=== PATIENT | male | born 1985 | race Caucasian/White ===

== ENCOUNTER 2016-10-13 21:32 | Emergency (ER) | payer MEDICAID ==
[2016-10-13] MEDS ORDERED: ONDANSETRON 4 MG/2 ML VIAL IVP STA (23:45)
[2016-10-13] MEDS ORDERED: SODIUM CHLORIDE 0.9% 1,000 ML IV STA (23:45)
[2016-10-13] MEDS ORDERED: ONDANSETRON 4 MG/2 ML VIAL ONE (23:52)
[2016-10-13] MEDS ORDERED: SODIUM CHLORIDE 0.9% 1,000 ML IV ONE (23:52)
[2016-10-14] MEDS ORDERED: HYDROmorphone 1 MG/ML SYRINGE IVP STA ×2 (00:09→03:09)
[2016-10-14] MEDS ORDERED: HYDROmorphone 1 MG/ML SYRINGE ONE ×2 (00:13→03:10)
== END 2016-10-14 03:30 | disposition home or self-care (01) ==
DX: R10.9 Unspecified abdominal pain (principal); R11.2 Nausea with vomiting, unspecified; K21.9 Gastro-esophageal reflux disease without esophagitis; Z87.19 Personal history of other diseases of the digestive system; Z90.49 Acquired absence of other specified parts of digestive tract; Z89.512 Acquired absence of left leg below knee; Z89.511 Acquired absence of right leg below knee

== ENCOUNTER 2016-12-17 07:34 | Emergency (ER) | payer MEDICAID ==
[2016-12-17] MEDS ORDERED: HYDROmorphone 1 MG/ML SYRINGE IVP STA ×3 (07:45→10:26)
[2016-12-17] MEDS ORDERED: ONDANSETRON 4 MG/2 ML VIAL IVP STA (07:45)
[2016-12-17] MEDS ORDERED: ACETAMINOPHEN 1,000 MG/100 ML 100 ML IV STA (07:46)
[2016-12-17] MEDS ORDERED: ONDANSETRON 4 MG/2 ML VIAL ONE (07:48)
[2016-12-17] MEDS ORDERED: ACETAMINOPHEN 1,000 MG/100 ML 100 ML IV ONE (07:48)
[2016-12-17] MEDS ORDERED: HYDROmorphone 1 MG/ML SYRINGE ONE ×4 (07:48→10:33)
[2016-12-17] MEDS ORDERED: PROMETHAZINE INJ 12.5 MG in SODIUM CHLORIDE 0.9% 50 ML IV STA (08:02)
[2016-12-17] MEDS ORDERED: PROMETHAZINE 25 MG/1 ML VIAL ONE (08:10)
[2016-12-17] MEDS: HYDROmorphone 1 MG/ML SYRINGE IVP STA ×2 (08:15)
[2016-12-17] MEDS ORDERED: SODIUM CHLORIDE 0.9% 1,000 ML IV ONE (08:44)
== END 2016-12-17 10:55 | disposition home or self-care (01) ==
DX: R10.31 Right lower quadrant pain (principal); K21.9 Gastro-esophageal reflux disease without esophagitis; Z87.442 Personal history of urinary calculi
CPT/HCPCS: 81001; 96374; 96375; 96376; 99284; J0131; J1170

== ENCOUNTER 2017-01-07 18:56 | Emergency (ER) | payer MEDICAID ==
[2017-01-07] MEDS ORDERED: VANCOMYCIN INJ 1 GM in SODIUM CHLORIDE 0.9% 250 ML IV STA (20:03)
[2017-01-07] MEDS ORDERED: PIPERACILLIN/TAZOBACTAM 4.5 GM in SODIUM CHLORIDE 0.9% MINIBAG 100 ML IV STA (20:03)
[2017-01-07] MEDS ORDERED: SODIUM CHLORIDE 0.9% 1,000 ML IV ONE (20:04)
[2017-01-07] MEDS ORDERED: HYDROmorphone 1 MG/ML SYRINGE IVP STA (20:58)
[2017-01-07] MEDS ORDERED: HYDROmorphone 1 MG/ML SYRINGE ONE (20:59)
== END 2017-01-07 21:29 | disposition short-term general hospital (02) ==
DX: R78.81 Bacteremia (principal); Z87.440 Personal history of urinary (tract) infections; Z87.442 Personal history of urinary calculi; K21.9 Gastro-esophageal reflux disease without esophagitis
CPT/HCPCS: 36415; 80053; 81001; 83605; 83690; 85025; 87040; 87086; 96365; 96375; 99284; 99285; J1170

== ENCOUNTER 2017-01-07 21:14 | Outpatient (CLI) | payer MEDICAID | END 2017-01-07 21:15 | disposition short-term general hospital (02) | DX: R10.9 Unspecified abdominal pain (principal); R78.81 Bacteremia | CPT/HCPCS: A0425; A0426 ==

== ENCOUNTER 2017-01-18 13:25 | Emergency (ER) | payer MEDICAID ==
[2017-01-18] MEDS ORDERED: SODIUM CHLORIDE 0.9% 1,000 ML IV ONE ×2 (15:52→17:23)
[2017-01-18] MEDS ORDERED: DEXTROSE 5%-0.9% NACL 1,000 ML IV ONE (15:55)
[2017-01-18] MEDS ORDERED: HYDROmorphone 1 MG/ML SYRINGE IVP STA ×3 (16:05→18:56)
[2017-01-18] MEDS ORDERED: ONDANSETRON 4 MG/2 ML VIAL IVP STA (16:07)
[2017-01-18] MEDS ORDERED: HYDROmorphone 1 MG/ML SYRINGE ONE ×3 (16:10→18:58)
[2017-01-18] MEDS ORDERED: ONDANSETRON 4 MG/2 ML VIAL ONE (16:10)
[2017-01-18] MEDS ORDERED: POTASSIUM CHLOR 10 MEQ/100 ML 100 ML IV ONE ×2 (17:07→18:09)
[2017-01-18] MEDS ORDERED: POTASSIUM CHLOR 10 MEQ/100 ML 200 ML IV ONE (17:24)
== END 2017-01-18 19:35 | disposition home or self-care (01) ==
DX: T82.524A Displacement of infusion catheter, initial encounter (principal); Y84.8 Other medical procedures as the cause of abnormal reaction of the patient, or of later complication, without mention of misadventure at the time of the procedure; E86.0 Dehydration; E87.6 Hypokalemia
CPT/HCPCS: 36415; 71020; 80053; 83690; 85025; 96361; 96374; 96375; 96376; 99283; 99285; J1170

== ENCOUNTER 2017-02-23 08:00 | Outpatient (CLI) | payer MEDICAID ==
[2017-02-23 13:41] LABS: BASOPHILS % (AUTO) 0.4 %; EOSINOPHILS # (AUTO) 0.3 10^3/uL (0.0-0.7); EOSINOPHILS % (AUTO) 2.4 %; HCT - HEMATOCRIT 37.5 % (42.0-52.0); HGB - HEMOGLOBIN 12.5 g/dL (14.0-18.0); LYMPHOCYTES # (AUTO) 3.1 10^3/uL (1.5-3.5); LYMPHOCYTES % (AUTO) 27.5 %; MEAN CORPUSCULAR HEMOGLOBIN 25.6 pg (27.0-31.0); MEAN CORPUSCULAR HGB CONC 33.4 g/dL (32.0-36.0); MEAN CORPUSCULAR VOLUME 76.7 fL (80.0-94.0); MEAN PLATELET VOLUME 10.6 fL (7.4-11.4); MONOCYTES # (AUTO) 0.6 10^3/uL (0.0-1.0); MONOCYTES % (AUTO) 5.5 %; NEUTROPHILS # (AUTO) 7.2 10^3/uL (1.5-6.6); NEUTROPHILS % (AUTO) 64.2 %; NUCLEATED RED BLOOD CELLS AUTO 0.1 /100WBC; RED BLOOD COUNT 4.89 10^6/uL (4.70-6.10); RED CELL DISTRIBUTION WIDTH 15.6 % (12.0-15.0); UNCORRECTED WHITE BLOOD COUNT 11.2 x10^3/uL; WHITE BLOOD COUNT 11.2 x10^3/uL (4.8-10.8)
[2017-02-23 14:30] LABS: ALBUMIN/GLOBULIN RATIO 1.3 (1.0-2.2); BILIRUBIN,TOTAL 0.4 mg/dL (0.2-1.0); CALCIUM 8.9 mg/dL (8.5-10.3); CREATININE 0.6 mg/dL (0.6-1.2); PHOSPHORUS 2.5 mg/dL (2.5-4.6); POTASSIUM 3.6 mmol/L (3.5-5.0); TOTAL PROTEIN 6.4 g/dL (6.7-8.2)
== END 2017-02-23 08:01 | disposition home or self-care (01) ==
LOC: LAB.R 08:00
PROVIDERS: ATTEND Internal Medicine Gastroenterology
DX: R78.81 Bacteremia (principal); K52.81 Eosinophilic gastritis or gastroenteritis
CPT/HCPCS: 80053; 83735; 84100; 84134; 84478; 85025; 85651; 86140

== ENCOUNTER 2017-03-02 08:00 | Outpatient (CLI) | payer MEDICAID ==
[2017-03-02 14:53] LABS: BASOPHILS % (AUTO) 0.4 %; EOSINOPHILS # (AUTO) 0.2 10^3/uL (0.0-0.7); HCT - HEMATOCRIT 39.1 % (42.0-52.0); HGB - HEMOGLOBIN 12.7 g/dL (14.0-18.0); LYMPHOCYTES # (AUTO) 2.9 10^3/uL (1.5-3.5); LYMPHOCYTES % (AUTO) 26.2 %; MEAN CORPUSCULAR HGB CONC 32.6 g/dL (32.0-36.0); MEAN CORPUSCULAR VOLUME 76.6 fL (80.0-94.0); MEAN PLATELET VOLUME 10.6 fL (7.4-11.4); MONOCYTES # (AUTO) 0.5 10^3/uL (0.0-1.0); MONOCYTES % (AUTO) 4.3 %; NEUTROPHILS # (AUTO) 7.4 10^3/uL (1.5-6.6); NEUTROPHILS % (AUTO) 67.1 %; RED CELL DISTRIBUTION WIDTH 15.8 % (12.0-15.0)
[2017-03-02 15:10] LABS: ALBUMIN/GLOBULIN RATIO 1.3 (1.0-2.2); BILIRUBIN,TOTAL 0.5 mg/dL (0.2-1.0); BUN - BLOOD UREA NITROGEN 22 mg/dL (6-20); CALCIUM 8.9 mg/dL (8.5-10.3); CARBON DIOXIDE - CO2 27 mmol/L (21-32); CHLORIDE 105 mmol/L (101-111); CREATININE 0.6 mg/dL (0.6-1.2); GFR - MDRD 156 (>89); GLUCOSE 93 mg/dL (70-100); IRON 23 ug/dL (45-182); PHOSPHORUS 2.9 mg/dL (2.5-4.6); POTASSIUM 4.1 mmol/L (3.5-5.0); SODIUM 139 mmol/L (135-145); TOTAL IRON BINDING CAPACITY 468 ug/dL (250-450); TOTAL PROTEIN 6.7 g/dL (6.7-8.2); TRANSFERRIN 334 mg/dL (180-329)
== END 2017-03-02 08:01 | disposition home or self-care (01) ==
LOC: LAB.R 08:00
PROVIDERS: ATTEND Internal Medicine Gastroenterology
DX: K52.81 Eosinophilic gastritis or gastroenteritis (principal)
CPT/HCPCS: 80053; 83540; 83735; 84100; 84466; 85025; 85651; 86140

== ENCOUNTER 2017-03-10 15:49 | Outpatient (CLI) | payer MEDICAID ==
[2017-03-10 14:01] LABS: BASOPHILS # (AUTO) 0.1 10^3/uL (0.0-0.1); BASOPHILS % (AUTO) 0.5 %; EOSINOPHILS # (AUTO) 0.3 10^3/uL (0.0-0.7); EOSINOPHILS % (AUTO) 2.3 %; HCT - HEMATOCRIT 38.4 % (42.0-52.0); HGB - HEMOGLOBIN 12.4 g/dL (14.0-18.0); LYMPHOCYTES # (AUTO) 4.7 10^3/uL (1.5-3.5); LYMPHOCYTES % (AUTO) 38.3 %; MEAN CORPUSCULAR HEMOGLOBIN 24.7 pg (27.0-31.0); MEAN CORPUSCULAR HGB CONC 32.4 g/dL (32.0-36.0); MEAN CORPUSCULAR VOLUME 76.2 fL (80.0-94.0); MEAN PLATELET VOLUME 9.9 fL (7.4-11.4); MONOCYTES # (AUTO) 0.7 10^3/uL (0.0-1.0); MONOCYTES % (AUTO) 5.9 %; NEUTROPHILS # (AUTO) 6.4 10^3/uL (1.5-6.6); RED BLOOD COUNT 5.05 10^6/uL (4.70-6.10); RED CELL DISTRIBUTION WIDTH 16.1 % (12.0-15.0); UNCORRECTED WHITE BLOOD COUNT 12.1 x10^3/uL; WHITE BLOOD COUNT 12.1 x10^3/uL (4.8-10.8)
[2017-03-10 14:25] LABS: ALBUMIN/GLOBULIN RATIO 1.3 (1.0-2.2); BILIRUBIN,TOTAL 0.5 mg/dL (0.2-1.0); CALCIUM 9.2 mg/dL (8.5-10.3); CREATININE 0.8 mg/dL (0.6-1.2); PHOSPHORUS 3.8 mg/dL (2.5-4.6); POTASSIUM 4.1 mmol/L (3.5-5.0); TOTAL PROTEIN 6.7 g/dL (6.7-8.2)
== END 2017-03-10 15:50 | disposition home or self-care (01) ==
LOC: LAB.R 15:49
PROVIDERS: ATTEND Internal Medicine Gastroenterology
DX: D50.9 Iron deficiency anemia, unspecified (principal); R78.81 Bacteremia; K52.81 Eosinophilic gastritis or gastroenteritis
CPT/HCPCS: 80053; 83735; 84100; 85025; 85651; 86140

== ENCOUNTER 2017-03-16 13:20 | Outpatient (CLI) | payer MEDICAID ==
[2017-03-16 14:33] LABS: BASOPHILS % (AUTO) 0.4 %; EOSINOPHILS # (AUTO) 0.3 10^3/uL (0.0-0.7); EOSINOPHILS % (AUTO) 2.9 %; HCT - HEMATOCRIT 37.7 % (42.0-52.0); HGB - HEMOGLOBIN 12.3 g/dL (14.0-18.0); LYMPHOCYTES # (AUTO) 4.2 10^3/uL (1.5-3.5); LYMPHOCYTES % (AUTO) 39.7 %; MEAN CORPUSCULAR HGB CONC 32.7 g/dL (32.0-36.0); MEAN CORPUSCULAR VOLUME 76.4 fL (80.0-94.0); MEAN PLATELET VOLUME 9.9 fL (7.4-11.4); MONOCYTES # (AUTO) 0.6 10^3/uL (0.0-1.0); MONOCYTES % (AUTO) 5.6 %; NEUTROPHILS # (AUTO) 5.4 10^3/uL (1.5-6.6); NEUTROPHILS % (AUTO) 51.4 %; NUCLEATED RED BLOOD CELLS AUTO 0.1 /100WBC; RED BLOOD COUNT 4.93 10^6/uL (4.70-6.10); RED CELL DISTRIBUTION WIDTH 16.1 % (12.0-15.0); UNCORRECTED WHITE BLOOD COUNT 10.6 x10^3/uL; WHITE BLOOD COUNT 10.6 x10^3/uL (4.8-10.8)
[2017-03-16 14:48] LABS: ALBUMIN/GLOBULIN RATIO 1.3 (1.0-2.2); BILIRUBIN,TOTAL 0.4 mg/dL (0.2-1.0); CALCIUM 8.7 mg/dL (8.5-10.3); CREATININE 0.6 mg/dL (0.6-1.2); PHOSPHORUS 3.3 mg/dL (2.5-4.6); POTASSIUM 3.9 mmol/L (3.5-5.0); TOTAL PROTEIN 6.4 g/dL (6.7-8.2)
== END 2017-03-16 13:21 | disposition home or self-care (01) ==
LOC: LAB.R 13:20
PROVIDERS: ATTEND Nurse Practitioner Family
DX: D50.9 Iron deficiency anemia, unspecified (principal); K52.81 Eosinophilic gastritis or gastroenteritis; R78.81 Bacteremia
CPT/HCPCS: 80053; 83735; 84100; 85025; 85651; 86140

== ENCOUNTER 2017-03-23 08:00 | Outpatient (CLI) | payer MEDICAID ==
[2017-03-23 16:10] LABS: BASOPHILS # (AUTO) 0.1 10^3/uL (0.0-0.1); BASOPHILS % (AUTO) 0.5 %; EOSINOPHILS # (AUTO) 0.4 10^3/uL (0.0-0.7); EOSINOPHILS % (AUTO) 3.8 %; HCT - HEMATOCRIT 42.7 % (42.0-52.0); HGB - HEMOGLOBIN 13.7 g/dL (14.0-18.0); LYMPHOCYTES # (AUTO) 2.9 10^3/uL (1.5-3.5); LYMPHOCYTES % (AUTO) 26.9 %; MEAN CORPUSCULAR HEMOGLOBIN 25.4 pg (27.0-31.0); MEAN CORPUSCULAR HGB CONC 32.1 g/dL (32.0-36.0); MEAN CORPUSCULAR VOLUME 79.1 fL (80.0-94.0); MEAN PLATELET VOLUME 10.2 fL (7.4-11.4); MONOCYTES # (AUTO) 0.7 10^3/uL (0.0-1.0); MONOCYTES % (AUTO) 6.2 %; NEUTROPHILS # (AUTO) 6.8 10^3/uL (1.5-6.6); NEUTROPHILS % (AUTO) 62.6 %; RED BLOOD COUNT 5.39 10^6/uL (4.70-6.10); RED CELL DISTRIBUTION WIDTH 17.7 % (12.0-15.0); UNCORRECTED WHITE BLOOD COUNT 10.9 x10^3/uL; WHITE BLOOD COUNT 10.9 x10^3/uL (4.8-10.8)
[2017-03-23 16:30] LABS: ALBUMIN/GLOBULIN RATIO 1.4 (1.0-2.2); BILIRUBIN,TOTAL 0.4 mg/dL (0.2-1.0); CALCIUM 8.9 mg/dL (8.5-10.3); CREATININE 0.7 mg/dL (0.6-1.2); MAGNESIUM 2.2 mg/dL (1.7-2.8); PHOSPHORUS 3.7 mg/dL (2.5-4.6); POTASSIUM 3.8 mmol/L (3.5-5.0); TOTAL PROTEIN 6.9 g/dL (6.7-8.2)
== END 2017-03-23 23:59 | disposition home or self-care (01) ==
LOC: LAB.R 08:00
PROVIDERS: ATTEND Internal Medicine Gastroenterology
DX: K52.81 Eosinophilic gastritis or gastroenteritis (principal); D50.9 Iron deficiency anemia, unspecified
CPT/HCPCS: 80053; 83735; 84100; 85025; 85651; 86140

== ENCOUNTER 2017-03-26 13:49 | Outpatient (CLI) | payer MEDICAID ==
--- NOTE | 2017-03-27 09:50 | XRAY Report ---
FRONTAL CHEST: 03/26/2017 CLINICAL INDICATION: Nutritional disorder, confirm central line position. COMPARISON: 01/18/2017 FINDINGS: Frontal view of the chest demonstrates a normal cardiac silhouette. A right jugular bright ter terminates in the superior vena cava. No focal infiltrate, effusion, or pneumothorax is present. IMPRESSION: RIGHT JUGULAR CATHETER TERMINATING IN THE SUPERIOR VENA CAVA. JOB #: [id number] EXT JOB #:[id number]
== END 2017-03-26 13:50 | disposition home or self-care (01) ==
LOC: DI.N 13:49
PROVIDERS: ATTEND Family Medicine
DX: E46 Unspecified protein-calorie malnutrition (principal)
CPT/HCPCS: 71010

== ENCOUNTER 2017-03-30 | Outpatient (CLI) | payer MEDICAID ==
[2017-03-30 15:37] LABS: BASOPHILS # (AUTO) 0.1 10^3/uL (0.0-0.1); BASOPHILS % (AUTO) 0.7 %; EOSINOPHILS # (AUTO) 0.5 10^3/uL (0.0-0.7); EOSINOPHILS % (AUTO) 4.5 %; HCT - HEMATOCRIT 42.9 % (42.0-52.0); HGB - HEMOGLOBIN 13.8 g/dL (14.0-18.0); LYMPHOCYTES # (AUTO) 3.7 10^3/uL (1.5-3.5); LYMPHOCYTES % (AUTO) 35.1 %; MEAN CORPUSCULAR HEMOGLOBIN 25.8 pg (27.0-31.0); MEAN CORPUSCULAR HGB CONC 32.1 g/dL (32.0-36.0); MEAN CORPUSCULAR VOLUME 80.4 fL (80.0-94.0); MEAN PLATELET VOLUME 10.5 fL (7.4-11.4); MONOCYTES # (AUTO) 0.5 10^3/uL (0.0-1.0); NEUTROPHILS # (AUTO) 5.8 10^3/uL (1.5-6.6); NEUTROPHILS % (AUTO) 54.7 %; NUCLEATED RED BLOOD CELLS AUTO 0.1 /100WBC; RED BLOOD COUNT 5.34 10^6/uL (4.70-6.10); RED CELL DISTRIBUTION WIDTH 19.5 % (12.0-15.0); UNCORRECTED WHITE BLOOD COUNT 10.5 x10^3/uL; WHITE BLOOD COUNT 10.5 x10^3/uL (4.8-10.8)
[2017-03-30 16:14] LABS: ALBUMIN/GLOBULIN RATIO 1.3 (1.0-2.2); BILIRUBIN,TOTAL 0.4 mg/dL (0.2-1.0); CREATININE 0.7 mg/dL (0.6-1.2); POTASSIUM 4.2 mmol/L (3.5-5.0); TOTAL PROTEIN 6.6 g/dL (6.7-8.2)
== END 2017-03-30 23:59 | disposition home or self-care (01) ==
LOC: LAB.R
PROVIDERS: ATTEND Internal Medicine Gastroenterology
DX: D50.9 Iron deficiency anemia, unspecified (principal); R78.81 Bacteremia; K52.81 Eosinophilic gastritis or gastroenteritis
CPT/HCPCS: 80053; 82728; 83540; 83735; 84100; 84134; 84466; 84478; 85025; 85651; 86140

== ENCOUNTER 2017-04-06 08:00 | Outpatient (CLI) | payer MEDICAID ==
[2017-04-06 16:39] LABS: BASOPHILS % (AUTO) 0.4 %; EOSINOPHILS # (AUTO) 0.5 10^3/uL (0.0-0.7); HGB - HEMOGLOBIN 13.8 g/dL (14.0-18.0); LYMPHOCYTES # (AUTO) 1.7 10^3/uL (1.5-3.5); LYMPHOCYTES % (AUTO) 16.8 %; MEAN CORPUSCULAR HEMOGLOBIN 25.9 pg (27.0-31.0); MEAN CORPUSCULAR HGB CONC 32.2 g/dL (32.0-36.0); MEAN CORPUSCULAR VOLUME 80.6 fL (80.0-94.0); MEAN PLATELET VOLUME 10.1 fL (7.4-11.4); MONOCYTES # (AUTO) 0.8 10^3/uL (0.0-1.0); MONOCYTES % (AUTO) 8.6 %; NEUTROPHILS # (AUTO) 6.8 10^3/uL (1.5-6.6); NEUTROPHILS % (AUTO) 69.2 %; NUCLEATED RED BLOOD CELLS AUTO 0.1 /100WBC; RED BLOOD COUNT 5.33 10^6/uL (4.70-6.10); RED CELL DISTRIBUTION WIDTH 20.2 % (12.0-15.0); UNCORRECTED WHITE BLOOD COUNT 9.8 x10^3/uL; WHITE BLOOD COUNT 9.8 x10^3/uL (4.8-10.8)
[2017-04-06 17:05] LABS: ALBUMIN/GLOBULIN RATIO 1.5 (1.0-2.2); BILIRUBIN,TOTAL 0.5 mg/dL (0.2-1.0); CALCIUM 8.7 mg/dL (8.5-10.3); CREATININE 0.7 mg/dL (0.6-1.2); MAGNESIUM 1.9 mg/dL (1.7-2.8); PHOSPHORUS 3.4 mg/dL (2.5-4.6); POTASSIUM 3.8 mmol/L (3.5-5.0); TOTAL PROTEIN 6.3 g/dL (6.7-8.2)
[2017-04-06 17:40] LABS: PLATELET ESTIMATE, MANUAL NORMAL (130-450,000) (NORMAL); PLATELET MORPHOLOGY NORMAL APPEARANCE (NORMAL)
== END 2017-04-06 08:01 | disposition home or self-care (01) ==
LOC: LAB.R 08:00
DX: D50.9 Iron deficiency anemia, unspecified (principal); K52.81 Eosinophilic gastritis or gastroenteritis; R78.81 Bacteremia
CPT/HCPCS: 80053; 83735; 84100; 85025; 85651; 86140

== ENCOUNTER 2017-04-06 16:02 | Emergency (ER) | payer MEDICAID ==
[2017-04-06] MEDS ORDERED: SODIUM CHLORIDE 0.9% 1,000 ML IV ONE ×2 (16:43→19:04)
[2017-04-06 16:59] LABS: BILIRUBIN,URINE NEGATIVE (NEGATIVE)
[2017-04-06 17:06] LABS: UA CHARGE (STRIP ONLY) YES; UR CULTURE IF IND NOT INDICATED
[2017-04-06] MEDS ORDERED: ONDANSETRON 4 MG/2 ML VIAL IVP STA (17:29)
[2017-04-06 17:30] LABS: BASOPHILS # (AUTO) 0.1 10^3/uL (0.0-0.1); BASOPHILS % (AUTO) 0.7 %; EOSINOPHILS # (AUTO) 0.5 10^3/uL (0.0-0.7); EOSINOPHILS % (AUTO) 4.9 %; HCT - HEMATOCRIT 42.6 % (42.0-52.0); HGB - HEMOGLOBIN 13.8 g/dL (14.0-18.0); LYMPHOCYTES # (AUTO) 1.6 10^3/uL (1.5-3.5); LYMPHOCYTES % (AUTO) 16.2 %; MEAN CORPUSCULAR HEMOGLOBIN 26.2 pg (27.0-31.0); MEAN CORPUSCULAR HGB CONC 32.5 g/dL (32.0-36.0); MEAN CORPUSCULAR VOLUME 80.5 fL (80.0-94.0); MEAN PLATELET VOLUME 9.6 fL (7.4-11.4); MONOCYTES # (AUTO) 0.9 10^3/uL (0.0-1.0); MONOCYTES % (AUTO) 9.4 %; NEUTROPHILS # (AUTO) 6.7 10^3/uL (1.5-6.6); NEUTROPHILS % (AUTO) 68.8 %; RED BLOOD COUNT 5.29 10^6/uL (4.70-6.10); RED CELL DISTRIBUTION WIDTH 20.1 % (12.0-15.0); UNCORRECTED WHITE BLOOD COUNT 9.7 x10^3/uL; WHITE BLOOD COUNT 9.7 x10^3/uL (4.8-10.8)
[2017-04-06] MEDS ORDERED: ONDANSETRON 4 MG/2 ML VIAL ONE (17:30)
--- NOTE | 2017-04-06 17:33 | XRAY Preliminary Report ---
Exam: XR Chest 2 View PA/LAT Impression: No evidence of an infiltrate. Interval advancement of the central line. [facility] SITE ID: [id number]
--- NOTE | 2017-04-06 17:35 | XRAY Report ---
EXAM: CHEST RADIOGRAPHY EXAM DATE: 04/06/2017 05:11 PM. CLINICAL HISTORY: Cough and fever. COMPARISON: 01/18/2017. TECHNIQUE: 2 views. FINDINGS: The heart is not enlarged. There is been interval advancement of the central line. The tip is overlyi ng the superior vena cava. There is no focal infiltrate, pleural effusion or pneumothorax seen. Impression: No evidence of an infiltrate. Interval advancement of the central line. [facility] Referring Provider Line: [phone] SITE ID: [id number]
[2017-04-06 17:42] LABS: ALBUMIN/GLOBULIN RATIO 1.1 (1.0-2.2); BILIRUBIN,TOTAL 0.4 mg/dL (0.2-1.0); CALCIUM 8.8 mg/dL (8.5-10.3); CREATININE 0.8 mg/dL (0.6-1.2); POTASSIUM 3.5 mmol/L (3.5-5.0); TOTAL PROTEIN 7.2 g/dL (6.7-8.2)
[2017-04-06] MEDS ORDERED: cefTRIAXone 1 GM in SODIUM CHLORIDE 0.9% MINIBAG 100 ML IV STA (17:49)
--- NOTE | 2017-04-06 17:53 | ED Physician Documentation ---
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 In addition his intravenous access line did not appear to be functioning properly and he has not had additional saline hydration over the past 2 days. He does feel ill and weak and has a cough.He states that his line securing device was recently redressed and the area appears well. He is not having urinary symptoms he is not having diarrhea he is not febrile on arrival to the emergency department. Review of Systems Constitutional: reports: Fever, Fatigue Eyes: denies: Decreased vision Ears: denies: Ear pain Nose: denies: Rhinorrhea / runny nose, Congestion Throat: denies: Sore throat Cardiac: denies: Chest pain / pressure, Palpitations Respiratory: reports: Cough. denies: Dyspnea GI: reports: Abdominal Pain, Nausea. denies: Vomiting : denies: Dysuria, Frequency Skin: denies: Rash Musculoskeletal: denies: Neck pain, Back pain PD PAST MEDICAL HISTORY - Past Medical History Cardiovascular: None Respiratory: None Neuro: None, Fainting Endocrine/Autoimmune: Other GI: GERD, Pancreatitis, Cholelithiasis, Other : Kidney stones HEENT: None Psych: Depression, Anxiety, Panic attacks Musculoskeletal: Other Derm: Eczema Other Past Medical History: TPN dependent - Past Surgical History Past Surgical History: Yes General: Cholecystectomy, Bowel surgery, Colonoscopy, Other Ortho: Amputation - Present Medications Home Medications: Ambulatory Orders Medication Instructions Recorded Confirmed Ondansetron [Ondansetron Odt] 8 mg IV Q6HR 04/05/13 04/06/17 Lorazepam 2 tab PO TID 06/02/14 04/06/17 Omeprazole 40 mg PO BID 07/06/14 04/06/17 Duloxetine HCl [Cymbalta] 60 mg PO DAILY 05/11/15 04/06/17 Hydromorphone HCl [Dilaudid] 4 mg PO 5XD 05/11/15 04/06/17 Sodium/Pot/Mag/Calc/Chlor/Acet 2,000 ml IV QPM 07/03/15 04/06/17 [TPN Electrolytes II IV Soln] Loratadine [Claritin] 10 mg PO QPM 03/09/16 04/06/17 Clobetasol Propionate/Emoll 1 applic PO DAILY 01/07/17 04/06/17 [Clobetasol Emollient 0.05% Crm] - Allergies Allergies/Adverse Reactions: Allergies Allergy/AdvReac Type Severity Reaction Status Date / Time metoclopramide HCl * Allergy Severe Anxiety Verified 04/06/17 17:41 [From Reglan] NSAIDS (Non-Steroidal Allergy Severe Erosive Verified 04/06/17 17:41 Anti-Inflamma Esophagitis - Social History Does the pt smoke?: No Smoking Status: Never smoker Does the pt drink ETOH?: No Does the pt have substance abuse?: No - Immunizations Immunizations are current?: Yes - POLST Patient has POLST: No PD ED PE NORMAL - Vitals Vital signs reviewed: Yes (Hypertensive mild) - General General: Alert and oriented X 3, No acute distress, Well developed/nourished - HEENT HEENT: Atraumatic, PERRL, EOMI, Ears normal, Other (Dry mucous membranes) - Neck Neck: Supple, no meningeal sign, No bony TTP - Cardiac Cardiac: RRR, No murmur - Respiratory Respiratory: No respiratory distress, Clear bilaterally, Other (The insertion site of the line is without evidence of inflammation or tenderness.) - Abdomen Abdomen: Soft, Non tender - Back Back: No CVA TTP, No spinal TTP - Derm Derm: Normal color, No rash - Extremities Extremities: Other (The patient has bilateral lower extremity amputation.) - 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, No motor deficit, No sensory deficit, Normal speech - Psych Psych: Normal mood, Normal affect Results - Vitals Vitals: Vital Signs - 24 hr 04/06/17 04/06/17 16:20 19:04 Temperature 36.9 C 37.1 C Heart Rate 76 80 Respiratory 16 16 Rate Blood Pressure 132/69 H 135/59 H O2 Saturation 96 99 Oxygen O2 Source Room air - Labs Labs: Laboratory Tests 04/06/17 04/06/17 04/06/17 16:14 17:15 17:15 WBC 9.7 RBC 5.29 Hgb 13.8 L Hct 42.6 MCV 80.5 MCH 26.2 L MCHC 32.5 RDW 20.1 H Plt Count 154 MPV 9.6 Neut # 6.7 H Lymph # 1.6 [place] # 0.9 Eos # 0.5 Baso # 0.1 Absolute Nucleated RBC 0.00 Nucleated RBCs 0.0 Sodium 137 Potassium 3.5 Chloride 103 Carbon Dioxide 26 Anion Gap 8.0 BUN 18 Creatinine 0.8 Estimated GFR (MDRD) 112 Glucose 80 Calcium 8.8 Total Bilirubin 0.4 AST 20 ALT 27 Alkaline Phosphatase 112 Total Protein 7.2 Albumin 3.8 Globulin 3.4 Albumin/Globulin Ratio 1.1 Lipase 56 H Urine Color YELLOW Urine Clarity CLEAR Urine pH 6.0 Ur Specific [place] 1.025 Urine Protein NEGATIVE Urine Glucose (UA) NEGATIVE Urine Ketones NEGATIVE Urine Occult Blood NEGATIVE Urine Nitrite NEGATIVE Urine Bilirubin NEGATIVE Urine Urobilinogen 0.2 (NORMAL) Ur Leukocyte Esterase NEGATIVE Ur Microscopic Review NOT INDICATED Urine Culture Comments NOT INDICATED - Rads (name of study) 2 view chest Radiology: Prelim report reviewed (Impression: No evidence of infiltrate. Interval advancement of the central line.), EMP read indepedently, See rad report Procedures - IVC sono (time) 1650 Bedside IVC sono: IVC measures (cm) (0.89), IVC collapsed c insp (cm) (complete) , Dehydration PD MEDICAL DECISION MAKING - ED course Complexity details: reviewed old records, reviewed results, re-evaluated patient , considered differential, d/w patient ED course: 31-year-old male on TPN with eosinophilic gastroenteritis presents today with 2 days of fever he is afebrile here in the emergency department white blood cell count is normal electrolytes and chemistries are normal and urinalysis is normal as well. He does not have infiltrate on chest x-ray and on exam there are no other signs of infection. The patient is dehydrated on interrogation of the inferior vena cava and here in the emergency department he is administered 2 L of normal saline blood cultures 2 were obtained and he is given 1 g of Rocephin intravenously. Departure - Departure Disposition: 01 Home, Self Care Clinical Impression: Dehydration Condition: Stable Instructions: ED Dehydration Follow-Up: Your, doctor [Other] Comments: Today you were not febrile in the Emergency department and your white blood count was normal, your chest x-ray was without evidence of pneumonia and we did find you were dehydrated on interrogation of the IVC. Here in the emergency department we danay 2 blood cultures and have given you a dose of intravenous antibiotic as well as 2 liters of saline.
[2017-04-06] MEDS ORDERED: cefTRIAXone 1 GM VIAL ONE (17:59)
[2017-04-06] MEDS ORDERED: HYDROmorphone 1 MG/ML SYRINGE IVP STA (18:05)
[2017-04-06] MEDS ORDERED: HYDROmorphone 1 MG/ML SYRINGE ONE (18:11)
[2017-04-06 20:27] VITALS: BP 119/57
== END 2017-04-06 20:37 | disposition home or self-care (01) ==
LOC: ED 16:02
DX: E86.0 Dehydration (principal); K52.81 Eosinophilic gastritis or gastroenteritis
CPT/HCPCS: 36415; 71020; 80053; 81003; 83690; 83735; 84100; 85025; 85651; 86140; 87040; 96361; 96365; 96375; 99284; J1170; 81001; 87086

== ENCOUNTER 2017-05-11 11:27 | Emergency (ER) | payer MEDICAID ==
--- NOTE | 2017-05-11 12:53 | ED Physician Documentation ---
History of Present Illness - Stated complaint Stated Complaint: PORT PULLED OUT - Chief complaint Chief Complaint: General - History obtained from History obtained from: Patient, Family - History of Present Illness Timing: Other (31-year-old gentleman with eosinophilic intestinal disease, TPN dependent at this juncture. Currently has a Gamez in place which was placed in January into the right subclavian vein. He tripped over his cat today and it dislodged by a couple of centimeters. It is not completely out.) Review of Systems Constitutional: denies: Fever, Chills Cardiac: denies: Chest pain / pressure Respiratory: denies: Dyspnea, Cough PD PAST MEDICAL HISTORY - Past Medical History Past Medical History: Yes Cardiovascular: None Respiratory: None Neuro: None, Fainting Endocrine/Autoimmune: Other GI: GERD, Pancreatitis, Cholelithiasis, Other : Kidney stones HEENT: None Psych: Depression, Anxiety, Panic attacks Musculoskeletal: Other Derm: Eczema Other Past Medical History: eroded esophagus with weakn esophageal sphinter - Past Surgical History Past Surgical History: Yes General: Cholecystectomy, Bowel surgery, Colonoscopy, Other Ortho: Amputation - Present Medications Home Medications: Ambulatory Orders Medication Instructions Recorded Confirmed Ondansetron [Ondansetron Odt] 8 mg IV Q6HR 04/05/13 05/11/17 Omeprazole 40 mg PO BID 07/06/14 05/11/17 Duloxetine HCl [Cymbalta] 60 mg PO DAILY 05/11/15 05/11/17 Sodium/Pot/Mag/Calc/Chlor/Acet 2,000 ml IV QPM 07/03/15 05/11/17 [TPN Electrolytes II IV Soln] Loratadine [Claritin] 10 mg PO QPM 03/09/16 05/11/17 Clobetasol Propionate/Emoll 1 applic PO DAILY PRN 01/07/17 05/11/17 [Clobetasol Emollient 0.05% Crm] - Allergies Allergies/Adverse Reactions: Allergies Allergy/AdvReac Type Severity Reaction Status Date / Time metoclopramide HCl * Allergy Severe Anxiety Verified 04/06/17 17:41 [From Reglan] NSAIDS (Non-Steroidal Allergy Severe Erosive Verified 04/06/17 17:41 Anti-Inflamma Esophagitis - Social History Does the pt smoke?: No Smoking Status: Never smoker Does the pt drink ETOH?: No Does the pt have substance abuse?: No - Immunizations Immunizations are current?: Yes - POLST Patient has POLST: No PD ED PE NORMAL - Vitals Vital signs reviewed: Yes - General General: Alert and oriented X 3, No acute distress - Cardiac Cardiac: Other (There is a small lumen to port central line in the right upper chest wall which looks like it has come out by about 2 cm, but it is still in place.) - Neuro Neuro: Alert and oriented X 3, Normal speech - Psych Psych: Normal mood, Normal affect Results - Vitals Vitals: Vital Signs - 24 hr 05/11/17 11:51 Temperature 36.4 C L Heart Rate 84 Respiratory 18 Rate Blood Pressure 122/74 O2 Saturation 98 Oxygen O2 Source Room air Procedures - General procedure General procedure: The area overlying the Gamez was prepped widely with ChloraPrep and locally infiltrated with lidocaine with epinephrine. A suture was placed around the base of the catheter with 4-0 nylon and a Biopatch and The distal wings were also sutured to the chest wall. PD MEDICAL DECISION MAKING - ED course ED course: 31-year-old gentleman, TPN dependence with partial dislodgment of his Gamez catheter. X-ray done and reviewed with Dr. Villavicencio, the tip is still in the central circulation and therefore usable. Case discussed by phone with Dr. Thomas, the on-call surgeon at 1:30 PM who will come see the patient to secure the catheter. After his evaluation he wanted me to suture the catheter in its current place and he will bring him back on Thursday for a new catheter. Departure - Departure Disposition: 01 Home, Self Care Clinical Impression: Eosinophilic colitis Accidental loss of central line Qualifiers: Encounter type: initial encounter Qualified Code(s): T82.898A - Other specified complication of vascular prosthetic devices, implants and grafts, initial encounter Condition: Stable Comments: To the operating room per Dr. Thomas's instructions on Thursday for new catheter placements.
--- NOTE | 2017-05-11 13:42 | XRAY Report ---
FRONTAL CHEST: 05/11/2017 CLINICAL INDICATION: Weeks partially pulled. COMPARISON: 04/06/2017. FINDINGS: Frontal view of the chest demonstrates a right jugular catheter terminating in the mid sup erior vena cava, with the tip approximately 1.5 cm higher than on the previous examination of 017. The cardiac silhouette is within normal limits. The lungs are clear. No effusion or pneumothorax is present. IMPRESSION: SLIGHT INTERVAL CHANGE IN POSITION OF THE TIP OF THE RIGHT JUGULAR WEEKS CATHETER. JOB #: [id number] EXT JOB #:[id number]
[2017-05-11] MEDS ORDERED: LIDOCAINE MPF 1%-EPI 1:200000 30 ML VIAL ONE (14:00)
[2017-05-11 14:24] VITALS: BP 129/67
== END 2017-05-11 14:24 | disposition home or self-care (01) ==
LOC: ED 11:27
DX: T82.898A Other specified complication of vascular prosthetic devices, implants and grafts, initial encounter (principal); K52.82 Eosinophilic colitis; K21.9 Gastro-esophageal reflux disease without esophagitis; Z87.442 Personal history of urinary calculi
CPT/HCPCS: 71010; 99283

== ENCOUNTER 2017-05-15 09:24 | Day surgery (SDC) | payer MEDICAID ==
[2017-05-15] MEDS ORDERED: LACTATED RINGERS 1,000 ML IV ONE (09:45)
[2017-05-15] MEDS ORDERED: BUPIVACAINE 0.5%-EPI 1:200000 PF 30 ML VIAL SUBQ ONE ×2 (10:59)
[2017-05-15] MEDS ORDERED: NEOMYCIN/BACITRA/POLYMYX/HC OINT 15 GM TUBE TOP ONE (11:51)
[2017-05-15] MEDS ORDERED: MIDAZOLAM 2 MG/2 ML VIAL IVP ONE (12:00)
[2017-05-15] MEDS ORDERED: fentaNYL 100 MCG/2 ML VIAL IVP ONE (12:00)
[2017-05-15] MEDS ORDERED: PROPOFOL 200 MG/20 ML VIAL IVP ONE (12:00)
[2017-05-15] MEDS ORDERED: ONDANSETRON 4 MG/2 ML VIAL IVP ONE (12:00)
[2017-05-15] MEDS ORDERED: LIDOCAINE-MPF 2% 5 ML VIAL IM ONE (12:00)
[2017-05-15] MEDS ORDERED: HYDROmorphone 1 MG/ML SYRINGE ONE (12:14)
--- NOTE | 2017-05-15 13:14 | XRAY Report ---
INTRAOPERATIVE FLUOROSCOPY FOR LINE PLACEMENT: 05/15/2017 CLINICAL INDICATION: Central line placement. FINDINGS: A total of 54 seconds of fluoroscopy time was provided to Dr. Thomas. Two spot images wer e obtained, documenting placement of a left jugular central venous catheter. IMPRESSION: INTRAOPERATIVE IMAGING OF LINE PLACEMENT. JOB #: [id number] EXT JOB #:[id number]
[2017-05-15 13:31] VITALS: BP 122/68
--- NOTE | 2017-05-15 13:34 | XRAY Report ---
FRONTAL CHEST: 05/15/2017 CLINICAL INDICATION: Gamez placement. FINDINGS: Frontal view of the chest demonstrates a left jugular Gamez catheter terminating in the distal superior vena cava. The cardiac silhouette is within normal limits. The lungs are clear. No ef fusion or pneumothorax is present. IMPRESSION: LEFT JUGULAR CATHETER TERMINATING IN THE SUPERIOR VENA CAVA. JOB #: [id number] EXT JOB #:[id number]
--- NOTE | 2017-05-18 08:54 | XRAY Report ---
Fluoroscopy time only, no images submitted for interpretation. Fluoroscopy time 0 minutes, 54 seconds. MTDD
--- NOTE | 2017-05-18 23:29 | OPERATIVE REPORT ---
DATE OF SURGERY: 05/18/2017 00:00:00 PREOPERATIVE DIAGNOSIS: Eosinophilic gastroenteritis, unable to take adequate oral intake. POSTOPERATIVE DIAGNOSIS: Eosinophilic gastroenteritis, unable to take adequate oral intake. PROCEDURES 1. Placement of right internal jugular central venous line under ultrasound guidance. 2. Removal of right internal jugular Gamez catheter. OPERATING SURGEON: Rian Thomas MD ANESTHESIA: MAC. INDICATIONS FOR PROCEDURE: Patient is a 31-year-old male who has eosinophilic gastroenteritis. This causes him to take in less calories than what he needs. He has a Gamez on the right side that is partially coming out and needs to be removed and replaced. FINDINGS AT PROCEDURE: A 9-[place] dual-lumen Gamez catheter was placed via the right internal jugu lar approach. Tip of the catheter was located in the distal superior vena cava. There was good aspi ration of blood through the ports, with the ports being flushed easily. PROCEDURE: After informed consent was obtained, the patient was taken to the operating room and plac ed in a supine position. MAC anesthesia was administered. The patient's left neck and chest were th en prepped and draped in the usual sterile fashion. Using ultrasound, the left internal jugular vein was then identified. The skin overlying the vein was then injected with local anesthesia. An 18-ga uge needle was then inserted through the skin into the internal jugular vein under direct vision. Th ere was return of dark nonpulsatile blood. A guidewire was placed through the needle, and the needle was withdrawn. A location was then made on the left upper chest lateral portion, where the exit site would be locate d for the Gamez catheter. The skin was then injected with local anesthesia. An incision was then made. The incision at the neck insertion site was then made at the guidewire entrance site using a # 11 blade. The skin between these 2 incisions was then injected with local anesthesia. A Gamez cat heter was then tunneled from the left chest incision up into the neck incision. The catheter was the n trimmed to appropriate size. The catheter cuff was buried in the subcutaneous tissue. The cathete r was then flushed. A dilator and sheath were then placed over the guidewire, and the guidewire and dilator were removed, leaving the sheath in place. The catheter was placed through the sheath, and u nder fluoroscopic guidance was then directed into the superior vena cava. The peel-away sheath was t hen removed. The tip of the catheter was located in the distal superior vena cava. There was good a spiration of blood through the ports, with it being flushed easily. The neck incision was closed usi ng a 4-0 Monocryl subcuticular stitch. Dermabond had been applied. The catheter was secured to the skin using 3-0 nylon suture. Dry dressings were then applied. Attention then turned to the right side. The cuff of the catheter was located outside of the incisio n on the left chest. The sutures were then removed. The catheter was then removed and pressure appl ied to the tunnel site. Once hemostasis was obtained, a dry dressing was placed upon the exit site. The patient was then awakened and taken from the operating room in stable condition. ESTIMATED BLOOD LOSS: Less than 1 mL. COMPLICATIONS: None. CONDITION AT END OF PROCEDURE: Stable. SPECIMENS: None. DRAINS AND PACKS: None. CLASSIFICATION OF WOUND: Clean. JOB #: [id number] EXT JOB #:[id number]
== END 2017-05-15 09:25 | disposition home or self-care (01) ==
LOC: SDS 09:24
PROVIDERS: ATTEND Surgery
PROC: B5181ZA Fluoroscopy of Superior Vena Cava using Low Osmolar Contrast, Guidance (ICD-10-PCS; 2017-05-15)
PROC: 02HV33Z Insertion of Infusion Device into Superior Vena Cava, Percutaneous Approach (ICD-10-PCS; principal; 2017-05-15 10:30)
DX: K52.81 Eosinophilic gastritis or gastroenteritis (principal); T82.898A Other specified complication of vascular prosthetic devices, implants and grafts, initial encounter; Y83.8 Other surgical procedures as the cause of abnormal reaction of the patient, or of later complication, without mention of misadventure at the time of the procedure; K21.9 Gastro-esophageal reflux disease without esophagitis; Z89.432 Acquired absence of left foot; Z89.431 Acquired absence of right foot; Z90.49 Acquired absence of other specified parts of digestive tract
CPT/HCPCS: 36558; 71010; A9270; J1170; J7120

== ENCOUNTER 2017-06-23 20:01 | Outpatient (CLI) | payer MEDICAID ==
[2017-06-23 15:42] LABS: BASOPHILS % (AUTO) 0.3 %; EOSINOPHILS # (AUTO) 0.6 10^3/uL (0.0-0.7); EOSINOPHILS % (AUTO) 4.7 %; HCT - HEMATOCRIT 45.3 % (42.0-52.0); LYMPHOCYTES # (AUTO) 3.4 10^3/uL (1.5-3.5); MEAN CORPUSCULAR HEMOGLOBIN 27.6 pg (27.0-31.0); MEAN CORPUSCULAR HGB CONC 33.2 g/dL (32.0-36.0); MEAN CORPUSCULAR VOLUME 83.1 fL (80.0-94.0); MEAN PLATELET VOLUME 10.6 fL (7.4-11.4); MONOCYTES # (AUTO) 0.8 10^3/uL (0.0-1.0); MONOCYTES % (AUTO) 6.5 %; NEUTROPHILS # (AUTO) 8.1 10^3/uL (1.5-6.6); NEUTROPHILS % (AUTO) 62.5 %; NUCLEATED RED BLOOD CELLS AUTO 0.1 /100WBC; RED BLOOD COUNT 5.45 10^6/uL (4.70-6.10); RED CELL DISTRIBUTION WIDTH 16.7 % (12.0-15.0)
[2017-06-23 16:18] LABS: ALBUMIN/GLOBULIN RATIO 1.3 (1.0-2.2); BILIRUBIN,TOTAL 0.7 mg/dL (0.2-1.0); CALCIUM 9.1 mg/dL (8.5-10.3); CREATININE 0.6 mg/dL (0.6-1.2); MAGNESIUM 2.1 mg/dL (1.7-2.8); PHOSPHORUS 3.2 mg/dL (2.5-4.6); POTASSIUM 3.9 mmol/L (3.5-5.0)
== END 2017-06-23 20:02 | disposition home or self-care (01) ==
LOC: LAB.R 20:01
PROVIDERS: ATTEND Family Medicine
DX: D50.9 Iron deficiency anemia, unspecified (principal); K52.81 Eosinophilic gastritis or gastroenteritis; R78.81 Bacteremia
CPT/HCPCS: 80053; 83735; 84100; 85025; 85651

== ENCOUNTER 2017-08-23 20:03 | Inpatient (IN) | payer MEDICAID ==
[2017-08-23] MEDS ORDERED: SODIUM CHLORIDE 0.9% 1,000 ML IV ONE ×2 (20:23)
[2017-08-23] MEDS ORDERED: ACETAMINOPHEN 1,000 MG/100 ML 100 ML IV STA (20:26)
[2017-08-23] MEDS ORDERED: ACETAMINOPHEN 1,000 MG/100 ML 100 ML IV ONE (20:38)
[2017-08-23 21:05] LABS: ALBUMIN/GLOBULIN RATIO 0.9 (1.0-2.2); BASOPHILS % (AUTO) 0.3 %; BILIRUBIN,TOTAL 0.9 mg/dL (0.2-1.0); CALCIUM 8.4 mg/dL (8.5-10.3); CREATININE 0.8 mg/dL (0.6-1.2); EOSINOPHILS % (AUTO) 0.7 %; HCT - HEMATOCRIT 37.1 % (42.0-52.0); HGB - HEMOGLOBIN 12.4 g/dL (14.0-18.0); LYMPHOCYTES % (AUTO) 8.9 %; MEAN CORPUSCULAR HEMOGLOBIN 27.8 pg (27.0-31.0); MEAN CORPUSCULAR HGB CONC 33.4 g/dL (32.0-36.0); MEAN CORPUSCULAR VOLUME 83.2 fL (80.0-94.0); MEAN PLATELET VOLUME 9.6 fL (7.4-11.4); MONOCYTES % (AUTO) 4.5 %; NEUTROPHILS % (AUTO) 85.6 %; POTASSIUM 2.9 mmol/L (3.5-5.0); RED BLOOD COUNT 4.46 10^6/uL (4.70-6.10); RED CELL DISTRIBUTION WIDTH 13.7 % (12.0-15.0); TOTAL PROTEIN 7.2 g/dL (6.7-8.2); UNCORRECTED WHITE BLOOD COUNT 13.8 x10^3/uL; WHITE BLOOD COUNT 13.8 x10^3/uL (4.8-10.8)
[2017-08-23 21:26] LABS: BAND NEUTROPHILS % (MANUAL) 13 %; BASOPHILS % (MANUAL) 1 %; LYMPHOCYTES % (MANUAL) 11 %; NEUTROPHILS % (MANUAL) 70 %; NP AUTO DIFFERENTIAL? YES; NP MAN DIFFERENTIAL? NO; PLATELET ESTIMATE, MANUAL NORMAL (130-450,000) (NORMAL)
[2017-08-23 21:48] LABS: UA w/ MICROSCOPIC CHARGE YES
[2017-08-23 21:50] LABS: BILIRUBIN,URINE NEGATIVE (NEGATIVE)
[2017-08-23 21:52] LABS: UR CULTURE IF IND NOT INDICATED; WBC,URINE 0-3 /HPF (0-3)
[2017-08-23] MEDS ORDERED: POTASSIUM CHLOR 10 MEQ/100 ML 10 MEQ/100 ML BAG IV ONE ×2 (21:52→22:21)
--- NOTE | 2017-08-23 22:32 | XRAY Preliminary Report ---
Exam: XR CHEST 2 VIEW PA/LAT IMPRESSION: No evidence of pneumonia. [facility] SITE ID: [id number]
--- NOTE | 2017-08-23 22:34 | XRAY Report ---
EXAM: CHEST RADIOGRAPHY EXAM DATE: 08/23/2017 10:22 PM. CLINICAL HISTORY: Cough and fever. COMPARISON: 08/13/2017. TECHNIQUE: 2 views. FINDINGS: Lungs/Pleura: No focal opacities evident. No pleural effusion. No pneumothorax. Normal volumes. Mediastinum: Heart and mediastinal contours are unremarkable. Other: Stable left central catheter. IMPRESSION: No evidence of pneumonia. [facility] Referring Provider Line: [phone] SITE ID: [id number]
--- NOTE | 2017-08-23 22:35 | ED Physician Documentation ---
History of Present Illness - Stated complaint Stated Complaint: FEVER - Chief complaint Chief Complaint: Fever - History obtained from History obtained from: Patient, Family - Additonal information Additional information: The patient is a 32-year-old male with a history of eosinophilic colitis, who presents today with generalized weakness, and fever that was up to 103 at home. He reports low-grade fever intermittently for the past 2 weeks. He was hospitalized here 9 days ago for gram-positive bacteremia, and was discharged the next day after short course of antibiotics. He has been on total parenteral nutrition for the past 2-1/2 years, and currently gets his TPN through a Gamez catheter that was placed in May 2017. This is his eighth central line. On further review of systems he reports nonproductive cough, myalgias, and generalized headache. He denies sore throat, nausea, vomiting, or dysuria. 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 Review of Systems Constitutional: reports: Fever, Fatigue Ears: denies: Tinnitus/ringing Nose: denies: Congestion Throat: denies: Sore throat Cardiac: denies: Chest pain / pressure Respiratory: reports: Cough (nonproductive). denies: Dyspnea GI: reports: Abdominal Pain (chronic). denies: Nausea, Vomiting, Diarrhea : denies: Dysuria Skin: denies: Rash Musculoskeletal: denies: Extremity swelling Neurologic: reports: Headache. denies: Focal weakness, Numbness PD PAST MEDICAL HISTORY - Past Medical History Past Medical History: Yes Cardiovascular: None Respiratory: None Neuro: None, Fainting Endocrine/Autoimmune: Other (Eosinophilic colitis) GI: GERD, Pancreatitis, Cholelithiasis, Other : Kidney stones HEENT: None Psych: Depression, Anxiety, Panic attacks, Other Musculoskeletal: Other Derm: Eczema - Past Surgical History Past Surgical History: Yes General: Cholecystectomy, Bowel surgery, Colonoscopy, Other Ortho: Amputation - Present Medications Home Medications: Ambulatory Orders Medication Instructions Recorded Confirmed Ondansetron [Ondansetron Odt] 8 mg PO Q6HR PRN 04/05/13 08/24/17 Omeprazole 40 mg PO BID 07/06/14 08/24/17 Duloxetine HCl [Cymbalta] 60 mg PO DAILY 05/11/15 08/24/17 Sodium/Pot/Mag/Calc/Chlor/Acet 2,000 ml IV QPM 07/03/15 08/23/17 [TPN Electrolytes II IV Soln] Loratadine [Claritin] 10 mg PO QPM 03/09/16 08/24/17 - Allergies Allergies/Adverse Reactions: Allergies Allergy/AdvReac Type Severity Reaction Status Date / Time metoclopramide HCl * Allergy Severe Anxiety Verified 08/23/17 20:17 [From Reglan] NSAIDS (Non-Steroidal Allergy Severe Erosive Verified 08/23/17 20:17 Anti-Inflamma Esophagitis - Social History Does the pt smoke?: No Smoking Status: Never smoker Does the pt drink ETOH?: No Does the pt have substance abuse?: No - Immunizations Immunizations are current?: Yes - POLST Patient has POLST: No POLST Status: Full Code PD ED PE NORMAL - Vitals Vital signs reviewed: Yes (febrile and tachycardic) - General General: Alert and oriented X 3, Other (Appears fatigued, and speaks with a subdued voice.) - HEENT HEENT: Atraumatic, EOMI, Moist mucous membranes, Pharynx benign - Neck Neck: Supple, no meningeal sign, No adenopathy, No JVD - Cardiac Cardiac: RRR, No murmur - Respiratory Respiratory: No respiratory distress, Clear bilaterally - Abdomen Abdomen: Normal bowel sounds, Soft, Other (mild generalized tenderness, with focal tenderness, rebound, or guarding.) - Back Back: No CVA TTP - Derm Derm: No rash - Extremities Extremities: No edema, No calf tenderness / cord, Other (Bilateral amputations at distal lower legs.) - Neuro Neuro: Alert and oriented X 3, No motor deficit, No sensory deficit - Free text exam Free text exam: Gamez catheter in place in left chest. Site is nonerythematous and nontender. Results - Vitals Vitals: Vital Signs - 24 hr 08/23/17 08/23/17 08/23/17 20:03 20:59 21:49 Temperature 39.8 C H 38.8 C H Heart Rate 119 H 110 H Respiratory 20 16 Rate Blood Pressure 108/54 L 108/47 L O2 Saturation 96 95 08/23/17 22:20 Temperature Heart Rate 95 Respiratory 15 Rate Blood Pressure 123/56 L O2 Saturation 97 Oxygen O2 Source Room air - Labs Labs: Laboratory Tests 08/23/17 08/23/17 08/23/17 20:40 20:40 20:40 WBC 13.8 H RBC 4.46 L Hgb 12.4 L Hct 37.1 L MCV 83.2 MCH 27.8 MCHC 33.4 RDW 13.7 Plt Count 203 MPV 9.6 Neut # Not Reportable Lymph # Not Reportable [place] # Not Reportable Eos # Not Reportable Baso # Not Reportable Absolute Nucleated RBC Not Reportable Band Neuts % (Manual) 13 H Nucleated RBC % Not Reportable Neutrophils # (Manual) 11.5 H Lymphocytes # (Manual) 1.5 Monocytes # (Manual) 0.7 Basophils # (Manual) 0.1 WBC Morphology 1+ VACUOLATION Platelet Estimate NORMAL (130-450,000) RBC Morph Micro Appear NORMAL APPEARANCE Sodium 137 Potassium 2.9 L Chloride 105 Carbon Dioxide 21 Anion Gap 11.0 BUN 16 Creatinine 0.8 Estimated GFR (MDRD) 111 Glucose 104 H Lactic Acid 1.0 Calcium 8.4 L Total Bilirubin 0.9 AST 61 H ALT 100 H Alkaline Phosphatase 109 Total Protein 7.2 Albumin 3.4 Globulin 3.8 Albumin/Globulin Ratio 0.9 L Lipase 21 L Urine Color Urine Clarity Urine pH Ur Specific [place] Urine Protein Urine Glucose (UA) Urine Ketones Urine Occult Blood Urine Nitrite Urine Bilirubin Urine Urobilinogen Ur Leukocyte Esterase Urine RBC Urine WBC Ur Squamous Epith Cells Urine Bacteria Urine Mucus Ur Microscopic Review Urine Culture Comments 08/23/17 21:40 WBC RBC Hgb Hct MCV MCH MCHC RDW Plt Count MPV Neut # Lymph # [place] # Eos # Baso # Absolute Nucleated RBC Band Neuts % (Manual) Nucleated RBC % Neutrophils # (Manual) Lymphocytes # (Manual) Monocytes # (Manual) Basophils # (Manual) WBC Morphology Platelet Estimate RBC Morph Micro Appear Sodium Potassium Chloride Carbon Dioxide Anion Gap BUN Creatinine Estimated GFR (MDRD) Glucose Lactic Acid Calcium Total Bilirubin AST ALT Alkaline Phosphatase Total Protein Albumin Globulin Albumin/Globulin Ratio Lipase Urine Color YELLOW Urine Clarity CLEAR Urine pH 6.0 Ur Specific [place] 1.025 Urine Protein NEGATIVE Urine Glucose (UA) NEGATIVE Urine Ketones NEGATIVE Urine Occult Blood MODERATE H Urine Nitrite NEGATIVE Urine Bilirubin NEGATIVE Urine Urobilinogen 4 H Ur Leukocyte Esterase NEGATIVE Urine RBC 0-5 Urine WBC 0-3 Ur Squamous Epith Cells RARE Squamous Urine Bacteria Rare Urine Mucus Few Strands Ur Microscopic Review INDICATED Urine Culture Comments NOT INDICATED - Rads (name of study) 2 view CXR Radiology: Prelim report reviewed, EMP read contemporaneously, See rad report PD MEDICAL DECISION MAKING - ED course Complexity details: reviewed old records, reviewed results, re-evaluated patient , considered differential, d/w patient, d/w digital marketing consultant ED course: The patient's presentation is suggestive of bacteremia with possible endocarditis. Chest x-ray reveals no evidence of pneumonia, and urinalysis is negative. CBC reveals an elevated white count of 13.8. His lactate level is normal at 1.0. Blood cultures 2 are pending. Chemistry panel is significant for hypokalemia, with a potassium of 2.9. Treatment in the emergency department included administration of normal saline IV, vancomycin 1 g IV, Ofirmev 1 g IV, and KCL 10 mEq IV. I discussed his condition with Dr. Batista, the Hospitalist, who admitted him for further evaluation and treatment. Departure - Departure Disposition: 66 [facility] DC/Xfer Clinical Impression: Eosinophilic gastritis or gastroenteritis, Hypokalemia Fever Qualifiers: Fever type: unspecified Qualified Code(s): R50.9 - Fever, unspecified Bloodstream infection due to Gamez catheter Qualifiers: Encounter type: initial encounter Qualified Code(s): T80.211A - Bloodstream infection due to central venous catheter, initial encounter Condition: Stable Discharge Date/Time: 08/24/17 00:15
[2017-08-23] MEDS ORDERED: VANCOMYCIN INJ 1 GM in SODIUM CHLORIDE 0.9% 250 ML IV STA (22:41)
[2017-08-23] MEDS ORDERED: VANCOMYCIN 1 GM VIAL ONE (23:14)
[2017-08-23] MEDS ORDERED: LORazepam 2 MG/ML SYRINGE IVP STA (23:26)
[2017-08-23] MEDS ORDERED: ONDANSETRON ODT 4 MG TABLET PO PRN (23:27)
[2017-08-23] MEDS ORDERED: TEMAZEPAM 15 MG CAPSULE PO PRN (23:28)
[2017-08-23] MEDS ORDERED: ACETAMINOPHEN 325 MG TABLET PO PRN (23:28)
[2017-08-23] MEDS ORDERED: PROCHLORPERAZINE 10 MG/2 ML VIAL IVP PRN (23:28)
[2017-08-24] MEDS ORDERED: LORazepam 2 MG/ML SYRINGE ONE (00:28)
[2017-08-24] MEDS: MORPHINE 2 MG/ML SYRINGE IVP PRN ×7 (00:49→17:00)
[2017-08-24] MEDS: LACTATED RINGERS 1,000 ML IV SCH ×3 (00:50→16:59)
[2017-08-24] MEDS: SODIUM CHLORIDE FLUSH 0.9% 10 ML SYRINGE IVP PRN (00:50)
--- NOTE | 2017-08-24 00:58 | HISTORY & PHYSICAL EXAMINATION ---
DATE OF ADMISSION: 08/23/2017 CHIEF COMPLAINT: Fever. HISTORY OF PRESENT ILLNESS: The patient is an unfortunate 32-year-old chronically ill white male. He has history of eosinophilic colitis and has been TPN dependent for the past 2 years. His history is pertinent for bacteremia , which was treated in October 2015. Most recently he was seen in the ER on 11/2016 for fever and had blood cultures drawn. At that time he had elevated white blood cell count and got a dose of empiric antibiotic. Subsequently, the next day his cultures grew coagulase negative Staphylococcus hominis and therefore he was called and instructed to come back to the hospital for further workup and therapy. Subsequently, he got admitted to [facility] on 08/14/2017 and at that time repeat blood cultures were obtained. Looking at the record there are four blood cultures, the first one on 08/13/2017 showed no growth to date, the second one 08/13/2017 showed staph hominis both in aerobic and anaerobic cultures. Subsequent culture on 08/14/2017 again grew Staphylococcus hominis and then the fourth culture on 08/14/2017 had showed no growth to date. Notably, there are 4 cultures and 2 out of the 4 grew the same organism. At the same time, the patient did have elevated white blood cell count and he was febrile. During this hospital stay in early August; however, he was discharged after a couple of days reasoning that during his hospitalization he was hemodynamically stable and afebrile. Notably; however, he was afebrile while he received IV vancomycin. Similarly, his white blood count decreased as he did receive antibiotic. As far as the Staphylococcus hominis it was felt to be a contaminant. The patient and his reported that after the patient returned to his home, he continued with intermittent fevers. If he stayed in bed and did not do much he had low-grade temperatures throughout the day, he was febrile every day, but his temperature went up really high when he was active and got out of bed. He had as high fevers and as 103 Fahrenheit. On Thursday, 2 days ago, he saw his primary care physician, Dr. Meier who could not figure out the reason for the fever and was entertaining endocrine evaluation. Subsequently, during the day on 08/23/2017, the patient turned acutely ill, had chills, rigors, high fever and was weak to the point that he had difficulty getting out of bed was becoming more anxious than usual. Therefore, his brought him to the ER. Upon presentation to the ER. the patient in fact was febrile and tachycardic. Temperature was 39.8 Celsius, heart rate was 120, blood pressure 100/50, respiratory rate was 20, oxygen saturation 97% on room air. Laboratory showed elevated white blood cell count 13.8 with 13% bandemia. Potassium was 2.9. In addition, they were abnormal liver function tests including AST 61, ALT 100. Urinalysis showed blood. ER physician obtained repeat blood cultures and ordered one dose of vancomycin. PAST MEDICAL HISTORY: 1. Congenital abnormality, status post bilateral [id number] amputations. 2. Anxiety/depression/opiate dependence. 3. Eosinophilic colitis on TPN. 4. History of line sepsis and bacteremia in 10/2015, at which time, cultures grew staph coagulase negative staphylococcus. 5. Gastroesophageal reflux. 6. Pancreatitis. ALLERGIES: NSAIDS AND REGLAN. OUTPATIENT MEDICATIONS: 1. Cymbalta. 2. Zofran. 3. Omeprazole. 4. Loratadine. 5. TPN. REVIEW OF SYSTEMS: Please see pertinent positive listed as per the history of the present illness. The patient did not report additional complaint on the 12- point review. Regarding his nutrition he does receive TPN, but he can take limited oral intake as well and his reported that they followup extensively with outpatient specialist trying to switch from TPN to oral intake. FAMILY HISTORY: Reviewed, noncontributory. SOCIAL HISTORY: The patient does not smoke, does not drink. He has a prosthesis for both legs. He also has a wheelchair, he lives with his . CODE STATUS: FULL CODE. ER workup revealed per electronic medical record included a chest x-ray which was unremarkable. PHYSICAL EXAMINATION: VITAL SIGNS: See listed above at history of present illness. GENERAL: The patient is well-developed, chronically ill-appearing male who appeared diaphoretic and anxious. PSYCH: Anxiety. NEUROLOGICAL: Neurologically alert, oriented, nonfocal. HEART: S1, S2 regular tachycardia in the setting of tachycardia. I could not hear murmur, rub or gallop. RESPIRATORY: Lungs clear to auscultation without wheezes or crackles. ABDOMEN: Soft, benign, nontender. Well-healed surgical scars. Bowel tones present. EXTREMITIES: No lymphedema. MUSCULOSKELETAL: Status post bilateral BKA. SKIN: No skin rash, no petechial lesions, no splinter hemorrhages, no oral ulcers. Left upper chest Gamez catheter without tunneling, erythema, tenderness or discharge. ASSESSMENT AND PLAN/ACTIVE ISSUES AND DIAGNOSES: 1. Fever with elevated white blood cell count, bandemia, abnormal liver function tests and blood in the urine indicates endocarditis and sepsis. 2. Line sepsis, although the Gamez catheter does not show sign of infection, but considering the lack of any other site such as no lung infection, no skin rashes or skin infections and no urinary tract infection the most likely source for sepsis is in fact the line. 3. Bacteremia in the setting of TPN. 4. Regarding culture results, 2/4 cultures grew Staphylococcus hominis/coag negative staph. In my opinion, putting the clinical course together with continuing intermittent fevers and being afebrile only while getting antibiotics plus having more than 1 culture positive plus having the right clinical setting of other laboratory abnormalities including elevated white blood cell count, bandemia and blood in the urine this definitely is an endocarditis. Thereby the line should be discontinued and for that surgery consult should be requested during the daytime. PLAN AND ORDERS: 1. Due to sepsis and bacteremia the patient is getting admitted as inpatient. He requires IV antibiotics. I reviewed culture result and my first choice would be oxacillin, however, it was not available as formulary; therefore I ordered penicillin. As penicillin requires q.4h. hourly dosing; therefore, it will be not feasible as an outpatient. However, I think oxacillin with better dosing could likely be obtained for outpatient infusion. In any case, that is going to be a discharge issue. 2. Repeat blood cultures were sent and pending. 3. I think that the central line will need to be discontinued and for that a surgery consult should be requested during the daytime. 4. The patient should not have PICC line placement or any other central line placement at least for 3-4 days while he is treated with IV antibiotics via peripheral lines. When his repeat blood cultures run clean and he has received at least 3 or 4 days of antibiotics then PICC line placement can be considered and IV antibiotics continued via a PICC line. Given these logistic issues, I think we are facing at least 4 or 5 days inpatient hospital stay. Subsequently, the patient's care should be coordinated with social work, primary care physician, perhaps outpatient infectious disease specialist to decide about the length of antibiotic treatment. Commonly for line sepsis and bacteremia at least 4 weeks IV antibiotic would be indicated. 5. Ordered an echocardiogram to rule out vegetation, endocarditis. 6. Continue home medications. 7. Obviously discontinued TPN and discussed with the patient that he should benefit from switching to oral intake as much as he is able. Overnight we will provide lactated ringer IV hydration, especially because he is septic, tachycardic and febrile. Subsequently, we will request book trimmer to assist choosing the best way to start and continue oral intake. 8. Deep venous thrombosis prophylaxis. 9. Further plan should depend on the clinical course. The time I spent with the patient was 55 minutes. JOB #: [id number] EXT JOB #:[id number] AURELIA
[2017-08-24] MEDS: PENICILLIN G POTASSIUM 2,500,000 UNIT in SODIUM CHLORIDE 0.9% 100ML 100 ML IV SCH ×7 (01:08→20:53)
[2017-08-24] MEDS: SODIUM CHLORIDE FLUSH 0.9% 10 ML SYRINGE IVP SCH ×3 (05:09→17:00)
[2017-08-24] MEDS: PANTOPRAZOLE 40 MG TABLET PO SCH ×2 (07:10→17:00)
[2017-08-24] MEDS: hydrOXYzine PAMOATE 25 MG CAPSULE PO PRN (07:18)
[2017-08-24] MEDS ORDERED: NON FORMULARY MED (Omeprazole [Omeprazole] 40 MG) PO SCH (09:00)
[2017-08-24] MEDS ORDERED: NON FORMULARY MED (Duloxetine Hcl [Cymbalta] 60 MG) PO SCH (09:00)
[2017-08-24] MEDS ORDERED: BUFFERED LIDOCAINE 10 ML SYRINGE SUBQ SCH (09:11)
[2017-08-24] MEDS ORDERED: SODIUM CHLORIDE 0.9% 100ML 100 ML IV ONE ×2 (09:37→14:25)
[2017-08-24] MEDS: DULoxetine 30 MG CAPSULE PO SCH (09:51)
[2017-08-24] MEDS ORDERED: LIDOCAINE 1% 50 ML MDV SUBQ SCH (10:00)
[2017-08-24] MEDS: POLYETHYLENE GLYCOL 3350 17 GM PACKET PO SCH (10:13)
[2017-08-24] MEDS: ENOXAPARIN 40 MG/0.4 ML SYRINGE SUBQ SCH (10:14)
--- NOTE | 2017-08-24 10:15 | CONSULTATION NOTE ---
DATE OF CONSULTATION: 08/24/2017 00:00:00 REASON FOR CONSULTATION: Sepsis associated with Gamez catheter. HISTORY OF PRESENT ILLNESS: This is a 32-year-old male recently admitted to the hospital for a possible central line infection. He was discharged after cultures were noted to be negative. However, he represented to the emergency department today with fever and chills. Upon evaluation in the emergency department, his white blood cell count was noted to be slightly elevated at 13. He was also noted to be febrile at 38.6 and slightly tachycardic. He was admitted to the medical service for presumed bacteremia. Cultures were obtained from his central line, which have demonstrated gram-positive cocci. At this point, a surgical consultation was placed for removal of his Gamez catheter. Upon my evaluation of the patient, he states that he has been having fevers and chills at home since his discharge last week. He is hemodynamically stable. He had the Gamez catheter placed in 05/[address] Thomas. The patient has eosinophilic colitis and is TPN dependent. PAST MEDICAL HISTORY: Includes eosinophilic gastroenteritis, multiple infected central lines in the past, congenital abnormality resulting in bilateral lower [id number] amputations, anxiety, depression, opioid dependence, GERD and pancreatitis. HOME MEDICATIONS 1. Cymbalta. 2. Zofran. 3. Omeprazole. 4. Loratadine. 5. TPN. ALLERGIES TO MEDICATIONS 1. METOCLOPRAMIDE. 2. NSAIDS. SOCIAL HISTORY: The patient is present with his who is at the bedside. PHYSICAL EXAMINATION VITAL SIGNS: Current temperature is 36.8, blood pressure 119/60, heart rate 92, respiratory rate 18, O2 saturation is 97% on room air. GENERAL: The patient is awake, alert, oriented x3, in no acute distress. He is slightly obese. CARDIOVASCULAR: Regular rate and rhythm. CHEST: Clear to auscultation bilaterally without rhonchi or wheezing. Left- sided Gamez catheter is in place without any surrounding erythema or crepitance overlying the catheter. There is no tenderness to palpation overlying the catheter. EXTREMITIES: Well perfused. LABORATORY VALUES: Sodium 137, potassium 2.9, chloride 105, bicarbonate 21, BUN 16, creatinine 0.8, lactate 1.0. White blood cell count 13.8, hemoglobin 12.4, hematocrit 37.1, platelets 203. ASSESSMENT: This is a 32-year-old gentleman with an infected Gamez catheter and bacteremia. PLAN: The patient will undergo removal of the Gamez catheter at the bedside. The procedure was explained to the patient in detail including the potential risks involved including, but not limited to bleeding, skin infection and disconnection of the catheter resulting in an intravascular retrieval procedure. The patient understands all of the above and agrees to the procedure. The patient should be kept on IV antibiotics and a PICC line placed while he is being treated for his bacteremia. He will require a reinsertion of a permanent central line once he has cleared his bacteremia in the next several weeks. JOB #: [id number] EXT JOB #:[id number] AURELIA
[2017-08-24] MEDS ORDERED: ACETAMINOPHEN 1,000 MG/100 ML 100 ML IV PRN (11:39)
--- NOTE | 2017-08-24 15:15 | POST OP PROGRESS NOTE ---
Subjective - General Admit Date: 08/23/17 Procedure Date: 08/24/17 Post Op Days: 0 Procedure Performed: removal of left troncoso catheter - Other Other Information/Narrative: 10 cc of lidocaine administered around catheter after prepping patient. He was then draped. A 5 mm incision was created at the catheter insertion site. Blunt dissection was performed to the level of the cuff. This was dissected from the subcutaneous tissue and the catheter removed. Hemostasis was achieved with pressure. A single interrupted 3-0 nylon suture was placed and a sterile dressing applied.
--- NOTE | 2017-08-24 17:57 | PROVIDER PROGRESS NOTE ---
Assessment/Plan - Problem List (1) Bacteremia Assessment/Plan: Pt still having fevers associated with generalized achiness and photophobia/ headache. iv Tylenol did help. Continue iv antibiotics. Echo was done to determine if he has endocarditis and all valves appear normal. Port was removed by Dr Zacarias today. Tip ordered to be sent for culture. Will plan 3 days without central iv, then have new port inserted. Plan will be for 4 weeks of iv antibiotics for bacteremia, probably from cenbtral line focus. (2) Eosinophilic gastritis or gastroenteritis Assessment/Plan: Pt had a large meal for breakfast and developed his "typical abdominal pain that happens when he cheats and eats". "It usually runs its course and the pain is better in a day or jade. Will give pain meds prn. Cost Estimating Manager assessed and helped with parenteral nutrition orders via peripheral iv , which have been ordered. (3) S/P BKA (below knee amputation) bilateral Assessment/Plan: Chronic, stable. (4) Anxiety Assessment/Plan: Pt reports anxiety and that his Duloxetine for depression/pain is not controlling his anxiety. Will add Celexa, which will take 2-3 weeks for an effect. Pt willing to have this started now. Will add prn Ativan at hs as well. - Current Meds Current Meds: Current Medications Generic Name Dose Route Start Last Admin Trade Name Freq PRN Reason Stop Dose Admin Duloxetine HCl 60 mg 08/24/17 09:00 08/24/17 09:51 Cymbalta PO 60 mg DAILY TAWANNA Administration Enoxaparin Sodium 40 mg 08/24/17 09:00 08/24/17 10:14 Lovenox SUBQ 40 mg DAILY TAWANNA Administration Hydroxyzine Pamoate 50 mg 08/24/17 01:21 08/24/17 07:18 Vistaril PO 50 mg Q6HR PRN Administration Anxiety Penicillin G Potassium 2,500, 100 mls @ 200 mls/hr 08/23/17 23:45 08/24/17 16 :59 000 unit/ Sodium Chloride IV 200 mls/hr Q4HR TAWANNA Administration Lactated Ringer's 1,000 mls @ 100 mls/hr 08/23/17 23:45 08/24/17 16:59 Lr IV 20 mls/hr .Q10H TAWANNA Administration Morphine Sulfate 3 mg 08/24/17 08:22 08/24/17 17:00 Morphine IVP 3 mg Q2H PRN Administration Pain 8 to 10 Pantoprazole Sodium 40 mg 08/24/17 07:00 08/24/17 17:00 Protonix PO 40 mg BIDAC TAWANNA Administration Polyethylene Glycol 17 gm 08/24/17 09:00 08/24/17 10:13 Miralax PO Not Given DAILY TAWANNA Sodium Chloride 10 ml 08/23/17 23:28 08/24/17 00:50 Normal Saline Flush 0.9% IVP 10 ml PRN PRN Administration NEEDED PER PROVIDER ORDERS Sodium Chloride 10 ml 08/24/17 06:00 08/24/17 17:00 Normal Saline Flush 0.9% IVP 10 ml Q8HR TAWANNA Administration - Lab Result Fish Bone Diagrams: 08/23/17 20:40 08/23/17 20:40 - Additional Planning My Orders: My Active Orders 08/24/17 CUL, CATHETER TIP [RM] Urgent 08/24/17 08:22 Morphine Inj [Morphine] 3 mg IVP Q2H PRN 08/24/17 10:06 DIET [NPO except Meds] [DIET] 08/24/17 11:39 Acetaminophen 1,000 mg/100 ml [Ofirmev] 100 ml IV Q6HR 08/24/17 17:48 LORazepam [Ativan] 0.5 mg PO QPM PRN 08/24/17 18:00 Citalopram [CeleXA] 10 mg PO DAILY 08/24/17 19:00 Fat Emulsion 20% [Intralipid 20%] 250 ml IV Q24H Multivitamin [Infuvite] 10 ml Trace Elements V Conc [Multitrace-5 Conc Vial] 1 ml Ppn (Clinimix E 4.25/5) [Clinimix E 4.25%-5% Solution] 2,000 ml IV Q24H Subjective - Subjective Patient Reports: Abdominal Pain, Fever, Other (generalized achiness Feels anxious) Objective Vital Signs: Vital Signs - 24 hr 08/24/17 08/24/17 08/24/17 00:00 00:17 10:00 Temperature 37.1 C 36.8 C Heart Rate 95 Heart Rate [ 92 100 Brachial] Respiratory 18 18 20 Rate Blood Pressure 120/78 Blood Pressure 119/60 122/58 L [Right Brachial artery] O2 Saturation 97 97 08/24/17 08/24/17 11:03 17:10 Temperature 38.0 C H 38.9 C H Heart Rate Heart Rate [ 98 105 H Brachial] Respiratory 19 Rate Blood Pressure Blood Pressure 120/60 132/66 H [Right Brachial artery] O2 Saturation 93 Oxygen O2 Source Room air I&O (Last 24 Hrs): Intake and Output Totals x24h 08/22/17 08/23/17 08/24/17 23:59 23:59 23:59 Intake Total 2325 Balance 2325 General: Alert, Oriented x3 HEENT: Mucous membr. moist/pink Neck: Supple Cardiovascular: Regular rate, No murmurs Respiratory: No respiratory distress Abdomen: Soft Extremities: Other (Bilat BKAs) - Results Results: Laboratory Results WBC 13.8 x10^3/uL (4.8-10.8) H 08/23/17 20:40 RBC 4.46 10^6/uL (4.70-6.10) L 08/23/17 20:40 Hgb 12.4 g/dL (14.0-18.0) L 08/23/17 20:40 Hct 37.1 % (42.0-52.0) L 08/23/17 20:40 MCV 83.2 fL (80.0-94.0) 08/23/17 20:40 MCH 27.8 pg (27.0-31.0) 08/23/17 20:40 MCHC 33.4 g/dL (32.0-36.0) 08/23/17 20:40 RDW 13.7 % (12.0-15.0) 08/23/17 20:40 Plt Count 203 10^3/uL (130-450) 08/23/17 20:40 MPV 9.6 fL (7.4-11.4) 08/23/17 20:40 Neut # Not Reportable 08/23/17 20:40 Lymph # Not Reportable 08/23/17 20:40 Beckham # Not Reportable 08/23/17 20:40 Eos # Not Reportable 08/23/17 20:40 Baso # Not Reportable 08/23/17 20:40 Absolute Nucleated RBC Not Reportable 08/23/17 20:40 Band Neuts % (Manual) 13 % (0-10) H 08/23/17 20:40 Nucleated RBC % Not Reportable 08/23/17 20:40 Neutrophils # (Manual) 11.5 10^3/uL (1.5-6.6) H 08/23/17 20:40 Lymphocytes # (Manual) 1.5 10^3/uL (1.5-3.5) 08/23/17 20:40 Monocytes # (Manual) 0.7 10^3/uL (0.0-1.0) 08/23/17 20:40 Basophils # (Manual) 0.1 10^3/uL (0-0.1) 08/23/17 20:40 WBC Morphology 1+ TOXIC GRANULATION (NORMAL) 1+ VACUOLATION (NORMAL) 20:40 WBC Morphology 1+ TOXIC GRANULATION (NORMAL) 1+ VACUOLATION (NORMAL) 20:40 Platelet Estimate NORMAL (130-450,000) (NORMAL) 08/23/17 20:40 RBC Morph Micro Appear NORMAL APPEARANCE (NORMAL) 08/23/17 20:40 Sodium 137 mmol/L (135-145) 08/23/17 20:40 Potassium 2.9 mmol/L (3.5-5.0) L 08/23/17 20:40 Chloride 105 mmol/L (101-111) 08/23/17 20:40 Carbon Dioxide 21 mmol/L (21-32) 08/23/17 20:40 Anion Gap 11.0 (6-13) 08/23/17 20:40 BUN 16 mg/dL (6-20) 08/23/17 20:40 Creatinine 0.8 mg/dL (0.6-1.2) 08/23/17 20:40 Estimated GFR (MDRD) 111 (>89) 08/23/17 20:40 Glucose 104 mg/dL (70-100) H 08/23/17 20:40 Lactic Acid 1.0 mmol/L (0.5-2.2) 08/23/17 20:40 Calcium 8.4 mg/dL (8.5-10.3) L 08/23/17 20:40 Total Bilirubin 0.9 mg/dL (0.2-1.0) 08/23/17 20:40 AST 61 IU/L (10-42) H 08/23/17 20:40 ALT 100 IU/L (10-60) H 08/23/17 20:40 Alkaline Phosphatase 109 IU/L (42-121) 08/23/17 20:40 Total Protein 7.2 g/dL (6.7-8.2) 08/23/17 20:40 Albumin 3.4 g/dL (3.2-5.5) 08/23/17 20:40 Globulin 3.8 g/dL (2.1-4.2) 08/23/17 20:40 Albumin/Globulin Ratio 0.9 (1.0-2.2) L 08/23/17 20:40 Lipase 21 U/L (22-51) L 08/23/17 20:40 Urine Color YELLOW 08/23/17 21:40 Urine Clarity CLEAR (CLEAR) 08/23/17 21:40 Urine pH 6.0 PH (5.0-7.5) 08/23/17 21:40 Ur Specific Mouthcard 1.025 (1.002-1.030) 08/23/17 21:40 Urine Protein NEGATIVE mg/dL (NEGATIVE) 08/23/17 21:40 Urine Glucose (UA) NEGATIVE mg/dL (NEGATIVE) 08/23/17 21:40 Urine Ketones NEGATIVE mg/dL (NEGATIVE) 08/23/17 21:40 Urine Occult Blood MODERATE (NEGATIVE) H 08/23/17 21:40 Urine Nitrite NEGATIVE (NEGATIVE) 08/23/17 21:40 Urine Bilirubin NEGATIVE (NEGATIVE) 08/23/17 21:40 Urine Urobilinogen 4 E.U./dL (NORMAL) H 08/23/17 21:40 Ur Leukocyte Esterase NEGATIVE (NEGATIVE) 08/23/17 21:40 Urine RBC 0-5 /HPF (0-5) 08/23/17 21:40 Urine WBC 0-3 /HPF (0-3) 08/23/17 21:40 Ur Squamous Epith Cells RARE Squamous (<= Few) 08/23/17 21:40 Urine Bacteria Rare /HPF (None Seen) 08/23/17 21:40 Urine Mucus Few Strands 08/23/17 21:40 Ur Microscopic Review INDICATED 08/23/17 21:40 Urine Culture Comments NOT INDICATED 08/23/17 21:40 - Procedures Procedures: Procedures CENTRAL VENOUS CATHETER PLACEMENT WITH GUIDANCE (01/22/15) FLUOROSCOPY OF SUP VENA CAVA USING L OSM CONTRAST, GUIDANCE (05/15/17) INSERTION OF INFUSION DEV INTO SPINAL CANAL, PERC APPROACH (04/27/16) INSERTION OF INFUSION DEV INTO SUP VENA CAVA, PERC APPROACH (05/15/17) INSERTION OF TOTALLY IMPLANTABLE VASC ACCESS DEVIC (07/06/15) INSPECTION OF GALLBLADDER, PERCUTANEOUS ENDOSCOPIC APPROACH (04/27/16) INTRODUCE ANALG/HYPNOT/SEDAT IN SPINAL CANAL, PERC (04/27/16) REMOVAL OF INFUSION DEVICE FROM HEART, PERCUTANEOUS APPROACH (11/01/15) RESECTION OF GALLBLADDER, OPEN APPROACH (04/27/16)
[2017-08-24] MEDS ORDERED: PPN (CLINIMIX E 4.25/5) 2,000 ML with MULTIVITAMIN 10 ML, TRACE ELEMENTS V CONC 1 ML IV SCH ×3 (19:00)
[2017-08-24] MEDS: CITALOPRAM 10 MG TABLET PO SCH (19:01)
[2017-08-24] MEDS: FAT EMULSION 20% 250 ML IV SCH (19:02)
[2017-08-24] MEDS: LORATADINE 10 MG TABLET PO SCH (20:53)
[2017-08-24] MEDS ORDERED: LORATADINE 10 MG PO SCH (21:00)
[2017-08-25] MEDS: PENICILLIN G POTASSIUM 2,500,000 UNIT in SODIUM CHLORIDE 0.9% 100ML 100 ML IV SCH ×2 (00:57→04:55)
[2017-08-25 05:12] LABS: BASOPHILS % (AUTO) 0.5 %; EOSINOPHILS # (AUTO) 0.5 10^3/uL (0.0-0.7); EOSINOPHILS % (AUTO) 6.1 %; HGB - HEMOGLOBIN 11.7 g/dL (14.0-18.0); LYMPHOCYTES # (AUTO) 2.3 10^3/uL (1.5-3.5); LYMPHOCYTES % (AUTO) 26.7 %; MEAN CORPUSCULAR HEMOGLOBIN 28.3 pg (27.0-31.0); MEAN CORPUSCULAR HGB CONC 33.5 g/dL (32.0-36.0); MEAN CORPUSCULAR VOLUME 84.5 fL (80.0-94.0); MEAN PLATELET VOLUME 9.3 fL (7.4-11.4); MONOCYTES # (AUTO) 0.8 10^3/uL (0.0-1.0); MONOCYTES % (AUTO) 9.4 %; NEUTROPHILS % (AUTO) 57.3 %; RED BLOOD COUNT 4.14 10^6/uL (4.70-6.10); RED CELL DISTRIBUTION WIDTH 13.8 % (12.0-15.0); UNCORRECTED WHITE BLOOD COUNT 8.6 x10^3/uL; WHITE BLOOD COUNT 8.6 x10^3/uL (4.8-10.8)
[2017-08-25 05:25] LABS: MAGNESIUM 2.1 mg/dL (1.7-2.8); PHOSPHORUS 2.8 mg/dL (2.5-4.6)
[2017-08-25] MEDS: PANTOPRAZOLE 40 MG TABLET PO SCH ×2 (06:08→16:11)
[2017-08-25] MEDS: LACTATED RINGERS 1,000 ML IV SCH ×2 (06:08→16:12)
[2017-08-25] MEDS: SODIUM CHLORIDE FLUSH 0.9% 10 ML SYRINGE IVP SCH ×3 (06:08→23:00)
[2017-08-25 08:46] LABS: CALCIUM 8.4 mg/dL (8.5-10.3); CREATININE 0.6 mg/dL (0.6-1.2); POTASSIUM 3.1 mmol/L (3.5-5.0)
[2017-08-25] MEDS: DULoxetine 30 MG CAPSULE PO SCH (09:17)
[2017-08-25] MEDS: CITALOPRAM 10 MG TABLET PO SCH (09:17)
[2017-08-25] MEDS: POLYETHYLENE GLYCOL 3350 17 GM PACKET PO SCH (09:19)
[2017-08-25] MEDS: ENOXAPARIN 40 MG/0.4 ML SYRINGE SUBQ SCH (10:30)
[2017-08-25] MEDS: MOXIFLOXACIN 400MG/250ML IV 400 MG/250 ML BAG IV SCH (10:30)
--- NOTE | 2017-08-25 15:48 | PROVIDER PROGRESS NOTE ---
Assessment/Plan - Problem List (1) Bacteremia Assessment/Plan: Central line catheter tip has grown Gram Pos Cocci Bld cultures have grown Coag neg Staph Bld cultures from 08/13 grew Staph Hominis I spoke to our Pharmacist and have determined to change antibiotic to Moxifloxicin to cover all organisms and make for easier administration in hospital and after Dch for home infusion. (2) Eosinophilic gastritis or gastroenteritis Assessment/Plan: No further complaints of abdominal pain. Peripheral infusion of Total Nutrition on hold at patient's request, but Pt is getting Lactated Ringers to prevent dehydration and some calories from glucose. (3) S/P BKA (below knee amputation) bilateral Assessment/Plan: Stable (4) Anxiety Assessment/Plan: Pt on Celexa now, along with his Duloxetene treatment for depression. - Current Meds Current Meds: Current Medications Generic Name Dose Route Start Last Admin Trade Name Freq PRN Reason Stop Dose Admin Citalopram Hydrobromide 10 mg 08/24/17 18:00 08/25/17 09:17 Celexa PO 10 mg DAILY TAWANNA Administration Duloxetine HCl 60 mg 08/24/17 09:00 08/25/17 09:17 Cymbalta PO 60 mg DAILY TAWANNA Administration Enoxaparin Sodium 40 mg 08/24/17 09:00 08/25/17 10:30 Lovenox SUBQ 40 mg DAILY TAWANNA Administration Hydroxyzine Pamoate 50 mg 08/24/17 01:21 08/24/17 07:18 Vistaril PO 50 mg Q6HR PRN Administration Anxiety Lactated Ringer's 1,000 mls @ 100 mls/hr 08/23/17 23:45 08/25/17 06:08 Lr IV 100 mls/hr .Q10H TAWANNA Administration Acetaminophen 100 mls @ 400 mls/hr 08/24/17 11:39 08/24/17 19:35 Ofirmev IV Infused Q6HR PRN Infusion PAIN Multivitamins 10 ml/ Chromium/ 2,011 mls @ 95 mls/hr 08/24/17 19:00 08/24/17 19:02 Copper/Manganese/Seleni/Zn 1 IV 08/25/17 16:59 95 mls/hr ml/ Amino Acids/Electrolytes/ Q24H TAWANNA Administration Dextrose Protocol Fat Emulsion Intravenous 250 mls @ 21 mls/hr 08/24/17 19:00 08/25/17 07:00 Intralipid 20% IV Infused Q24H TAWANNA Infusion Moxifloxacin HCl 400 mg in 250 mls @ 250 mls/hr 08/25/17 10:00 08/25/17 11:54 Avelox 400mg/250ml Iv IV Infused Q24H TAWANNA Infusion Loratadine 10 mg 08/24/17 21:00 08/24/17 20:53 Claritin PO 10 mg QPM TAWANNA Administration Morphine Sulfate 3 mg 08/24/17 08:22 08/24/17 17:00 Morphine IVP 3 mg Q2H PRN Administration Pain 8 to 10 Pantoprazole Sodium 40 mg 08/24/17 07:00 08/25/17 06:08 Protonix PO 40 mg BIDAC TAWANNA Administration Polyethylene Glycol 17 gm 08/24/17 09:00 08/25/17 09:19 Miralax PO Not Given DAILY TAWANNA Sodium Chloride 10 ml 08/23/17 23:28 08/24/17 00:50 Normal Saline Flush 0.9% IVP 10 ml PRN PRN Administration NEEDED PER PROVIDER ORDERS Sodium Chloride 10 ml 08/24/17 06:00 08/25/17 14:32 Normal Saline Flush 0.9% IVP Not Given Q8HR TAWANNA - Lab Result Fish Bone Diagrams: 08/27/17 05:29 08/27/17 05:29 - Additional Planning My Orders: My Active Orders 08/24/17 17:48 LORazepam [Ativan] 0.5 mg PO QPM PRN 08/24/17 18:00 Citalopram [CeleXA] 10 mg PO DAILY 08/24/17 19:00 Fat Emulsion 20% [Intralipid 20%] 250 ml IV Q24H Multivitamin [Infuvite] 10 ml Trace Elements V Conc [Multitrace-5 Conc Vial] 1 ml Ppn (Clinimix E 4.25/5) [Clinimix E 4.25%-5% Solution] 2,000 ml IV Q24H 08/25/17 09:18 EKG - Electrocardiogram [RC] .ONCE 08/25/17 10:00 Moxifloxacin 400Mg/250Ml IV [Avelox 400Mg/250Ml IV] 400 mg in 250 ml IV Q24H 08/25/17 15:00 Potassium Chlor 10 Meq/100 ml [Potassium Chloride] 10 meq in 100 ml IV Q1H 08/25/17 17:00 Ppn (Clinimix E 4.25/5) [Clinimix E 4.25%-5% Solution] 2,000 ml Multivitamin [ Infuvite] 10 ml IV 95 mls/hr 08/25/17 19:00 Trace Elements V Conc [Multitrace-5 Conc Vial] 1 ml Sodium Chloride 0.9% [ Normal Saline 0.9%] 50 ml IV Q24H 08/26/17 11:00 EKG - Electrocardiogram [RC] .ONCE Subjective - Subjective Patient Reports: Feeling Better Nursing Reports: Other (No abd pain Had a fever overnight and was cultured) Objective Vital Signs: Vital Signs - 24 hr 08/24/17 08/24/17 08/24/17 17:10 18:57 19:26 Temperature 38.9 C H 39.2 C H Heart Rate [ 105 H 107 H 99 Brachial] Respiratory 16 8 L Rate Blood Pressure 132/66 H 135/67 H 125/61 [Right Brachial artery] O2 Saturation 98 90 L 08/24/17 08/24/17 08/24/17 19:27 19:28 20:17 Temperature 38.8 C H 37.7 C H Heart Rate [ 95 Brachial] Respiratory 22 Rate Blood Pressure [Right Brachial artery] O2 Saturation 97 96 08/25/17 08/25/17 08/25/17 00:36 08:12 15:42 Temperature 37.0 C 37.1 C 36.8 C Heart Rate [ 84 84 76 Brachial] Respiratory 18 16 16 Rate Blood Pressure 115/62 126/69 120/67 [Right Brachial artery] O2 Saturation 98 97 96 Oxygen O2 Source Room air I&O (Last 24 Hrs): Intake and Output Totals x24h 08/23/17 08/24/17 08/25/17 23:59 23:59 23:59 Intake Total 2677.667 1747.333 Output Total 1375 2450 Balance 1302.667 -702.667 General: Alert, Oriented x3 HEENT: Mucous membr. moist/pink Neck: Supple Cardiovascular: Regular rate Respiratory: No respiratory distress Extremities: Other (B BKAs) - Results Results: Laboratory Results WBC 8.6 x10^3/uL (4.8-10.8) 08/25/17 05:00 RBC 4.14 10^6/uL (4.70-6.10) L 08/25/17 05:00 Hgb 11.7 g/dL (14.0-18.0) L 08/25/17 05:00 Hct 35.0 % (42.0-52.0) L 08/25/17 05:00 MCV 84.5 fL (80.0-94.0) 08/25/17 05:00 MCH 28.3 pg (27.0-31.0) 08/25/17 05:00 MCHC 33.5 g/dL (32.0-36.0) 08/25/17 05:00 RDW 13.8 % (12.0-15.0) 08/25/17 05:00 Plt Count 177 10^3/uL (130-450) 08/25/17 05:00 MPV 9.3 fL (7.4-11.4) 08/25/17 05:00 Neut # 5.0 10^3/uL (1.5-6.6) 08/25/17 05:00 Lymph # 2.3 10^3/uL (1.5-3.5) 08/25/17 05:00 [place] # 0.8 10^3/uL (0.0-1.0) 08/25/17 05:00 Eos # 0.5 10^3/uL (0.0-0.7) 08/25/17 05:00 Baso # 0.0 10^3/uL (0.0-0.1) 08/25/17 05:00 Absolute Nucleated RBC 0.00 x10^3/uL 08/25/17 05:00 Band Neuts % (Manual) 13 % (0-10) H 08/23/17 20:40 Nucleated RBC % 0.0 /100WBC 08/25/17 05:00 Neutrophils # (Manual) 11.5 10^3/uL (1.5-6.6) H 08/23/17 20:40 Lymphocytes # (Manual) 1.5 10^3/uL (1.5-3.5) 08/23/17 20:40 Monocytes # (Manual) 0.7 10^3/uL (0.0-1.0) 08/23/17 20:40 Basophils # (Manual) 0.1 10^3/uL (0-0.1) 08/23/17 20:40 WBC Morphology 1+ TOXIC GRANULATION (NORMAL) 1+ VACUOLATION (NORMAL) 20:40 WBC Morphology 1+ TOXIC GRANULATION (NORMAL) 1+ VACUOLATION (NORMAL) 20:40 Platelet Estimate NORMAL (130-450,000) (NORMAL) 08/23/17 20:40 RBC Morph Micro Appear NORMAL APPEARANCE (NORMAL) 08/23/17 20:40 Sodium 137 mmol/L (135-145) 08/25/17 05:58 Potassium 3.1 mmol/L (3.5-5.0) L 08/25/17 05:58 Chloride 103 mmol/L (101-111) 08/25/17 05:58 Carbon Dioxide 23 mmol/L (21-32) 08/25/17 05:58 Anion Gap 11.0 (6-13) 08/25/17 05:58 BUN 7 mg/dL (6-20) 08/25/17 05:58 Creatinine 0.6 mg/dL (0.6-1.2) 08/25/17 05:58 Estimated GFR (MDRD) 155 (>89) 08/25/17 05:58 Glucose 92 mg/dL (70-100) 08/25/17 05:58 Lactic Acid 1.0 mmol/L (0.5-2.2) 08/23/17 20:40 Calcium 8.4 mg/dL (8.5-10.3) L 08/25/17 05:58 Phosphorus 2.8 mg/dL (2.5-4.6) 08/25/17 04:43 Magnesium 2.1 mg/dL (1.7-2.8) 08/25/17 04:43 Total Bilirubin 0.9 mg/dL (0.2-1.0) 08/23/17 20:40 AST 61 IU/L (10-42) H 08/23/17 20:40 ALT 100 IU/L (10-60) H 08/23/17 20:40 Alkaline Phosphatase 109 IU/L (42-121) 08/23/17 20:40 Total Protein 7.2 g/dL (6.7-8.2) 08/23/17 20:40 Albumin 3.4 g/dL (3.2-5.5) 08/23/17 20:40 Globulin 3.8 g/dL (2.1-4.2) 08/23/17 20:40 Albumin/Globulin Ratio 0.9 (1.0-2.2) L 08/23/17 20:40 Lipase 21 U/L (22-51) L 08/23/17 20:40 Urine Color YELLOW 08/23/17 21:40 Urine Clarity CLEAR (CLEAR) 08/23/17 21:40 Urine pH 6.0 PH (5.0-7.5) 08/23/17 21:40 Ur Specific Tiller 1.025 (1.002-1.030) 08/23/17 21:40 Urine Protein NEGATIVE mg/dL (NEGATIVE) 08/23/17 21:40 Urine Glucose (UA) NEGATIVE mg/dL (NEGATIVE) 08/23/17 21:40 Urine Ketones NEGATIVE mg/dL (NEGATIVE) 08/23/17 21:40 Urine Occult Blood MODERATE (NEGATIVE) H 08/23/17 21:40 Urine Nitrite NEGATIVE (NEGATIVE) 08/23/17 21:40 Urine Bilirubin NEGATIVE (NEGATIVE) 08/23/17 21:40 Urine Urobilinogen 4 E.U./dL (NORMAL) H 08/23/17 21:40 Ur Leukocyte Esterase NEGATIVE (NEGATIVE) 08/23/17 21:40 Urine RBC 0-5 /HPF (0-5) 08/23/17 21:40 Urine WBC 0-3 /HPF (0-3) 08/23/17 21:40 Ur Squamous Epith Cells RARE Squamous (<= Few) 08/23/17 21:40 Urine Bacteria Rare /HPF (None Seen) 08/23/17 21:40 Urine Mucus Few Strands 08/23/17 21:40 Ur Microscopic Review INDICATED 08/23/17 21:40 Urine Culture Comments NOT INDICATED 08/23/17 21:40 - Procedures Procedures: Procedures CENTRAL VENOUS CATHETER PLACEMENT WITH GUIDANCE (01/22/15) FLUOROSCOPY OF SUP VENA CAVA USING L OSM CONTRAST, GUIDANCE (05/15/17) INSERTION OF INFUSION DEV INTO SPINAL CANAL, PERC APPROACH (04/27/16) INSERTION OF INFUSION DEV INTO SUP VENA CAVA, PERC APPROACH (05/15/17) INSERTION OF TOTALLY IMPLANTABLE VASC ACCESS DEVIC (07/06/15) INSPECTION OF GALLBLADDER, PERCUTANEOUS ENDOSCOPIC APPROACH (04/27/16) INTRODUCE ANALG/HYPNOT/SEDAT IN SPINAL CANAL, PERC (04/27/16) REMOVAL OF INFUSION DEVICE FROM HEART, PERCUTANEOUS APPROACH (11/01/15) RESECTION OF GALLBLADDER, OPEN APPROACH (04/27/16)
[2017-08-25] MEDS ORDERED: POTASSIUM CHLOR 10 MEQ/100 ML 10 MEQ/100 ML BAG IV SCH (16:00)
[2017-08-25] MEDS ORDERED: PPN IV SCH (17:00)
[2017-08-25] MEDS ORDERED: MULTIVITAMIN IV SCH (17:00)
[2017-08-25] MEDS: MORPHINE 2 MG/ML SYRINGE IVP PRN ×2 (18:48→22:59)
[2017-08-25] MEDS: SODIUM CHLORIDE FLUSH 0.9% 10 ML SYRINGE IVP PRN ×2 (18:49→22:59)
[2017-08-25] MEDS ORDERED: TRACE ELEMENTS V IV SCH ×2 (19:00)
[2017-08-25] MEDS ORDERED: SODIUM CHLORIDE 0.9% IV SCH ×2 (19:00)
[2017-08-25] MEDS: LORazepam 0.5 MG TABLET PO PRN (21:57)
[2017-08-25] MEDS: LORATADINE 10 MG TABLET PO SCH (21:57)
[2017-08-25] MEDS: FAT EMULSION 20% 250 ML IV SCH (23:17)
[2017-08-26] MEDS: LACTATED RINGERS 1,000 ML IV SCH ×2 (00:13→11:48)
[2017-08-26] MEDS: MORPHINE 2 MG/ML SYRINGE IVP PRN ×5 (02:09→21:07)
[2017-08-26] MEDS: SODIUM CHLORIDE FLUSH 0.9% 10 ML SYRINGE IVP PRN (02:10)
[2017-08-26 05:51] LABS: BASOPHILS % (AUTO) 0.4 %; EOSINOPHILS # (AUTO) 0.6 10^3/uL (0.0-0.7); EOSINOPHILS % (AUTO) 7.4 %; HCT - HEMATOCRIT 36.8 % (42.0-52.0); HGB - HEMOGLOBIN 12.1 g/dL (14.0-18.0); LYMPHOCYTES # (AUTO) 3.7 10^3/uL (1.5-3.5); LYMPHOCYTES % (AUTO) 45.9 %; MEAN CORPUSCULAR HEMOGLOBIN 27.9 pg (27.0-31.0); MEAN CORPUSCULAR VOLUME 84.7 fL (80.0-94.0); MEAN PLATELET VOLUME 9.1 fL (7.4-11.4); MONOCYTES # (AUTO) 0.7 10^3/uL (0.0-1.0); MONOCYTES % (AUTO) 8.6 %; NEUTROPHILS % (AUTO) 37.7 %; RED BLOOD COUNT 4.35 10^6/uL (4.70-6.10); RED CELL DISTRIBUTION WIDTH 13.9 % (12.0-15.0)
[2017-08-26 05:58] LABS: ALBUMIN/GLOBULIN RATIO 0.9 (1.0-2.2); BILIRUBIN,TOTAL 0.5 mg/dL (0.2-1.0); BUN - BLOOD UREA NITROGEN 11 mg/dL (6-20); CALCIUM 8.2 mg/dL (8.5-10.3); CARBON DIOXIDE - CO2 27 mmol/L (21-32); CHLORIDE 106 mmol/L (101-111); CREATININE 0.7 mg/dL (0.6-1.2); GFR - MDRD 130 (>89); GLUCOSE 90 mg/dL (70-100); POTASSIUM 3.2 mmol/L (3.5-5.0); SODIUM 138 mmol/L (135-145); TOTAL PROTEIN 6.5 g/dL (6.7-8.2)
[2017-08-26 06:00] LABS: CALCIUM, IONIZED 1.13 mmol/L (1.15-1.33); VBG PH 7.416 (7.31-7.41)
[2017-08-26] MEDS: PANTOPRAZOLE 40 MG TABLET PO SCH ×2 (06:21→15:59)
[2017-08-26] MEDS: SODIUM CHLORIDE FLUSH 0.9% 10 ML SYRINGE IVP SCH ×3 (06:21→21:08)
[2017-08-26] MEDS: DULoxetine 30 MG CAPSULE PO SCH (08:23)
[2017-08-26] MEDS: POLYETHYLENE GLYCOL 3350 17 GM PACKET PO SCH (08:23)
[2017-08-26] MEDS: ENOXAPARIN 40 MG/0.4 ML SYRINGE SUBQ SCH (08:23)
[2017-08-26] MEDS: CITALOPRAM 10 MG TABLET PO SCH (08:23)
[2017-08-26] MEDS: MOXIFLOXACIN 400MG/250ML IV 400 MG/250 ML BAG IV SCH (10:29)
--- NOTE | 2017-08-26 17:30 | PROVIDER PROGRESS NOTE ---
Assessment/Plan - Problem List (1) Bacteremia Assessment/Plan: No fever for 24 hours on current (changed) antibiotic Will plan PICC line insertion by Anesthesia tomorrow and outpt antibiotics ( [employer] has approved Moxifloxacin iv daily for a 4week course and pt knows how to administer meds iv). Central port re-insertion surgically should await several weeks of current peripheral iv antibiotics. This was advised by Dr Torres, surgeon who removed the central port this admission. (2) Eosinophilic gastritis or gastroenteritis Assessment/Plan: No pain now (3) S/P BKA (below knee amputation) bilateral Assessment/Plan: Stable (4) Anxiety Assessment/Plan: No complaints. Celexa was newly added to his Cymbalta 2 days ago - Current Meds Current Meds: Current Medications Generic Name Dose Route Start Last Admin Trade Name Freq PRN Reason Stop Dose Admin Citalopram Hydrobromide 10 mg 08/24/17 18:00 08/26/17 08:23 Celexa PO 10 mg DAILY TAWANNA Administration Duloxetine HCl 60 mg 08/24/17 09:00 08/26/17 08:23 Cymbalta PO 60 mg DAILY TAWANNA Administration Enoxaparin Sodium 40 mg 08/24/17 09:00 08/26/17 08:23 Lovenox SUBQ 40 mg DAILY TAWANNA Administration Hydroxyzine Pamoate 50 mg 08/24/17 01:21 08/24/17 07:18 Vistaril PO 50 mg Q6HR PRN Administration Anxiety Lactated Ringer's 1,000 mls @ 100 mls/hr 08/23/17 23:45 08/26/17 11:48 Lr IV Not Given .Q10H TAWANNA Acetaminophen 100 mls @ 400 mls/hr 08/24/17 11:39 08/24/17 19:35 Ofirmev IV Infused Q6HR PRN Infusion PAIN Moxifloxacin HCl 400 mg in 250 mls @ 250 mls/hr 08/25/17 10:00 08/26/17 11:51 Avelox 400mg/250ml Iv IV Infused Q24H TAWANNA Infusion Loratadine 10 mg 08/24/17 21:00 08/25/17 21:57 Claritin PO 10 mg QPM TAWANNA Administration Lorazepam 0.5 mg 08/24/17 17:48 08/25/17 21:57 Ativan PO 0.5 mg QPM PRN Administration Insomnia Morphine Sulfate 3 mg 08/24/17 08:22 08/26/17 15:59 Morphine IVP 3 mg Q2H PRN Administration Pain 8 to 10 Pantoprazole Sodium 40 mg 08/24/17 07:00 08/26/17 15:59 Protonix PO 40 mg BIDAC TAWANNA Administration Polyethylene Glycol 17 gm 08/24/17 09:00 08/26/17 08:23 Miralax PO Not Given DAILY TAWANNA Sodium Chloride 10 ml 08/23/17 23:28 08/26/17 02:10 Normal Saline Flush 0.9% IVP 10 ml PRN PRN Administration NEEDED PER PROVIDER ORDERS Sodium Chloride 10 ml 08/24/17 06:00 08/26/17 14:24 Normal Saline Flush 0.9% IVP Not Given Q8HR TAWANNA Temazepam 15 mg 08/23/17 23:28 08/26/17 00:27 Restoril PO 15 mg QPM PRN Administration Insomnia - Lab Result Fish Bone Diagrams: 08/27/17 05:29 08/27/17 05:29 - Additional Planning My Orders: My Active Orders 08/26/17 17:27 PICC Line Care [RC] Q4H PICC Line Insert [RC] .ONCE Subjective - Subjective Patient Reports: Resting Comfortably Objective Vital Signs: Vital Signs - 24 hr 08/26/17 08/26/17 08/26/17 00:31 08:06 15:47 Temperature 36.6 C 36.4 C L 36.6 C Heart Rate [ 85 81 80 Brachial] Respiratory 18 18 16 Rate Blood Pressure 120/61 116/61 116/58 L [Right Brachial artery] O2 Saturation 96 97 97 Oxygen O2 Source Room air I&O (Last 24 Hrs): Intake and Output Totals x24h 08/24/17 08/25/17 08/26/17 23:59 23:59 23:59 Intake Total 2677.667 4858.333 2930 Output Total 1375 2450 300 Balance 8026.968 2678.333 2630 General: Alert Respiratory: No respiratory distress - Results Results: Laboratory Results WBC 8.0 x10^3/uL (4.8-10.8) 08/26/17 05:31 RBC 4.35 10^6/uL (4.70-6.10) L 08/26/17 05:31 Hgb 12.1 g/dL (14.0-18.0) L 08/26/17 05:31 Hct 36.8 % (42.0-52.0) L 08/26/17 05:31 MCV 84.7 fL (80.0-94.0) 08/26/17 05:31 MCH 27.9 pg (27.0-31.0) 08/26/17 05:31 MCHC 33.0 g/dL (32.0-36.0) 08/26/17 05:31 RDW 13.9 % (12.0-15.0) 08/26/17 05:31 Plt Count 209 10^3/uL (130-450) 08/26/17 05:31 MPV 9.1 fL (7.4-11.4) 08/26/17 05:31 Neut # 3.0 10^3/uL (1.5-6.6) 08/26/17 05:31 Lymph # 3.7 10^3/uL (1.5-3.5) H 08/26/17 05:31 [place]ombs # 0.7 10^3/uL (0.0-1.0) 08/26/17 05:31 Eos # 0.6 10^3/uL (0.0-0.7) 08/26/17 05:31 Baso # 0.0 10^3/uL (0.0-0.1) 08/26/17 05:31 Absolute Nucleated RBC 0.00 x10^3/uL 08/26/17 05:31 Band Neuts % (Manual) 13 % (0-10) H 08/23/17 20:40 Nucleated RBC % 0.0 /100WBC 08/26/17 05:31 Neutrophils # (Manual) 11.5 10^3/uL (1.5-6.6) H 08/23/17 20:40 Lymphocytes # (Manual) 1.5 10^3/uL (1.5-3.5) 08/23/17 20:40 Monocytes # (Manual) 0.7 10^3/uL (0.0-1.0) 08/23/17 20:40 Basophils # (Manual) 0.1 10^3/uL (0-0.1) 08/23/17 20:40 WBC Morphology 1+ TOXIC GRANULATION (NORMAL) 1+ VACUOLATION (NORMAL) 20:40 WBC Morphology 1+ TOXIC GRANULATION (NORMAL) 1+ VACUOLATION (NORMAL) 20:40 Platelet Estimate NORMAL (130-450,000) (NORMAL) 08/23/17 20:40 RBC Morph Micro Appear NORMAL APPEARANCE (NORMAL) 08/23/17 20:40 VBG pH 7.416 (7.31-7.41) H 08/26/17 05:31 Ionized Calcium 1.13 mmol/L (1.15-1.33) L 08/26/17 05:31 Sodium 138 mmol/L (135-145) 08/26/17 05:31 Potassium 3.2 mmol/L (3.5-5.0) L 08/26/17 05:31 Chloride 106 mmol/L (101-111) 08/26/17 05:31 Carbon Dioxide 27 mmol/L (21-32) 08/26/17 05:31 Anion Gap 5.0 (6-13) L 08/26/17 05:31 BUN 11 mg/dL (6-20) 08/26/17 05:31 Creatinine 0.7 mg/dL (0.6-1.2) 08/26/17 05:31 Estimated GFR (MDRD) 130 (>89) 08/26/17 05:31 Glucose 90 mg/dL (70-100) 08/26/17 05:31 Lactic Acid 1.0 mmol/L (0.5-2.2) 08/23/17 20:40 Calcium 8.2 mg/dL (8.5-10.3) L 08/26/17 05:31 Ionized Calcium YES 08/26/17 05:31 Phosphorus 2.8 mg/dL (2.5-4.6) 08/25/17 04:43 Magnesium 2.1 mg/dL (1.7-2.8) 08/25/17 04:43 Total Bilirubin 0.5 mg/dL (0.2-1.0) 08/26/17 05:31 AST 42 IU/L (10-42) 08/26/17 05:31 ALT 78 IU/L (10-60) H 08/26/17 05:31 Alkaline Phosphatase 90 IU/L (42-121) 08/26/17 05:31 Total Protein 6.5 g/dL (6.7-8.2) L 08/26/17 05:31 Albumin 3.0 g/dL (3.2-5.5) L 08/26/17 05:31 Globulin 3.5 g/dL (2.1-4.2) 08/26/17 05:31 Albumin/Globulin Ratio 0.9 (1.0-2.2) L 08/26/17 05:31 Lipase 21 U/L (22-51) L 08/23/17 20:40 Urine Color YELLOW 08/23/17 21:40 Urine Clarity CLEAR (CLEAR) 08/23/17 21:40 Urine pH 6.0 PH (5.0-7.5) 08/23/17 21:40 Ur Specific [place] 1.025 (1.002-1.030) 08/23/17 21:40 Urine Protein NEGATIVE mg/dL (NEGATIVE) 08/23/17 21:40 Urine Glucose (UA) NEGATIVE mg/dL (NEGATIVE) 08/23/17 21:40 Urine Ketones NEGATIVE mg/dL (NEGATIVE) 08/23/17 21:40 Urine Occult Blood MODERATE (NEGATIVE) H 08/23/17 21:40 Urine Nitrite NEGATIVE (NEGATIVE) 08/23/17 21:40 Urine Bilirubin NEGATIVE (NEGATIVE) 08/23/17 21:40 Urine Urobilinogen 4 E.U./dL (NORMAL) H 08/23/17 21:40 Ur Leukocyte Esterase NEGATIVE (NEGATIVE) 08/23/17 21:40 Urine RBC 0-5 /HPF (0-5) 08/23/17 21:40 Urine WBC 0-3 /HPF (0-3) 08/23/17 21:40 Ur Squamous Epith Cells RARE Squamous (<= Few) 08/23/17 21:40 Urine Bacteria Rare /HPF (None Seen) 08/23/17 21:40 Urine Mucus Few Strands 08/23/17 21:40 Ur Microscopic Review INDICATED 08/23/17 21:40 Urine Culture Comments NOT INDICATED 08/23/17 21:40 - Procedures Procedures: Procedures CENTRAL VENOUS CATHETER PLACEMENT WITH GUIDANCE (01/22/15) FLUOROSCOPY OF SUP VENA CAVA USING L OSM CONTRAST, GUIDANCE (05/15/17) INSERTION OF INFUSION DEV INTO SPINAL CANAL, PERC APPROACH (04/27/16) INSERTION OF INFUSION DEV INTO SUP VENA CAVA, PERC APPROACH (05/15/17) INSERTION OF TOTALLY IMPLANTABLE VASC ACCESS DEVIC (07/06/15) INSPECTION OF GALLBLADDER, PERCUTANEOUS ENDOSCOPIC APPROACH (04/27/16) INTRODUCE ANALG/HYPNOT/SEDAT IN SPINAL CANAL, PERC (04/27/16) REMOVAL OF INFUSION DEVICE FROM HEART, PERCUTANEOUS APPROACH (11/01/15) RESECTION OF GALLBLADDER, OPEN APPROACH (04/27/16)
[2017-08-26] MEDS: LORATADINE 10 MG TABLET PO SCH (21:07)
[2017-08-26] MEDS ORDERED: POTASSIUM CHLORIDE 20 MEQ/15 ML UDC PO SCH (23:45)
[2017-08-27] MEDS: MORPHINE 2 MG/ML SYRINGE IVP PRN ×4 (00:18→16:17)
[2017-08-27] MEDS: SODIUM CHLORIDE FLUSH 0.9% 10 ML SYRINGE IVP SCH ×2 (00:19→12:54)
[2017-08-27] MEDS: LORazepam 0.5 MG TABLET PO PRN (00:19)
[2017-08-27] MEDS: PANTOPRAZOLE 40 MG TABLET PO SCH (05:39)
[2017-08-27] MEDS: SODIUM CHLORIDE FLUSH 0.9% 10 ML SYRINGE IVP PRN (05:40)
[2017-08-27 06:16] LABS: ALBUMIN/GLOBULIN RATIO 0.8 (1.0-2.2); BILIRUBIN,TOTAL 0.5 mg/dL (0.2-1.0); BUN - BLOOD UREA NITROGEN 11 mg/dL (6-20); CALCIUM 8.2 mg/dL (8.5-10.3); CARBON DIOXIDE - CO2 27 mmol/L (21-32); CHLORIDE 105 mmol/L (101-111); CREATININE 0.8 mg/dL (0.6-1.2); GFR - MDRD 111 (>89); GLUCOSE 83 mg/dL (70-100); POTASSIUM 3.9 mmol/L (3.5-5.0); SODIUM 140 mmol/L (135-145); TOTAL PROTEIN 6.6 g/dL (6.7-8.2)
[2017-08-27 06:19] LABS: CALCIUM, IONIZED 1.12 mmol/L (1.15-1.33); VBG PH 7.383 (7.31-7.41)
[2017-08-27 06:22] LABS: BASOPHILS % (AUTO) 0.7 %; EOSINOPHILS # (AUTO) 0.5 10^3/uL (0.0-0.7); EOSINOPHILS % (AUTO) 6.7 %; HCT - HEMATOCRIT 36.9 % (42.0-52.0); LYMPHOCYTES # (AUTO) 3.3 10^3/uL (1.5-3.5); LYMPHOCYTES % (AUTO) 43.7 %; MEAN CORPUSCULAR HEMOGLOBIN 27.5 pg (27.0-31.0); MEAN CORPUSCULAR HGB CONC 32.5 g/dL (32.0-36.0); MEAN CORPUSCULAR VOLUME 84.7 fL (80.0-94.0); MEAN PLATELET VOLUME 9.2 fL (7.4-11.4); MONOCYTES # (AUTO) 0.5 10^3/uL (0.0-1.0); MONOCYTES % (AUTO) 6.2 %; NEUTROPHILS # (AUTO) 3.2 10^3/uL (1.5-6.6); NEUTROPHILS % (AUTO) 42.7 %; RED BLOOD COUNT 4.36 10^6/uL (4.70-6.10); RED CELL DISTRIBUTION WIDTH 13.9 % (12.0-15.0); UNCORRECTED WHITE BLOOD COUNT 7.5 x10^3/uL; WHITE BLOOD COUNT 7.5 x10^3/uL (4.8-10.8)
[2017-08-27] MEDS: hydrOXYzine PAMOATE 25 MG CAPSULE PO PRN (06:30)
--- NOTE | 2017-08-27 09:00 | PROVIDER PROGRESS NOTE ---
Subjective - Prog Note Date Prog Note Date: 08/27/17 Prog Note Time: 08:58 - Subjective Pt reports feeling: No change Subjective: he uses morphine for prn pain. Eats chocolate pudding and drinks root beer. Not on TPN as we wait for new access. I called Dr. Meier's office and he was in with a patient so I spoke to his RN Yenny. He's on meds for depression but is NOT opiates in their office. Seen in 06/2017 for some joint pain but, again, not on opiates. While he complains of abd pain here, it is the same pain he has in the oupt settting. What brought him in was fevers and weakness, not abd pain. Current Medications - Current Medications Current Medications: Active Medications Citalopram Hydrobromide (Celexa) 10 mg PO DAILY [facility] Last Admin: 08/26/17 08:23 Dose: 10 mg Duloxetine HCl (Cymbalta) 60 mg PO DAILY [facility] Last Admin: 08/26/17 08:23 Dose: 60 mg Enoxaparin Sodium (Lovenox) 40 mg SUBQ DAILY [facility] Last Admin: 08/26/17 08:23 Dose: 40 mg Hydroxyzine Pamoate (Vistaril) 50 mg PO Q6HR PRN PRN Reason: Anxiety Last Admin: 08/27/17 06:30 Dose: 50 mg Acetaminophen (Ofirmev) 100 mls @ 400 mls/hr IV Q6HR PRN PRN Reason: PAIN Last Infusion: 08/24/17 19:35 Dose: Infused Moxifloxacin HCl (Avelox 400mg/250ml Iv) 400 mg in 250 mls @ 250 mls/hr IV Q24H [facility] Last Infusion: 08/26/17 11:51 Dose: Infused Loratadine (Claritin) 10 mg PO QPM [facility] Last Admin: 08/26/17 21:07 Dose: 10 mg Lorazepam (Ativan) 0.5 mg PO QPM PRN PRN Reason: Insomnia Last Admin: 08/27/17 00:19 Dose: 0.5 mg Morphine Sulfate (Morphine) 3 mg IVP Q2H PRN PRN Reason: Pain 8 to 10 Last Admin: 08/27/17 08:05 Dose: 3 mg Ondansetron HCl (Zofran Odt) 8 mg PO Q6HR PRN PRN Reason: Nausea / Vomiting Last Admin: 08/27/17 00:34 Dose: 8 mg Pantoprazole Sodium (Protonix) 40 mg PO BIDAC [facility] Last Admin: 08/27/17 05:39 Dose: 40 mg Polyethylene Glycol (Miralax) 17 gm PO DAILY [facility] Last Admin: 08/26/17 08:23 Dose: Not Given Prochlorperazine Edisylate (Compazine Inj) 10 mg IVP Q6HR PRN PRN Reason: Nausea / Vomiting Sodium Chloride (Normal Saline Flush 0.9%) 10 ml IVP PRN PRN PRN Reason: NEEDED PER PROVIDER ORDERS Last Admin: 08/27/17 05:40 Dose: 10 ml Sodium Chloride (Normal Saline Flush 0.9%) 10 ml IVP Q8HR [facility] Last Admin: 08/27/17 00:19 Dose: 10 ml Temazepam (Restoril) 15 mg PO QPM PRN PRN Reason: Insomnia Last Admin: 08/26/17 00:27 Dose: 15 mg Ondansetron [Ondansetron Odt] 8 mg PO Q6HR PRN 04/05/13 Omeprazole 40 mg PO BID 07/06/14 Duloxetine HCl [Cymbalta] 60 mg PO DAILY 05/11/15 Sodium/Pot/Mag/Calc/Chlor/Acet [TPN Electrolytes II IV Soln] 2,000 ml IV QPM Loratadine [Claritin] 10 mg PO QPM 03/09/16 Objective - Vital Signs/Intake & Output Reviewed Vital Signs: Yes Vital Signs: Vital Signs x48h Temp Pulse Resp BP Pulse Ox 08/27/17 08:13 36.5 C 70 16 107/58 L 97 Intake & Output: Intake & Output 08/24/17 08/25/17 08/26/17 08/27/17 23:59 23:59 23:59 23:59 Intake Total 2677.667 4858.333 2930 200 Output Total 1375 2450 300 400 Balance 5118.370 7419.333 2630 -200 - Objective General Appearance: positive: No acute distress, Alert Eyes Bilateral: positive: PERRL ENT: positive: ENT inspection nml Neck: positive: No JVD. negative: Stiff neck, Carotid bruit Respiratory: positive: Chest non-tender. negative: Wheezes, Rales, Rhonchi Cardiovascular: positive: Regular rate & rhythm, No murmur. negative: Gallop/S4 , Friction rub Abdomen: positive: Nml bowel sounds, Tenderness (mild and diffuse, tolerates deep palpation). negative: Guarding, Rebound, Hepatomegaly, Splenomegaly Extremities: positive: Non-tender, Full ROM, No pedal edema Neurologic/Psychiatric: positive: Oriented x3, CN's nml (2-12), Motor nml - Lab Results Fish Bones: 08/27/17 05:29 08/27/17 05:29 Other Labs: Lab Results x24hrs 08/27/17 08/27/17 08/27/17 Range/Units 05:29 05:29 05:29 WBC 7.5 (4.8-10.8) x10^3/uL RBC 4.36 L (4.70-6.10) 10^6/uL Hgb 12.0 L (14.0-18.0) g/dL Hct 36.9 L (42.0-52.0) % MCV 84.7 (80.0-94.0) fL MCH 27.5 (27.0-31.0) pg MCHC 32.5 (32.0-36.0) g/dL RDW 13.9 (12.0-15.0) % Plt Count 233 (130-450) 10^3/uL MPV 9.2 (7.4-11.4) fL Neut # 3.2 (1.5-6.6) 10^3/uL Lymph # 3.3 (1.5-3.5) 10^3/uL [place] # 0.5 (0.0-1.0) 10^3/uL Eos # 0.5 (0.0-0.7) 10^3/uL Baso # 0.0 (0.0-0.1) 10^3/uL Absolute Nucleated RBC 0.00 x10^3/uL Nucleated RBC % 0.0 /100WBC VBG pH 7.383 (7.31-7.41) Ionized Calcium 1.12 L YES (1.15-1.33) mmol/L Sodium 140 (135-145) mmol/L Potassium 3.9 (3.5-5.0) mmol/L Chloride 105 (101-111) mmol/L Carbon Dioxide 27 (21-32) mmol/L Anion Gap 8.0 (6-13) BUN 11 (6-20) mg/dL Creatinine 0.8 (0.6-1.2) mg/dL Estimated GFR (MDRD) 111 (>89) Glucose 83 (70-100) mg/dL Calcium 8.2 L (8.5-10.3) mg/dL Total Bilirubin 0.5 (0.2-1.0) mg/dL AST 55 H (10-42) IU/L ALT 92 H (10-60) IU/L Alkaline Phosphatase 85 (42-121) IU/L Total Protein 6.6 L (6.7-8.2) g/dL Albumin 3.0 L (3.2-5.5) g/dL Globulin 3.6 (2.1-4.2) g/dL Albumin/Globulin Ratio 0.8 L (1.0-2.2) Assessment/Plan - Problem List (1) Bloodstream infection due to Gamez catheter Impression: No fever for 48 hours on current (changed) antibiotic Will plan PICC line insertion by Anesthesia today, Zoe Acevedo has been called , and outpt antibiotics ([facility] has approved Moxifloxacin iv daily 4week course and pt knows how to administer meds iv. Central port re-insertion should await several weeks of current iv meds Blood culture 08/23 with coag negative Staph epidermidis in 2 bottles. Blood culture 08/13 with Staph hominis Plan is dc once PICC in . (2) Eosinophilic gastritis or gastroenteritis Assessment/Plan: Using morphine prn. Had a pain contract for dilaudid in the past with [facility]. Verified that he has no pain meds with his current PCP. Will address discrepancy with patient after his PICC line is in and try to find what exactly the pain is from (3) S/P BKA (below knee amputation) bilateral Assessment/Plan: status is chronic, present on admission. (4) Anxiety Assessment/Plan: No complaints. Celexa was newly added to his Cymbalta 08/24
[2017-08-27] MEDS: CITALOPRAM 10 MG TABLET PO SCH (10:22)
[2017-08-27] MEDS: DULoxetine 30 MG CAPSULE PO SCH (10:22)
[2017-08-27] MEDS: ENOXAPARIN 40 MG/0.4 ML SYRINGE SUBQ SCH (10:22)
[2017-08-27] MEDS: POLYETHYLENE GLYCOL 3350 17 GM PACKET PO SCH (10:22)
[2017-08-27] MEDS: MOXIFLOXACIN 400MG/250ML IV 400 MG/250 ML BAG IV SCH (10:27)
[2017-08-27] MEDS ORDERED: LORazepam 2 MG/ML SYRINGE ONE (15:45)
[2017-08-27] MEDS ORDERED: SODIUM CHLORIDE FLUSH 0.9% 10 ML SYRINGE IVP ONE (15:47)
[2017-08-27] MEDS ORDERED: LORazepam 2 MG/ML SYRINGE IVP ONE (16:03)
[2017-08-27] MEDS ORDERED: LORazepam 2 MG/ML SYRINGE IVP SCH (16:59)
--- NOTE | 2017-08-27 17:32 | Discharge Plan ---
Discharge Plan Disposition: 01 Home, Self Care Condition: Stable Prescriptions: Citalopram [CeleXA] 10 mg PO DAILY #30 tablet Moxifloxacin HCl (Pf)/Bss No.2 [Moxifloxacin 1 mg/ml-Bss Vial] 400 mg IV DAILY # 28 vial Diet: Regular Activity Restrictions: Activity as Tolerated Shower Restrictions: No Driving Restrictions: No Additional Instructions or Follow Up instructions: You were admitted to the hospital because of fevers and diffuse pain. This was the second time he were admitted in the last 30 days. The first time was 10 days ago and you did have positive blood cultures then but only 1 out of 4 bottles. With this admission you had 2 out of 4 bottles positive and grew out staph hominis and staph epidermidis. Both of these are bacteria that originate from the Gamez Port-A-Cath you had. We had to remove the Port-A-Cath because it was causing your infection. We have been treating you with an IV antibiotic once a day. You have had no fever or myalgias for the last 3 days. Your white cell count has been normal for 2 days. Today, on the day of discharge, you have had a PICC line placed. You will need antibiotics for a few more weeks. Blood cultures need to be repeated to make sure that your blood is then free of the Staph. Then you can have another Port-A-Cath placed in to resume your TPN. At home, you will resume your usual activities. Resume your usual TPN with a new PICC line. And do the Avelox once a day. Please see your primary care provider, Dr. Meier, in the next 1-2 weeks. I did call his office today to update him on your course while here. He was in with the patient and I spoke to his clinic nurse and she will update him. No Smoking: If you smoke, Please STOP! Call for help. Follow-up with: Nahid Meier MD [Primary Care Provider] -
[2017-08-27] MEDS ORDERED: SODIUM CHLORIDE 0.9% 500 ML IV ONE (17:33)
[2017-08-27 18:29] VITALS: BP 127/61
--- NOTE | 2017-08-27 19:42 | XRAY Report ---
FRONTAL CHEST: 08/27/2017 CLINICAL INDICATION: PICC placement. Frontal view of the chest demonstrates a normal cardiac silhouette. Right arm PICC terminates in the distal superior vena cava. Scattered atelectasis is present. PICC line placement hardware overlies the mediastinum. IMPRESSION: RIGHT ARM PICC TIP IN THE DISTAL SUPERIOR VENA CAVA. JOB #: [id number] EXT JOB #:[id number]
--- NOTE | 2017-09-14 10:38 | DISCHARGE SUMMARY ---
DATE OF ADMISSION: 08/23/2017 DATE OF DISCHARGE: 08/27/2017 PRIMARY CARE PHYSICIAN: Dr. Nahid Meier. DISCHARGE DIAGNOSES 1. Sepsis. 2. Bloodstream infection due to Gamez catheter. 3. Eosinophilic gastritis or gastroenteritis. 4. History of [id number] amputations, bilateral with chronic pain. 5. Generalized anxiety. 6. Hypokalemia. DISCHARGE MEDICATIONS 1. Zofran 8 mg every 6 hours as needed for pain. 2. Cymbalta 60 mg p.o. daily. 3. Loratadine 10 mg daily. 4. Omeprazole 40 mg p.o. b.i.d. 5. TPN at home already ordered. 6. Moxifloxacin 400 mg IV daily. 7. Citalopram 10 mg daily. PRINCIPAL PROCEDURES 1. Chest x-ray with no evidence of pneumonia. This was on admission and a stable left central cathete r. 2. Follow up chest x-ray 08/27/2017 with stable right arm PICC tip, and left central line removed. 3. Blood cultures 08/23/2017 x2 showing staph epidermidis and 1 bottle showing coag negative staph. 4. Blood culture 08/24/2017 showing coag negative staph. 5. Blood culture 08/25/2017 no growth after 5 days. 6. Removal of Gamez catheter 08/24/[address] Zoe Torres. 7. Placement of PICC line. 8. Echocardiogram 08/23/2017 showing overall left ventricular systolic function normal at 655 to 70% and normal valvular function with no obvious vegetation. 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 He has a history of line sepsis and bacteremia in 10/2015 and had to su ve that removed and then put on IV antibiotics for several weeks before a new Gamez was placed. He was seen 08/13/2017 for fever, blood cultures were drawn. The next day his cultures grew out coag neg ative staph hominis and he was brought back to the hospital. He was admitted 08/14/2017 and gain got blood cultures that grew out staph hominis, and another blood culture on 08/14/2017 showed no growth to date. Two out of the 4 bottles on 08/13/2017 and 7 grew out the same organism. He was treated empirically with antibiotics. He was afebrile and hemody namically stable. His white cell count went down. It was determined that the Staphylococcus hominis w as a contaminant. He was sent home. He continued to have intermittent fevers and was seen by his [facility] care provider, Dr. Meier and was entertaining the idea of setting up for endocrine evaluation. During the day on 08/23/2017 the patient acutely ill with chills, rigors, high fever and weak to the point of getting out of bed was very difficult so he came back to the ER. He met criteria for sepsis with a temperature of 39.8, heart rate of 120, blood pressure 100/50, and a white cell count that wa s 13.8 with 13% bandemia. He was also hypokalemic with a potassium of 2.9. He had abnormal liver func tion studies. HOSPITAL COURSE: The patient was treated as recurrent line infection. He was started on vancomycin em pirically. Blood cultures were obtained on 08/23/2017 with 2 sets growing at different buds. One was coag negative staph and the other was staph epidermidis. On the next day he grew out coagulase-negat nyasia staph. He was felt to have line sepsis again and as such his Gamez was removed. He was continue d on his therapy and he was placed on moxifloxacin, this is after being on Pen-G. During his stay he defervesced. White cell count was initially 13.8 with 7.5 on the day of discharge. Hypokalemia of 2.9 on admission was treated and supplemented and at discharge it was 3.9. During his stay the patient was queried about his use of opiates. I had called Dr. Meier's office a nd they do not have a pain contract with him and he is not on opiates in the outpatient setting. He w as admitted as a sepsis patient. Not abdominal pain. He says that he uses opiates every once in a whi le for abdominal pain. I asked him to please develop a possible pain contract plan with Dr. Meier if he required more opiates in the future. Authorization was obtained for the patient to get outpatient moxifloxacin through his PICC. He prefer red to go home and get his antibiotics. He was very anxious to go home on that 1 day specifically bec hannye it was his wedding anniversary. He did not want to be in the hospital and did not want to wait o ne more day. He would like to go home and have dinner with his . As such, he was discharged in stable condition. [facility] is already going to meet the m tomorrow morning to set up for the IV medication. His temperature was 36.7. The last time he had a high temperature was 08/24/2017 at 37.7. His respirations were 18, pulse was 71, blood pressure 127/6 1, 96% on room air. He is a pale young white male who looks older than stated age. He looks fatigued. is at the bedside. He is comfortable, in no acute distress and has no tachypnea, no tachycardia . Neck is supple. PMI is normally placed with a regular rate and rhythm and no murmur. The abdomen wa s soft, nontender with normal bowel sounds. Although he is on TPN, he sometimes eats root beer and ch ocolate pudding. His stumps were clean, closed and sealed. No ulcers. Greater than 30 minutes was spent coordinating discharge. I have asked the patient to please make april e he follows up with Dr. Meier. To resume his TPN at home. He has those bags there and to start e moxifloxacin as well. He will most likely need a CBC, sedimentation rate, in the next week, as well as a BMP. JOB #: [id number] EXT JOB #:[id number]
== END 2017-08-27 18:53 | disposition home or self-care (01) | DRG 314 ==
LOC: ED 20:03 → MS2 23:28
PROVIDERS: ADMIT Internal Medicine; ATTEND Specialist
PROC: 05PY33Z Removal of Infusion Device from Upper Vein, Percutaneous Approach (ICD-10-PCS; principal; 2017-08-24)
PROC: 3E0336Z Introduction of Nutritional Substance into Peripheral Vein, Percutaneous Approach (ICD-10-PCS; 2017-08-24)
PROC: 02HV33Z Insertion of Infusion Device into Superior Vena Cava, Percutaneous Approach (ICD-10-PCS; 2017-08-27)
DX: T80.211A Bloodstream infection due to central venous catheter, initial encounter (principal); A41.1 Sepsis due to other specified staphylococcus; Y84.8 Other medical procedures as the cause of abnormal reaction of the patient, or of later complication, without mention of misadventure at the time of the procedure; K52.81 Eosinophilic gastritis or gastroenteritis; E87.6 Hypokalemia; F41.1 Generalized anxiety disorder; F32.9 Major depressive disorder, single episode, unspecified; K21.9 Gastro-esophageal reflux disease without esophagitis; F11.21 Opioid dependence, in remission; G89.28 Other chronic postprocedural pain; Z87.76 Personal history of (corrected) congenital malformations of integument, limbs and musculoskeletal system; Z89.512 Acquired absence of left leg below knee; Z89.511 Acquired absence of right leg below knee
CPT/HCPCS: 36415; 71010; 71020; 80048; 80053; 80074; 81001; 81003; 82330; 83605; 83690; 83735; 84100; 85025; 87040; 87077; 87086; 93306; 96361; 96365; 96375; 99284; 99285

== ENCOUNTER 2017-09-11 16:04 | Outpatient (CLI) | payer MEDICAID ==
--- NOTE | 2017-09-11 16:55 | XRAY Report ---
EXAM: CHEST RADIOGRAPHY EXAM DATE: 09/11/2017 04:15 PM. CLINICAL HISTORY: PICC LINE PLACEMENT. COMPARISON: None. TECHNIQUE: 1 view. FINDINGS: Lungs/Pleura: No focal opacities evident. No pleural effusion. No pneumothorax. Mediastinum: Within exam limitations, the cardiomediastinal contour is normal. Other: Right PICC tip is approximately 8 cm above the cavoatrial junction. IMPRESSION: 1. Right PICC tip projects over the upper SVC, approximately 8 cm above the cavoatrial junction. 2. No acute intrathoracic plain film abnormality. [facility] Referring Provider Line: [phone] SITE ID: [id number]
== END 2017-09-11 16:05 | disposition home or self-care (01) ==
LOC: DI 16:04
PROVIDERS: ATTEND Family Medicine
DX: Z97.8 Presence of other specified devices (principal)
CPT/HCPCS: 71010

== ENCOUNTER 2017-09-14 08:00 | Outpatient (CLI) | payer MEDICAID ==
[2017-09-14 18:02] LABS: BASOPHILS % (AUTO) 0.3 %; EOSINOPHILS # (AUTO) 0.4 10^3/uL (0.0-0.7); EOSINOPHILS % (AUTO) 3.8 %; HCT - HEMATOCRIT 42.8 % (42.0-52.0); HGB - HEMOGLOBIN 13.8 g/dL (14.0-18.0); LYMPHOCYTES # (AUTO) 3.5 10^3/uL (1.5-3.5); LYMPHOCYTES % (AUTO) 34.9 %; MEAN CORPUSCULAR HEMOGLOBIN 27.5 pg (27.0-31.0); MEAN CORPUSCULAR HGB CONC 32.2 g/dL (32.0-36.0); MEAN CORPUSCULAR VOLUME 85.4 fL (80.0-94.0); MEAN PLATELET VOLUME 10.4 fL (7.4-11.4); MONOCYTES # (AUTO) 0.5 10^3/uL (0.0-1.0); MONOCYTES % (AUTO) 5.3 %; NEUTROPHILS # (AUTO) 5.6 10^3/uL (1.5-6.6); NEUTROPHILS % (AUTO) 55.7 %; NUCLEATED RED BLOOD CELLS AUTO 0.2 /100WBC; RED BLOOD COUNT 5.01 10^6/uL (4.70-6.10); RED CELL DISTRIBUTION WIDTH 15.3 % (12.0-15.0)
[2017-09-14 19:03] LABS: ALBUMIN/GLOBULIN RATIO 1.3 (1.0-2.2); BILIRUBIN,TOTAL 0.4 mg/dL (0.2-1.0); BUN - BLOOD UREA NITROGEN 18 mg/dL (6-20); CALCIUM 8.8 mg/dL (8.5-10.3); CARBON DIOXIDE - CO2 21 mmol/L (21-32); CHLORIDE 110 mmol/L (101-111); CREATININE 0.6 mg/dL (0.6-1.2); GFR - MDRD 155 (>89); GLUCOSE 89 mg/dL (70-100); PHOSPHORUS 3.1 mg/dL (2.5-4.6); POTASSIUM 3.9 mmol/L (3.5-5.0); PREALBUMIN 32 mg/dL (18-45); SODIUM 138 mmol/L (135-145); TRIGLYCERIDES 162 mg/dL
== END 2017-09-14 08:01 | disposition home or self-care (01) ==
LOC: LAB.R 08:00
PROVIDERS: ATTEND Family Medicine
DX: K52.81 Eosinophilic gastritis or gastroenteritis (principal); R78.81 Bacteremia; D50.9 Iron deficiency anemia, unspecified
CPT/HCPCS: 80053; 83735; 84100; 84134; 84478; 85025; 85651; 86140

== ENCOUNTER 2017-09-18 12:35 | Day surgery (SDC) | payer MEDICAID ==
[2017-09-18 12:57] VITALS: BP 120/66
--- NOTE | 2017-09-18 19:46 | XRAY Report ---
FRONTAL CHEST: 09/18/2017 COMPARISON: Frontal chest 09/11/2017. INDICATION: PICC placement. TECHNIQUE: Frontal view of the chest. FINDINGS: Right upper extremity PICC, tip overlies the superior cavoatrial junction. The lungs appear clear. There is no pneumothorax or pleural effusion. Mediastinum appears otherwise unremarkable. IMPRESSION: APPROPRIATE APPEARANCE OF RIGHT UPPER EXTREMITY PICC. NO ACUTE FINDINGS. JOB #: [id number] EXT JOB #:[id number]
== END 2017-09-18 12:36 | disposition home or self-care (01) ==
LOC: SDS 12:35
PROVIDERS: ATTEND Nurse Anesthetist, Certified Registered
PROC: 0J2VXYZ Change Other Device in Upper Extremity Subcutaneous Tissue and Fascia, External Approach (ICD-10-PCS; principal; 2017-09-18 13:00)
DX: T82.528A Displacement of other cardiac and vascular devices and implants, initial encounter (principal)
CPT/HCPCS: 36584; C1751; 71010

== ENCOUNTER 2018-01-28 15:07 | Outpatient (CLI) | payer MEDICAID ==
--- NOTE | 2018-01-28 16:27 | XRAY Report ---
FRONTAL CHEST: 01/28/2018 CLINICAL INDICATION: Check PICC line location, eosinophilic gastritis. FINDINGS: Frontal view of the chest is compared to previous film of 09/18/2017. Lateral view was inadvertently obtained as well. The cardiac silhouette is within normal limits. The lungs are clear. Right arm PICC terminates at the cavoatrial junction. No effusion or pneumothorax is present. IMPRESSION: RIGHT ARM PICC TERMINATING AT THE CAVOATRIAL JUNCTION. TD: 01/28/2018 16:26
== END 2018-01-28 15:08 | disposition home or self-care (01) ==
LOC: DI 15:07
PROVIDERS: ATTEND Internal Medicine Gastroenterology
DX: Z45.2 Encounter for adjustment and management of vascular access device (principal); K52.81 Eosinophilic gastritis or gastroenteritis
CPT/HCPCS: 71045

== ENCOUNTER 2018-06-13 12:37 | Emergency (ER) | payer MEDICAID ==
[2018-06-13 12:53] VITALS: BP 127/61
--- NOTE | 2018-06-13 13:33 | ED Physician Documentation ---
PD HPI URI - Stated complaint Stated Complaint: FEVER/BODY ACHES - Chief complaint Chief Complaint: Fever - History obtained from History obtained from: Patient, Family () - History of Present Illness Timing - onset: Other (This is a 32-year-old gentleman with history of eosinophilic gastritis, almost completely TPN dependent. He has a right subclavian tunneled catheter that was placed on April 01 in [facility]. For the last 2 weeks he has had intermittent fevers, worse the first week and then better for a few days and now worse again. He had a T-max of 102 today. He has body aches and fatigue and chills. He denies sore throat , runny nose, cough, or urinary complaints. No increase in abdominal pain.) Review of Systems Constitutional: reports: Fever, Chills, Myalgias, Fatigue Nose: denies: Rhinorrhea / runny nose, Congestion Throat: denies: Sore throat Respiratory: denies: Cough GI: denies: Nausea, Vomiting, Diarrhea PD PAST MEDICAL HISTORY - Past Medical History Past Medical History: Yes Cardiovascular: None Respiratory: None Endocrine/Autoimmune: Other GI: GERD, Pancreatitis, Cholelithiasis, Other : Kidney stones HEENT: None Psych: Depression, Anxiety, Panic attacks, Other Musculoskeletal: Other Derm: Eczema - Past Surgical History Past Surgical History: Yes General: Cholecystectomy, Bowel surgery, Colonoscopy, Other Ortho: Amputation - Present Medications Home Medications: Ambulatory Orders Medication Instructions Recorded Confirmed Ondansetron [Ondansetron Odt] 8 mg PO Q6HR PRN 04/05/13 08/24/17 Omeprazole 40 mg PO BID 07/06/14 08/24/17 Duloxetine HCl [Cymbalta] 60 mg PO DAILY 05/11/15 08/24/17 Sodium/Pot/Mag/Calc/Chlor/Acet 2,000 ml IV QPM 07/03/15 08/24/17 [TPN Electrolytes II IV Soln] Loratadine [Claritin] 10 mg PO QPM 03/09/16 08/24/17 Citalopram [CeleXA] 10 mg PO DAILY #30 tablet 08/27/17 Moxifloxacin HCl (Pf)/Bss No.2 400 mg IV DAILY #28 vial 08/27/17 [Moxifloxacin 1 mg/ml-Bss Vial] - Allergies Allergies/Adverse Reactions: Allergies Allergy/AdvReac Type Severity Reaction Status Date / Time metoclopramide HCl * Allergy Severe Anxiety Verified 08/23/17 20:17 [From Reglan] NSAIDS (Non-Steroidal Allergy Severe Erosive Verified 08/23/17 20:17 Anti-Inflamma Esophagitis - Social History Does the pt smoke?: No Smoking Status: Never smoker Does the pt drink ETOH?: No Does the pt have substance abuse?: No - Immunizations Immunizations are current?: Yes - POLST Patient has POLST: No POLST Status: Full Code PD ED PE NORMAL - Vitals Vital signs reviewed: Yes - General General: Alert and oriented X 3, No acute distress - HEENT HEENT: PERRL, EOMI, Pharynx benign - Neck Neck: Supple, no meningeal sign, No bony TTP - Cardiac Cardiac: RRR, No murmur - Respiratory Respiratory: No respiratory distress, Clear bilaterally - Abdomen Abdomen: Non tender - Derm Derm: Other (There is a 2 lm port in the right upper chest wall which is without obvious signs of infection, redness, or tenderness. He also has what appears to be a fungal rash in the left armpit.) - Neuro Neuro: Alert and oriented X 3, Normal speech - Psych Psych: Normal mood, Normal affect Results - Vitals Vitals: Vital Signs - 24 hr 06/13/18 12:49 Temperature 36.9 C Heart Rate 85 Respiratory 20 Rate Blood Pressure 127/61 O2 Saturation 97 Oxygen O2 Source Room air - Labs Labs: Laboratory Tests 06/13/18 06/13/18 06/13/18 13:55 13:55 13:55 WBC 11.3 H RBC 5.15 Hgb 13.2 L Hct 40.5 L MCV 78.7 L MCH 25.7 L MCHC 32.6 RDW 15.3 H Plt Count 252 MPV 8.7 Neut # (Auto) 6.3 Lymph # (Auto) 3.4 [place] # (Auto) 1.0 Eos # (Auto) 0.6 Baso # (Auto) 0.1 Absolute Nucleated RBC 0.00 Nucleated RBC % 0.0 ESR Sodium 137 Potassium 3.7 Chloride 104 Carbon Dioxide 25 Anion Gap 8.0 BUN 17 Creatinine 0.7 Estimated GFR (MDRD) 130 Glucose 88 Lactic Acid 1.5 Calcium 9.2 Total Bilirubin 0.6 AST 24 ALT 32 Alkaline Phosphatase 66 C-Reactive Protein 3.0 H Total Protein 7.8 Albumin 4.1 Globulin 3.7 Albumin/Globulin Ratio 1.1 Lipase 36 06/13/18 13:55 WBC RBC Hgb Hct MCV MCH MCHC RDW Plt Count MPV Neut # (Auto) Lymph # (Auto) [place] # (Auto) Eos # (Auto) Baso # (Auto) Absolute Nucleated RBC Nucleated RBC % ESR 16 H Sodium Potassium Chloride Carbon Dioxide Anion Gap BUN Creatinine Estimated GFR (MDRD) Glucose Lactic Acid Calcium Total Bilirubin AST ALT Alkaline Phosphatase C-Reactive Protein Total Protein Albumin Globulin Albumin/Globulin Ratio Lipase PD MEDICAL DECISION MAKING - ED course ED course: This is a 32-year-old gentleman with history of eosinophilic gastroenteritis and recurrent line sepsis who presents with 2 weeks of fevers and chills. He lives close to the hospital and is not in extremis. His inflammatory markers and white count are about at their baseline and a discussed with him the preference of being admitted to await for cultures or going home and they want to go home and promised to return immediately if they receive a phone call for positive cultures. Of note both I and multiple nurses tried and failed to get any blood off the port itself so both cultures are peripheral. - Sepsis Event Vital Signs: Vital Signs - 24 hr 06/13/18 12:49 Temperature 36.9 C Heart Rate 85 Respiratory 20 Rate Blood Pressure 127/61 O2 Saturation 97 Oxygen O2 Source Room air Departure - Departure Disposition: 01 Home, Self Care Clinical Impression: Febrile disorder Condition: Good Record reviewed to determine appropriate education?: Yes Instructions: ED Fever Control Comments: Return if worse and make sure to stay by the phone for the next 48-72 hours.
[2018-06-13 14:02] LABS: BASOPHILS # (AUTO) 0.1 10^3/uL (0.0-0.1); BASOPHILS % (AUTO) 0.5 %; EOSINOPHILS # (AUTO) 0.6 10^3/uL (0.0-0.7); EOSINOPHILS % (AUTO) 5.3 %; HGB - HEMOGLOBIN 13.2 g/dL (14.0-18.0); LYMPHOCYTES # (AUTO) 3.4 10^3/uL (1.5-3.5); LYMPHOCYTES % (AUTO) 29.7 %; MEAN CORPUSCULAR HEMOGLOBIN 25.7 pg (27.0-31.0); MEAN CORPUSCULAR HGB CONC 32.6 g/dL (32.0-36.0); MEAN CORPUSCULAR VOLUME 78.7 fL (80.0-94.0); MEAN PLATELET VOLUME 8.7 fL (7.4-11.4); MONOCYTES % (AUTO) 8.8 %; NEUTROPHILS # (AUTO) 6.3 10^3/uL (1.5-6.6); NEUTROPHILS % (AUTO) 55.7 %; PLT - PLATELET COUNT 252 10^3/uL (130-450); RED BLOOD COUNT 5.15 10^6/uL (4.70-6.10); RED CELL DISTRIBUTION WIDTH 15.3 % (12.0-15.0); WHITE BLOOD COUNT 11.3 x10^3/uL (4.8-10.8)
[2018-06-13 14:18] LABS: ALBUMIN 4.1 g/dL (3.2-5.5); ALBUMIN/GLOBULIN RATIO 1.1 (1.0-2.2); BILIRUBIN,TOTAL 0.6 mg/dL (0.2-1.0); CALCIUM 9.2 mg/dL (8.5-10.3); CREATININE 0.7 mg/dL (0.6-1.2); TOTAL PROTEIN 7.8 g/dL (6.7-8.2)
== END 2018-06-13 14:55 | disposition home or self-care (01) ==
LOC: ED 12:37
DX: R50.9 Fever, unspecified (principal)
CPT/HCPCS: 36415; 80053; 83605; 83690; 85025; 85651; 86140; 87040; 87077; 87181; 99283

== ENCOUNTER 2018-06-14 05:51 | Inpatient (IN) | payer MEDICAID ==
[2018-06-14 06:27] LABS: BASOPHILS # (AUTO) 0.1 10^3/uL (0.0-0.1); BASOPHILS % (AUTO) 0.8 %; EOSINOPHILS # (AUTO) 0.7 10^3/uL (0.0-0.7); EOSINOPHILS % (AUTO) 6.2 %; HGB - HEMOGLOBIN 13.3 g/dL (14.0-18.0); MEAN CORPUSCULAR HEMOGLOBIN 25.7 pg (27.0-31.0); MEAN CORPUSCULAR HGB CONC 32.7 g/dL (32.0-36.0); MEAN CORPUSCULAR VOLUME 78.5 fL (80.0-94.0); MEAN PLATELET VOLUME 8.9 fL (7.4-11.4); MONOCYTES # (AUTO) 1.1 10^3/uL (0.0-1.0); MONOCYTES % (AUTO) 9.2 %; NEUTROPHILS # (AUTO) 5.8 10^3/uL (1.5-6.6); NEUTROPHILS % (AUTO) 49.8 %; PLT - PLATELET COUNT 267 10^3/uL (130-450); RED CELL DISTRIBUTION WIDTH 15.2 % (12.0-15.0); WHITE BLOOD COUNT 11.7 x10^3/uL (4.8-10.8)
[2018-06-14 06:37] LABS: CREATININE 0.7 mg/dL (0.6-1.2)
[2018-06-14 06:43] LABS: BILIRUBIN,URINE NEGATIVE (NEGATIVE); GLUCOSE, URINE (UA) NEGATIVE (NEGATIVE); KETONES,URINE (UA) NEGATIVE (NEGATIVE); LEUKOCYTE ESTERASE, URINE NEGATIVE (NEGATIVE); NITRITE,URINE NEGATIVE (NEGATIVE); OCCULT BLOOD,URINE SMALL (NEGATIVE); PROTEIN,URINE 30 mg/dL (NEGATIVE); UROBILINOGEN,URINE 0.2 (NORMAL) E.U./dL (NORMAL)
[2018-06-14 06:45] LABS: CLARITY,URINE CLEAR (CLEAR)
[2018-06-14 07:13] LABS: BACTERIA,URINE None Seen /HPF (None Seen); CASTS, URINE 0-2 Hyaline Casts /LPF; MUCUS,URINE Moderate Strands; RBC,URINE 0-5 /HPF (0-5); SQUAMOUS EPITHELIAL CELL,UR NONE SEEN (<= Few)
--- NOTE | 2018-06-14 08:08 | ED Physician Documentation ---
History of Present Illness - Stated complaint Stated Complaint: POSITIVE BLOOD CULTURES - Chief complaint Chief Complaint: Fever - History obtained from History obtained from: Patient - History of Present Illness Timing: How many weeks ago (2) - Additonal information Additional information: 32-year-old male who was on TPN for eosin a gastroenteritis has developed a fever and chills over the past 2 weeks. He was seen in the emergency department yesterday for fever and blood cultures 2 were drawn both have grown out gram-positive clusters which have been identified as staph epidermidis by DNA testing the patient does state that he is feeling poorly over the past 2 weeks with generalized aches and fatigue. He has had similar issues previously with line sepsis. The patient had his last central line removed in August of last year and he had a PICC line in place until March of this year when the current line was placed at the [facility]. He uses TPN 12 hours per day. Review of Systems Constitutional: reports: Fever, Chills, Myalgias, Fatigue, Sweats Eyes: denies: Decreased vision Ears: denies: Ear pain Nose: denies: Rhinorrhea / runny nose, Congestion Throat: denies: Sore throat Cardiac: denies: Chest pain / pressure, Palpitations Respiratory: denies: Dyspnea, Cough GI: reports: Abdominal Pain. denies: Nausea, Vomiting : denies: Dysuria, Frequency Skin: denies: Rash Musculoskeletal: denies: Neck pain, Back pain, Extremity pain Neurologic: reports: Generalized weakness. denies: Focal weakness, Numbness PD PAST MEDICAL HISTORY - Past Medical History Past Medical History: Yes Cardiovascular: None Respiratory: None Endocrine/Autoimmune: Other GI: GERD, Pancreatitis, Cholelithiasis, Other : Kidney stones HEENT: None Psych: Depression, Anxiety, Panic attacks, Other Musculoskeletal: Other Derm: Eczema - Past Surgical History Past Surgical History: Yes General: Cholecystectomy, Bowel surgery, Colonoscopy, Other Ortho: Amputation - Present Medications Home Medications: Ambulatory Orders Medication Instructions Recorded Confirmed Ondansetron [Ondansetron Odt] 8 mg PO Q6HR PRN 04/05/13 08/24/17 Omeprazole 40 mg PO BID 07/06/14 08/24/17 Duloxetine HCl [Cymbalta] 60 mg PO DAILY 05/11/15 08/24/17 Sodium/Pot/Mag/Calc/Chlor/Acet 2,000 ml IV QPM 07/03/15 08/24/17 [TPN Electrolytes II IV Soln] Loratadine [Claritin] 10 mg PO QPM 03/09/16 08/24/17 Citalopram [CeleXA] 10 mg PO DAILY #30 tablet 08/27/17 Moxifloxacin HCl (Pf)/Bss No.2 400 mg IV DAILY #28 vial 08/27/17 [Moxifloxacin 1 mg/ml-Bss Vial] Nystatin 1 gm TP TID 14 Days oint...g. 06/13/18 - Allergies Allergies/Adverse Reactions: Allergies Allergy/AdvReac Type Severity Reaction Status Date / Time metoclopramide HCl * Allergy Severe Anxiety Verified 06/14/18 06:08 [From Reglan] NSAIDS (Non-Steroidal Allergy Severe Erosive Verified 06/14/18 06:08 Anti-Inflamma Esophagitis - Social History Does the pt smoke?: No Smoking Status: Never smoker Does the pt drink ETOH?: No Does the pt have substance abuse?: No - Immunizations Immunizations are current?: Yes - POLST Patient has POLST: No POLST Status: Full Code PD ED PE NORMAL - Vitals Vital signs reviewed: Yes (normal ) - General General: Alert and oriented X 3, Well developed/nourished, Other (pale appearing male who is withdrawn and moves slowly. He appears ill today in comparision to the last visit one year ago. 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, No motor deficit, No sensory deficit, Normal speech Eye Opening: Spontaneous Motor: Obeys Commands Verbal: Oriented GCS Score: 15 - Psych Psych: Other (mood is withdrawn and the affect is flat .) Results - Vitals Vitals: Vital Signs - 24 hr 06/14/18 06/14/18 06/14/18 06:02 06:54 07:55 Temperature 36.5 C 37.1 C 36.6 C Heart Rate 92 81 83 Respiratory 12 12 20 Rate Blood Pressure 110/70 128/71 101/54 L O2 Saturation 97 100 100 Oxygen O2 Source Room air - Labs Labs: Laboratory Tests 06/14/18 06/14/18 06/14/18 06:16 06:20 06:20 WBC 11.7 H RBC 5.20 Hgb 13.3 L Hct 40.8 L MCV 78.5 L MCH 25.7 L MCHC 32.7 RDW 15.2 H Plt Count 267 MPV 8.9 Neut # (Auto) 5.8 Lymph # (Auto) 4.0 H [place] # (Auto) 1.1 H Eos # (Auto) 0.7 Baso # (Auto) 0.1 Absolute Nucleated RBC 0.01 Nucleated RBC % 0.1 Sodium 141 Potassium 3.8 Chloride 107 Carbon Dioxide 25 Anion Gap 9.0 BUN 18 Creatinine 0.7 Estimated GFR (MDRD) 130 Glucose 71 Lactic Acid 1.2 Calcium 9.0 Urine Color Urine Clarity Urine pH Ur Specific Helm Urine Protein Urine Glucose (UA) Urine Ketones Urine Occult Blood Urine Nitrite Urine Bilirubin Urine Urobilinogen Ur Leukocyte Esterase Urine RBC Urine WBC Ur Squamous Epith Cells Urine Bacteria Urine Casts Urine Mucus Ur Microscopic Review Urine Culture Comments 06/14/18 06:40 WBC RBC Hgb Hct MCV MCH MCHC RDW Plt Count MPV Neut # (Auto) Lymph # (Auto) [place] # (Auto) Eos # (Auto) Baso # (Auto) Absolute Nucleated RBC Nucleated RBC % Sodium Potassium Chloride Carbon Dioxide Anion Gap BUN Creatinine Estimated GFR (MDRD) Glucose Lactic Acid Calcium Urine Color YELLOW Urine Clarity CLEAR Urine pH 6.0 Ur Specific Helm 1.025 Urine Protein 30 H Urine Glucose (UA) NEGATIVE Urine Ketones NEGATIVE Urine Occult Blood SMALL H Urine Nitrite NEGATIVE Urine Bilirubin NEGATIVE Urine Urobilinogen 0.2 (NORMAL) Ur Leukocyte Esterase NEGATIVE Urine RBC 0-5 Urine WBC 0-3 Ur Squamous Epith Cells NONE SEEN Urine Bacteria None Seen Urine Casts 0-2 Hyaline Casts Urine Mucus Moderate Strands Ur Microscopic Review INDICATED Urine Culture Comments NOT INDICATED PD MEDICAL DECISION MAKING - ED course Complexity details: reviewed old records, reviewed results, re-evaluated patient , considered differential, d/w patient ED course: 32-year-old male with a central line in place has had 2 peripheral blood cultures drawn yesterday both of which were positive for staph epidermidis. He has had fever and chills for 2 weeks and does not feel well. Dr. Contreras was consulted in the case and points out that both blood cultures were positive in less than 24 hours and this is unlikely to be a contaminant and she would like to admit the patient to the hospital. - Sepsis Event Vital Signs: Vital Signs - 24 hr 06/14/18 06/14/18 06/14/18 06:02 06:54 07:55 Temperature 36.5 C 37.1 C 36.6 C Heart Rate 92 81 83 Respiratory 12 12 20 Rate Blood Pressure 110/70 128/71 101/54 L O2 Saturation 97 100 100 Oxygen O2 Source Room air Departure - Departure Disposition: 66 [facility] DC/Xfer Clinical Impression: Bacteremia due to Gram-positive bacteria Fever Qualifiers: Fever type: due to other condition Qualified Code(s): R50.81 - Fever presenting with conditions classified elsewhere
[2018-06-14] MEDS ORDERED: ACETAMINOPHEN 325 MG TABLET PO PRN (08:15)
[2018-06-14] MEDS ORDERED: NAFCILLIN 2 GM in SODIUM CHLORIDE 0.9% MINIBAG 100 ML IV SCH ×2 (09:00→14:00)
[2018-06-14] MEDS ORDERED: PANTOPRAZOLE 40 MG TABLET PO SCH (09:00)
[2018-06-14] MEDS ORDERED: CITALOPRAM 10 MG TABLET PO SCH (09:00)
--- NOTE | 2018-06-14 09:10 | HISTORY & PHYSICAL EXAMINATION ---
Chief Complaint - Chief Complaint Chief Complaint: fevers, body aches History of Present Illness - Admitted From Admitted From:: ED - History Obtained From Records Reviewed: yes History obtained from: chart review, patient Exam Limitations: none - History of Present Illness HPI Comment/Other: Abel Trejo (Joey) is a 32-year old male with a past medical history of bilateral tibial hemimelia, bilateral BKAs at age 9 months including numerous surgeries including amputation revisions, eosinophilic gastroenteritis, chronic TPN, chronic pain, chronic nausea, GERD, pancreatitis, iron deficiency anemia, tinnitis, kidney stones, marijuana dependence, depression, anxiety, PTSD, status post cholecystitis with cholecystectomy, history of multiple line infections and insomnia. The patient gets home TPN infusions through his right chest port. Over the past few weeks, he developed a fever measured at 100-102 at home per his report, with accompanying symptoms of chills, nausea, body aches , and fatigue. Yesterday he presented to the ED and blood cultures x2 were drawn. Preliminary results grew out gram positive cocci in clusters, staph. The patient has a current line that was placed in March of 2018 by the . Prior to arriving on the nursing floor today, labs show an elevated WBC count at 11.7, anemia with an H/H of 13.3/40.8. Normal electrolytes and a normal lactic acid. A urine sample was collected, not indicating a UTI. The patient denies confusion, headaches, bleeding, a new cough or chest pain. He will be admitted to inpatient for further treatment of suspected bacteremia. 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 His mother and half brother are alive and well without any known chronic illnesses. Living arrangement: At home Living Situation: With spouse/s.o., With family Social History Notes: Patient was born in [place], [place]; came to [place] when he was 5 years old. He met his when they were in second grade. Started dating in high school. They have 3 children together but had to give 1 up for adoption because of financial and social situation. 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 He has no history of substance abuse, with the exception of medical marijuana, is a non-smoker and rarely drinks alcohol. He lives at home with his . - Substance History Use: Uses substance without health or social issues: Cannabis Use Issues: Anxiety Disorder Abuse: Recurrent use of substance despite neg consequences: NONE Dependence: Experiences withdrawal or developed tolerances: NONE - POLST Patient has POLST: No POLST Status: Full Code Meds/Allgy - Home Medications Home Medications: Ambulatory Orders Medication Instructions Recorded Confirmed Ondansetron [Ondansetron Odt] 4 mg PO Q4H PRN 04/05/13 06/14/18 Omeprazole 40 mg PO QDAC 07/06/14 06/14/18 Duloxetine HCl [Cymbalta] 60 mg PO DAILY 05/11/15 06/14/18 Sodium/Pot/Mag/Calc/Chlor/Acet 2,000 ml IV QPM 07/03/15 06/14/18 [TPN Electrolytes II IV Soln] Loratadine [Claritin] 10 mg PO QPM 03/09/16 06/14/18 - Allergies Allergies/Adverse Reactions: Allergies Allergy/AdvReac Type Severity Reaction Status Date / Time metoclopramide HCl * Allergy Severe Anxiety Verified 06/14/18 06:08 [From Reglan] NSAIDS (Non-Steroidal Allergy Severe Erosive Verified 06/14/18 06:08 Anti-Inflamma Esophagitis Review of Systems - Constitutional Constitutional: reports: Fatigue, Fever, Chills, Weakness - Eyes Eyes: reports: Corrective lenses - Ears, Nose & Throat Ears, Nose & Throat: reports: Tinnitus, Nasal congestion, Postnasal drainage - Respiratory Respiratory: reports: Snoring - Gastrointestinal Gastrointestinal: reports: Abdominal pain, Abdominal distention, Constipation, Diarrhea, Nausea, Vomiting, Reflux/heartburn - Musculoskeletal Musculoskeletal: reports: Muscle pain, Back pain, Muscle aches, Joint pain - Integumentary Integumentary: reports: Dryness - Neurological Neurological: reports: Pre-existing deficit, Abnormal gait - Psychiatric Psychiatric: reports: Depression, Anxiety - Hematologic/Lymphatic Hematologic/Lymphatic: reports: Anemia - All Other Systems All Other Systems: reports: Reviewed and negative Exam - Vital Signs Reviewed Vital Signs: Yes - Physical Exam General Appearance: positive: No acute distress, Alert Eyes Bilateral: positive: Normal inspection, PERRL ENT: positive: ENT inspection nml, Pharynx nml, No signs of dehydration Neck: positive: Nml inspection, Thyroid nml, No JVD, Trachea midline Respiratory: positive: Chest non-tender, No respiratory distress, Breath sounds nml Cardiovascular: positive: Regular rate & rhythm, No murmur, No gallop Peripheral Pulses: positive: 2+ Abdomen: positive: Tenderness, Guarding, Abnml bowel sounds (hyperactive), Other (rounded, soft) Back: positive: Nml inspection Skin: positive: Color nml, No rash, Warm, Dry Extremities: positive: Non-tender, No pedal edema, Other (deformities to fingers , BLE defects-now status post bilateral BKA) Neurologic/Psychiatric: positive: Oriented x3, CN's nml (2-12), Motor nml, Sensation nml, Mood/affect nml Reflexes: Bicep (R): 3+, Bicep (L): 3+ Conclusion/Plan - Problem List (1) Bacteremia due to Gram-positive bacteria Conclusion/Plan: The patient had 2 positive blood cultures that grew in less than 24 hours, had body aches, fatigue, weakness, and reported fevers/chills at home of up to 102 F. The patient also had an elevated WBC count of 11.7. The preliminary results are gram positive cocci in clusters as per lab review. Contact was made with Dr. Grigsby, infectious disease, who agrees with the treatment of Nafcillin and Vanco IV. There is a very small chance that this patient's central line will remain. Plan: Daily blood cultures, monitor for worsening condition and await final culture results. (2) Fever Conclusion/Plan: The patient reports fevers up to 102 at home, chills and body aches. The patient admits to similar events in his life in which he has felt this way, ended up having a blood stream infection. Plan: continue to monitor vital signs. Qualifiers: Fever type: due to other condition Qualified Code(s): R50.81 - Fever presenting with conditions classified elsewhere (3) Gram-positive cocci in clusters Conclusion/Plan: The patient has a right upper chest central line. I spoke with Dr. Grigsby, infectious disease who suggests to leave this line in for now, avoid use of the central line, and do daily blood cultures. She agrees with the antibiotic choice of Vanco and Nafcillin IV that should continue. If the blood cultures grow out coag negative staph, it will be fine to allow the central line to stay in. There is a very low chance of this given his symptoms, and the patient was informed of the likelihood of his central line removal. Preliminary echo results show no evidence of vegetation, and Dr. Grigsby does not suggest a GALDYS or a transfer. Plan: Start PPN, until blood cultures results are known. Plan for close contact with ID daily for continued consult. Consult our general surgery team in the event of a recommended line removal. 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 He has undergone multiple surgeries throughout his life in efforts to reconstruct his bones. Plan: Qualifiers: Laterality: bilateral Qualified Code(s): Q72.53 - Longitudinal reduction defect of tibia, bilateral (5) Iron deficiency anemia Conclusion/Plan: The patient is found to be anemic upon admission with a hemoglobin of 13.3 and a hematocrit of 40.8. Upon chart review, the patient has a long history of this that was evident after initiation of his chronic TPN. He sees hem[facility]onc through [facility] as he previously got iron infusions. Plan: Continue to monitor daily labs. (6) Depression Conclusion/Plan: The patient has suffered from this and is prescribed Cymbalta at home. I have this to continue while hospitalized. Plan: Monitor for worsening mood. Qualifiers: Depression Type: major depressive disorder (7) Allergic eosinophilic esophagitis Conclusion/Plan: The patient can tolerate very little PO intake besides "chex mix" and plain water. He has unpredictable bowel movements where sometimes he has constipation , and other times, diarrhea. There have been no changes in bowel pattern related to this acute illness. The patient reports that for the past 4 years he has required TPN for his primary nutrition, but has suffered with at least yearly line infections since then. His last infection was last August at which time his central line was removed, treated with IV antibiotics, and a new central line put back in. He admits to current marijuana use as he states that he weaned himself off of the narcotics and uses the marijuana for medical reasons. Plan: Clear liquids and his usual oral meds. I have prescribed Marinol for reduced GI upset and nausea. - Lab Results Lab results reviewed: Yes Fish Bones: 06/14/18 06:20 06/14/18 06:16 - Diagnostic Imaging Results Diagnostic Imaging Results: positive: Prelim report reviewed - EKG Results EKG Interpreted Independently: Yes EKG Comparison: Unchanged from prior EKG Core Measures - Anticipated LOS I expect patient to be DC'd or transferred within 96 hours.: Yes - DVT/VTE - Prophylaxis VTE/DVT Device ordered at admit?: No Not Ordered - Medical Reason: Complication VTE/DVT Prophylaxis med ordered at admit?: Yes - Stroke - Rehab Assessment Rehab services assessment to be ordered?: No Not Ordered - Medical Reason: Contraindicated - AMI - Statin at Admit Aspirin Prescribed on Admit: Yes
[2018-06-14] MEDS: oxyCODONE 5 MG TABLET PO PRN (10:10)
[2018-06-14] MEDS: ENOXAPARIN 40 MG/0.4 ML SYRINGE SUBQ SCH (10:11)
[2018-06-14] MEDS: POLYETHYLENE GLYCOL 3350 17 GM PACKET PO SCH (10:11)
[2018-06-14] MEDS: DULoxetine 30 MG CAPSULE PO SCH (10:11)
[2018-06-14] MEDS: SODIUM CHLORIDE FLUSH 0.9% 10 ML SYRINGE IVP SCH ×3 (10:12→23:35)
[2018-06-14] MEDS: MORPHINE 2 MG/ML CARPUJECT IVP PRN ×4 (11:23→23:45)
[2018-06-14] MEDS: NYSTATIN POWDER 15 GM TOP SCH ×2 (11:23→20:02)
[2018-06-14] MEDS: VANCOMYCIN INJ 1 GM, VANCOMYCIN INJ 500 MG in SODIUM CHLORIDE 0.9% 500 ML IV SCH ×2 (11:39→22:38)
[2018-06-14] MEDS ORDERED: NYSTATIN 1 GM TP SCH (14:00)
[2018-06-14] MEDS: ONDANSETRON 4 MG/2 ML VIAL IVP PRN (14:06)
[2018-06-14] MEDS: SODIUM CHLORIDE FLUSH 0.9% 10 ML SYRINGE IVP PRN (14:07)
[2018-06-14] MEDS: DRONABINOL 2.5 MG CAPSULE PO SCH ×2 (16:26→16:31)
[2018-06-14] MEDS: PPN (CLINIMIX E 4.25/5) 2,000 ML with MULTIVITAMIN 10 ML IV SCH ×2 (19:49)
[2018-06-14] MEDS: TRACE ELEMENTS V CONC 1 ML in SODIUM CHLORIDE 0.9% 100ML 100 ML IV SCH (19:50)
[2018-06-14] MEDS: FAT EMULSION 20% 250 ML IV SCH (19:50)
[2018-06-14] MEDS: LORATADINE 10 MG TABLET PO SCH (20:02)
[2018-06-14] MEDS: PANTOPRAZOLE 40 MG TABLET PO SCH (20:02)
[2018-06-14] MEDS: NAFCILLIN 2 GM in SODIUM CHLORIDE 0.9% MINIBAG 100 ML IV SCH (21:30)
[2018-06-15] MEDS: NAFCILLIN 2 GM in SODIUM CHLORIDE 0.9% MINIBAG 100 ML IV SCH ×4 (02:03→14:40)
[2018-06-15] MEDS: ONDANSETRON 4 MG/2 ML VIAL IVP PRN ×3 (02:06→11:41)
[2018-06-15] MEDS: MORPHINE 2 MG/ML CARPUJECT IVP PRN ×5 (05:43→23:37)
[2018-06-15] MEDS: DRONABINOL 2.5 MG CAPSULE PO SCH ×2 (05:46→16:21)
[2018-06-15 05:49] LABS: BASOPHILS % (AUTO) 0.1 %; EOSINOPHILS # (AUTO) 0.3 10^3/uL (0.0-0.7); EOSINOPHILS % (AUTO) 2.9 %; HGB - HEMOGLOBIN 12.3 g/dL (14.0-18.0); LYMPHOCYTES # (AUTO) 2.5 10^3/uL (1.5-3.5); LYMPHOCYTES % (AUTO) 21.1 %; MEAN CORPUSCULAR HEMOGLOBIN 25.9 pg (27.0-31.0); MEAN CORPUSCULAR VOLUME 78.5 fL (80.0-94.0); MONOCYTES # (AUTO) 1.3 10^3/uL (0.0-1.0); MONOCYTES % (AUTO) 11.2 %; NEUTROPHILS # (AUTO) 7.5 10^3/uL (1.5-6.6); NEUTROPHILS % (AUTO) 64.7 %; PLT - PLATELET COUNT 227 10^3/uL (130-450); RED BLOOD COUNT 4.73 10^6/uL (4.70-6.10); RED CELL DISTRIBUTION WIDTH 15.5 % (12.0-15.0); WHITE BLOOD COUNT 11.6 x10^3/uL (4.8-10.8)
[2018-06-15 05:52] LABS: INR 1.2 (0.8-1.2); PT - PROTHROMBIN TIME 13.4 secs (9.9-12.6)
[2018-06-15 06:11] LABS: ALBUMIN 3.3 g/dL (3.2-5.5); BILIRUBIN,TOTAL 1.8 mg/dL (0.2-1.0); CALCIUM 8.3 mg/dL (8.5-10.3); CREATININE 2.4 mg/dL (0.6-1.2); CRP - C-REACTIVE PROTEIN 7.7 mg/dL (0-1.0); MAGNESIUM 2.2 mg/dL (1.7-2.8); PHOSPHORUS 4.1 mg/dL (2.5-4.6); TOTAL PROTEIN 6.6 g/dL (6.7-8.2)
[2018-06-15] MEDS: DULoxetine 30 MG CAPSULE PO SCH (08:58)
[2018-06-15] MEDS: PANTOPRAZOLE 40 MG TABLET PO SCH ×2 (08:58→20:33)
[2018-06-15] MEDS: SODIUM CHLORIDE FLUSH 0.9% 10 ML SYRINGE IVP SCH ×3 (08:59→23:40)
[2018-06-15] MEDS: POLYETHYLENE GLYCOL 3350 17 GM PACKET PO SCH (08:59)
[2018-06-15] MEDS: ENOXAPARIN 40 MG/0.4 ML SYRINGE SUBQ SCH (08:59)
[2018-06-15] MEDS: NYSTATIN POWDER 15 GM TOP SCH ×2 (09:06→20:33)
[2018-06-15] MEDS: SODIUM CHLORIDE 0.9% 500 ML IV PRN (14:04)
[2018-06-15] MEDS: SODIUM CHLORIDE FLUSH 0.9% 10 ML SYRINGE IVP PRN (14:05)
--- NOTE | 2018-06-15 14:30 | PROVIDER PROGRESS NOTE ---
Subjective - Prog Note Date Prog Note Date: 06/15/18 - Subjective Pt reports feeling: No change Subjective: pt report he still feels sick. but he denies fever, chill, cough, shortness of breath, chest pain. I called ID Dr. Valiente, she called me back. she recommend daily blood culture to see if there is other bacteria besides of gram positive Cocci, negative coagulase staph. pt does not require d/c his central line now until other bacteria is found. Nafcillin is not enough, recommend add Daptomycin. Current Medications - Current Medications Current Medications: Active Medications Acetaminophen (Tylenol) 650 mg PO Q4HR PRN PRN Reason: Pain 1 to 4 Dronabinol (Marinol) 2.5 mg PO BIDAC [facility] Last Admin: 06/15/18 05:46 Dose: 2.5 mg Duloxetine HCl (Cymbalta) 60 mg PO DAILY [facility] Last Admin: 06/15/18 08:58 Dose: 60 mg Enoxaparin Sodium (Lovenox) 40 mg SUBQ DAILY [facility] Last Admin: 06/15/18 08:59 Dose: 40 mg Multivitamins 10 ml/ Amino (Acids/Electrolytes/Dextrose) 2,010 mls @ 83.75 mls/ hr IV Q24H [place] PRN Reason: Protocol Last Admin: 06/14/18 19:49 Dose: 83.75 mls/hr Fat Emulsion Intravenous (Intralipid 20%) 250 mls @ 21 mls/hr IV Q24H [facility] Last Infusion: 06/15/18 07:15 Dose: 0 mls/hr Chromium/Copper/Manganese/Seleni/Zn 1 ml/ Sodium Chloride 101 mls @ 4.21 mls/ hr IV Q24H [facility] Last Admin: 06/14/18 19:50 Dose: 4.21 mls/hr Nafcillin Sodium 2 gm/ Sodium (Chloride) 100 mls @ 100 mls/hr IV Q4H [facility] Last Admin: 06/15/18 14:40 Dose: 100 mls/hr Daptomycin 500 mg/ Sodium (Chloride) 100 mls @ 200 mls/hr IV Q24H [facility] Last Infusion: 06/15/18 14:20 Dose: Infused Sodium Chloride (Normal Saline 0.9%) 500 mls @ 30 mls/hr IV Q24H PRN PRN Reason: TKO RATE Last Admin: 06/15/18 14:04 Dose: 30 mls/hr Loratadine (Claritin) 10 mg PO QPM [facility] Last Admin: 06/14/18 20:02 Dose: 10 mg Morphine Sulfate (Morphine (Carpuject)) 2 mg IVP Q2HR PRN PRN Reason: PAIN Last Admin: 06/15/18 14:04 Dose: 2 mg Nystatin (Nystop) 1 applic TOP BID [facility] Last Admin: 06/15/18 09:06 Dose: 1 applic Ondansetron HCl (Zofran Inj) 4 mg IVP Q4HR PRN PRN Reason: Nausea / Vomiting Last Admin: 06/15/18 11:41 Dose: 4 mg Oxycodone HCl (Roxicodone) 5 mg PO Q4HR PRN PRN Reason: Pain 5 to 7 Last Admin: 06/14/18 10:10 Dose: 5 mg Pantoprazole Sodium (Protonix) 40 mg PO BID [facility] Last Admin: 06/15/18 08:58 Dose: 40 mg Polyethylene Glycol (Miralax) 17 gm PO DAILY [facility] Last Admin: 06/15/18 08:59 Dose: Not Given Sodium Chloride (Normal Saline Flush 0.9%) 10 ml IVP PRN PRN PRN Reason: NEEDED PER PROVIDER ORDERS Last Admin: 06/15/18 14:05 Dose: 10 ml Sodium Chloride (Normal Saline Flush 0.9%) 10 ml IVP 0100,0900,1700 [facility] Last Admin: 06/15/18 08:59 Dose: 10 ml Ondansetron [Ondansetron Odt] 4 mg PO Q4H PRN 04/05/13 Omeprazole 40 mg PO QDAC 07/06/14 Duloxetine HCl [Cymbalta] 60 mg PO DAILY 05/11/15 Sodium/Pot/Mag/Calc/Chlor/Acet [TPN Electrolytes II IV Soln] 2,000 ml IV QPM Loratadine [Claritin] 10 mg PO QPM 03/09/16 Objective - Vital Signs/Intake & Output Reviewed Vital Signs: Yes Vital Signs: Vital Signs x48h Temp Pulse Pulse Resp BP Pulse Ox 06/15/18 09:04 37.3 C 96 20 93 06/15/18 08:16 37.3 C 96 17 120/63 96 Intake & Output: Intake & Output 06/12/18 06/13/18 06/14/18 06/15/18 23:59 23:59 23:59 23:59 Intake Total 1446.6 1573.15 Output Total 600 1300 Balance 846.6 273.15 - Objective General Appearance: positive: No acute distress, Alert. negative: Lethargic Eyes Bilateral: positive: Normal inspection, PERRL, No lid inflammation, Conjunctivae nml ENT: positive: ENT inspection nml, Pharynx nml, No signs of dehydration. negative: Purulent nasal drainage, Pharyngeal erythema, Oral lesions Neck: positive: Nml inspection, Thyroid nml, No JVD, Trachea midline. negative : Thyromegaly, Lymphadenopathy (R), Lymphadenopathy (L), Stiff neck, Carotid bruit, Swelling/bruising, Tracheal deviation Respiratory: positive: Chest non-tender, No respiratory distress, Breath sounds nml. negative: Wheezes, Rales, Rhonchi Cardiovascular: positive: Regular rate & rhythm, No murmur, No gallop. negative : Irregularly irregular, Extrasystoles, Tachycardia, Bradycardia, JVD present, Systolic murmur, Diastolic murmur Peripheral Pulses: 2+ Radial (R), 2+ Radial (L), 2+ Dorsalis pedis (R), 2+ Dorsalis pedis (L) Abdomen: positive: Non-tender, No organomegaly, Nml bowel sounds, No distention. negative: Tenderness, Guarding, Rebound Back: positive: Nml inspection. negative: CVA tenderness (R), CVA tenderness (L ) Skin: positive: Color nml, No rash, Warm, Dry. negative: Cyanosis, Diaphoresis , Pallor Extremities: positive: Non-tender, Other (pt is with bilateral BKA) Neurologic/Psychiatric: positive: Oriented x3, Sensation nml, Mood/affect nml. negative: Weakness, Sensory loss, Facial droop, Slurred/abnml speech, Depressed mood/affect - Lab Results Fish Bones: 06/15/18 05:29 06/15/18 05:29 Other Labs: Lab Results x24hrs 06/15/18 06/15/18 06/15/18 Range/Units 11:40 05:29 05:29 WBC (4.8-10.8) x10^3/uL RBC (4.70-6.10) 10^6/uL Hgb (14.0-18.0) g/dL Hct (42.0-52.0) % MCV (80.0-94.0) fL MCH (27.0-31.0) pg MCHC (32.0-36.0) g/dL RDW (12.0-15.0) % Plt Count (130-450) 10^3/uL MPV (7.4-11.4) fL Neut # (Auto) (1.5-6.6) 10^3/uL Lymph # (Auto) (1.5-3.5) 10^3/uL Elk # (Auto) (0.0-1.0) 10^3/uL Eos # (Auto) (0.0-0.7) 10^3/uL Baso # (Auto) (0.0-0.1) 10^3/uL Absolute Nucleated RBC x10^3/uL Nucleated RBC % /100WBC PT 13.4 H (9.9-12.6) secs INR 1.2 (0.8-1.2) Sodium 140 (135-145) mmol/L Potassium 3.8 (3.5-5.0) mmol/L Chloride 108 (101-111) mmol/L Carbon Dioxide 22 (21-32) mmol/L Anion Gap 10.0 (6-13) BUN 31 H (6-20) mg/dL Creatinine 2.4 H (0.6-1.2) mg/dL Estimated GFR (MDRD) 31 L (>89) Glucose 100 (70-100) mg/dL POC Whole Bld Glucose 95 (70 - 100) mg/dL Calcium 8.3 L (8.5-10.3) mg/dL Phosphorus 4.1 (2.5-4.6) mg/dL Magnesium 2.2 (1.7-2.8) mg/dL Total Bilirubin 1.8 H (0.2-1.0) mg/dL AST 24 (10-42) IU/L ALT 30 (10-60) IU/L Alkaline Phosphatase 66 (42-121) IU/L C-Reactive Protein 7.7 H (0-1.0) mg/dL Total Protein 6.6 L (6.7-8.2) g/dL Albumin 3.3 (3.2-5.5) g/dL Globulin 3.3 (2.1-4.2) g/dL Albumin/Globulin Ratio 1.0 (1.0-2.2) Prealbumin 20 (18-45) mg/dL Triglycerides 192 H ( - 149) mg/dL 06/15/18 06/15/18 06/14/18 Range/Units 05:29 05:28 23:43 WBC 11.6 H (4.8-10.8) x10^3/uL RBC 4.73 (4.70-6.10) 10^6/uL Hgb 12.3 L (14.0-18.0) g/dL Hct 37.2 L (42.0-52.0) % MCV 78.5 L (80.0-94.0) fL MCH 25.9 L (27.0-31.0) pg MCHC 33.0 (32.0-36.0) g/dL RDW 15.5 H (12.0-15.0) % Plt Count 227 (130-450) 10^3/uL MPV 9.0 (7.4-11.4) fL Neut # (Auto) 7.5 H (1.5-6.6) 10^3/uL Lymph # (Auto) 2.5 (1.5-3.5) 10^3/uL Elk # (Auto) 1.3 H (0.0-1.0) 10^3/uL Eos # (Auto) 0.3 (0.0-0.7) 10^3/uL Baso # (Auto) 0.0 (0.0-0.1) 10^3/uL Absolute Nucleated RBC 0.01 x10^3/uL Nucleated RBC % 0.0 /100WBC PT (9.9-12.6) secs INR (0.8-1.2) Sodium (135-145) mmol/L Potassium (3.5-5.0) mmol/L Chloride (101-111) mmol/L Carbon Dioxide (21-32) mmol/L Anion Gap (6-13) BUN (6-20) mg/dL Creatinine (0.6-1.2) mg/dL Estimated GFR (MDRD) (>89) Glucose (70-100) mg/dL POC Whole Bld Glucose 94 95 (70 - 100) mg/dL Calcium (8.5-10.3) mg/dL Phosphorus (2.5-4.6) mg/dL Magnesium (1.7-2.8) mg/dL Total Bilirubin (0.2-1.0) mg/dL AST (10-42) IU/L ALT (10-60) IU/L Alkaline Phosphatase (42-121) IU/L C-Reactive Protein (0-1.0) mg/dL Total Protein (6.7-8.2) g/dL Albumin (3.2-5.5) g/dL Globulin (2.1-4.2) g/dL Albumin/Globulin Ratio (1.0-2.2) Prealbumin (18-45) mg/dL Triglycerides ( - 149) mg/dL 06/14/18 Range/Units 17:28 WBC (4.8-10.8) x10^3/uL RBC (4.70-6.10) 10^6/uL Hgb (14.0-18.0) g/dL Hct (42.0-52.0) % MCV (80.0-94.0) fL MCH (27.0-31.0) pg MCHC (32.0-36.0) g/dL RDW (12.0-15.0) % Plt Count (130-450) 10^3/uL MPV (7.4-11.4) fL Neut # (Auto) (1.5-6.6) 10^3/uL Lymph # (Auto) (1.5-3.5) 10^3/uL Elk # (Auto) (0.0-1.0) 10^3/uL Eos # (Auto) (0.0-0.7) 10^3/uL Baso # (Auto) (0.0-0.1) 10^3/uL Absolute Nucleated RBC x10^3/uL Nucleated RBC % /100WBC PT (9.9-12.6) secs INR (0.8-1.2) Sodium (135-145) mmol/L Potassium (3.5-5.0) mmol/L Chloride (101-111) mmol/L Carbon Dioxide (21-32) mmol/L Anion Gap (6-13) BUN (6-20) mg/dL Creatinine (0.6-1.2) mg/dL Estimated GFR (MDRD) (>89) Glucose (70-100) mg/dL POC Whole Bld Glucose 108 H (70 - 100) mg/dL Calcium (8.5-10.3) mg/dL Phosphorus (2.5-4.6) mg/dL Magnesium (1.7-2.8) mg/dL Total Bilirubin (0.2-1.0) mg/dL AST (10-42) IU/L ALT (10-60) IU/L Alkaline Phosphatase (42-121) IU/L C-Reactive Protein (0-1.0) mg/dL Total Protein (6.7-8.2) g/dL Albumin (3.2-5.5) g/dL Globulin (2.1-4.2) g/dL Albumin/Globulin Ratio (1.0-2.2) Prealbumin (18-45) mg/dL Triglycerides ( - 149) mg/dL ABX Reporting Has patient been on IV antibiotics over the past 48 hours?: Yes Assessment/Plan - Problem List (1) Bacteremia due to Gram-positive bacteria Impression: Conclusion/Plan: 06/15 daily blood culture add Daptomycin per ID recommendation twice blood culture come back with only gram positive coag negative bacteria pt's central is kept now until other bacteria is found in blood culture, per ID recommends The patient had 2 positive blood cultures that grew in less than 24 hours, had body aches, fatigue, weakness, and reported fevers/chills at home of up to 102 F. The patient also had an elevated WBC count of 11.7. The preliminary results are gram positive cocci in clusters as per lab review. Contact was made with Dr. Grigsby, infectious disease, who agrees with the treatment of Nafcillin and Vanco IV. There is a very small chance that this patient's central line will remain. Plan: Daily blood cultures, monitor for worsening condition and await final culture results. (2) Fever Conclusion/Plan: resolved The patient reports fevers up to 102 at home, chills and body aches. The patient admits to similar events in his life in which he has felt this way, ended up having a blood stream infection. Plan: continue to monitor vital signs. (3) Gram-positive cocci in clusters Conclusion/Plan: 06/15 close monitor, blood culture daily continue antibiotics ECHO results show no evidence of vegetation The patient has a right upper chest central line. I spoke with Dr. Grigsby, infectious disease who suggests to leave this line in for now, avoid use of the central line, and do daily blood cultures. She agrees with the antibiotic choice of Vanco and Nafcillin IV that should continue. If the blood cultures grow out coag negative staph, it will be fine to allow the central line to stay in. There is a very low chance of this given his symptoms, and the patient was informed of the likelihood of his central line removal. Preliminary echo results show no evidence of vegetation, and Dr. Grigsby does not suggest a [facility] or a transfer. Plan: Start PPN, until blood cultures results are known. Plan for close contact with ID daily for continued consult. Consult our general surgery team in the event of a recommended line removal. 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 He has undergone multiple surgeries throughout his life in efforts to reconstruct his bones. Plan: (5) Iron deficiency anemia Conclusion/Plan: The patient is found to be anemic upon admission with a hemoglobin of 13.3 and a hematocrit of 40.8. Upon chart review, the patient has a long history of this that was evident after initiation of his chronic TPN. He sees hem/onc through [facility] as he previously got iron infusions. Plan: Continue to monitor daily labs. (6) Depression Conclusion/Plan: The patient has suffered from this and is prescribed Cymbalta at home. I have this to continue while hospitalized. Plan: Monitor for worsening mood. (7) Allergic eosinophilic esophagitis Conclusion/Plan: continue clear liquid diet as tolerated now continue PPN, until clear for nutrition by central line The patient can tolerate very little PO intake besides "chex mix" and plain water. He has unpredictable bowel movements where sometimes he has constipation , and other times, diarrhea. There have been no changes in bowel pattern related to this acute illness. The patient reports that for the past 4 years he has required TPN for his primary nutrition, but has suffered with at least yearly line infections since then. His last infection was last August at which time his central line was removed, treated with IV antibiotics, and a new central line put back in. He admits to current marijuana use as he states that he weaned himself off of the narcotics and uses the marijuana for medical reasons. Plan: Clear liquids and his usual oral meds. I have prescribed Marinol for reduced GI upset and nausea.
[2018-06-15] MEDS: FAT EMULSION 20% 250 ML IV SCH (19:09)
[2018-06-15] MEDS: PPN (CLINIMIX E 4.25/5) 2,000 ML with MULTIVITAMIN 10 ML IV SCH ×2 (19:10)
[2018-06-15] MEDS: TRACE ELEMENTS V CONC 1 ML in SODIUM CHLORIDE 0.9% 100ML 100 ML IV SCH (19:10)
[2018-06-15] MEDS: LORATADINE 10 MG TABLET PO SCH (20:33)
[2018-06-16 05:25] LABS: BASOPHILS % (AUTO) 0.3 %; EOSINOPHILS # (AUTO) 0.4 10^3/uL (0.0-0.7); EOSINOPHILS % (AUTO) 3.3 %; HGB - HEMOGLOBIN 11.8 g/dL (14.0-18.0); LYMPHOCYTES # (AUTO) 2.1 10^3/uL (1.5-3.5); LYMPHOCYTES % (AUTO) 19.5 %; MEAN CORPUSCULAR HEMOGLOBIN 26.3 pg (27.0-31.0); MEAN CORPUSCULAR HGB CONC 33.3 g/dL (32.0-36.0); MEAN CORPUSCULAR VOLUME 78.8 fL (80.0-94.0); MEAN PLATELET VOLUME 8.7 fL (7.4-11.4); MONOCYTES # (AUTO) 0.8 10^3/uL (0.0-1.0); MONOCYTES % (AUTO) 7.1 %; NEUTROPHILS # (AUTO) 7.6 10^3/uL (1.5-6.6); NEUTROPHILS % (AUTO) 69.8 %; PLT - PLATELET COUNT 218 10^3/uL (130-450); RED CELL DISTRIBUTION WIDTH 15.4 % (12.0-15.0); WHITE BLOOD COUNT 10.9 x10^3/uL (4.8-10.8)
[2018-06-16 05:41] LABS: CALCIUM 8.2 mg/dL (8.5-10.3); CREATININE 2.9 mg/dL (0.6-1.2); CRP - C-REACTIVE PROTEIN 9.2 mg/dL (0-1.0)
[2018-06-16] MEDS: MORPHINE 2 MG/ML CARPUJECT IVP PRN ×2 (05:57→08:27)
[2018-06-16] MEDS: DRONABINOL 2.5 MG CAPSULE PO SCH ×2 (06:00→16:04)
[2018-06-16] MEDS: CALCIUM CARBONATE CHEW 500 MG TABLET PO SCH ×3 (06:38→21:02)
[2018-06-16] MEDS: SODIUM CHLORIDE FLUSH 0.9% 10 ML SYRINGE IVP SCH ×2 (08:27→16:02)
[2018-06-16] MEDS: PANTOPRAZOLE 40 MG TABLET PO SCH ×2 (08:32→21:03)
[2018-06-16] MEDS: ENOXAPARIN 40 MG/0.4 ML SYRINGE SUBQ SCH (08:32)
[2018-06-16] MEDS: DULoxetine 30 MG CAPSULE PO SCH (08:32)
[2018-06-16] MEDS: POLYETHYLENE GLYCOL 3350 17 GM PACKET PO SCH (08:33)
[2018-06-16] MEDS: NYSTATIN POWDER 15 GM TOP SCH ×2 (08:33→21:03)
[2018-06-16] MEDS: SODIUM CHLORIDE 0.9% 500 ML IV PRN (09:43)
[2018-06-16] MEDS: oxyCODONE 5 MG TABLET PO PRN ×3 (09:48→21:02)
[2018-06-16] MEDS: ONDANSETRON 4 MG/2 ML VIAL IVP PRN (13:39)
[2018-06-16] MEDS: MORPHINE 2 MG/ML SYRINGE IVP PRN ×4 (13:39→21:03)
--- NOTE | 2018-06-16 17:24 | PROVIDER PROGRESS NOTE ---
Subjective - Prog Note Date Prog Note Date: 06/16/18 - Subjective Pt reports feeling: Improved Subjective: pt report he feel better significantly than yesterday, no fever or chill. I called [facility] to consult if central line can be used for TPN and if Daptomycin can be used for q48h based pharmacy to calculate with pt's creatinine clearance. ID dr. Valiente called me back, yes, Daptomycin can be used for q48h, will call me back about if central line can be used. rober, considering if pt continue to have positive blood culture on tomorrow, will d/c central line and order PICC line tomorrow because the central line most likel be the resource of continuing positive blood culture. Current Medications - Current Medications Current Medications: Active Medications Acetaminophen (Tylenol) 650 mg PO Q4HR PRN PRN Reason: Pain 1 to 4 Last Admin: 06/16/18 09:48 Dose: 650 mg Calcium Carbonate/Glycine (Tums) 500 mg PO BID [facility] Last Admin: 06/16/18 08:32 Dose: 500 mg Dronabinol (Marinol) 2.5 mg PO BIDAC [facility] Last Admin: 06/16/18 16:04 Dose: 2.5 mg Duloxetine HCl (Cymbalta) 60 mg PO DAILY [facility] Last Admin: 06/16/18 08:32 Dose: 60 mg Enoxaparin Sodium (Lovenox) 40 mg SUBQ DAILY [facility] Last Admin: 06/16/18 08:32 Dose: 40 mg Multivitamins 10 ml/ Amino (Acids/Electrolytes/Dextrose) 2,010 mls @ 83.75 mls/ hr IV Q24H [facility] PRN Reason: Protocol Last Admin: 06/15/18 19:10 Dose: 83.75 mls/hr Fat Emulsion Intravenous (Intralipid 20%) 250 mls @ 21 mls/hr IV Q24H [facility] Last Infusion: 06/16/18 07:05 Dose: Infused Chromium/Copper/Manganese/Seleni/Zn 1 ml/ Sodium Chloride 101 mls @ 4.21 mls/ hr IV Q24H [facility] Last Admin: 06/15/18 19:10 Dose: 4.21 mls/hr Sodium Chloride (Normal Saline 0.9%) 500 mls @ 30 mls/hr IV Q24H PRN PRN Reason: TKO RATE Last Admin: 06/16/18 09:43 Dose: 30 mls/hr Daptomycin 500 mg/ Sodium (Chloride) 100 mls @ 200 mls/hr IV Q48H [facility] Loratadine (Claritin) 10 mg PO QPM [facility] Last Admin: 06/15/18 20:33 Dose: 10 mg Morphine Sulfate (Morphine) 2 mg IVP Q2HR PRN PRN Reason: PAIN Last Admin: 06/16/18 16:05 Dose: 2 mg Nystatin (Nystop) 1 applic TOP BID [facility] Last Admin: 06/16/18 08:33 Dose: 1 applic Ondansetron HCl (Zofran Inj) 4 mg IVP Q4HR PRN PRN Reason: Nausea / Vomiting Last Admin: 06/16/18 13:39 Dose: 4 mg Oxycodone HCl (Roxicodone) 5 mg PO Q4HR PRN PRN Reason: Pain 5 to 7 Last Admin: 06/16/18 16:04 Dose: 5 mg Pantoprazole Sodium (Protonix) 40 mg PO BID [facility] Last Admin: 06/16/18 08:32 Dose: 40 mg Polyethylene Glycol (Miralax) 17 gm PO DAILY [facility] Last Admin: 06/16/18 08:33 Dose: Not Given Sodium Chloride (Normal Saline Flush 0.9%) 10 ml IVP PRN PRN PRN Reason: NEEDED PER PROVIDER ORDERS Last Admin: 06/15/18 14:05 Dose: 10 ml Sodium Chloride (Normal Saline Flush 0.9%) 10 ml IVP 0100,0900,1700 [facility] Last Admin: 06/16/18 16:02 Dose: Not Given Ondansetron [Ondansetron Odt] 4 mg PO Q4H PRN 04/05/13 Omeprazole 40 mg PO QDAC 07/06/14 Duloxetine HCl [Cymbalta] 60 mg PO DAILY 05/11/15 Sodium/Pot/Mag/Calc/Chlor/Acet [TPN Electrolytes II IV Soln] 2,000 ml IV QPM Loratadine [Claritin] 10 mg PO QPM 03/09/16 Objective - Vital Signs/Intake & Output Reviewed Vital Signs: Yes Vital Signs: Vital Signs x48h Temp Pulse Resp BP Pulse Ox 06/16/18 15:54 36.8 C 75 18 120/51 L 97 Intake & Output: Intake & Output 06/13/18 06/14/18 06/15/18 06/16/18 23:59 23:59 23:59 23:59 Intake Total 1446.6 4194.40 1560 Output Total 600 5 2049 Balance 846.6 2269.40 -490 - Objective General Appearance: positive: No acute distress, Alert. negative: Lethargic Eyes Bilateral: positive: Normal inspection, PERRL, No lid inflammation, Conjunctivae nml ENT: positive: ENT inspection nml, Pharynx nml, No signs of dehydration. negative: Purulent nasal drainage, Pharyngeal erythema, Oral lesions Neck: positive: Nml inspection, Thyroid nml, No JVD, Trachea midline. negative : Thyromegaly, Lymphadenopathy (R), Lymphadenopathy (L), Stiff neck, Carotid bruit, Swelling/bruising, Tracheal deviation Respiratory: positive: Chest non-tender, No respiratory distress, Breath sounds nml. negative: Wheezes, Rales, Rhonchi Cardiovascular: positive: Regular rate & rhythm, No murmur, No gallop. negative : Irregularly irregular, Extrasystoles, Tachycardia, Bradycardia, JVD present, Systolic murmur, Diastolic murmur Peripheral Pulses: 2+ Radial (R), 2+ Radial (L), 2+ Dorsalis pedis (R), 2+ Dorsalis pedis (L) Abdomen: positive: Non-tender, No organomegaly, Nml bowel sounds, No distention. negative: Tenderness, Guarding, Rebound Back: positive: Nml inspection. negative: CVA tenderness (R), CVA tenderness (L ) Skin: positive: Color nml, No rash, Warm, Dry. negative: Cyanosis, Diaphoresis , Pallor Extremities: positive: Non-tender. negative: Calf tenderness, Joint swelling, Joanie's sign/cords Neurologic/Psychiatric: positive: Oriented x3, Sensation nml, Mood/affect nml. negative: Weakness, Sensory loss, Facial droop, Slurred/abnml speech, Depressed mood/affect - Lab Results Fish Bones: 06/16/18 05:00 06/16/18 05:00 Other Labs: Lab Results x24hrs 06/16/18 06/16/18 06/16/18 Range/Units 11:40 07:25 06:22 WBC (4.8-10.8) x10^3/uL RBC (4.70-6.10) 10^6/uL Hgb (14.0-18.0) g/dL Hct (42.0-52.0) % MCV (80.0-94.0) fL MCH (27.0-31.0) pg MCHC (32.0-36.0) g/dL RDW (12.0-15.0) % Plt Count (130-450) 10^3/uL MPV (7.4-11.4) fL Neut # (Auto) (1.5-6.6) 10^3/uL Lymph # (Auto) (1.5-3.5) 10^3/uL [place] # (Auto) (0.0-1.0) 10^3/uL Eos # (Auto) (0.0-0.7) 10^3/uL Baso # (Auto) (0.0-0.1) 10^3/uL Absolute Nucleated RBC x10^3/uL Nucleated RBC % /100WBC Sodium (135-145) mmol/L Potassium (3.5-5.0) mmol/L Chloride (101-111) mmol/L Carbon Dioxide (21-32) mmol/L Anion Gap (6-13) BUN (6-20) mg/dL Creatinine (0.6-1.2) mg/dL Estimated GFR (MDRD) (>89) Glucose (70-100) mg/dL POC Whole Bld Glucose 104 H 81 88 (70 - 100) mg/dL Calcium (8.5-10.3) mg/dL C-Reactive Protein (0-1.0) mg/dL Last Dose Date Last Dose Time Vancomycin Trough (10.0-20.0) ug/mL 06/16/18 06/16/18 06/16/18 Range/Units 05:00 05:00 00:05 WBC 10.9 H (4.8-10.8) x10^3/uL RBC 4.50 L (4.70-6.10) 10^6/uL Hgb 11.8 L (14.0-18.0) g/dL Hct 35.5 L (42.0-52.0) % MCV 78.8 L (80.0-94.0) fL MCH 26.3 L (27.0-31.0) pg MCHC 33.3 (32.0-36.0) g/dL RDW 15.4 H (12.0-15.0) % Plt Count 218 (130-450) 10^3/uL MPV 8.7 (7.4-11.4) fL Neut # (Auto) 7.6 H (1.5-6.6) 10^3/uL Lymph # (Auto) 2.1 (1.5-3.5) 10^3/uL [place] # (Auto) 0.8 (0.0-1.0) 10^3/uL Eos # (Auto) 0.4 (0.0-0.7) 10^3/uL Baso # (Auto) 0.0 (0.0-0.1) 10^3/uL Absolute Nucleated RBC 0.01 x10^3/uL Nucleated RBC % 0.1 /100WBC Sodium 139 (135-145) mmol/L Potassium 3.6 (3.5-5.0) mmol/L Chloride 108 (101-111) mmol/L Carbon Dioxide 24 (21-32) mmol/L Anion Gap 7.0 (6-13) BUN 37 H (6-20) mg/dL Creatinine 2.9 H (0.6-1.2) mg/dL Estimated GFR (MDRD) 25 L (>89) Glucose 96 (70-100) mg/dL POC Whole Bld Glucose 91 (70 - 100) mg/dL Calcium 8.2 L (8.5-10.3) mg/dL C-Reactive Protein 9.2 H (0-1.0) mg/dL Last Dose Date Last Dose Time Vancomycin Trough (10.0-20.0) ug/mL 06/15/18 06/15/18 Range/Units 21:22 18:02 WBC (4.8-10.8) x10^3/uL RBC (4.70-6.10) 10^6/uL Hgb (14.0-18.0) g/dL Hct (42.0-52.0) % MCV (80.0-94.0) fL MCH (27.0-31.0) pg MCHC (32.0-36.0) g/dL RDW (12.0-15.0) % Plt Count (130-450) 10^3/uL MPV (7.4-11.4) fL Neut # (Auto) (1.5-6.6) 10^3/uL Lymph # (Auto) (1.5-3.5) 10^3/uL [place] # (Auto) (0.0-1.0) 10^3/uL Eos # (Auto) (0.0-0.7) 10^3/uL Baso # (Auto) (0.0-0.1) 10^3/uL Absolute Nucleated RBC x10^3/uL Nucleated RBC % /100WBC Sodium (135-145) mmol/L Potassium (3.5-5.0) mmol/L Chloride (101-111) mmol/L Carbon Dioxide (21-32) mmol/L Anion Gap (6-13) BUN (6-20) mg/dL Creatinine (0.6-1.2) mg/dL Estimated GFR (MDRD) (>89) Glucose (70-100) mg/dL POC Whole Bld Glucose 138 H (70 - 100) mg/dL Calcium (8.5-10.3) mg/dL C-Reactive Protein (0-1.0) mg/dL Last Dose Date 06/14/18 Last Dose Time 1000 Vancomycin Trough 25.0 H* (10.0-20.0) ug/mL ABX Reporting Has patient been on IV antibiotics over the past 48 hours?: Yes Assessment/Plan - Problem List (1) Bacteremia due to Gram-positive bacteria Impression: Impression: 06/16 pt feel better, no fever/chill continue Daptomycin q48h continue blood culture ID consult for if continue to use central line for TPN is pending if continue positive blood culture, will d/c central line, order PICC nurse educate pt how to prevent recurrence of central or PICC infection 06/15 daily blood culture add Daptomycin per ID recommendation twice blood culture come back with only gram positive coag negative bacteria pt's central is kept now until other bacteria is found in blood culture, per ID recommends The patient had 2 positive blood cultures that grew in less than 24 hours, had body aches, fatigue, weakness, and reported fevers/chills at home of up to 102 F. The patient also had an elevated WBC count of 11.7. The preliminary results are gram positive cocci in clusters as per lab review. Contact was made with Dr. Grigsby, infectious disease, who agrees with the treatment of Nafcillin and Vanco IV. There is a very small chance that this patient's central line will remain. Plan: Daily blood cultures, monitor for worsening condition and await final culture results. (2) Fever Conclusion/Plan: resolved The patient reports fevers up to 102 at home, chills and body aches. The patient admits to similar events in his life in which he has felt this way, ended up having a blood stream infection. Plan: continue to monitor vital signs. (3) Gram-positive cocci in clusters Conclusion/Plan: 06/15 close monitor, blood culture daily continue antibiotics ECHO results show no evidence of vegetation The patient has a right upper chest central line. I spoke with Dr. Grigsby, infectious disease who suggests to leave this line in for now, avoid use of the central line, and do daily blood cultures. She agrees with the antibiotic choice of Vanco and Nafcillin IV that should continue. If the blood cultures grow out coag negative staph, it will be fine to allow the central line to stay in. There is a very low chance of this given his symptoms, and the patient was informed of the likelihood of his central line removal. Preliminary echo results show no evidence of vegetation, and Dr. Grigsby does not suggest a [facility] or a transfer. Plan: Start PPN, until blood cultures results are known. Plan for close contact with ID daily for continued consult. Consult our general surgery team in the event of a recommended line removal. 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 He has undergone multiple surgeries throughout his life in efforts to reconstruct his bones. Plan: (5) Iron deficiency anemia Conclusion/Plan: The patient is found to be anemic upon admission with a hemoglobin of 13.3 and a hematocrit of 40.8. Upon chart review, the patient has a long history of this that was evident after initiation of his chronic TPN. He sees hem/onc through [facility] as he previously got iron infusions. Plan: Continue to monitor daily labs. (6) Depression Conclusion/Plan: The patient has suffered from this and is prescribed Cymbalta at home. I have this to continue while hospitalized. Plan: Monitor for worsening mood. (7) Allergic eosinophilic esophagitis Conclusion/Plan: 06/16 pt request Pudding, as tolerated continue clear liquid diet as tolerated now continue PPN, until clear for nutrition by central line The patient can tolerate very little PO intake besides "chex mix" and plain water. He has unpredictable bowel movements where sometimes he has constipation , and other times, diarrhea. There have been no changes in bowel pattern related to this acute illness. The patient reports that for the past 4 years he has required TPN for his primary nutrition, but has suffered with at least yearly line infections since then. His last infection was last August at which time his central line was removed, treated with IV antibiotics, and a new central line put back in. He admits to current marijuana use as he states that he weaned himself off of the narcotics and uses the marijuana for medical reasons. Plan: Clear liquids and his usual oral meds. I have prescribed Marinol for reduced GI upset and nausea.
[2018-06-16] MEDS: SODIUM CHLORIDE FLUSH 0.9% 10 ML SYRINGE IVP PRN ×2 (18:31→21:04)
[2018-06-16] MEDS: PPN (CLINIMIX E 4.25/5) 2,000 ML with MULTIVITAMIN 10 ML IV SCH ×2 (19:31)
[2018-06-16] MEDS: TRACE ELEMENTS V CONC 1 ML in SODIUM CHLORIDE 0.9% 100ML 100 ML IV SCH (19:31)
[2018-06-16] MEDS: FAT EMULSION 20% 250 ML IV SCH (19:32)
[2018-06-16] MEDS: LORATADINE 10 MG TABLET PO SCH (21:03)
[2018-06-17] MEDS: MORPHINE 2 MG/ML SYRINGE IVP PRN ×6 (00:40→19:04)
[2018-06-17] MEDS: SODIUM CHLORIDE FLUSH 0.9% 10 ML SYRINGE IVP SCH ×3 (00:44→15:54)
[2018-06-17] MEDS: SODIUM CHLORIDE 0.9% 500 ML IV PRN ×2 (02:03→15:00)
[2018-06-17] MEDS: ONDANSETRON 4 MG/2 ML VIAL IVP PRN ×2 (05:16→14:58)
[2018-06-17 05:19] LABS: BASOPHILS % (AUTO) 0.2 %; EOSINOPHILS # (AUTO) 0.4 10^3/uL (0.0-0.7); EOSINOPHILS % (AUTO) 3.3 %; HGB - HEMOGLOBIN 11.4 g/dL (14.0-18.0); LYMPHOCYTES # (AUTO) 2.2 10^3/uL (1.5-3.5); LYMPHOCYTES % (AUTO) 20.5 %; MEAN CORPUSCULAR HEMOGLOBIN 26.4 pg (27.0-31.0); MEAN CORPUSCULAR HGB CONC 33.5 g/dL (32.0-36.0); MEAN CORPUSCULAR VOLUME 78.7 fL (80.0-94.0); MONOCYTES # (AUTO) 0.8 10^3/uL (0.0-1.0); MONOCYTES % (AUTO) 7.9 %; NEUTROPHILS # (AUTO) 7.2 10^3/uL (1.5-6.6); NEUTROPHILS % (AUTO) 68.1 %; PLT - PLATELET COUNT 224 10^3/uL (130-450); RED BLOOD COUNT 4.32 10^6/uL (4.70-6.10); RED CELL DISTRIBUTION WIDTH 15.5 % (12.0-15.0); WHITE BLOOD COUNT 10.6 x10^3/uL (4.8-10.8)
[2018-06-17 05:31] LABS: ALBUMIN 3.2 g/dL (3.2-5.5); ALBUMIN/GLOBULIN RATIO 0.9 (1.0-2.2); BILIRUBIN,TOTAL 0.5 mg/dL (0.2-1.0); CALCIUM 8.7 mg/dL (8.5-10.3); CREATININE 2.5 mg/dL (0.6-1.2); CRP - C-REACTIVE PROTEIN 7.4 mg/dL (0-1.0); MAGNESIUM 2.6 mg/dL (1.7-2.8); PHOSPHORUS 4.5 mg/dL (2.5-4.6); TOTAL PROTEIN 6.6 g/dL (6.7-8.2)
[2018-06-17] MEDS: DRONABINOL 2.5 MG CAPSULE PO SCH ×2 (07:06→15:54)
[2018-06-17] MEDS: CALCIUM CARBONATE CHEW 500 MG TABLET PO SCH ×2 (09:39→21:49)
[2018-06-17] MEDS: DULoxetine 30 MG CAPSULE PO SCH (09:39)
[2018-06-17] MEDS: PANTOPRAZOLE 40 MG TABLET PO SCH ×2 (09:39→21:49)
[2018-06-17] MEDS: ENOXAPARIN 40 MG/0.4 ML SYRINGE SUBQ SCH (09:40)
[2018-06-17] MEDS: POLYETHYLENE GLYCOL 3350 17 GM PACKET PO SCH (09:41)
[2018-06-17] MEDS: NYSTATIN POWDER 15 GM TOP SCH ×2 (09:42→21:49)
[2018-06-17] MEDS: SODIUM CHLORIDE FLUSH 0.9% 10 ML SYRINGE IVP PRN (10:28)
--- NOTE | 2018-06-17 14:22 | PROVIDER PROGRESS NOTE ---
Subjective - Prog Note Date Prog Note Date: 06/17/18 - Subjective Pt reports feeling: Improved Subjective: pt denies fever, chill. pt state he feel fine, no complaints. [facility] ID recommend we can use the central line. Pt had negative blood culture for continuing two days on two bottles. It appears initiate one bottle of positive was from contamination, and the bacterial is staph epi. Follow up [facility] ID recommendation, use central line for TPN. Current Medications - Current Medications Current Medications: Active Medications Acetaminophen (Tylenol) 650 mg PO Q4HR PRN PRN Reason: Pain 1 to 4 Last Admin: 06/16/18 09:48 Dose: 650 mg Calcium Carbonate/Glycine (Tums) 500 mg PO BID [facility] Last Admin: 06/17/18 09:39 Dose: 500 mg Dronabinol (Marinol) 2.5 mg PO BIDAC [facility] Last Admin: 06/17/18 07:06 Dose: 2.5 mg Duloxetine HCl (Cymbalta) 60 mg PO DAILY [facility] Last Admin: 06/17/18 09:39 Dose: 60 mg Enoxaparin Sodium (Lovenox) 40 mg SUBQ DAILY [facility] Last Admin: 06/17/18 09:40 Dose: 40 mg Multivitamins 10 ml/ Amino (Acids/Electrolytes/Dextrose) 2,010 mls @ 83.75 mls/ hr IV Q24H [facility] PRN Reason: Protocol Stop: 06/17/18 18:59 Last Admin: 06/16/18 19:31 Dose: 83.75 mls/hr Fat Emulsion Intravenous (Intralipid 20%) 250 mls @ 21 mls/hr IV Q24H [facility] Stop: 06/17/18 18:59 Last Infusion: 06/17/18 07:30 Dose: Infused Chromium/Copper/Manganese/Seleni/Zn 1 ml/ Sodium Chloride 101 mls @ 4.21 mls/ hr IV Q24H [facility] Last Admin: 06/16/18 19:31 Dose: 4.21 mls/hr Sodium Chloride (Normal Saline 0.9%) 500 mls @ 30 mls/hr IV Q24H PRN PRN Reason: TKO RATE Last Admin: 06/17/18 02:03 Dose: 30 mls/hr Daptomycin 500 mg/ Sodium (Chloride) 100 mls @ 200 mls/hr IV Q48H [facility] Multivitamins 10 ml/ Amino Ac/ (Electrol/Dextrose/Calcium) 2,010 mls @ 65 mls/ hr IV Q24H [facility] PRN Reason: Protocol Fat Emulsion Intravenous (Intralipid 20%) 250 mls @ 21 mls/hr IV Q24H [facility] Loratadine (Claritin) 10 mg PO QPM [facility] Last Admin: 06/16/18 21:03 Dose: 10 mg Morphine Sulfate (Morphine) 2 mg IVP Q2HR PRN PRN Reason: PAIN Last Admin: 06/17/18 10:28 Dose: 2 mg Nystatin (Nystop) 1 applic TOP BID [facility] Last Admin: 06/17/18 09:42 Dose: 1 applic Ondansetron HCl (Zofran Inj) 4 mg IVP Q4HR PRN PRN Reason: Nausea / Vomiting Last Admin: 06/17/18 05:16 Dose: 4 mg Oxycodone HCl (Roxicodone) 5 mg PO Q4HR PRN PRN Reason: Pain 5 to 7 Last Admin: 06/16/18 21:02 Dose: 5 mg Pantoprazole Sodium (Protonix) 40 mg PO BID [facility] Last Admin: 06/17/18 09:39 Dose: 40 mg Polyethylene Glycol (Miralax) 17 gm PO DAILY [facility] Last Admin: 06/17/18 09:41 Dose: Not Given Sodium Chloride (Normal Saline Flush 0.9%) 10 ml IVP PRN PRN PRN Reason: NEEDED PER PROVIDER ORDERS Last Admin: 06/17/18 10:28 Dose: 10 ml Sodium Chloride (Normal Saline Flush 0.9%) 10 ml IVP 0100,0900,1700 [facility] Last Admin: 06/17/18 08:02 Dose: 10 ml Ondansetron [Ondansetron Odt] 4 mg PO Q4H PRN 04/05/13 Omeprazole 40 mg PO QDAC 07/06/14 Duloxetine HCl [Cymbalta] 60 mg PO DAILY 05/11/15 Sodium/Pot/Mag/Calc/Chlor/Acet [TPN Electrolytes II IV Soln] 2,000 ml IV QPM Loratadine [Claritin] 10 mg PO QPM 03/09/16 Objective - Vital Signs/Intake & Output Reviewed Vital Signs: Yes Vital Signs: Vital Signs x48h Temp Pulse Resp BP Pulse Ox 06/17/18 09:36 37.4 C 71 18 116/67 98 Intake & Output: Intake & Output 06/14/18 06/15/18 06/16/18 06/17/18 23:59 23:59 23:59 23:59 Intake Total 1446.6 4194.40 4211 940 Output Total 600 1925 2500 600 Balance 846.6 2269.40 1711 340 - Objective General Appearance: positive: No acute distress, Alert. negative: Lethargic Eyes Bilateral: positive: Normal inspection, PERRL, No lid inflammation, Conjunctivae nml ENT: positive: ENT inspection nml, Pharynx nml, No signs of dehydration. negative: Purulent nasal drainage, Pharyngeal erythema, Oral lesions Neck: positive: Nml inspection, Thyroid nml, No JVD, Trachea midline. negative : Thyromegaly, Lymphadenopathy (R), Lymphadenopathy (L), Stiff neck, Swelling/ bruising, Tracheal deviation Respiratory: positive: Chest non-tender, No respiratory distress, Breath sounds nml. negative: Wheezes, Rales, Rhonchi Cardiovascular: positive: Regular rate & rhythm, No murmur, No gallop. negative : Irregularly irregular, Extrasystoles, Tachycardia, Bradycardia, JVD present, Systolic murmur, Diastolic murmur Peripheral Pulses: 2+ Radial (R), 2+ Radial (L) Abdomen: positive: Non-tender, No organomegaly, Nml bowel sounds, No distention. negative: Tenderness, Guarding, Rebound Back: positive: Nml inspection. negative: CVA tenderness (R), CVA tenderness (L ) Skin: positive: Color nml, No rash, Warm, Dry. negative: Cyanosis, Diaphoresis , Pallor Extremities: positive: Non-tender Neurologic/Psychiatric: positive: Oriented x3, Motor nml, Sensation nml, Mood/ affect nml. negative: Weakness, Sensory loss, Facial droop, Slurred/abnml speech, Depressed mood/affect - Lab Results Fish Bones: 06/17/18 04:30 06/17/18 04:30 Other Labs: Lab Results x24hrs 06/17/18 06/17/18 06/17/18 Range/Units 11:37 05:46 04:30 WBC (4.8-10.8) x10^3/uL RBC (4.70-6.10) 10^6/uL Hgb (14.0-18.0) g/dL Hct (42.0-52.0) % MCV (80.0-94.0) fL MCH (27.0-31.0) pg MCHC (32.0-36.0) g/dL RDW (12.0-15.0) % Plt Count (130-450) 10^3/uL MPV (7.4-11.4) fL Neut # (Auto) (1.5-6.6) 10^3/uL Lymph # (Auto) (1.5-3.5) 10^3/uL [place] # (Auto) (0.0-1.0) 10^3/uL Eos # (Auto) (0.0-0.7) 10^3/uL Baso # (Auto) (0.0-0.1) 10^3/uL Absolute Nucleated RBC x10^3/uL Nucleated RBC % /100WBC Sodium 140 (135-145) mmol/L Potassium 3.9 (3.5-5.0) mmol/L Chloride 106 (101-111) mmol/L Carbon Dioxide 27 (21-32) mmol/L Anion Gap 7.0 (6-13) BUN 31 H (6-20) mg/dL Creatinine 2.5 H (0.6-1.2) mg/dL Estimated GFR (MDRD) 30 L (>89) Glucose 95 (70-100) mg/dL POC Whole Bld Glucose 97 91 (70 - 100) mg/dL Calcium 8.7 (8.5-10.3) mg/dL Phosphorus 4.5 (2.5-4.6) mg/dL Magnesium 2.6 (1.7-2.8) mg/dL Total Bilirubin 0.5 (0.2-1.0) mg/dL AST 15 (10-42) IU/L ALT 17 (10-60) IU/L Alkaline Phosphatase 59 (42-121) IU/L C-Reactive Protein 7.4 H (0-1.0) mg/dL Total Protein 6.6 L (6.7-8.2) g/dL Albumin 3.2 (3.2-5.5) g/dL Globulin 3.4 (2.1-4.2) g/dL Albumin/Globulin Ratio 0.9 L (1.0-2.2) Prealbumin 17 L (18-45) mg/dL Triglycerides 182 H ( - 149) mg/dL 06/17/18 06/17/18 06/16/18 Range/Units 04:30 00:20 17:57 WBC 10.6 (4.8-10.8) x10^3/uL RBC 4.32 L (4.70-6.10) 10^6/uL Hgb 11.4 L (14.0-18.0) g/dL Hct 34.0 L (42.0-52.0) % MCV 78.7 L (80.0-94.0) fL MCH 26.4 L (27.0-31.0) pg MCHC 33.5 (32.0-36.0) g/dL RDW 15.5 H (12.0-15.0) % Plt Count 224 (130-450) 10^3/uL MPV 9.0 (7.4-11.4) fL Neut # (Auto) 7.2 H (1.5-6.6) 10^3/uL Lymph # (Auto) 2.2 (1.5-3.5) 10^3/uL [place] # (Auto) 0.8 (0.0-1.0) 10^3/uL Eos # (Auto) 0.4 (0.0-0.7) 10^3/uL Baso # (Auto) 0.0 (0.0-0.1) 10^3/uL Absolute Nucleated RBC 0.01 x10^3/uL Nucleated RBC % 0.0 /100WBC Sodium (135-145) mmol/L Potassium (3.5-5.0) mmol/L Chloride (101-111) mmol/L Carbon Dioxide (21-32) mmol/L Anion Gap (6-13) BUN (6-20) mg/dL Creatinine (0.6-1.2) mg/dL Estimated GFR (MDRD) (>89) Glucose (70-100) mg/dL POC Whole Bld Glucose 79 93 (70 - 100) mg/dL Calcium (8.5-10.3) mg/dL Phosphorus (2.5-4.6) mg/dL Magnesium (1.7-2.8) mg/dL Total Bilirubin (0.2-1.0) mg/dL AST (10-42) IU/L ALT (10-60) IU/L Alkaline Phosphatase (42-121) IU/L C-Reactive Protein (0-1.0) mg/dL Total Protein (6.7-8.2) g/dL Albumin (3.2-5.5) g/dL Globulin (2.1-4.2) g/dL Albumin/Globulin Ratio (1.0-2.2) Prealbumin (18-45) mg/dL Triglycerides ( - 149) mg/dL ABX Reporting Has patient been on IV antibiotics over the past 48 hours?: Yes Assessment/Plan - Problem List (1) Bacteremia due to Gram-positive bacteria Impression: Impression: 06/17 continuing two days blood culture were negative. WBC became normal now continue Daptomycin 06/16 pt feel better, no fever/chill continue Daptomycin q48h continue blood culture ID consult for if continue to use central line for TPN is pending if continue positive blood culture, will d/c central line, order PICC nurse educate pt how to prevent recurrence of central or PICC infection 06/15 daily blood culture add Daptomycin per ID recommendation twice blood culture come back with only gram positive coag negative bacteria pt's central is kept now until other bacteria is found in blood culture, per ID recommends The patient had 2 positive blood cultures that grew in less than 24 hours, had body aches, fatigue, weakness, and reported fevers/chills at home of up to 102 F. The patient also had an elevated WBC count of 11.7. The preliminary results are gram positive cocci in clusters as per lab review. Contact was made with Dr. Grigsby, infectious disease, who agrees with the treatment of Nafcillin and Vanco IV. There is a very small chance that this patient's central line will remain. Plan: Daily blood cultures, monitor for worsening condition and await final culture results. (2) Fever Conclusion/Plan: resolved The patient reports fevers up to 102 at home, chills and body aches. The patient admits to similar events in his life in which he has felt this way, ended up having a blood stream infection. Plan: continue to monitor vital signs. (3) Gram-positive cocci in clusters Conclusion/Plan: continue antibiotics 06/15 close monitor, blood culture daily continue antibiotics ECHO results show no evidence of vegetation The patient has a right upper chest central line. I spoke with Dr. Grigsby, infectious disease who suggests to leave this line in for now, avoid use of the central line, and do daily blood cultures. She agrees with the antibiotic choice of Vanco and Nafcillin IV that should continue. If the blood cultures grow out coag negative staph, it will be fine to allow the central line to stay in. There is a very low chance of this given his symptoms, and the patient was informed of the likelihood of his central line removal. Preliminary echo results show no evidence of vegetation, and Dr. Grigsby does not suggest a [facility] or a transfer. Plan: Start PPN, until blood cultures results are known. Plan for close contact with ID daily for continued consult. Consult our general surgery team in the event of a recommended line removal. 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 He has undergone multiple surgeries throughout his life in efforts to reconstruct his bones. Plan: (5) Iron deficiency anemia Conclusion/Plan: The patient is found to be anemic upon admission with a hemoglobin of 13.3 and a hematocrit of 40.8. Upon chart review, the patient has a long history of this that was evident after initiation of his chronic TPN. He sees hem/onc through [facility] as he previously got iron infusions. Plan: Continue to monitor daily labs. (6) Depression Conclusion/Plan: The patient has suffered from this and is prescribed Cymbalta at home. I have this to continue while hospitalized. Plan: Monitor for worsening mood. (7) Allergic eosinophilic esophagitis Conclusion/Plan: resume TPN continue lab monitor 06/16 pt request Pudding, as tolerated continue clear liquid diet as tolerated now continue PPN, until clear for nutrition by central line The patient can tolerate very little PO intake besides "chex mix" and plain water. He has unpredictable bowel movements where sometimes he has constipation , and other times, diarrhea. There have been no changes in bowel pattern related to this acute illness. The patient reports that for the past 4 years he has required TPN for his primary nutrition, but has suffered with at least yearly line infections since then. His last infection was last August at which time his central line was removed, treated with IV antibiotics, and a new central line put back in. He admits to current marijuana use as he states that he weaned himself off of the narcotics and uses the marijuana for medical reasons. Plan: Clear liquids and his usual oral meds. I have prescribed Marinol for reduced GI upset and nausea.
[2018-06-17] MEDS ORDERED: SODIUM CHLORIDE FLUSH 0.9% 10 ML SYRINGE ONE (14:32)
[2018-06-17] MEDS: TPN (CLINIMIX E 5/15) 2,000 ML with MULTIVITAMIN 10 ML IV SCH ×2 (19:06)
[2018-06-17] MEDS: FAT EMULSION 20% 250 ML IV SCH (19:06)
[2018-06-17] MEDS: TRACE ELEMENTS V CONC 1 ML in SODIUM CHLORIDE 0.9% 100ML 100 ML IV SCH (19:06)
[2018-06-17] MEDS: LORATADINE 10 MG TABLET PO SCH (21:49)
[2018-06-18] MEDS: MORPHINE 2 MG/ML SYRINGE IVP PRN ×6 (01:14→23:57)
[2018-06-18] MEDS: SODIUM CHLORIDE FLUSH 0.9% 10 ML SYRINGE IVP SCH ×4 (01:15→23:58)
[2018-06-18] MEDS: ONDANSETRON 4 MG/2 ML VIAL IVP PRN (07:09)
[2018-06-18] MEDS: DRONABINOL 2.5 MG CAPSULE PO SCH ×2 (07:09→16:11)
[2018-06-18 08:28] LABS: BASOPHILS # (AUTO) 0.1 10^3/uL (0.0-0.1); BASOPHILS % (AUTO) 0.8 %; EOSINOPHILS # (AUTO) 0.2 10^3/uL (0.0-0.7); LYMPHOCYTES # (AUTO) 1.4 10^3/uL (1.5-3.5); MEAN CORPUSCULAR HEMOGLOBIN 25.6 pg (27.0-31.0); MEAN CORPUSCULAR VOLUME 77.7 fL (80.0-94.0); MEAN PLATELET VOLUME 9.2 fL (7.4-11.4); MONOCYTES # (AUTO) 0.9 10^3/uL (0.0-1.0); MONOCYTES % (AUTO) 7.8 %; NEUTROPHILS # (AUTO) 8.5 10^3/uL (1.5-6.6); NEUTROPHILS % (AUTO) 76.4 %; PLT - PLATELET COUNT 235 10^3/uL (130-450); RED BLOOD COUNT 4.28 10^6/uL (4.70-6.10); RED CELL DISTRIBUTION WIDTH 15.2 % (12.0-15.0); WHITE BLOOD COUNT 11.1 x10^3/uL (4.8-10.8)
[2018-06-18 08:34] LABS: ALBUMIN 3.2 g/dL (3.2-5.5); ALBUMIN/GLOBULIN RATIO 0.8 (1.0-2.2); BILIRUBIN,TOTAL 0.4 mg/dL (0.2-1.0); CALCIUM 8.8 mg/dL (8.5-10.3); CREATININE 2.2 mg/dL (0.6-1.2); TOTAL PROTEIN 7.2 g/dL (6.7-8.2)
[2018-06-18] MEDS ORDERED: POTASSIUM CHLORIDE 20 MEQ TABLET PO ONE (08:50)
[2018-06-18] MEDS: ENOXAPARIN 40 MG/0.4 ML SYRINGE SUBQ SCH (09:15)
[2018-06-18] MEDS: DULoxetine 30 MG CAPSULE PO SCH (09:15)
[2018-06-18] MEDS: PANTOPRAZOLE 40 MG TABLET PO SCH ×2 (09:15→21:09)
[2018-06-18] MEDS: CALCIUM CARBONATE CHEW 500 MG TABLET PO SCH ×2 (09:15→21:09)
[2018-06-18] MEDS: SODIUM CHLORIDE 0.9% 500 ML IV PRN (09:15)
[2018-06-18] MEDS: NYSTATIN POWDER 15 GM TOP SCH ×2 (09:16→21:09)
[2018-06-18] MEDS: POLYETHYLENE GLYCOL 3350 17 GM PACKET PO SCH (09:18)
[2018-06-18] MEDS: SODIUM CHLORIDE FLUSH 0.9% 10 ML SYRINGE IVP PRN (12:04)
[2018-06-18 15:27] LABS: MEAN RETIC VALUE 97.2; RED BLOOD COUNT 4.17 10^6/uL (4.70-6.10)
--- NOTE | 2018-06-18 15:28 | PROVIDER PROGRESS NOTE ---
Subjective - Prog Note Date Prog Note Date: 06/18/18 - Subjective Pt reports feeling: Improved Subjective: pt feel a little warm denies sweating. Denies cough, SOB, CP. Current Medications - Current Medications Current Medications: Microbiology 06/17/18 10:50 Blood - Left Arm Blood Culture - Preliminary NO GROWTH AFTER 1 DAY 06/17/18 09:45 Blood - Left Arm Blood Culture - Preliminary NO GROWTH AFTER 1 DAY 06/16/18 08:41 Blood - Right Arm Blood Culture - Preliminary NO GROWTH AFTER 2 DAYS 06/16/18 08:36 Blood - Left Arm Blood Culture - Preliminary NO GROWTH AFTER 2 DAYS 06/15/18 10:00 Blood Blood Culture - Preliminary NO GROWTH AFTER 2 DAYS 06/15/18 10:00 Blood Blood Culture - Preliminary NO GROWTH AFTER 2 DAYS Objective - Vital Signs/Intake & Output Reviewed Vital Signs: Yes Vital Signs: Vital Signs x48h Temp Pulse Resp BP Pulse Ox 06/18/18 09:05 37.6 C H 06/18/18 07:47 37.8 C H 71 20 110/55 L 97 Intake & Output: Intake & Output 06/15/18 06/16/18 06/17/18 06/18/18 23:59 23:59 23:59 23:59 Intake Total 4194.40 4211 3537.786 1850 Output Total 1925 2500 1300 1625 Balance 2269.40 1711 2237.786 225 - Objective General Appearance: positive: No acute distress, Alert. negative: Lethargic Eyes Bilateral: positive: Normal inspection, PERRL, No lid inflammation, Conjunctivae nml ENT: positive: ENT inspection nml, Pharynx nml, No signs of dehydration. negative: Purulent nasal drainage, Pharyngeal erythema, Oral lesions Neck: positive: Nml inspection, Thyroid nml, No JVD, Trachea midline. negative : Thyromegaly, Lymphadenopathy (R), Lymphadenopathy (L), Stiff neck, Swelling/ bruising, Tracheal deviation Respiratory: positive: Chest non-tender, No respiratory distress, Breath sounds nml. negative: Wheezes, Rales, Rhonchi Cardiovascular: positive: Regular rate & rhythm, No murmur, No gallop. negative : Irregularly irregular, Extrasystoles, Tachycardia, Bradycardia, JVD present, Systolic murmur, Diastolic murmur Peripheral Pulses: 2+ Radial (R), 2+ Radial (L) Abdomen: positive: Non-tender, No organomegaly, Nml bowel sounds, No distention. negative: Tenderness, Guarding, Rebound Back: positive: Nml inspection. negative: CVA tenderness (R), CVA tenderness (L ) Skin: positive: Color nml, No rash, Warm, Dry. negative: Cyanosis, Diaphoresis , Pallor Extremities: positive: Non-tender Neurologic/Psychiatric: positive: Oriented x3, Sensation nml, Mood/affect nml. negative: Weakness, Sensory loss, Facial droop, Slurred/abnml speech, Depressed mood/affect - Lab Results Fish Bones: 06/18/18 07:55 06/18/18 07:55 Other Labs: Lab Results x24hrs 06/18/18 06/18/18 06/18/18 Range/Units 12:04 07:55 07:55 WBC 11.1 H (4.8-10.8) x10^3/uL RBC 4.28 L (4.70-6.10) 10^6/uL Hgb 11.0 L (14.0-18.0) g/dL Hct 33.2 L (42.0-52.0) % MCV 77.7 L (80.0-94.0) fL MCH 25.6 L (27.0-31.0) pg MCHC 33.0 (32.0-36.0) g/dL RDW 15.2 H (12.0-15.0) % Plt Count 235 (130-450) 10^3/uL MPV 9.2 (7.4-11.4) fL Neut # (Auto) 8.5 H (1.5-6.6) 10^3/uL Lymph # (Auto) 1.4 L (1.5-3.5) 10^3/uL [place] # (Auto) 0.9 (0.0-1.0) 10^3/uL Eos # (Auto) 0.2 (0.0-0.7) 10^3/uL Baso # (Auto) 0.1 (0.0-0.1) 10^3/uL Absolute Nucleated RBC 0.00 x10^3/uL Nucleated RBC % 0.0 /100WBC Sodium 138 (135-145) mmol/L Potassium 3.4 L (3.5-5.0) mmol/L Chloride 104 (101-111) mmol/L Carbon Dioxide 26 (21-32) mmol/L Anion Gap 8.0 (6-13) BUN 28 H (6-20) mg/dL Creatinine 2.2 H (0.6-1.2) mg/dL Estimated GFR (MDRD) 34 L (>89) Glucose 104 H (70-100) mg/dL POC Whole Bld Glucose 105 H (70 - 100) mg/dL Calcium 8.8 (8.5-10.3) mg/dL Total Bilirubin 0.4 (0.2-1.0) mg/dL AST 13 (10-42) IU/L ALT 15 (10-60) IU/L Alkaline Phosphatase 58 (42-121) IU/L Total Protein 7.2 (6.7-8.2) g/dL Albumin 3.2 (3.2-5.5) g/dL Globulin 4.0 (2.1-4.2) g/dL Albumin/Globulin Ratio 0.8 L (1.0-2.2) 06/18/18 06/18/18 06/17/18 Range/Units 06:18 00:17 18:30 WBC (4.8-10.8) x10^3/uL RBC (4.70-6.10) 10^6/uL Hgb (14.0-18.0) g/dL Hct (42.0-52.0) % MCV (80.0-94.0) fL MCH (27.0-31.0) pg MCHC (32.0-36.0) g/dL RDW (12.0-15.0) % Plt Count (130-450) 10^3/uL MPV (7.4-11.4) fL Neut # (Auto) (1.5-6.6) 10^3/uL Lymph # (Auto) (1.5-3.5) 10^3/uL [place] # (Auto) (0.0-1.0) 10^3/uL Eos # (Auto) (0.0-0.7) 10^3/uL Baso # (Auto) (0.0-0.1) 10^3/uL Absolute Nucleated RBC x10^3/uL Nucleated RBC % /100WBC Sodium (135-145) mmol/L Potassium (3.5-5.0) mmol/L Chloride (101-111) mmol/L Carbon Dioxide (21-32) mmol/L Anion Gap (6-13) BUN (6-20) mg/dL Creatinine (0.6-1.2) mg/dL Estimated GFR (MDRD) (>89) Glucose (70-100) mg/dL POC Whole Bld Glucose 106 H 109 H 97 (70 - 100) mg/dL Calcium (8.5-10.3) mg/dL Total Bilirubin (0.2-1.0) mg/dL AST (10-42) IU/L ALT (10-60) IU/L Alkaline Phosphatase (42-121) IU/L Total Protein (6.7-8.2) g/dL Albumin (3.2-5.5) g/dL Globulin (2.1-4.2) g/dL Albumin/Globulin Ratio (1.0-2.2) ABX Reporting Has patient been on IV antibiotics over the past 48 hours?: Yes Assessment/Plan - Problem List (1) Bacteremia due to Gram-positive bacteria Impression: Impression: 06/18 this third day blood culture preliminary are negative, will repeat one more day of blood culture today pt's temperature 37.8, then 37.6, WBC 11.1 from 10.6. pt feel warm but not fever discussed with pt pharmacy, Daptomycin increase to daily from Q48h, per pt's improved renal function 06/17 continuing two days blood culture were negative. WBC became normal now continue Daptomycin 06/16 pt feel better, no fever/chill continue Daptomycin q48h continue blood culture ID consult for if continue to use central line for TPN is pending if continue positive blood culture, will d/c central line, order PICC nurse educate pt how to prevent recurrence of central or PICC infection 06/15 daily blood culture add Daptomycin per ID recommendation twice blood culture come back with only gram positive coag negative bacteria pt's central is kept now until other bacteria is found in blood culture, per ID recommends The patient had 2 positive blood cultures that grew in less than 24 hours, had body aches, fatigue, weakness, and reported fevers/chills at home of up to 102 F. The patient also had an elevated WBC count of 11.7. The preliminary results are gram positive cocci in clusters as per lab review. Contact was made with Dr. Grigsby, infectious disease, who agrees with the treatment of Nafcillin and Vanco IV. There is a very small chance that this patient's central line will remain. Plan: Daily blood cultures, monitor for worsening condition and await final culture results. (2) Fever Conclusion/Plan: resolved The patient reports fevers up to 102 at home, chills and body aches. The patient admits to similar events in his life in which he has felt this way, ended up having a blood stream infection. Plan: continue to monitor vital signs. (3) Gram-positive cocci in clusters Conclusion/Plan: continue antibiotics 06/15 close monitor, blood culture daily continue antibiotics ECHO results show no evidence of vegetation The patient has a right upper chest central line. I spoke with Dr. Grigsby, infectious disease who suggests to leave this line in for now, avoid use of the central line, and do daily blood cultures. She agrees with the antibiotic choice of Vanco and Nafcillin IV that should continue. If the blood cultures grow out coag negative staph, it will be fine to allow the central line to stay in. There is a very low chance of this given his symptoms, and the patient was informed of the likelihood of his central line removal. Preliminary echo results show no evidence of vegetation, and Dr. Grigsby does not suggest a [facility] or a transfer. Plan: Start PPN, until blood cultures results are known. Plan for close contact with ID daily for continued consult. Consult our general surgery team in the event of a recommended line removal. 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 He has undergone multiple surgeries throughout his life in efforts to reconstruct his bones. Plan: (5) Iron deficiency anemia Conclusion/Plan: The patient is found to be anemic upon admission with a hemoglobin of 13.3 and a hematocrit of 40.8. Upon chart review, the patient has a long history of this that was evident after initiation of his chronic TPN. He sees hem/onc through [facility] as he previously got iron infusions. Plan: Continue to monitor daily labs. (6) Depression Conclusion/Plan: The patient has suffered from this and is prescribed Cymbalta at home. I have this to continue while hospitalized. Plan: Monitor for worsening mood. (7) Allergic eosinophilic esophagitis Conclusion/Plan: resume TPN continue lab monitor 06/16 pt request Pudding, as tolerated continue clear liquid diet as tolerated now continue PPN, until clear for nutrition by central line The patient can tolerate very little PO intake besides "chex mix" and plain water. He has unpredictable bowel movements where sometimes he has constipation , and other times, diarrhea. There have been no changes in bowel pattern related to this acute illness. The patient reports that for the past 4 years he has required TPN for his primary nutrition, but has suffered with at least yearly line infections since then. His last infection was last August at which time his central line was removed, treated with IV antibiotics, and a new central line put back in. He admits to current marijuana use as he states that he weaned himself off of the narcotics and uses the marijuana for medical reasons. Plan: Clear liquids and his usual oral meds. I have prescribed Marinol for reduced GI upset and nausea. (8) acute kidney injury pt's kidney function is gradually improved, creatinine from 2.9 down to 2.2 hold nephrotoxic agent hydration, daily lab monitor
[2018-06-18 15:40] LABS: % IRON SATURATION 4 % (20-50); IRON 16 ug/dL (45-182); TOTAL IRON BINDING CAPACITY 356 ug/dL (250-450); TRANSFERRIN 254 mg/dL (180-329)
[2018-06-18 15:56] LABS: FERRITIN 37.9 ng/mL (23.9-336.2)
[2018-06-18] MEDS: FAT EMULSION 20% 250 ML IV SCH (19:25)
[2018-06-18] MEDS: TPN (CLINIMIX E 5/15) 2,000 ML with MULTIVITAMIN 10 ML IV SCH ×2 (19:26)
[2018-06-18] MEDS: TRACE ELEMENTS V CONC 1 ML in SODIUM CHLORIDE 0.9% 100ML 100 ML IV SCH (19:26)
[2018-06-18] MEDS: LORATADINE 10 MG TABLET PO SCH (21:09)
[2018-06-19] MEDS: SODIUM CHLORIDE 0.9% 500 ML IV PRN ×2 (02:41→20:43)
[2018-06-19] MEDS: MORPHINE 2 MG/ML SYRINGE IVP PRN ×7 (03:45→23:53)
[2018-06-19] MEDS: SODIUM CHLORIDE FLUSH 0.9% 10 ML SYRINGE IVP PRN ×4 (03:47→16:25)
[2018-06-19 05:53] LABS: BASOPHILS % (AUTO) 0.4 %; EOSINOPHILS # (AUTO) 0.4 10^3/uL (0.0-0.7); EOSINOPHILS % (AUTO) 3.3 %; HGB - HEMOGLOBIN 10.9 g/dL (14.0-18.0); LYMPHOCYTES # (AUTO) 2.1 10^3/uL (1.5-3.5); LYMPHOCYTES % (AUTO) 18.4 %; MEAN CORPUSCULAR HEMOGLOBIN 25.6 pg (27.0-31.0); MEAN CORPUSCULAR HGB CONC 32.6 g/dL (32.0-36.0); MEAN CORPUSCULAR VOLUME 78.6 fL (80.0-94.0); MONOCYTES % (AUTO) 8.7 %; NEUTROPHILS # (AUTO) 7.9 10^3/uL (1.5-6.6); NEUTROPHILS % (AUTO) 69.2 %; PLT - PLATELET COUNT 238 10^3/uL (130-450); RED BLOOD COUNT 4.26 10^6/uL (4.70-6.10); RED CELL DISTRIBUTION WIDTH 15.2 % (12.0-15.0); WHITE BLOOD COUNT 11.5 x10^3/uL (4.8-10.8)
[2018-06-19 06:09] LABS: ALBUMIN 3.2 g/dL (3.2-5.5); ALBUMIN/GLOBULIN RATIO 0.9 (1.0-2.2); BILIRUBIN,TOTAL 0.6 mg/dL (0.2-1.0); CALCIUM 8.7 mg/dL (8.5-10.3); MAGNESIUM 2.2 mg/dL (1.7-2.8); PHOSPHORUS 3.3 mg/dL (2.5-4.6); TOTAL PROTEIN 6.7 g/dL (6.7-8.2)
[2018-06-19] MEDS: DRONABINOL 2.5 MG CAPSULE PO SCH ×2 (07:50→16:20)
[2018-06-19] MEDS: ONDANSETRON 4 MG/2 ML VIAL IVP PRN ×2 (08:10→18:56)
[2018-06-19] MEDS: ENOXAPARIN 40 MG/0.4 ML SYRINGE SUBQ SCH (08:45)
[2018-06-19] MEDS: PANTOPRAZOLE 40 MG TABLET PO SCH ×2 (08:45→20:39)
[2018-06-19] MEDS: CALCIUM CARBONATE CHEW 500 MG TABLET PO SCH ×2 (08:45→20:39)
[2018-06-19] MEDS: DULoxetine 30 MG CAPSULE PO SCH (08:45)
[2018-06-19] MEDS: POLYETHYLENE GLYCOL 3350 17 GM PACKET PO SCH (08:45)
[2018-06-19] MEDS: NYSTATIN POWDER 15 GM TOP SCH ×2 (08:46→20:39)
[2018-06-19] MEDS: SODIUM CHLORIDE FLUSH 0.9% 10 ML SYRINGE IVP SCH ×3 (08:46→23:53)
--- NOTE | 2018-06-19 10:46 | PROVIDER PROGRESS NOTE ---
Subjective - Prog Note Date Prog Note Date: 06/19/18 - Subjective Pt reports feeling: Improved Subjective: pt feel ok, " no warm feeling." denies fever, chill, cough, CP, SOB, headache, abdominal pain. Current Medications - Current Medications Current Medications: Active Medications Acetaminophen (Tylenol) 650 mg PO Q4HR PRN PRN Reason: Pain 1 to 4 Last Admin: 06/16/18 09:48 Dose: 650 mg Calcium Carbonate/Glycine (Tums) 500 mg PO BID [facility] Last Admin: 06/19/18 08:45 Dose: 500 mg Dronabinol (Marinol) 2.5 mg PO BIDAC [facility] Last Admin: 06/19/18 07:50 Dose: 2.5 mg Duloxetine HCl (Cymbalta) 60 mg PO DAILY [facility] Last Admin: 06/19/18 08:45 Dose: 60 mg Enoxaparin Sodium (Lovenox) 40 mg SUBQ DAILY [facility] Last Admin: 06/19/18 08:45 Dose: 40 mg Chromium/Copper/Manganese/Seleni/Zn 1 ml/ Sodium Chloride 101 mls @ 4.21 mls/ hr IV Q24H [facility] Last Admin: 06/18/18 19:26 Dose: 4.21 mls/hr Sodium Chloride (Normal Saline 0.9%) 500 mls @ 30 mls/hr IV Q24H PRN PRN Reason: TKO RATE Last Admin: 06/19/18 02:41 Dose: 30 mls/hr Multivitamins 10 ml/ Amino Ac/ (Electrol/Dextrose/Calcium) 2,010 mls @ 65 mls/ hr IV Q24H [facility] PRN Reason: Protocol Last Admin: 06/18/18 19:26 Dose: 65 mls/hr Fat Emulsion Intravenous (Intralipid 20%) 250 mls @ 21 mls/hr IV Q24H [facility] Last Infusion: 06/19/18 07:20 Dose: Infused Daptomycin 500 mg/ Sodium (Chloride) 100 mls @ 200 mls/hr IV 1400 [facility] Last Admin: 06/19/18 14:12 Dose: 200 mls/hr Loratadine (Claritin) 10 mg PO QPM [facility] Last Admin: 06/18/18 21:09 Dose: 10 mg Morphine Sulfate (Morphine) 2 mg IVP Q2HR PRN PRN Reason: PAIN Last Admin: 06/19/18 14:17 Dose: 2 mg Nystatin (Nystop) 1 applic TOP BID [facility] Last Admin: 06/19/18 08:46 Dose: 1 applic Ondansetron HCl (Zofran Inj) 4 mg IVP Q4HR PRN PRN Reason: Nausea / Vomiting Last Admin: 06/19/18 08:10 Dose: 4 mg Oxycodone HCl (Roxicodone) 5 mg PO Q4HR PRN PRN Reason: Pain 5 to 7 Last Admin: 06/16/18 21:02 Dose: 5 mg Pantoprazole Sodium (Protonix) 40 mg PO BID [facility] Last Admin: 06/19/18 08:45 Dose: 40 mg Polyethylene Glycol (Miralax) 17 gm PO DAILY [facility] Last Admin: 06/19/18 08:45 Dose: Not Given Sodium Chloride (Normal Saline Flush 0.9%) 10 ml IVP PRN PRN PRN Reason: NEEDED PER PROVIDER ORDERS Last Admin: 06/19/18 14:18 Dose: 10 ml Sodium Chloride (Normal Saline Flush 0.9%) 10 ml IVP 0100,0900,1700 [facility] Last Admin: 06/19/18 08:46 Dose: Not Given Ondansetron [Ondansetron Odt] 4 mg PO Q4H PRN 04/05/13 Omeprazole 40 mg PO QDAC 07/06/14 Duloxetine HCl [Cymbalta] 60 mg PO DAILY 05/11/15 Sodium/Pot/Mag/Calc/Chlor/Acet [TPN Electrolytes II IV Soln] 2,000 ml IV QPM Loratadine [Claritin] 10 mg PO QPM 03/09/16 Objective - Vital Signs/Intake & Output Reviewed Vital Signs: Yes Vital Signs: Vital Signs x48h Temp Pulse Resp BP Pulse Ox 06/19/18 07:39 37.3 C 68 19 119/46 L 97 Intake & Output: Intake & Output 06/16/18 06/17/18 06/18/18 06/19/18 23:59 23:59 23:59 23:59 Intake Total 4211 3537.786 3632.667 1410 Output Total 2500 1300 3525 1450 Balance 1711 2237.786 107.667 -40 - Objective General Appearance: positive: No acute distress, Alert. negative: Lethargic Eyes Bilateral: positive: Normal inspection, PERRL, No lid inflammation, Conjunctivae nml ENT: positive: ENT inspection nml, Pharynx nml, No signs of dehydration. negative: Purulent nasal drainage, Pharyngeal erythema, Oral lesions Neck: positive: Nml inspection, Thyroid nml, No JVD, Trachea midline. negative : Thyromegaly, Lymphadenopathy (R), Lymphadenopathy (L), Stiff neck, Swelling/ bruising, Tracheal deviation Respiratory: positive: Chest non-tender, No respiratory distress, Breath sounds nml. negative: Wheezes, Rales, Rhonchi Cardiovascular: positive: Regular rate & rhythm, No murmur, No gallop. negative : Irregularly irregular, Extrasystoles, Tachycardia, Bradycardia, JVD present, Systolic murmur, Diastolic murmur Peripheral Pulses: 2+ Radial (R), 2+ Radial (L), 2+ Dorsalis pedis (R), 2+ Dorsalis pedis (L) Abdomen: positive: Non-tender, No organomegaly, Nml bowel sounds, No distention. negative: Tenderness, Guarding, Rebound Back: positive: Nml inspection. negative: CVA tenderness (R), CVA tenderness (L ) Skin: positive: Color nml, No rash, Warm, Dry. negative: Cyanosis, Diaphoresis , Pallor Extremities: positive: Non-tender. negative: Joint swelling Neurologic/Psychiatric: positive: Oriented x3, Mood/affect nml. negative: Weakness, Sensory loss, Facial droop, Slurred/abnml speech, Depressed mood/ affect - Lab Results Fish Bones: 06/19/18 05:10 06/19/18 05:10 Other Labs: Lab Results x24hrs 06/19/18 06/19/18 06/19/18 Range/Units 06:35 05:10 05:10 WBC 11.5 H (4.8-10.8) x10^3/uL RBC 4.26 L (4.70-6.10) 10^6/uL Hgb 10.9 L (14.0-18.0) g/dL Hct 33.5 L (42.0-52.0) % MCV 78.6 L (80.0-94.0) fL MCH 25.6 L (27.0-31.0) pg MCHC 32.6 (32.0-36.0) g/dL RDW 15.2 H (12.0-15.0) % Plt Count 238 (130-450) 10^3/uL MPV 9.0 (7.4-11.4) fL Reticulocyte % (Auto) (0.5-2.3) % Neut # (Auto) 7.9 H (1.5-6.6) 10^3/uL Lymph # (Auto) 2.1 (1.5-3.5) 10^3/uL Ector # (Auto) 1.0 (0.0-1.0) 10^3/uL Eos # (Auto) 0.4 (0.0-0.7) 10^3/uL Baso # (Auto) 0.0 (0.0-0.1) 10^3/uL Absolute Nucleated RBC 0.00 x10^3/uL Nucleated RBC % 0.0 /100WBC Absolute Retic (0.020-0.110) 10^6/uL Sodium 140 (135-145) mmol/L Potassium 3.7 (3.5-5.0) mmol/L Chloride 107 (101-111) mmol/L Carbon Dioxide 24 (21-32) mmol/L Anion Gap 9.0 (6-13) BUN 27 H (6-20) mg/dL Creatinine 2.0 H (0.6-1.2) mg/dL Estimated GFR (MDRD) 38 L (>89) Glucose 110 H (70-100) mg/dL POC Whole Bld Glucose 111 H (70 - 100) mg/dL Calcium 8.7 (8.5-10.3) mg/dL Phosphorus 3.3 (2.5-4.6) mg/dL Magnesium 2.2 (1.7-2.8) mg/dL Iron (45-182) ug/dL TIBC (250-450) ug/dL % Saturation (20-50) % Transferrin (180-329) mg/dL Ferritin (23.9-336.2) ng/mL Total Bilirubin 0.6 (0.2-1.0) mg/dL AST 16 (10-42) IU/L ALT 17 (10-60) IU/L Alkaline Phosphatase 54 (42-121) IU/L Lactate Dehydrogenase (91-225) IU/L Total Protein 6.7 (6.7-8.2) g/dL Albumin 3.2 (3.2-5.5) g/dL Globulin 3.5 (2.1-4.2) g/dL Albumin/Globulin Ratio 0.9 L (1.0-2.2) Prealbumin 16 L (18-45) mg/dL Triglycerides 147 ( - 149) mg/dL Vitamin B12 (180-914) pg/mL 25-OH Vitamin D Total (30-100) ng/mL 06/18/18 06/18/18 06/18/18 Range/Units 23:32 18:20 15:14 WBC (4.8-10.8) x10^3/uL RBC (4.70-6.10) 10^6/uL Hgb (14.0-18.0) g/dL Hct (42.0-52.0) % MCV (80.0-94.0) fL MCH (27.0-31.0) pg MCHC (32.0-36.0) g/dL RDW (12.0-15.0) % Plt Count (130-450) 10^3/uL MPV (7.4-11.4) fL Reticulocyte % (Auto) (0.5-2.3) % Neut # (Auto) (1.5-6.6) 10^3/uL Lymph # (Auto) (1.5-3.5) 10^3/uL Ector # (Auto) (0.0-1.0) 10^3/uL Eos # (Auto) (0.0-0.7) 10^3/uL Baso # (Auto) (0.0-0.1) 10^3/uL Absolute Nucleated RBC x10^3/uL Nucleated RBC % /100WBC Absolute Retic (0.020-0.110) 10^6/uL Sodium (135-145) mmol/L Potassium (3.5-5.0) mmol/L Chloride (101-111) mmol/L Carbon Dioxide (21-32) mmol/L Anion Gap (6-13) BUN (6-20) mg/dL Creatinine (0.6-1.2) mg/dL Estimated GFR (MDRD) (>89) Glucose (70-100) mg/dL POC Whole Bld Glucose 111 H 112 H (70 - 100) mg/dL Calcium (8.5-10.3) mg/dL Phosphorus (2.5-4.6) mg/dL Magnesium (1.7-2.8) mg/dL Iron (45-182) ug/dL TIBC (250-450) ug/dL % Saturation (20-50) % Transferrin (180-329) mg/dL Ferritin (23.9-336.2) ng/mL Total Bilirubin (0.2-1.0) mg/dL AST (10-42) IU/L ALT (10-60) IU/L Alkaline Phosphatase (42-121) IU/L Lactate Dehydrogenase (91-225) IU/L Total Protein (6.7-8.2) g/dL Albumin (3.2-5.5) g/dL Globulin (2.1-4.2) g/dL Albumin/Globulin Ratio (1.0-2.2) Prealbumin (18-45) mg/dL Triglycerides ( - 149) mg/dL Vitamin B12 (180-914) pg/mL 25-OH Vitamin D Total 15 L (30-100) ng/mL 06/18/18 06/18/18 06/18/18 Range/Units 15:14 15:14 15:14 WBC (4.8-10.8) x10^3/uL RBC (4.70-6.10) 10^6/uL Hgb (14.0-18.0) g/dL Hct (42.0-52.0) % MCV (80.0-94.0) fL MCH (27.0-31.0) pg MCHC (32.0-36.0) g/dL RDW (12.0-15.0) % Plt Count (130-450) 10^3/uL MPV (7.4-11.4) fL Reticulocyte % (Auto) (0.5-2.3) % Neut # (Auto) (1.5-6.6) 10^3/uL Lymph # (Auto) (1.5-3.5) 10^3/uL Ector # (Auto) (0.0-1.0) 10^3/uL Eos # (Auto) (0.0-0.7) 10^3/uL Baso # (Auto) (0.0-0.1) 10^3/uL Absolute Nucleated RBC x10^3/uL Nucleated RBC % /100WBC Absolute Retic (0.020-0.110) 10^6/uL Sodium (135-145) mmol/L Potassium (3.5-5.0) mmol/L Chloride (101-111) mmol/L Carbon Dioxide (21-32) mmol/L Anion Gap (6-13) BUN (6-20) mg/dL Creatinine (0.6-1.2) mg/dL Estimated GFR (MDRD) (>89) Glucose (70-100) mg/dL POC Whole Bld Glucose (70 - 100) mg/dL Calcium (8.5-10.3) mg/dL Phosphorus (2.5-4.6) mg/dL Magnesium (1.7-2.8) mg/dL Iron 16 L (45-182) ug/dL TIBC 356 (250-450) ug/dL % Saturation 4 L (20-50) % Transferrin 254 (180-329) mg/dL Ferritin 37.9 (23.9-336.2) ng/mL Total Bilirubin (0.2-1.0) mg/dL AST (10-42) IU/L ALT (10-60) IU/L Alkaline Phosphatase (42-121) IU/L Lactate Dehydrogenase 121 (91-225) IU/L Total Protein (6.7-8.2) g/dL Albumin (3.2-5.5) g/dL Globulin (2.1-4.2) g/dL Albumin/Globulin Ratio (1.0-2.2) Prealbumin (18-45) mg/dL Triglycerides ( - 149) mg/dL Vitamin B12 550 (180-914) pg/mL 25-OH Vitamin D Total (30-100) ng/mL 06/18/18 06/18/18 Range/Units 15:14 12:04 WBC (4.8-10.8) x10^3/uL RBC 4.17 L (4.70-6.10) 10^6/uL Hgb (14.0-18.0) g/dL Hct (42.0-52.0) % MCV (80.0-94.0) fL MCH (27.0-31.0) pg MCHC (32.0-36.0) g/dL RDW (12.0-15.0) % Plt Count (130-450) 10^3/uL MPV (7.4-11.4) fL Reticulocyte % (Auto) 1.10 (0.5-2.3) % Neut # (Auto) (1.5-6.6) 10^3/uL Lymph # (Auto) (1.5-3.5) 10^3/uL Ector # (Auto) (0.0-1.0) 10^3/uL Eos # (Auto) (0.0-0.7) 10^3/uL Baso # (Auto) (0.0-0.1) 10^3/uL Absolute Nucleated RBC x10^3/uL Nucleated RBC % /100WBC Absolute Retic 0.046 (0.020-0.110) 10^6/uL Sodium (135-145) mmol/L Potassium (3.5-5.0) mmol/L Chloride (101-111) mmol/L Carbon Dioxide (21-32) mmol/L Anion Gap (6-13) BUN (6-20) mg/dL Creatinine (0.6-1.2) mg/dL Estimated GFR (MDRD) (>89) Glucose (70-100) mg/dL POC Whole Bld Glucose 105 H (70 - 100) mg/dL Calcium (8.5-10.3) mg/dL Phosphorus (2.5-4.6) mg/dL Magnesium (1.7-2.8) mg/dL Iron (45-182) ug/dL TIBC (250-450) ug/dL % Saturation (20-50) % Transferrin (180-329) mg/dL Ferritin (23.9-336.2) ng/mL Total Bilirubin (0.2-1.0) mg/dL AST (10-42) IU/L ALT (10-60) IU/L Alkaline Phosphatase (42-121) IU/L Lactate Dehydrogenase (91-225) IU/L Total Protein (6.7-8.2) g/dL Albumin (3.2-5.5) g/dL Globulin (2.1-4.2) g/dL Albumin/Globulin Ratio (1.0-2.2) Prealbumin (18-45) mg/dL Triglycerides ( - 149) mg/dL Vitamin B12 (180-914) pg/mL 25-OH Vitamin D Total (30-100) ng/mL ABX Reporting Has patient been on IV antibiotics over the past 48 hours?: Yes Assessment/Plan - Problem List (1) Bacteremia due to Gram-positive bacteria Impression: Impression: blood culture continue to be negative, will stop blood culture. no fever, chill continue Daptomycin 500 mg daily 06/18 this third day blood culture preliminary are negative, will repeat one more day of blood culture today pt's temperature 37.8, then 37.6, WBC 11.1 from 10.6. pt feel warm but not fever discussed with pt pharmacy, Daptomycin increase to daily from Q48h, per pt's improved renal function 06/17 continuing two days blood culture were negative. WBC became normal now continue Daptomycin 06/16 pt feel better, no fever/chill continue Daptomycin q48h continue blood culture ID consult for if continue to use central line for TPN is pending if continue positive blood culture, will d/c central line, order PICC nurse educate pt how to prevent recurrence of central or PICC infection 06/15 daily blood culture add Daptomycin per ID recommendation twice blood culture come back with only gram positive coag negative bacteria pt's central is kept now until other bacteria is found in blood culture, per ID recommends The patient had 2 positive blood cultures that grew in less than 24 hours, had body aches, fatigue, weakness, and reported fevers/chills at home of up to 102 F. The patient also had an elevated WBC count of 11.7. The preliminary results are gram positive cocci in clusters as per lab review. Contact was made with Dr. Grigsby, infectious disease, who agrees with the treatment of Nafcillin and Vanco IV. There is a very small chance that this patient's central line will remain. Plan: Daily blood cultures, monitor for worsening condition and await final culture results. Pt developed the complication of acute kidney injury and bacteremia, pt stayed hospital over 4 days. (2) Fever Conclusion/Plan: resolved The patient reports fevers up to 102 at home, chills and body aches. The patient admits to similar events in his life in which he has felt this way, ended up having a blood stream infection. Plan: continue to monitor vital signs. (3) Gram-positive cocci in clusters Conclusion/Plan: continue antibiotics 06/15 close monitor, blood culture daily continue antibiotics ECHO results show no evidence of vegetation The patient has a right upper chest central line. I spoke with Dr. Grigsby, infectious disease who suggests to leave this line in for now, avoid use of the central line, and do daily blood cultures. She agrees with the antibiotic choice of Vanco and Nafcillin IV that should continue. If the blood cultures grow out coag negative staph, it will be fine to allow the central line to stay in. There is a very low chance of this given his symptoms, and the patient was informed of the likelihood of his central line removal. Preliminary echo results show no evidence of vegetation, and Dr. Grigsby does not suggest a [facility] or a transfer. Plan: Start PPN, until blood cultures results are known. Plan for close contact with ID daily for continued consult. Consult our general surgery team in the event of a recommended line removal. 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 He has undergone multiple surgeries throughout his life in efforts to reconstruct his bones. Plan: (5) Iron deficiency anemia Conclusion/Plan: The patient is found to be anemic upon admission with a hemoglobin of 13.3 and a hematocrit of 40.8. Upon chart review, the patient has a long history of this that was evident after initiation of his chronic TPN. He sees hem[facility]onc through [facility] as he previously got iron infusions. Plan: Continue to monitor daily labs. (6) Depression Conclusion/Plan: The patient has suffered from this and is prescribed Cymbalta at home. I have this to continue while hospitalized. Plan: Monitor for worsening mood. (7) Allergic eosinophilic esophagitis Conclusion/Plan: resume TPN continue lab monitor 06/16 pt request Pudding, as tolerated continue clear liquid diet as tolerated now continue PPN, until clear for nutrition by central line The patient can tolerate very little PO intake besides "chex mix" and plain water. He has unpredictable bowel movements where sometimes he has constipation , and other times, diarrhea. There have been no changes in bowel pattern related to this acute illness. The patient reports that for the past 4 years he has required TPN for his primary nutrition, but has suffered with at least yearly line infections since then. His last infection was last August at which time his central line was removed, treated with IV antibiotics, and a new central line put back in. He admits to current marijuana use as he states that he weaned himself off of the narcotics and uses the marijuana for medical reasons. Plan: Clear liquids and his usual oral meds. I have prescribed Marinol for reduced GI upset and nausea. (8) acute kidney injury 06/19 renal function continue to improved. today creatinine is 2.0. pt's creatinine was 0.7 at the admission continue lab monitor continue hydration pt's kidney function is gradually improved, creatinine from 2.9 down to 2.2 hold nephrotoxic agent hydration, daily lab monitor
[2018-06-19] MEDS: FAT EMULSION 20% 250 ML IV SCH (18:47)
[2018-06-19] MEDS: TPN (CLINIMIX E 5/15) 2,000 ML with MULTIVITAMIN 10 ML IV SCH ×2 (18:47)
[2018-06-19] MEDS: TRACE ELEMENTS V CONC 1 ML in SODIUM CHLORIDE 0.9% 100ML 100 ML IV SCH (18:47)
[2018-06-19] MEDS: LORATADINE 10 MG TABLET PO SCH (20:39)
[2018-06-20] MEDS: MORPHINE 2 MG/ML SYRINGE IVP PRN ×4 (04:59→13:49)
[2018-06-20 05:04] LABS: BASOPHILS # (AUTO) 0.1 10^3/uL (0.0-0.1); BASOPHILS % (AUTO) 0.6 %; EOSINOPHILS # (AUTO) 0.5 10^3/uL (0.0-0.7); EOSINOPHILS % (AUTO) 4.9 %; HGB - HEMOGLOBIN 10.9 g/dL (14.0-18.0); LYMPHOCYTES # (AUTO) 1.8 10^3/uL (1.5-3.5); LYMPHOCYTES % (AUTO) 17.9 %; MEAN CORPUSCULAR HEMOGLOBIN 25.9 pg (27.0-31.0); MEAN CORPUSCULAR HGB CONC 33.1 g/dL (32.0-36.0); MEAN CORPUSCULAR VOLUME 78.1 fL (80.0-94.0); MEAN PLATELET VOLUME 8.7 fL (7.4-11.4); MONOCYTES # (AUTO) 0.8 10^3/uL (0.0-1.0); MONOCYTES % (AUTO) 7.9 %; NEUTROPHILS # (AUTO) 6.9 10^3/uL (1.5-6.6); NEUTROPHILS % (AUTO) 68.7 %; PLT - PLATELET COUNT 254 10^3/uL (130-450); RED BLOOD COUNT 4.21 10^6/uL (4.70-6.10); RED CELL DISTRIBUTION WIDTH 15.4 % (12.0-15.0)
[2018-06-20] MEDS: DRONABINOL 2.5 MG CAPSULE PO SCH (06:14)
[2018-06-20 08:11] LABS: ALBUMIN 3.1 g/dL (3.2-5.5); ALBUMIN/GLOBULIN RATIO 0.8 (1.0-2.2); BILIRUBIN,TOTAL 0.4 mg/dL (0.2-1.0); CALCIUM 8.7 mg/dL (8.5-10.3); CREATININE 1.7 mg/dL (0.6-1.2); TOTAL PROTEIN 6.8 g/dL (6.7-8.2)
[2018-06-20] MEDS: CALCIUM CARBONATE CHEW 500 MG TABLET PO SCH (09:30)
[2018-06-20] MEDS: DULoxetine 30 MG CAPSULE PO SCH (09:30)
[2018-06-20] MEDS: PANTOPRAZOLE 40 MG TABLET PO SCH (09:31)
[2018-06-20] MEDS: ENOXAPARIN 40 MG/0.4 ML SYRINGE SUBQ SCH (09:32)
[2018-06-20] MEDS: NYSTATIN POWDER 15 GM TOP SCH (09:32)
[2018-06-20] MEDS: POLYETHYLENE GLYCOL 3350 17 GM PACKET PO SCH (09:36)
[2018-06-20] MEDS: ONDANSETRON 4 MG/2 ML VIAL IVP PRN (09:41)
[2018-06-20] MEDS: SODIUM CHLORIDE FLUSH 0.9% 10 ML SYRINGE IVP SCH (09:41)
[2018-06-20] MEDS: SODIUM CHLORIDE 0.9% 500 ML IV PRN (11:54)
--- NOTE | 2018-06-20 12:05 | DISCHARGE SUMMARY ---
Discharge Summary Discharge Date: 06/20/18 Discharging Provider: GUERRERO Primary Care Provider: Nahid Gregorio Condition at Discharge: Poor Discharge Disposition: 02 Transfer Acute Care Hosp Discharge Facility Name: [facility] [place] - DIAGNOSES Admission Diagnoses: (1) Bacteremia due to Gram-positive bacteria (2) Fever (3) Gram-positive cocci in clusters (4) Tibial hemimelia (5) Iron deficiency anemia (6) Depression (7) Allergic eosinophilic esophagitis Discharge Diagnoses with Status of Each Condition: (1) Bacteremia due to Gram-positive bacteria initially pt's one bottle of blood culture is positive for Staph Epidermidis, it was considered contamination of blood culture. following up MED CON recommendation: resume central line for TPN, use Dapomycin instead of Vancomycin. After four days of negative blood culture, pt's blood culture become positive for Staph Epidermidis again. Pt need ID closely management. Pt is transferred to [facility] under ID, Dr. Galvan's care (2) Fever control, no more fever. (3) Tibial hemimelia stable (4) Iron deficiency anemia on TPN (5) Depression stable (6) Allergic eosinophilic esophagitis on TPN (7) acute kidney injury improved. Creatinine 1.7 now from creatinine 2.9, continue care at [facility]. Pt was prescribed Vancomycin at the admission. Pt was found to have acute renal injury in the next day. Vancomycin was stopped immediately. MED CON was called, Vancomycin was replaced by Daptomycin. Since that, pt's kidney injury has been gradually improved. - HPI History of Present Illness: refer from Ms. Ceballos's HPI as the following: Abel Trejo (Joey) is a 32-year old male with a past medical history of bilateral tibial hemimelia, bilateral BKAs at age 9 months including numerous surgeries including amputation revisions, eosinophilic gastroenteritis, chronic TPN, chronic pain, chronic nausea, GERD, pancreatitis, iron deficiency anemia, tinnitis, kidney stones, marijuana dependence, depression, anxiety, PTSD, status post cholecystitis with cholecystectomy, history of multiple line infections and insomnia. The patient gets home TPN infusions through his right chest port. Over the past few weeks, he developed a fever measured at 100-102 at home per his report, with accompanying symptoms of chills, nausea, body aches , and fatigue. Yesterday he presented to the ED and blood cultures x2 were drawn. Preliminary results grew out gram positive cocci in clusters, staph. The patient has a current line that was placed in March of 2018 by the . Prior to arriving on the nursing floor today, labs show an elevated WBC count at 11.7, anemia with an H/H of 13.3/40.8. Normal electrolytes and a normal lactic acid. A urine sample was collected, not indicating a UTI. The patient denies confusion, headaches, bleeding, a new cough or chest pain. He will be admitted to inpatient for further treatment of suspected bacteremia. - ALLERGIES Allergies/Adverse Reactions: Allergies Allergy/AdvReac Type Severity Reaction Status Date / Time metoclopramide HCl * Allergy Severe Anxiety Verified 06/14/18 06:08 [From Reglan] NSAIDS (Non-Steroidal Allergy Severe Erosive Verified 06/14/18 06:08 Anti-Inflamma Esophagitis vancomycin AdvReac Intermediate Unknown Verified 06/16/18 12:49 - MEDICATIONS Home Medications: Ambulatory Orders Medication Instructions Recorded Confirmed Ondansetron [Ondansetron Odt] 4 mg PO Q4H PRN 04/05/13 06/14/18 Omeprazole 40 mg PO QDAC 07/06/14 06/14/18 Duloxetine HCl [Cymbalta] 60 mg PO DAILY 05/11/15 06/14/18 Sodium/Pot/Mag/Calc/Chlor/Acet 2,000 ml IV QPM 07/03/15 06/14/18 [TPN Electrolytes II IV Soln] Loratadine [Claritin] 10 mg PO QPM 03/09/16 06/14/18 - PHYSICAL EXAM AT DISCHARGE General Appearance: positive: No acute distress, Alert. negative: Lethargic Eyes Bilateral: positive: Normal inspection, PERRL, No lid inflammation, Conjunctivae nml ENT: positive: ENT inspection nml, Pharynx nml, No signs of dehydration. negative: Purulent nasal drainage, Pharyngeal erythema, Oral lesions Neck: positive: Nml inspection, Thyroid nml, No JVD, Trachea midline. negative : Thyromegaly, Lymphadenopathy (R), Lymphadenopathy (L), Stiff neck, Swelling/ bruising, Tracheal deviation Respiratory: positive: Chest non-tender, No respiratory distress, Breath sounds nml. negative: Wheezes, Rales, Rhonchi Cardiovascular: positive: Regular rate & rhythm, No murmur, No gallop. negative : Irregularly irregular, Extrasystoles, Tachycardia, Bradycardia, JVD present, Systolic murmur, Diastolic murmur Peripheral Pulses: positive: 2+ Abdomen: positive: Non-tender, No organomegaly, Nml bowel sounds, No distention. negative: Tenderness, Guarding, Rebound Back: positive: Nml inspection. negative: CVA tenderness (R), CVA tenderness (L ) Skin: positive: Color nml, No rash, Warm, Dry. negative: Cyanosis, Diaphoresis , Pallor Extremities: positive: Non-tender. negative: Joint swelling Neurologic/Psychiatric: positive: Oriented x3, Sensation nml, Mood/affect nml. negative: Weakness, Sensory loss, Facial droop, Slurred/abnml speech, Depressed mood/affect - LABS Result Diagrams: 06/20/18 04:45 06/20/18 04:45 - FOLLOW UP Follow Up: transferred to [facility] for advance care - TIME SPENT Time Spent in Discharge (Minutes): 50
[2018-06-20 14:14] VITALS: BP 119/59
== END 2018-06-20 14:49 | disposition short-term general hospital (02) | DRG 872 ==
LOC: ED 05:51 → MS3 08:15
PROVIDERS: ADMIT Specialist; ATTEND Nurse Practitioner Gerontology
DX: R78.81 Bacteremia (principal); N17.9 Acute kidney failure, unspecified; K86.1 Other chronic pancreatitis; B96.89 Other specified bacterial agents as the cause of diseases classified elsewhere; K21.9 Gastro-esophageal reflux disease without esophagitis; K20.0 Eosinophilic esophagitis; K52.81 Eosinophilic gastritis or gastroenteritis; F32.9 Major depressive disorder, single episode, unspecified; F41.0 Panic disorder [episodic paroxysmal anxiety]; D50.9 Iron deficiency anemia, unspecified; F43.10 Post-traumatic stress disorder, unspecified; Q72.5 Longitudinal reduction defect of tibia; G47.30 Sleep apnea, unspecified; J32.9 Chronic sinusitis, unspecified; G89.29 Other chronic pain; M54.9 Dorsalgia, unspecified; F12.20 Cannabis dependence, uncomplicated; H93.19 Tinnitus, unspecified ear; T36.8X5A Adverse effect of other systemic antibiotics, initial encounter; Y92.230 Patient room in hospital as the place of occurrence of the external cause; Z89.512 Acquired absence of left leg below knee; Z89.511 Acquired absence of right leg below knee; Z90.49 Acquired absence of other specified parts of digestive tract; Z87.01 Personal history of pneumonia (recurrent); Z87.442 Personal history of urinary calculi
CPT/HCPCS: 36415; 80048; 80053; 80202; 81001; 81003; 82306; 82607; 82728; 83540; 83605; 83615; 83735; 84100; 84134; 84466; 84478; 85025; 85044; 85610; 86140; 87040; 87077; 87086; 87181; 93306; 99284

== ENCOUNTER 2018-08-30 14:05 | Outpatient (CLI) | payer MEDICAID ==
[2018-08-30 15:11] LABS: BASOPHILS % (AUTO) 0.4 %; EOSINOPHILS # (AUTO) 0.4 10^3/uL (0.0-0.7); EOSINOPHILS % (AUTO) 4.2 %; HGB - HEMOGLOBIN 11.6 g/dL (14.0-18.0); LYMPHOCYTES # (AUTO) 2.9 10^3/uL (1.5-3.5); LYMPHOCYTES % (AUTO) 29.1 %; MEAN CORPUSCULAR HEMOGLOBIN 24.5 pg (27.0-31.0); MEAN CORPUSCULAR HGB CONC 33.2 g/dL (32.0-36.0); MEAN CORPUSCULAR VOLUME 73.8 fL (80.0-94.0); MONOCYTES # (AUTO) 0.8 10^3/uL (0.0-1.0); MONOCYTES % (AUTO) 7.8 %; NEUTROPHILS # (AUTO) 5.7 10^3/uL (1.5-6.6); NEUTROPHILS % (AUTO) 58.5 %; PLT - PLATELET COUNT 256 10^3/uL (130-450); RED BLOOD COUNT 4.72 10^6/uL (4.70-6.10); RED CELL DISTRIBUTION WIDTH 16.4 % (12.0-15.0); WHITE BLOOD COUNT 9.8 x10^3/uL (4.8-10.8)
[2018-08-30 15:27] LABS: ALBUMIN 3.8 g/dL (3.2-5.5); ALBUMIN/GLOBULIN RATIO 1.3 (1.0-2.2); BILIRUBIN,TOTAL 0.5 mg/dL (0.2-1.0); CREATININE 0.7 mg/dL (0.6-1.2); MAGNESIUM 1.8 mg/dL (1.7-2.8); PHOSPHORUS 3.7 mg/dL (2.5-4.6); TOTAL PROTEIN 6.7 g/dL (6.7-8.2)
== END 2018-08-30 14:06 ==
LOC: LAB.R 14:05
PROVIDERS: ATTEND Family Medicine
DX: K52.81 Eosinophilic gastritis or gastroenteritis (principal)
CPT/HCPCS: 80053; 83735; 84100; 84134; 84478; 85025; 86140

== ENCOUNTER 2018-10-23 13:54 | Emergency (ER) | payer MEDICAID ==
[2018-10-23] MEDS ORDERED: HYDROmorphone 1 MG/ML CARPUJECT IVP STA ×2 (16:13→18:52)
[2018-10-23] MEDS ORDERED: ONDANSETRON 4 MG/2 ML VIAL IVP STA (16:13)
[2018-10-23] MEDS ORDERED: SODIUM CHLORIDE 0.9% 1,000 ML IV ONE (16:13)
--- NOTE | 2018-10-23 16:16 | ED Physician Documentation ---
PD HPI ABD PAIN - Stated complaint Stated Complaint: ABD PX - Chief complaint Chief Complaint: Abd Pain - History obtained from History obtained from: Patient, Family () - History of Present Illness Timing - onset: Other (This is a 33-year-old gentleman with history of eosinophilic enteritis, almost solely TPN fed for many years. He usually only has bowel movements because of that every few days. He had one on or around Thursday. So on he developed some upper abdominal pain and thought he had above a bowel movement. He took a Dulcolax suppository and had relief from his pain for about 20 minutes after bowel movement but then it recurred and has been constant ever since with nausea. He has not had another bowel movement. He denies fevers or chills. 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 : Kidney stones HEENT: Chronic sinusitis Psych: Depression, Anxiety, Panic attacks, Other Musculoskeletal: Chronic back pain, Other Derm: Eczema - Past Surgical History Past Surgical History: Yes General: Cholecystectomy, Bowel surgery, Colonoscopy, Other Ortho: Spine surgery, Amputation - Present Medications Home Medications: Ambulatory Orders Medication Instructions Recorded Confirmed Ondansetron [Ondansetron Odt] 4 mg PO Q4H PRN 04/05/13 10/23/18 Omeprazole 40 mg PO QDAC 07/06/14 10/23/18 Duloxetine HCl [Cymbalta] 60 mg PO DAILY 05/11/15 10/23/18 Sodium/Pot/Mag/Calc/Chlor/Acet 2,000 ml IV QPM 07/03/15 10/23/18 [TPN Electrolytes II IV Soln] Loratadine [Claritin] 10 mg PO QPM 03/09/16 10/23/18 Metoclopramide [Reglan] 10 mg DAILY 10/23/18 10/23/18 - Allergies Allergies/Adverse Reactions: Allergies Allergy/AdvReac Type Severity Reaction Status Date / Time metoclopramide HCl * Allergy Severe Anxiety Verified 06/14/18 06:08 [From Reglan] NSAIDS (Non-Steroidal Allergy Severe Erosive Verified 06/14/18 06:08 Anti-Inflamma Esophagitis vancomycin AdvReac Intermediate Unknown Verified 10/23/18 14:04 - Social History Does the pt smoke?: No Smoking Status: Never smoker Does the pt drink ETOH?: No Does the pt have substance abuse?: No - Immunizations Immunizations are current?: Yes - POLST Patient has POLST: No POLST Status: Full Code PD ED PE NORMAL - Vitals Vital signs reviewed: Yes - General General: Alert and oriented X 3, Other (He appears in pain and uncomfortable) - HEENT HEENT: PERRL, EOMI - Neck Neck: Supple, no meningeal sign, No bony TTP - Cardiac Cardiac: RRR, No murmur - Respiratory Respiratory: No respiratory distress, Clear bilaterally - Abdomen Abdomen: Other (Soft with diminished bowel tones, moderate diffuse tenderness with positive rebound tenderness.) - Back Back: No CVA TTP, No spinal TTP - Derm Derm: Normal color, Warm and dry - Extremities Extremities: Other (Status post bilateral BKA's) - Neuro Neuro: Alert and oriented X 3, Normal speech Results - Vitals Vitals: Vital Signs - 24 hr 10/23/18 10/23/18 10/23/18 14:02 17:58 19:04 Temperature 36.8 C Heart Rate 80 79 80 Respiratory 18 16 16 Rate Blood Pressure 131/62 H 123/65 114/71 O2 Saturation 100 98 96 Oxygen O2 Source Room air - Labs Labs: Laboratory Tests 10/23/18 10/23/18 10/23/18 16:20 16:20 18:00 WBC 11.6 H RBC 5.56 Hgb 14.3 Hct 44.7 MCV 80.5 MCH 25.8 L MCHC 32.0 RDW 22.5 H Plt Count 198 MPV 9.5 Neut # (Auto) 8.1 H Lymph # (Auto) 2.4 [place] # (Auto) 0.8 Eos # (Auto) 0.3 Baso # (Auto) 0.1 Absolute Nucleated RBC 0.01 Nucleated RBC % 0.1 Manual Slide Review Indicated RBC Morph Micro Appear 1+ MICROCYTOSIS Sodium 136 Potassium 3.7 Chloride 102 Carbon Dioxide 25 Anion Gap 9.0 BUN 17 Creatinine 0.5 L Estimated GFR (MDRD) 190 Glucose 111 H Calcium 8.9 Total Bilirubin 0.2 AST 21 ALT 33 Alkaline Phosphatase 80 Total Protein 7.5 Albumin 3.8 Globulin 3.7 Albumin/Globulin Ratio 1.0 Lipase 28 Urine Color YELLOW Urine Clarity CLEAR Urine pH 6.0 Ur Specific [place] 1.020 Urine Protein NEGATIVE Urine Glucose (UA) NEGATIVE Urine Ketones NEGATIVE Urine Occult Blood MODERATE H Urine Nitrite NEGATIVE Urine Bilirubin NEGATIVE Urine Urobilinogen 0.2 (NORMAL) Ur Leukocyte Esterase NEGATIVE Urine RBC 0-5 Urine WBC 0-3 Ur Squamous Epith Cells RARE Squamous Urine Bacteria None Seen Ur Microscopic Review INDICATED Urine Culture Comments NOT INDICATED - Rads (name of study) CT A/P Radiology: EMP read contemporaneously (Pancreatic heterogeneity not associated with abnormal lipase. Otherwise normal.) PD MEDICAL DECISION MAKING - ED course ED course: 33-year-old gentleman with history of eosinophilic enteritis who presents with a bdominal pain. CT and labs are basically normal. Feeling much better on recheck and his abdominal examination was improved. Further history obtained, although he had been maintained strictly on TPN for several years he has been eating a lot more lately and I suspect this caused his relapse to previously chronic abdominal pain and he was advised to go back to complete bowel rest pending GI follow-up. Departure - Departure Disposition: 01 Home, Self Care Clinical Impression: Eosinophilic colitis, Abdominal pain Condition: Good Record reviewed to determine appropriate education?: Yes Instructions: Abdominal Pain Comments: Go back to complete TPN for a few days and then talk with your GI doctor about slowly reinstituting a diet if he thinks that is appropriate. Return if worse.
[2018-10-23 16:45] LABS: BASOPHILS # (AUTO) 0.1 10^3/uL (0.0-0.1); BASOPHILS % (AUTO) 0.4 %; EOSINOPHILS # (AUTO) 0.3 10^3/uL (0.0-0.7); EOSINOPHILS % (AUTO) 2.8 %; HGB - HEMOGLOBIN 14.3 g/dL (14.0-18.0); LYMPHOCYTES # (AUTO) 2.4 10^3/uL (1.5-3.5); LYMPHOCYTES % (AUTO) 20.3 %; MEAN CORPUSCULAR HEMOGLOBIN 25.8 pg (27.0-31.0); MEAN CORPUSCULAR VOLUME 80.5 fL (80.0-94.0); MEAN PLATELET VOLUME 9.5 fL (7.4-11.4); MONOCYTES # (AUTO) 0.8 10^3/uL (0.0-1.0); MONOCYTES % (AUTO) 6.7 %; NEUTROPHILS # (AUTO) 8.1 10^3/uL (1.5-6.6); NEUTROPHILS % (AUTO) 69.8 %; PLT - PLATELET COUNT 198 10^3/uL (130-450); RED BLOOD COUNT 5.56 10^6/uL (4.70-6.10); RED CELL DISTRIBUTION WIDTH 22.5 % (12.0-15.0); WHITE BLOOD COUNT 11.6 x10^3/uL (4.8-10.8)
[2018-10-23 16:54] LABS: ALBUMIN 3.8 g/dL (3.2-5.5); BILIRUBIN,TOTAL 0.2 mg/dL (0.2-1.0); CALCIUM 8.9 mg/dL (8.5-10.3); CREATININE 0.5 mg/dL (0.6-1.2); TOTAL PROTEIN 7.5 g/dL (6.7-8.2)
[2018-10-23] MEDS ORDERED: LIDOCAINE VISCOUS 2% 15 ML UDC MM STA (17:13)
[2018-10-23] MEDS ORDERED: MAG HYDROX/AL HYDROX/SIMETH 30 ML UDC PO STA (17:13)
[2018-10-23] MEDS ORDERED: PANTOPRAZOLE 40 MG VIAL IVP STA (17:13)
[2018-10-23] MEDS ORDERED: IOVERSOL 320 100 ML VIAL IVP ONE ×2 (17:29→17:58)
[2018-10-23 18:05] LABS: BILIRUBIN,URINE NEGATIVE (NEGATIVE); CLARITY,URINE CLEAR (CLEAR); GLUCOSE, URINE (UA) NEGATIVE (NEGATIVE); KETONES,URINE (UA) NEGATIVE (NEGATIVE); LEUKOCYTE ESTERASE, URINE NEGATIVE (NEGATIVE); NITRITE,URINE NEGATIVE (NEGATIVE); OCCULT BLOOD,URINE MODERATE (NEGATIVE); PROTEIN,URINE NEGATIVE (NEGATIVE); UROBILINOGEN,URINE 0.2 (NORMAL) E.U./dL (NORMAL)
[2018-10-23 18:13] LABS: BACTERIA,URINE None Seen /HPF (None Seen); RBC,URINE 0-5 /HPF (0-5); SQUAMOUS EPITHELIAL CELL,UR RARE Squamous (<= Few)
--- NOTE | 2018-10-23 18:57 | CT Report ---
Reason: IV only, central abd pain Procedure Date: 10/23/2018 Accession Number: [id number] / [id number] Procedure: CT - Abdomen/Pelvis W/ CPT Code: FULL RESULT: EXAM: CT ABDOMEN AND PELVIS EXAM DATE: 10/23/2018 05:42 PM. CLINICAL HISTORY: IV only, central abd pain. COMPARISONS: 06/15/2016. TECHNIQUE: Routine helical CT imaging was performed through the abdomen and pelvis. IV contrast: opti 320 100mL. Enteric contrast: No. Reconstructions: Coronal and sagittal. In accordance with CT protocol optimization, one or more of the following dose reduction techniques were utilized for this exam: automated exposure control, adjustment of mA and/or KV based on patient size, or use of iterative reconstructive technique. FINDINGS: Lung Bases: Unremarkable. Liver: No focal lesion. 2 portal veins are in the cherie hepatis, as before. 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 Gallbladder/Bile Ducts: Cholecystectomy. No bile duct dilation. Spleen: Normal. Pancreas: Homogeneous enhancement. The pancreatic head appears mildly heterogeneous and is increased in size since 2016. No discrete mass. Truncation of the pancreatic tail is unchanged. No significant adjacent inflammation. Adrenal Glands: Normal. Kidneys: No hydronephrosis or mass. Punctate left renal cortical calcification. Peritoneal Cavity/Bowel: Mildly patulous distal esophagus. Probable small hiatal hernia. No free fluid, free air or adenopathy. No acute inflammatory process. The appendix is normal. Pelvic Organs: The bladder and prostate gland are unremarkable. Retroperitoneum and aorta: No aortic aneurysm. Bones: No significant abnormality. Other: None. IMPRESSION: 1. The pancreatic head appears mildly heterogeneous and bulbous, increased since 2016, which is of uncertain etiology however mild pancreatitis is possible and correlation with lipase is recommended. No significant adjacent inflammation. No discrete mass. 2. Small hiatal hernia. Mildly patulous distal esophagus. RADIA
[2018-10-23 19:05] VITALS: BP 114/71
[2018-10-23] MEDS ORDERED: oxyCODONE/ACET 5/325 Prepack 4 PO STA (19:34)
== END 2018-10-23 19:52 | disposition home or self-care (01) ==
LOC: ED 13:54
DX: K52.82 Eosinophilic colitis (principal)
CPT/HCPCS: 36415; 74177; 80053; 81001; 83690; 85025; 96374; 96375; 96376; 99283; 99284; A9270; J1170; Q9967; 81003; 87086

== ENCOUNTER 2018-11-08 13:05 | Emergency (ER) | payer MEDICAID ==
[2018-11-08 15:22] LABS: BASOPHILS % (AUTO) 0.5 %; EOSINOPHILS # (AUTO) 0.5 10^3/uL (0.0-0.7); EOSINOPHILS % (AUTO) 5.7 %; HGB - HEMOGLOBIN 14.4 g/dL (14.0-18.0); LYMPHOCYTES # (AUTO) 3.1 10^3/uL (1.5-3.5); LYMPHOCYTES % (AUTO) 36.9 %; MEAN CORPUSCULAR HEMOGLOBIN 26.3 pg (27.0-31.0); MEAN CORPUSCULAR HGB CONC 33.4 g/dL (32.0-36.0); MEAN CORPUSCULAR VOLUME 78.7 fL (80.0-94.0); MEAN PLATELET VOLUME 9.3 fL (7.4-11.4); MONOCYTES % (AUTO) 11.5 %; NEUTROPHILS # (AUTO) 3.8 10^3/uL (1.5-6.6); NEUTROPHILS % (AUTO) 45.4 %; PLT - PLATELET COUNT 200 10^3/uL (130-450); RED BLOOD COUNT 5.48 10^6/uL (4.70-6.10); RED CELL DISTRIBUTION WIDTH 23.2 % (12.0-15.0); WHITE BLOOD COUNT 8.4 x10^3/uL (4.8-10.8)
[2018-11-08 15:36] LABS: PLATELET ESTIMATE, MANUAL NORMAL (130-450,000) (NORMAL); PLATELET MORPHOLOGY NORMAL APPEARANCE (NORMAL)
--- NOTE | 2018-11-08 15:37 | XRAY Report ---
Reason: chest pain Procedure Date: 11/08/2018 Accession Number: [id number] / [id number] Procedure: XR - Chest 1 View X-Ray CPT Code: 84581 FULL RESULT: EXAM: CHEST RADIOGRAPHY EXAM DATE: 11/08/2018 03:28 PM. CLINICAL HISTORY: Chest pain. COMPARISON: CHEST 2 VIEW 01/28/2018 3:24 PM. TECHNIQUE: 1 view. FINDINGS: Lungs/Pleura: No focal opacities evident. No pleural effusion. No pneumothorax. Mediastinum: Within exam limitations, the cardiomediastinal contour is normal. Other: Right-sided central venous catheter terminates in the lower SVC. IMPRESSION: No acute cardiopulmonary abnormality. RADIA
[2018-11-08 15:39] LABS: ALBUMIN 3.8 g/dL (3.2-5.5); BILIRUBIN,TOTAL 0.4 mg/dL (0.2-1.0); CALCIUM 8.8 mg/dL (8.5-10.3); CREATININE 0.7 mg/dL (0.6-1.2); MAGNESIUM 2.1 mg/dL (1.7-2.8); TOTAL PROTEIN 7.5 g/dL (6.7-8.2)
[2018-11-08 17:06] LABS: BILIRUBIN,URINE NEGATIVE (NEGATIVE); GLUCOSE, URINE (UA) NEGATIVE (NEGATIVE); KETONES,URINE (UA) TRACE mg/dL (NEGATIVE); LEUKOCYTE ESTERASE, URINE NEGATIVE (NEGATIVE); NITRITE,URINE NEGATIVE (NEGATIVE); OCCULT BLOOD,URINE TRACE-LYSE (NEGATIVE); PROTEIN,URINE NEGATIVE (NEGATIVE); UROBILINOGEN,URINE 0.2 (NORMAL) E.U./dL (NORMAL)
[2018-11-08 17:07] LABS: CLARITY,URINE CLEAR (CLEAR)
--- NOTE | 2018-11-08 17:26 | ED Physician Documentation ---
PD HPI URI - Stated complaint Stated Complaint: FEVER - Chief complaint Chief Complaint: Fever - History obtained from History obtained from: Patient - History of Present Illness Timing - onset: How many days ago (5) Timing duration: Days (5) Timing details: Gradual onset, Still present Associated symptoms: Fever, Chills, Nasal congestion, Dry cough. No: Sore throat, Swollen nodes, Chest pain, Dyspnea Contributing factors: Immunocompromised (has poor nutrition due to eosiniphilic colitis, and is on TPN for the past 5 years. Also prior leg injuries with prostheses. Denies skin sores. Has some URI symptoms, and presumed is a cold. Given the duration of the fevers and malaise, he is concerned about underlying other infections.). No: Sick contact Similar symptoms before: Diagnosis (has had problems with pneumonia in the past, also skin infections, and sepsis) Recently seen: Not recently seen Review of Systems Constitutional: reports: Fever, Chills, Myalgias Nose: reports: Congestion Throat: denies: Oral lesions / sores, Sore throat Cardiac: denies: Chest pain / pressure Respiratory: reports: Cough. denies: Dyspnea GI: reports: Nausea. 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 HEENT: Chronic sinusitis Psych: Depression, Anxiety, Panic attacks, Other Musculoskeletal: Chronic back pain, Other Derm: Eczema - Past Surgical History Past Surgical History: Yes General: Cholecystectomy, Bowel surgery, Colonoscopy, Other Ortho: Spine surgery, Amputation - Present Medications Home Medications: Ambulatory Orders Medication Instructions Recorded Confirmed Ondansetron [Ondansetron Odt] 4 mg PO Q4H PRN 04/05/13 10/23/18 Omeprazole 40 mg PO QDAC 07/06/14 10/23/18 Duloxetine HCl [Cymbalta] 60 mg PO DAILY 05/11/15 10/23/18 Sodium/Pot/Mag/Calc/Chlor/Acet 2,000 ml IV QPM 07/03/15 10/23/18 [TPN Electrolytes II IV Soln] Loratadine [Claritin] 10 mg PO QPM 03/09/16 10/23/18 Metoclopramide [Reglan] 10 mg DAILY 10/23/18 10/23/18 - Allergies Allergies/Adverse Reactions: Allergies Allergy/AdvReac Type Severity Reaction Status Date / Time metoclopramide HCl * Allergy Severe Anxiety Verified 06/14/18 06:08 [From Reglan] NSAIDS (Non-Steroidal Allergy Severe Erosive Verified 06/14/18 06:08 Anti-Inflamma Esophagitis vancomycin AdvReac Intermediate Unknown Verified 10/23/18 14:04 - Social History Does the pt smoke?: No Smoking Status: Never smoker Does the pt drink ETOH?: No Does the pt have substance abuse?: No - Immunizations Immunizations are current?: Yes - POLST Patient has POLST: No POLST Status: Full Code PD ED PE NORMAL - Vitals Vital signs reviewed: Yes - General General: Alert and oriented X 3, No acute distress, Well developed/nourished - HEENT HEENT: Ears normal, Moist mucous membranes, Pharynx benign - Neck Neck: Supple, no meningeal sign, No adenopathy - Cardiac Cardiac: RRR, No murmur - Respiratory Respiratory: Clear bilaterally, Other (TPN line right anterior chest without redness nor tenderness at site. ) - Abdomen Abdomen: Normal bowel sounds, Soft, Non tender, Non distended - Back Back: No CVA TTP - Derm Derm: Normal color, Warm and dry - Extremities Extremities: Other (no tenderness at leg amputation ends. ) - Neuro Neuro: Alert and oriented X 3, No motor deficit, Normal speech Results - Vitals Vitals: Vital Signs - 24 hr 11/08/18 11/08/18 11/08/18 13:09 14:42 16:13 Temperature 36.7 C 37.1 C Heart Rate 78 80 77 Respiratory 16 20 16 Rate Blood Pressure 114/64 121/68 116/87 H O2 Saturation 98 96 96 11/08/18 17:27 Temperature 36.7 C Heart Rate 86 Respiratory 18 Rate Blood Pressure 114/75 O2 Saturation 97 Oxygen O2 Source Room air - Labs Labs: Laboratory Tests 11/08/18 11/08/18 11/08/18 13:13 15:10 15:13 WBC 8.4 RBC 5.48 Hgb 14.4 Hct 43.1 MCV 78.7 L MCH 26.3 L MCHC 33.4 RDW 23.2 H Plt Count 200 MPV 9.3 Neut # (Auto) 3.8 Lymph # (Auto) 3.1 [place] # (Auto) 1.0 Eos # (Auto) 0.5 Baso # (Auto) 0.0 Absolute Nucleated RBC 0.00 Nucleated RBC % 0.1 Manual Slide Review Indicated WBC Morphology NORMAL APPEARANCE Platelet Estimate NORMAL (130-450,000) Platelet Morphology NORMAL APPEARANCE RBC Morph Micro Appear 1+ MICROCYTOSIS Sodium Potassium Chloride Carbon Dioxide Anion Gap BUN Creatinine Estimated GFR (MDRD) Glucose Lactic Acid Calcium Phosphorus Magnesium Total Bilirubin AST ALT Alkaline Phosphatase Total Protein Albumin Globulin Albumin/Globulin Ratio Lipase Urine Color YELLOW Urine Clarity CLEAR Urine pH 6.0 Ur Specific [place] 1.025 Urine Protein NEGATIVE Urine Glucose (UA) NEGATIVE Urine Ketones TRACE Urine Occult Blood TRACE-LYSE Urine Nitrite NEGATIVE Urine Bilirubin NEGATIVE Urine Urobilinogen 0.2 (NORMAL) Ur Leukocyte Esterase NEGATIVE Ur Microscopic Review NOT INDICATED Urine Culture Comments NOT INDICATED Influenza A (Rapid) Negative Influenza B (Rapid) Negative 11/08/18 11/08/18 15:13 15:13 WBC RBC Hgb Hct MCV MCH MCHC RDW Plt Count MPV Neut # (Auto) Lymph # (Auto) [place] # (Auto) Eos # (Auto) Baso # (Auto) Absolute Nucleated RBC Nucleated RBC % Manual Slide Review WBC Morphology Platelet Estimate Platelet Morphology RBC Morph Micro Appear Sodium 135 Potassium 2.9 L Chloride 104 Carbon Dioxide 22 Anion Gap 9.0 BUN 16 Creatinine 0.7 Estimated GFR (MDRD) 129 Glucose 87 Lactic Acid 0.8 Calcium 8.8 Phosphorus 3.0 Magnesium 2.1 Total Bilirubin 0.4 AST 22 ALT 26 Alkaline Phosphatase 69 Total Protein 7.5 Albumin 3.8 Globulin 3.7 Albumin/Globulin Ratio 1.0 Lipase 24 Urine Color Urine Clarity Urine pH Ur Specific [place] Urine Protein Urine Glucose (UA) Urine Ketones Urine Occult Blood Urine Nitrite Urine Bilirubin Urine Urobilinogen Ur Leukocyte Esterase Ur Microscopic Review Urine Culture Comments Influenza A (Rapid) Influenza B (Rapid) - Rads (name of study) chest xray Radiology: Prelim report reviewed (no infiltrates), See rad report PD MEDICAL DECISION MAKING - ED course Complexity details: reviewed results (no obvious cause for the illness; in particular no signs of bacterial infection. ), considered differential, d/w patient Departure - Departure Disposition: 01 Home, Self Care Clinical Impression: Viral illness Condition: Stable Record reviewed to determine appropriate education?: Yes Instructions: ED Viral Syndrome Follow-Up: Francis Chiu PA-C [Primary Care Provider] - Comments: Your urine test, blood count, chest x-ray are okay. Your flu test is negative though it does sound flulike the illness that you have. I do not see an identified source needing antibiotics. The blood cultures were resulted in a couple of days. At this point stay well-hydrated and use Tylenol or ibuprofen if needed for fevers and pains. Return if worsening or more specific symptoms. Discharge Date/Time: 11/08/18 17:47
[2018-11-08 17:28] VITALS: BP 114/75
== END 2018-11-08 17:47 | disposition home or self-care (01) ==
LOC: ED 13:05
DX: B34.9 Viral infection, unspecified (principal); Z87.19 Personal history of other diseases of the digestive system
CPT/HCPCS: 36415; 71045; 80053; 81001; 81003; 83605; 83690; 83735; 84100; 85025; 87040; 87086; 87275; 87276; 99283

== ENCOUNTER 2018-11-15 14:31 | Emergency (ER) | payer MEDICAID ==
[2018-11-15] MEDS ORDERED: SODIUM CHLORIDE 0.9% 1,000 ML IV ONE ×2 (15:24)
--- NOTE | 2018-11-15 15:34 | ED Physician Documentation ---
History of Present Illness - Stated complaint Stated Complaint: FEVER - Chief complaint Chief Complaint: Fever - History obtained from History obtained from: Patient, Family - History of Present Illness Timing: How many weeks ago (2) Pain level max: 4 Pain level now: 4 - Additonal information Additional information: 33-year-old male with a port in the right upper chest for chronic Eosinophilic enteritis. He is normally maintained on TPN. Has not been having fevers, congestion and cough for the past few weeks. Seen here on Thursday, negative chest x-ray negative influenza swab as well as negative lab workup at that time. States he is now feeling worse. Nothing makes his symptoms better. Worse with movement, exertion. States he is feeling fatigued and weak. Review of Systems Ten Systems: 10 systems reviewed and negative Constitutional: reports: Fever Cardiac: denies: Chest pain / pressure Respiratory: reports: Cough (dry). 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 HEENT: Chronic sinusitis Psych: Depression, Anxiety, Panic attacks, Other Musculoskeletal: Chronic back pain, Other Derm: Eczema - Past Surgical History Past Surgical History: Yes General: Cholecystectomy, Bowel surgery, Colonoscopy, Other Ortho: Spine surgery, Amputation - Present Medications Home Medications: Ambulatory Orders Medication Instructions Recorded Confirmed Ondansetron [Ondansetron Odt] 4 mg PO Q4H PRN 04/05/13 11/15/18 Omeprazole 40 mg PO QDAC 07/06/14 11/15/18 Duloxetine HCl [Cymbalta] 60 mg PO DAILY 05/11/15 11/15/18 Sodium/Pot/Mag/Calc/Chlor/Acet 2,000 ml IV QPM 07/03/15 11/15/18 [TPN Electrolytes II IV Soln] Loratadine [Claritin] 10 mg PO QPM 03/09/16 11/15/18 Metoclopramide [Reglan] 10 mg DAILY 10/23/18 11/15/18 - Allergies Allergies/Adverse Reactions: Allergies Allergy/AdvReac Type Severity Reaction Status Date / Time metoclopramide HCl * Allergy Severe Anxiety Verified 11/15/18 15:25 [From Reglan] NSAIDS (Non-Steroidal Allergy Severe Erosive Verified 11/15/18 15:25 Anti-Inflamma Esophagitis vancomycin AdvReac Intermediate Unknown Verified 11/15/18 15:25 - Social History Does the pt smoke?: No Smoking Status: Never smoker Does the pt drink ETOH?: No Does the pt have substance abuse?: No - Immunizations Immunizations are current?: Yes - POLST Patient has POLST: No POLST Status: Full Code PD ED PE NORMAL - Vitals Vital signs reviewed: Yes - General General: Alert and oriented X 3, Other (appears tired) - HEENT HEENT: PERRL, Ears normal, Moist mucous membranes, Pharynx benign - Neck Neck: Supple, no meningeal sign - Cardiac Cardiac: RRR, Strong equal pulses - Respiratory Respiratory: No respiratory distress, Other (Crackles bilaterally) - Abdomen Abdomen: Soft, Non tender, Non distended - Back Back: No CVA TTP, No spinal TTP - Derm Derm: Warm and dry, No rash - Extremities Extremities: No tenderness to palpate - Neuro Neuro: Alert and oriented X 3 - Psych Psych: Normal mood, Normal affect Results - Vitals Vitals: Vital Signs - 24 hr 11/15/18 11/15/18 15:16 17:00 Temperature 37.6 C H 37.5 C Heart Rate 89 88 Respiratory 18 18 Rate Blood Pressure 105/47 L 106/51 L O2 Saturation 100 100 Oxygen O2 Source Room air - Labs Labs: Laboratory Tests 11/15/18 11/15/18 11/15/18 15:35 15:35 15:35 WBC 10.7 RBC 5.20 Hgb 14.2 Hct 42.8 MCV 82.3 MCH 27.3 MCHC 33.2 RDW 23.4 H Plt Count 218 MPV 8.9 Neut # (Auto) 7.2 H Lymph # (Auto) 2.0 [place] # (Auto) 0.9 Eos # (Auto) 0.5 Baso # (Auto) 0.0 Absolute Nucleated RBC 0.02 Nucleated RBC % 0.2 Manual Slide Review Indicated WBC Morphology NORMAL APPEARANCE Platelet Estimate NORMAL (130-450,000) Platelet Morphology NORMAL APPEARANCE RBC Morph Micro Appear 1+ ANISOCYTOSIS PT 14.5 H INR 1.3 H APTT 26.2 Sodium 135 Potassium 3.3 L Chloride 103 Carbon Dioxide 23 Anion Gap 9.0 BUN 13 Creatinine 0.7 Estimated GFR (MDRD) 129 Glucose 92 Lactic Acid Calcium 8.7 Total Bilirubin 0.6 AST 22 ALT 28 Alkaline Phosphatase 74 Total Protein 7.6 Albumin 4.0 Globulin 3.6 Albumin/Globulin Ratio 1.1 Lipase 31 Influenza A (Rapid) Influenza B (Rapid) 11/15/18 11/15/18 15:35 15:37 WBC RBC Hgb Hct MCV MCH MCHC RDW Plt Count MPV Neut # (Auto) Lymph # (Auto) [place] # (Auto) Eos # (Auto) Baso # (Auto) Absolute Nucleated RBC Nucleated RBC % Manual Slide Review WBC Morphology Platelet Estimate Platelet Morphology RBC Morph Micro Appear PT INR APTT Sodium Potassium Chloride Carbon Dioxide Anion Gap BUN Creatinine Estimated GFR (MDRD) Glucose Lactic Acid 1.1 Calcium Total Bilirubin AST ALT Alkaline Phosphatase Total Protein Albumin Globulin Albumin/Globulin Ratio Lipase Influenza A (Rapid) POSITIVE H Influenza B (Rapid) Negative - Rads (name of study) cxr Radiology: Prelim report reviewed, EMP read contemporaneously, See rad report (Normal single view chest. ) PD MEDICAL DECISION MAKING - ED course Complexity details: reviewed results, re-evaluated patient, considered differential, d/w patient, d/w family ED course: 33-year-old male presents the emergency department with influenza. Not a candidate for Tamiflu at this time. He is well-appearing, nontoxic. Tolerating p.o. without difficulty. Feels better after IV fluids. We will continue supportive care and follow-up with his doctor. Patient counseled regarding signs and symptoms for which I believe and urgent re-evaluation would be n ecessary. Patient with good understanding of and agreement to plan and is comfortable going home at this time This document was made in part using voice recognition software. While efforts are made to proofread this document, sound alike and grammatical errors may occur. Departure - Departure Disposition: 01 Home, Self Care Clinical Impression: Influenza A Condition: Good Instructions: ED Flu Follow-Up: Francis Chiu PA-C [Primary Care Provider] - Within 1 week Comments: Go home and rest. Return if you worsen. Discharge Date/Time: 11/15/18 17:00
[2018-11-15 15:49] LABS: BASOPHILS % (AUTO) 0.3 %; EOSINOPHILS # (AUTO) 0.5 10^3/uL (0.0-0.7); EOSINOPHILS % (AUTO) 5.1 %; HGB - HEMOGLOBIN 14.2 g/dL (14.0-18.0); MEAN CORPUSCULAR HEMOGLOBIN 27.3 pg (27.0-31.0); MEAN CORPUSCULAR HGB CONC 33.2 g/dL (32.0-36.0); MEAN CORPUSCULAR VOLUME 82.3 fL (80.0-94.0); MEAN PLATELET VOLUME 8.9 fL (7.4-11.4); MONOCYTES # (AUTO) 0.9 10^3/uL (0.0-1.0); NEUTROPHILS # (AUTO) 7.2 10^3/uL (1.5-6.6); NEUTROPHILS % (AUTO) 67.6 %; PLT - PLATELET COUNT 218 10^3/uL (130-450); RED CELL DISTRIBUTION WIDTH 23.4 % (12.0-15.0); WHITE BLOOD COUNT 10.7 x10^3/uL (4.8-10.8)
--- NOTE | 2018-11-15 15:54 | XRAY Report ---
Reason: cough, fever Procedure Date: 11/15/2018 Accession Number: [id number] / [id number] Procedure: XR - Chest 1 View X-Ray CPT Code: 08827 FULL RESULT: EXAM: CHEST RADIOGRAPHY EXAM DATE: 11/15/2018 03:33 PM. CLINICAL HISTORY: Cough. Fever. COMPARISON: CHEST 1 VIEW 11/08/2018 3:17 PM. TECHNIQUE: 1 view. FINDINGS: Lungs/Pleura: No focal opacities evident. No pleural effusion. No pneumothorax. Mediastinum: Within exam limitations, the cardiomediastinal contour is normal. Other: Stable right IJ central line. No bony abnormalities identified. IMPRESSION: Normal single view chest. RADIA
[2018-11-15 15:57] LABS: INR 1.3 (0.8-1.2); PT - PROTHROMBIN TIME 14.5 secs (9.9-12.6)
[2018-11-15 15:59] LABS: ALBUMIN/GLOBULIN RATIO 1.1 (1.0-2.2); BILIRUBIN,TOTAL 0.6 mg/dL (0.2-1.0); CALCIUM 8.7 mg/dL (8.5-10.3); CREATININE 0.7 mg/dL (0.6-1.2); TOTAL PROTEIN 7.6 g/dL (6.7-8.2)
[2018-11-15 16:00] LABS: PLATELET ESTIMATE, MANUAL NORMAL (130-450,000) (NORMAL); PLATELET MORPHOLOGY NORMAL APPEARANCE (NORMAL); RBC MORPHOLOGY (MULTIPLE) 1+ ANISOCYTOSIS (NORMAL)
[2018-11-15 17:18] VITALS: BP 106/51
== END 2018-11-15 17:00 | disposition home or self-care (01) ==
LOC: ED 14:31
DX: J10.1 Influenza due to other identified influenza virus with other respiratory manifestations (principal); K52.81 Eosinophilic gastritis or gastroenteritis
CPT/HCPCS: 36415; 71045; 80053; 83605; 83690; 85025; 85610; 85730; 87040; 87275; 87276; 96360; 99283

== ENCOUNTER 2018-12-02 13:27 | Outpatient (CLI) | payer MEDICAID | END 2018-12-02 13:28 | disposition home or self-care (01) | LOC: SC 13:27 | PROVIDERS: ATTEND Internal Medicine Pulmonary Disease | DX: R06.81 Apnea, not elsewhere classified (principal); G47.10 Hypersomnia, unspecified; G47.00 Insomnia, unspecified; R06.83 Snoring; G47.8 Other sleep disorders; R41.89 Other symptoms and signs involving cognitive functions and awareness | CPT/HCPCS: 99203; 99212 ==

== ENCOUNTER 2018-12-08 14:23 | Outpatient (CLI) | payer MEDICAID ==
[2018-12-08 19:23] LABS: BASOPHILS % (AUTO) 0.3 %; EOSINOPHILS # (AUTO) 1.9 10^3/uL (0.0-0.7); EOSINOPHILS % (AUTO) 13.5 %; HGB - HEMOGLOBIN 15.8 g/dL (14.0-18.0); LYMPHOCYTES # (AUTO) 3.5 10^3/uL (1.5-3.5); LYMPHOCYTES % (AUTO) 24.4 %; MEAN CORPUSCULAR HEMOGLOBIN 28.3 pg (27.0-31.0); MEAN CORPUSCULAR HGB CONC 32.2 g/dL (32.0-36.0); MEAN CORPUSCULAR VOLUME 87.9 fL (80.0-94.0); MEAN PLATELET VOLUME 9.8 fL (7.4-11.4); MONOCYTES # (AUTO) 0.8 10^3/uL (0.0-1.0); MONOCYTES % (AUTO) 5.3 %; NEUTROPHILS # (AUTO) 8.1 10^3/uL (1.5-6.6); NEUTROPHILS % (AUTO) 56.5 %; PLT - PLATELET COUNT 251 10^3/uL (130-450); RED BLOOD COUNT 5.57 10^6/uL (4.70-6.10); RED CELL DISTRIBUTION WIDTH 20.5 % (12.0-15.0); WHITE BLOOD COUNT 14.4 x10^3/uL (4.8-10.8)
[2018-12-08 19:26] LABS: HEMOGLOBIN A1C 0.52 g/dL
[2018-12-08 19:30] LABS: PLATELET ESTIMATE, MANUAL NORMAL (130-450,000) (NORMAL); PLATELET MORPHOLOGY NORMAL APPEARANCE (NORMAL); RBC MORPHOLOGY (MULTIPLE) 1+ ANISOCYTOSIS (NORMAL)
[2018-12-08 19:57] LABS: LIPASE 29 U/L (22-51)
[2018-12-09 12:52] LABS: HEPATITIS C ANTIBODY NON-REACTIVE (NON-REACTIVE)
== END 2018-12-08 23:59 | disposition home or self-care (01) ==
LOC: LAB.N 14:23
PROVIDERS: ATTEND Physician Assistant Medical
DX: R61 Generalized hyperhidrosis (principal)
CPT/HCPCS: 36415; 83036; 83690; 84443; 85025; 86704; 86709; 86803

== ENCOUNTER 2019-01-05 14:03 | Observation (INO) | payer MEDICAID ==
--- NOTE | 2019-01-05 15:09 | ED Physician Documentation ---
PD HPI NVD - Stated complaint Stated Complaint: DIZZY/NAUSEA BODY PX - Chief complaint Chief Complaint: Abd Pain - History obtained from History obtained from: Patient - History of Present Illness Timing - onset: How many days ago (5) Timing - duration: Days (5) Timing - details: Gradual onset, Still present Associated symptoms: Abdominal pain (He has had mid to generalized abdominal pain for the last 5 days which is increased. He is having nausea and distention with some vomiting yesterday into today. He tried ondansetron at home without any improvement. 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 This is in conjunction with a gastroenterology out of . He had not had anything to eat the last couple of days but is still having increased abdominal discomfort.) Contributing factors: No: Sick contact, Bad food Improved by: No: Vomiting Worsened by: Eating Similar symptoms before: Diagnosis (Eosinophilic enteritis) Recently seen: Not recently seen Review of Systems Constitutional: reports: Myalgias. denies: Fever, Chills Nose: denies: Rhinorrhea / runny nose, Congestion Throat: denies: Sore throat Cardiac: denies: Chest pain / pressure Respiratory: denies: Cough GI: reports: Abdominal Pain, Abdominal Swelling, Nausea, Vomiting. denies: Constipation, Diarrhea, Hematemesis : denies: Dysuria, Frequency Skin: denies: Rash, Lesions Neurologic: reports: Generalized weakness. 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 : Kidney stones HEENT: Chronic sinusitis Psych: Depression, Anxiety, Panic attacks, Other Musculoskeletal: Chronic back pain, Other Derm: Eczema - Past Surgical History Past Surgical History: Yes General: Cholecystectomy, Bowel surgery, Colonoscopy, Other Ortho: Spine surgery, Amputation - Present Medications Home Medications: Ambulatory Orders Medication Instructions Recorded Confirmed Ondansetron [Ondansetron Odt] 4 mg PO Q4H PRN 04/05/13 01/05/19 Omeprazole 40 mg PO QDAC 07/06/14 01/05/19 Duloxetine HCl [Cymbalta] 60 mg PO DAILY 05/11/15 01/05/19 Sodium/Pot/Mag/Calc/Chlor/Acet 2,000 ml IV QPM 07/03/15 01/05/19 [TPN Electrolytes II IV Soln] Loratadine [Claritin] 10 mg PO QPM 03/09/16 01/05/19 Pregabalin [Lyrica] 75 mg PO DAILY 01/05/19 01/05/19 - Allergies Allergies/Adverse Reactions: Allergies Allergy/AdvReac Type Severity Reaction Status Date / Time metoclopramide HCl * Allergy Severe Anxiety Verified 01/05/19 14:11 [From Reglan] NSAIDS (Non-Steroidal Allergy Severe Erosive Verified 01/05/19 14:11 Anti-Inflamma Esophagitis vancomycin AdvReac Intermediate Unknown Verified 01/05/19 14:11 - Social History Does the pt smoke?: No Smoking Status: Never smoker Does the pt drink ETOH?: No Does the pt have substance abuse?: No - Family History Family history: reports: Non contributory - Immunizations Immunizations are current?: Yes - POLST Patient has POLST: No POLST Status: Full Code PD ED PE NORMAL - Vitals Vital signs reviewed: Yes - General General: Alert and oriented X 3, Well developed/nourished, Other (He appears uncomfortable with nausea and abdominal fullness and general tenderness.) - HEENT HEENT: Pharynx benign - Neck Neck: Supple, no meningeal sign, No adenopathy - Cardiac Cardiac: RRR, No murmur - Respiratory Respiratory: Clear bilaterally - Abdomen Abdomen: Soft, No organomegaly, Other (Mild distension with decreased bowel sounds. Generally tender, but mostly periumbilical. ). No: Normal bowel sounds (decreased) - Back Back: No CVA TTP - Derm Derm: Normal color, Warm and dry - Extremities Extremities: No deformity, No tenderness to palpate, Normal ROM s pain, No edema, Other (prior AKA amputations noted. ) - Neuro Neuro: Alert and oriented X 3, No motor deficit, Normal speech Eye Opening: Spontaneous Motor: Obeys Commands Verbal: Oriented GCS Score: 15 Results - Vitals Vitals: Vital Signs - 24 hr 01/05/19 01/05/19 01/05/19 14:08 17:13 19:55 Temperature 36.7 C 36.8 C 36.6 C Heart Rate 69 71 80 Respiratory 18 15 16 Rate Blood Pressure 114/63 111/57 L 119/67 O2 Saturation 99 99 93 01/05/19 21:27 Temperature Heart Rate 82 Respiratory 16 Rate Blood Pressure 115/70 O2 Saturation 96 Oxygen O2 Source Room air - Labs Labs: Laboratory Tests 01/05/19 01/05/19 01/05/19 16:20 16:20 16:20 WBC 15.1 H RBC 5.13 Hgb 14.2 Hct 43.6 MCV 85.1 MCH 27.7 MCHC 32.5 RDW 14.4 Plt Count 193 MPV 10.2 Neut # (Auto) Not Reportable Lymph # (Auto) Not Reportable Ray # (Auto) Not Reportable Eos # (Auto) Not Reportable Baso # (Auto) Not Reportable Absolute Nucleated RBC Not Reportable Total Counted 100 Band Neuts % (Manual) 0 Abnorm Lymph % (Manual) 0 Nucleated RBC % Not Reportable Neutrophils # (Manual) 7.4 H Lymphocytes # (Manual) 3.5 Monocytes # (Manual) 0.3 Eosinophils # (Manual) 3.9 H Basophils # (Manual) 0.0 Differential Comment MANUAL DIFFERENTIAL Manual Slide Review Indicated WBC Morphology NORMAL APPEARANCE Platelet Estimate NORMAL (130-450,000) Platelet Morphology NORMAL APPEARANCE RBC Morph Micro Appear NORMAL APPEARANCE ESR 4 Sodium 139 Potassium 3.8 Chloride 104 Carbon Dioxide 25 Anion Gap 10.0 BUN 18 Creatinine 0.5 L Estimated GFR (MDRD) 190 Glucose 83 Calcium 9.2 Phosphorus 2.7 Magnesium 2.2 Total Bilirubin 0.5 AST 13 ALT 16 Alkaline Phosphatase 75 Total Protein 7.1 Albumin 4.1 Globulin 3.0 Albumin/Globulin Ratio 1.4 Lipase 27 Procedures - Bedside sono Bedside sono by EMP: Bedside ultrasound did not show any free fluid in the gutters or pelvic area of the abdomen. PD MEDICAL DECISION MAKING - ED course Complexity details: reviewed results, re-evaluated patient (He is having recurrent symptoms after initial IV doses of medications. He still has abdominal discomfort and distention with decreased bowel sounds. It sounds likely to have some ileus type effect with the enteritis. It does not seem like an obstruction. There is no free fluid on bedside ultrasound. I talked with GI on-call at the is suggested steroid use and supportive symptom medicines. Refer to the consult discussion.), considered differential, d/w patient, d/w workday consultant (Dr. Hayden, On-call for gastroenterology who reviewed the patient's chart and prior workup. 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 He has had prior hematology evaluation with bone marrow biopsy to ensure its not a general eosinophilia which can be a overproduction issue. There is no signs of that on his bone marrow biopsy. Given the current symptoms the GI suggested supportive care with IV fluids antiemetics and pain medicine and also suggested an equivalent of prednisone 40-60 mg daily. He would continue that until follow-up with GI. He referred to hospitalist and I did talk to the transfer center and then the on-call hospitalist. They unfortunately do not have any beds available and there was not a particular specialist intervention needed and so they at this point declined accepting transfer. We are to recheck out to them if the patient is not improved well enough. The patient does however need follow-up with GI and hematology for evaluation of the eosinophil we will look GI symptoms and also has a elevated peripheral eosinophilia that may need reevaluation with bone marrow biopsy.) Departure - Departure Disposition: ED Place in Observation Clinical Impression: Eosinophilic enteritis Abdominal pain Qualifiers: Abdominal location: generalized Qualified Code(s): R10.84 - Generalized abdominal pain Nausea & vomiting Qualifiers: Vomiting type: unspecified Vomiting Intractability: non-intractable Qualified Code(s): R11.2 - Nausea with vomiting, unspecified Condition: Stable Record reviewed to determine appropriate education?: Yes
[2019-01-05] MEDS ORDERED: HYDROmorphone 2 MG/ML VIAL IVP STA (15:45)
[2019-01-05] MEDS ORDERED: PROMETHAZINE INJ 12.5 MG in SODIUM CHLORIDE 0.9% 50 ML IV STA (15:45)
[2019-01-05] MEDS ORDERED: DEXAMETHASONE 10 MG/ML VIAL IVP STA (15:45)
[2019-01-05] MEDS ORDERED: SODIUM CHLORIDE 0.9% 1,000 ML IV ONE ×3 (15:45→19:32)
[2019-01-05 16:57] LABS: BASOPHILS % (AUTO) 0.3 %; EOSINOPHILS % (AUTO) 27.1 %; HGB - HEMOGLOBIN 14.2 g/dL (14.0-18.0); LYMPHOCYTES % (AUTO) 24.2 %; MEAN CORPUSCULAR HEMOGLOBIN 27.7 pg (27.0-31.0); MEAN CORPUSCULAR HGB CONC 32.5 g/dL (32.0-36.0); MEAN CORPUSCULAR VOLUME 85.1 fL (80.0-94.0); MEAN PLATELET VOLUME 10.2 fL (7.4-11.4); MONOCYTES % (AUTO) 4.4 %; PLT - PLATELET COUNT 193 10^3/uL (130-450); RED BLOOD COUNT 5.13 10^6/uL (4.70-6.10); RED CELL DISTRIBUTION WIDTH 14.4 % (12.0-15.0); WHITE BLOOD COUNT 15.1 x10^3/uL (4.8-10.8)
[2019-01-05 16:59] LABS: ABNORMAL LYMPHS % (MANUAL) 0 %; BAND NEUTROPHILS % (MANUAL) 0 %
[2019-01-05 17:07] LABS: DIFFERENTIAL COMMENT MANUAL DIFFERENTIAL; EOSINOPHILS # (MANUAL) 3.9 10^3/uL (0-0.7); LYMPHOCYTES # (MANUAL) 3.5 10^3/uL (1.5-3.5); LYMPHOCYTES % (MANUAL) 23 %; MONOCYTES # (MANUAL) 0.3 10^3/uL (0.0-1.0); NEUTROPHILS # (MANUAL) 7.4 10^3/uL (1.5-6.6); NEUTROPHILS % (MANUAL) 49 %; PLATELET ESTIMATE, MANUAL NORMAL (130-450,000) (NORMAL); PLATELET MORPHOLOGY NORMAL APPEARANCE (NORMAL); RBC MORPHOLOGY (MULTIPLE) NORMAL APPEARANCE (NORMAL)
[2019-01-05 17:10] LABS: ALBUMIN 4.1 g/dL (3.2-5.5); ALBUMIN/GLOBULIN RATIO 1.4 (1.0-2.2); BILIRUBIN,TOTAL 0.5 mg/dL (0.2-1.0); CALCIUM 9.2 mg/dL (8.5-10.3); CREATININE 0.5 mg/dL (0.6-1.2); MAGNESIUM 2.2 mg/dL (1.7-2.8); PHOSPHORUS 2.7 mg/dL (2.5-4.6); TOTAL PROTEIN 7.1 g/dL (6.7-8.2)
[2019-01-05] MEDS ORDERED: HYDROmorphone 1 MG/ML CARPUJECT IVP STA (19:32)
[2019-01-05] MEDS ORDERED: PROMETHAZINE INJ 25 MG in SODIUM CHLORIDE 0.9% 50 ML IV STA (19:32)
[2019-01-05] MEDS ORDERED: ONDANSETRON 4 MG/2 ML VIAL IVP PRN (22:03)
[2019-01-05] MEDS: SODIUM CHLORIDE 0.9% 1,000 ML IV SCH (23:21)
--- NOTE | 2019-01-05 23:53 | HISTORY & PHYSICAL EXAMINATION ---
Chief Complaint - Chief Complaint Chief Complaint: nausea, vomiting and diarrhea History of Present Illness - Admitted From Admitted From:: [facility] ED - History Obtained From Records Reviewed: yes History obtained from: patient - History of Present Illness HPI Comment/Other: Patient seen on 01/05/19 at 2300 pm Patient is a 33 y/o male who presented to the ED with complain of abdominal discomfort, persistent nausea and vomiting which has been on going for the past 5 days. He always has diarrhea as a result of being on TPN but reports worsening diarrhea lately. He denies chest pain, NELIA fever or chills. He has history of eosinophillic gastritis for which he follows with GI at [facility]. His next appointment is on 01/07/19. 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 He was directed to come to the ED by his PCP since he was unable to keep anything down. He was found to have a WBC of 15 upon presentation. The rest of his history is unremarkable. 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 : reports: Kidney stones HEENT: reports: Chronic sinusitis Psych: reports: Depression, Anxiety, Panic attacks, Other Musculoskeletal: reports: Chronic back pain, Other (Tibial hemimelia (congenital), bilateral lower ext prosthesis) Derm: reports: Eczema MRSA Hx?: No Other Past Medical History: BKA, gynecomastia R side, Eosinophilic gastroenteritis - Past Surgical History General: reports: Cholecystectomy, Bowel surgery, Colonoscopy, Other Ortho: reports: Spine surgery, Amputation - Family & Social History Family History: Mother: Alive and Well, Father: Alive and Well, Brother: Alive and Well Family History Comment/Other: The patient's father has been astranged and his health history is unknown. His mother and half brother are alive and well without any known chronic illnesses. Living arrangement: At home Living Situation: With spouse/s.o. Social History Notes: Patient was born in [place], [place]; came to [place] when he was 5 years old. He met his when they were in second grade. Started dating in high school. They have 3 children together but had to give 1 up for adoption because of financial and social situation. 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 He has no history of substance abuse, with the exception of medical marijuana, is a non-smoker and rarely drinks alcohol. He lives at home with his . - Substance History Use: Uses substance without health or social issues: Cannabis - POLST Patient has POLST: No POLST Status: Full Code Meds/Allgy - Home Medications Home Medications: Ambulatory Orders Medication Instructions Recorded Confirmed Ondansetron [Ondansetron Odt] 4 mg PO Q4H PRN 04/05/13 01/05/19 Omeprazole 40 mg PO QDAC 07/06/14 01/05/19 Duloxetine HCl [Cymbalta] 60 mg PO DAILY 05/11/15 01/05/19 Sodium/Pot/Mag/Calc/Chlor/Acet 2,000 ml IV QPM 07/03/15 01/05/19 [TPN Electrolytes II IV Soln] Loratadine [Claritin] 10 mg PO QPM 03/09/16 01/05/19 Pregabalin [Lyrica] 75 mg PO DAILY 01/05/19 01/05/19 - Allergies Allergies/Adverse Reactions: Allergies Allergy/AdvReac Type Severity Reaction Status Date / Time metoclopramide HCl * Allergy Severe Anxiety Verified 01/05/19 14:11 [From Reglan] NSAIDS (Non-Steroidal Allergy Severe Erosive Verified 01/05/19 14:11 Anti-Inflamma Esophagitis vancomycin AdvReac Intermediate Unknown Verified 01/05/19 14:11 Review of Systems - Constitutional Constitutional: reports: Poor appetite. denies: Fever, Chills, Diaphoresis - Eyes Eyes: denies: Blurred vision, Vision loss, Dipolpia - Ears, Nose & Throat Ears, Nose & Throat: denies: Vertigo, Nasal pain, Sore throat, Hoarseness - Cardiovascular Cariovascular: denies: Irregular heart rate, Chest pain, Edema, Lightheadedness, Syncope - Respiratory Respiratory: denies: Cough, Sputum production, Wheezing, SOB at rest, SOB with e xertion - Gastrointestinal Gastrointestinal: reports: Abdominal pain, Diarrhea, Nausea, Vomiting, Bloating. denies: Rectal bleeding - Genitourinary Genitourinary: denies: Dysuria, Frequency, Urgency, Hematuria, Incontinence, Flank pain - Musculoskeletal Musculoskeletal: reports: Other. denies: Muscle pain, Muscle aches, Stiffness - Integumentary Integumentary: denies: Rash, Pruritis, Lesions, Dryness - Neurological Neurological: denies: Focal weakness, Headache, Dizziness, Numbness - Psychiatric Psychiatric: denies: Depression, Anxiety - Endocrine Endocrine: denies: Polyuria, Polydypsia, Polyphagia - Hematologic/Lymphatic Hematologic/Lymphatic: denies: Anemia, Bruising, Petechiae Prior Level of Functionality: Independent of activities of daily living. Lives with at home. Has 2 children Exam - Vital Signs Vital Signs: Vital Signs x48h Temp Pulse Resp BP Pulse Ox 01/05/19 21:27 82 16 115/70 96 01/05/19 19:55 36.6 C 80 16 119/67 93 01/05/19 17:13 36.8 C 71 15 111/57 L 99 - Physical Exam General Appearance: positive: Alert, Moderate distress. negative: Anxious Eyes Bilateral: positive: Normal inspection, PERRL, EOMI ENT: positive: ENT inspection nml, No signs of dehydration Neck: positive: Nml inspection, No JVD, Trachea midline Respiratory: positive: Chest non-tender, No respiratory distress, Breath sounds nml. negative: Wheezes, Rales, Rhonchi Cardiovascular: positive: Regular rate & rhythm, No murmur Abdomen: positive: No organomegaly, Tenderness, Abnml bowel sounds (hyperactive bowel sounds), Other (bloated) Back: positive: Nml inspection Skin: positive: Color nml, No rash, Warm, Dry Extremities: positive: Other (BKA) Neurologic/Psychiatric: positive: Oriented x3 Conclusion/Plan - Problem List (1) Nausea & vomiting Conclusion/Plan: Likely 2/2 eosinophilic gastritis Patient made NPO. IV hydration with normal saline Treat with Zofran. Morphine prn for pain Qualifiers: Vomiting type: unspecified Vomiting Intractability: non-intractable Qualified Code(s): R11.2 - Nausea with vomiting, unspecified (2) Eosinophilic gastritis or gastroenteritis Conclusion/Plan: Patient given dexamethasone 10mg IV in the ED Will give methylprednisolone 60mg in the am Pt currently NPO. TPN currently on hold. Pain management Plan for patient to be discharged later on 01/06/19 to follow with GI at [facility]. He has a scheduled appointment 01/06/19 (3) Depression Conclusion/Plan: On duloxetine Qualifiers: Depression Type: major depressive disorder (4) Chronic pain Conclusion/Plan: On lyrica Qualifiers: Chronic pain type: chronic pain syndrome Qualified Code(s): G89.4 - Chronic pain syndrome - Lab Results Fish Bones: 01/05/19 16:20 01/05/19 16:20 Core Measures - Anticipated LOS I expect patient to be DC'd or transferred within 96 hours.: Yes - DVT/VTE - Prophylaxis VTE/DVT Device ordered at admit?: Yes
[2019-01-06] MEDS: MORPHINE 2 MG/ML SYRINGE IVP PRN ×4 (00:15→15:43)
[2019-01-06] MEDS: SODIUM CHLORIDE FLUSH 0.9% 10 ML SYRINGE IVP SCH ×3 (02:09→15:46)
[2019-01-06] MEDS ORDERED: methylPREDNISolone SUCCINATE 40 MG/ML VIAL IVP SCH (06:00)
[2019-01-06] MEDS ORDERED: PANTOPRAZOLE 40 MG VIAL IVP SCH (07:00)
[2019-01-06] MEDS ORDERED: POLYETHYLENE GLYCOL 3350 17 GM PACKET PO SCH (09:00)
[2019-01-06] MEDS: SODIUM CHLORIDE 0.9% 1,000 ML IV SCH (09:46)
[2019-01-06] MEDS: SODIUM CHLORIDE FLUSH 0.9% 10 ML SYRINGE IVP PRN ×2 (09:51→17:38)
--- NOTE | 2019-01-06 15:29 | Discharge Plan ---
Discharge Plan Disposition: 01 Home, Self Care Condition: Stable Activity Restrictions: Activity as Tolerated Additional Instructions or Follow Up instructions: You were in the hospital to manage dehydration from unremitting vomiting. Please keep your upcoming appointment with specialist tomorrow. No Smoking: If you smoke, Please STOP! Call for help. Follow-up with: Francis Chiu PA-C [Primary Care Provider] -
[2019-01-06 17:44] VITALS: BP 114/58
[2019-01-06] MEDS ORDERED: HYDROmorphone 2 MG/ML VIAL IVP SCH (17:45)
--- NOTE | 2019-01-06 18:40 | PROVIDER PROGRESS NOTE ---
Assessment/Plan - Problem List (1) Nausea & vomiting Qualifiers: Vomiting type: unspecified Vomiting Intractability: non-intractable Qualified Code(s): R11.2 - Nausea with vomiting, unspecified Assessment/Plan: His nausea stopped. He did ask for one dose of pain meds while here several hours in Observation status. He was hydrated with iv fluids. He was DCh in order to attend the GI appointment at tomorrow. (2) Eosinophilic gastritis or gastroenteritis Assessment/Plan: As above. - Lab Result Fish Bone Diagrams: 01/05/19 16:20 01/05/19 16:20 - Additional Planning My Orders: My Active Orders 01/06/19 15:29 Discharge [RC] .ONCE Initiate Discharge Checklist [RC] .ONCE Subjective - Subjective Patient Reports: Feeling Better, Resting Comfortably Nursing Reports: Other (No further N/V but needed some meds for abdominal pain) Objective Vital Signs: Vital Signs - 24 hr 01/05/19 01/05/19 01/06/19 19:55 21:27 00:00 Temperature 36.6 C 36.9 C Heart Rate 80 82 Heart Rate [ 80 Brachial] Respiratory 16 16 16 Rate Blood Pressure 119/67 115/70 Blood Pressure 104/58 L [Left Brachial artery] O2 Saturation 93 96 96 01/06/19 01/06/19 01/06/19 06:51 11:47 12:20 Temperature 36.3 C L 36.3 C L 36.5 C Heart Rate 82 Heart Rate [ 82 74 Brachial] Respiratory 16 16 16 Rate Blood Pressure Blood Pressure 123/64 108/57 L [Left Brachial artery] O2 Saturation 95 95 96 01/06/19 01/06/19 15:11 17:42 Temperature 36.4 C L 36.8 C Heart Rate Heart Rate [ 84 84 Brachial] Respiratory 16 16 Rate Blood Pressure Blood Pressure 110/51 L 114/58 L [Left Brachial artery] O2 Saturation 96 98 Oxygen O2 Source Room air I&O (Last 24 Hrs): Intake and Output Totals x24h 01/04/19 01/05/19 01/06/19 23:59 23:59 23:59 Intake Total 2101.5 2000 Output Total 650 1225 Balance 1451.5 775 General: Alert, Oriented x3 HEENT: Mucous membr. moist/pink Neuro: Non Focal Cardiovascular: Regular rate Respiratory: No respiratory distress Abdomen: Soft Extremities: Other (Has below-knee prostheses.) - Results Results: Laboratory Results WBC 15.1 x10^3/uL (4.8-10.8) H 01/05/19 16:20 RBC 5.13 10^6/uL (4.70-6.10) 01/05/19 16:20 Hgb 14.2 g/dL (14.0-18.0) 01/05/19 16:20 Hct 43.6 % (42.0-52.0) 01/05/19 16:20 MCV 85.1 fL (80.0-94.0) 01/05/19 16:20 MCH 27.7 pg (27.0-31.0) 01/05/19 16:20 MCHC 32.5 g/dL (32.0-36.0) 01/05/19 16:20 RDW 14.4 % (12.0-15.0) 01/05/19 16:20 Plt Count 193 10^3/uL (130-450) 01/05/19 16:20 MPV 10.2 fL (7.4-11.4) 01/05/19 16:20 Neut # (Auto) Not Reportable 01/05/19 16:20 Lymph # (Auto) Not Reportable 01/05/19 16:20 Heard # (Auto) Not Reportable 01/05/19 16:20 Eos # (Auto) Not Reportable 01/05/19 16:20 Baso # (Auto) Not Reportable 01/05/19 16:20 Absolute Nucleated RBC Not Reportable 01/05/19 16:20 Total Counted 100 01/05/19 16:20 Band Neuts % (Manual) 0 % (0-10) 01/05/19 16:20 Abnorm Lymph % (Manual) 0 % 01/05/19 16:20 Nucleated RBC % Not Reportable 01/05/19 16:20 Neutrophils # (Manual) 7.4 10^3/uL (1.5-6.6) H 01/05/19 16:20 Lymphocytes # (Manual) 3.5 10^3/uL (1.5-3.5) 01/05/19 16:20 Monocytes # (Manual) 0.3 10^3/uL (0.0-1.0) 01/05/19 16:20 Eosinophils # (Manual) 3.9 10^3/uL (0-0.7) H 01/05/19 16:20 Basophils # (Manual) 0.0 10^3/uL (0-0.1) 01/05/19 16:20 Differential Comment MANUAL DIFFERENTIAL 01/05/19 16:20 Manual Slide Review Indicated 01/05/19 16:20 WBC Morphology NORMAL APPEARANCE (NORMAL) 01/05/19 16:20 Platelet Estimate NORMAL (130-450,000) (NORMAL) 01/05/19 16:20 Platelet Morphology NORMAL APPEARANCE (NORMAL) 01/05/19 16:20 RBC Morph Micro Appear NORMAL APPEARANCE (NORMAL) 01/05/19 16:20 ESR 4 mm/Hr (0-15) 01/05/19 16:20 Sodium 139 mmol/L (135-145) 01/05/19 16:20 Potassium 3.8 mmol/L (3.5-5.0) 01/05/19 16:20 Chloride 104 mmol/L (101-111) 01/05/19 16:20 Carbon Dioxide 25 mmol/L (21-32) 01/05/19 16:20 Anion Gap 10.0 (6-13) 01/05/19 16:20 BUN 18 mg/dL (6-20) 01/05/19 16:20 Creatinine 0.5 mg/dL (0.6-1.2) L 01/05/19 16:20 Estimated GFR (MDRD) 190 (>89) 01/05/19 16:20 Glucose 83 mg/dL (70-100) 01/05/19 16:20 Calcium 9.2 mg/dL (8.5-10.3) 01/05/19 16:20 Phosphorus 2.7 mg/dL (2.5-4.6) 01/05/19 16:20 Magnesium 2.2 mg/dL (1.7-2.8) 01/05/19 16:20 Total Bilirubin 0.5 mg/dL (0.2-1.0) 01/05/19 16:20 AST 13 IU/L (10-42) 01/05/19 16:20 ALT 16 IU/L (10-60) 01/05/19 16:20 Alkaline Phosphatase 75 IU/L (42-121) 01/05/19 16:20 Total Protein 7.1 g/dL (6.7-8.2) 01/05/19 16:20 Albumin 4.1 g/dL (3.2-5.5) 01/05/19 16:20 Globulin 3.0 g/dL (2.1-4.2) 01/05/19 16:20 Albumin/Globulin Ratio 1.4 (1.0-2.2) 01/05/19 16:20 Lipase 27 U/L (22-51) 01/05/19 16:20 - Procedures Procedures: Procedures CENTRAL VENOUS CATHETER PLACEMENT WITH GUIDANCE (01/22/15) CHANGE OTH DEV IN UP EXTREM SUBCU/FASCIA, INSURANCE VERIFICATION REP APPROACH (09/18/17) FLUOROSCOPY OF SUP VENA CAVA USING L OSM CONTRAST, GUIDANCE (05/15/17) INSERTION OF INFUSION DEV INTO SPINAL CANAL, PERC APPROACH (04/27/16) INSERTION OF INFUSION DEV INTO SUP VENA CAVA, PERC APPROACH (08/23/17) INSERTION OF TOTALLY IMPLANTABLE VASC ACCESS DEVIC (07/06/15) INSPECTION OF GALLBLADDER, PERCUTANEOUS ENDOSCOPIC APPROACH (04/27/16) INTRODUCE ANALG/HYPNOT/SEDAT IN SPINAL CANAL, PERC (04/27/16) INTRODUCTION OF NUTRITIONAL INTO PERIPH VEIN, PERC APPROACH (08/23/17) REMOVAL OF INFUSION DEVICE FROM HEART, PERCUTANEOUS APPROACH (11/01/15) REMOVAL OF INFUSION DEVICE FROM UPPER VEIN, PERC APPROACH (08/23/17) RESECTION OF GALLBLADDER, OPEN APPROACH (04/27/16)
== END 2019-01-06 17:55 | disposition home or self-care (01) ==
LOC: ED 14:03 → OBS 22:03
PROVIDERS: ADMIT Internal Medicine; ATTEND Internal Medicine
DX: K52.81 Eosinophilic gastritis or gastroenteritis (principal); E86.0 Dehydration; K21.9 Gastro-esophageal reflux disease without esophagitis; F32.9 Major depressive disorder, single episode, unspecified; F41.0 Panic disorder [episodic paroxysmal anxiety]; G89.4 Chronic pain syndrome; Z79.899 Other long term (current) drug therapy; Z90.49 Acquired absence of other specified parts of digestive tract; Z87.19 Personal history of other diseases of the digestive system; Z89.512 Acquired absence of left leg below knee; Z89.511 Acquired absence of right leg below knee; Z87.76 Personal history of (corrected) congenital malformations of integument, limbs and musculoskeletal system; Z87.442 Personal history of urinary calculi
CPT/HCPCS: 36415; 80053; 83690; 83735; 84100; 85025; 85651; 96361; 96365; 96375; 96376; 99284; G0378; J1170; J2270; J7040

== ENCOUNTER 2019-02-21 15:34 | Emergency (ER) | payer MEDICAID ==
[2019-02-21 15:46] VITALS: BP 127/61
[2019-02-21] MEDS ORDERED: SODIUM CHLORIDE 0.9% 1,000 ML IV ONE (16:03)
[2019-02-21] MEDS ORDERED: ONDANSETRON 4 MG/2 ML VIAL IVP STA (16:03)
[2019-02-21] MEDS ORDERED: HYDROmorphone 1 MG/ML CARPUJECT IVP STA (16:03)
[2019-02-21] MEDS ORDERED: ACETAMINOPHEN 325 MG TABLET PO STA (16:03)
--- NOTE | 2019-02-21 16:08 | ED Physician Documentation ---
History of Present Illness - Stated complaint Stated Complaint: FEVER/WEAKNESS - Chief complaint Chief Complaint: Fever - History obtained from History obtained from: Patient - History of Present Illness Timing: Other (33-year-old gentleman with history of eosinophilic colitis, he is TPN dependent. He has a right upper chest wall Gamez that spent in for about a year he says. Over the last 2 days he developed intermittent fevers, chills, nausea body aches and weakness similar to previous line infections.) Review of Systems Ten Systems: 10 systems reviewed and negative Constitutional: reports: Fever, Chills, Myalgias, Fatigue Nose: denies: Rhinorrhea / runny nose, Congestion Throat: denies: Sore throat Respiratory: denies: Dyspnea, Cough GI: reports: Nausea. 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: None : Kidney stones HEENT: Chronic sinusitis Psych: Depression, Anxiety, Panic attacks, Other Musculoskeletal: Chronic back pain, Other Derm: Eczema - Past Surgical History Past Surgical History: Yes General: Cholecystectomy, Bowel surgery, Colonoscopy, Other Ortho: Spine surgery, Amputation - Present Medications Home Medications: Ambulatory Orders Medication Instructions Recorded Confirmed Ondansetron [Ondansetron Odt] 4 mg PO Q4H PRN 04/05/13 01/05/19 Omeprazole 40 mg PO QDAC 07/06/14 01/05/19 Duloxetine HCl [Cymbalta] 60 mg PO DAILY 05/11/15 01/05/19 Sodium/Pot/Mag/Calc/Chlor/Acet 2,000 ml IV QPM 07/03/15 01/05/19 [TPN Electrolytes II IV Soln] Loratadine [Claritin] 10 mg PO QPM 03/09/16 01/05/19 Pregabalin [Lyrica] 75 mg PO DAILY 01/05/19 01/05/19 - Allergies Allergies/Adverse Reactions: Allergies Allergy/AdvReac Type Severity Reaction Status Date / Time metoclopramide HCl * Allergy Severe Anxiety Verified 02/21/19 15:47 [From Reglan] NSAIDS (Non-Steroidal Allergy Severe Erosive Verified 02/21/19 15:47 Anti-Inflamma Esophagitis vancomycin AdvReac Intermediate Unknown Verified 02/21/19 15:47 - Social History Does the pt smoke?: No Smoking Status: Never smoker Does the pt drink ETOH?: No Does the pt have substance abuse?: Yes Substance Use and Type: Marijuana - Family History Family history: reports: Non contributory - Immunizations Immunizations are current?: Yes - POLST Patient has POLST: No POLST Status: Full Code PD ED PE NORMAL - Vitals Vital signs reviewed: Yes (Febrile and tachycardic) - General General: Alert and oriented X 3, No acute distress - HEENT HEENT: PERRL, EOMI - Neck Neck: Supple, no meningeal sign, No bony TTP - Cardiac Cardiac: RRR, No murmur, Other (2 lm right upper chest wall catheter without obvious evidence of infection) - Respiratory Respiratory: No respiratory distress, Clear bilaterally - Abdomen Abdomen: Soft, Non tender - Back Back: No CVA TTP, No spinal TTP - Derm Derm: Normal color, Warm and dry - Extremities Extremities: Other (He is status post bilateral BKA's) - Neuro Neuro: Alert and oriented X 3, Normal speech Results - Vitals Vitals: Vital Signs - 24 hr 02/21/19 15:40 Temperature 38.1 C H Heart Rate 112 H Respiratory 18 Rate Blood Pressure 127/61 O2 Saturation 100 Oxygen O2 Source Room air - Labs Labs: Laboratory Tests 02/21/19 02/21/19 02/21/19 16:30 16:30 16:38 WBC 11.5 H RBC 5.22 Hgb 14.3 Hct 43.6 MCV 83.6 MCH 27.5 MCHC 32.9 RDW 14.4 Plt Count 153 MPV 9.2 Neut # (Auto) 9.6 H Lymph # (Auto) 1.0 L [place] # (Auto) 0.8 Eos # (Auto) 0.1 Baso # (Auto) 0.1 Absolute Nucleated RBC 0.00 Nucleated RBC % 0.0 Sodium 134 L Potassium 3.4 L Chloride 101 Carbon Dioxide 19 L Anion Gap 14.0 H BUN 19 Creatinine 0.7 Estimated GFR (MDRD) 129 Glucose 113 H Lactic Acid 1.4 Calcium 8.8 PD MEDICAL DECISION MAKING - ED course ED course: 33-year-old gentleman with recurrent line sepsis, TPN dependent presents with fevers, mildly elevated white blood cell count. I offered admission pending blood cultures, he lives very close and would prefer to go home. He is a reliable patient and we have done this before but he understands he will probably have to return to night when we call him with positive blood cultures. Departure - Departure Disposition: Home, Self Care Clinical Impression: Status post PICC central line placement, Fever Condition: Good Record reviewed to determine appropriate education?: Yes Comments: As discussed we will call you will need to return immediately if blood cultures are positive. Return if worsening.
[2019-02-21 16:44] LABS: BASOPHILS # (AUTO) 0.1 10^3/uL (0.0-0.1); BASOPHILS % (AUTO) 0.5 %; EOSINOPHILS # (AUTO) 0.1 10^3/uL (0.0-0.7); HGB - HEMOGLOBIN 14.3 g/dL (14.0-18.0); LYMPHOCYTES % (AUTO) 8.9 %; MEAN CORPUSCULAR HEMOGLOBIN 27.5 pg (27.0-31.0); MEAN CORPUSCULAR HGB CONC 32.9 g/dL (32.0-36.0); MEAN CORPUSCULAR VOLUME 83.6 fL (80.0-94.0); MEAN PLATELET VOLUME 9.2 fL (7.4-11.4); MONOCYTES # (AUTO) 0.8 10^3/uL (0.0-1.0); MONOCYTES % (AUTO) 6.7 %; NEUTROPHILS # (AUTO) 9.6 10^3/uL (1.5-6.6); NEUTROPHILS % (AUTO) 82.9 %; PLT - PLATELET COUNT 153 10^3/uL (130-450); RED BLOOD COUNT 5.22 10^6/uL (4.70-6.10); RED CELL DISTRIBUTION WIDTH 14.4 % (12.0-15.0); WHITE BLOOD COUNT 11.5 x10^3/uL (4.8-10.8)
[2019-02-21 16:51] LABS: CALCIUM 8.8 mg/dL (8.5-10.3); CREATININE 0.7 mg/dL (0.6-1.2)
== END 2019-02-21 17:44 | disposition home or self-care (01) ==
LOC: ED 15:34
DX: R50.9 Fever, unspecified (principal); D72.829 Elevated white blood cell count, unspecified; Z95.828 Presence of other vascular implants and grafts
CPT/HCPCS: 36415; 80048; 83605; 85025; 87040; 87077; 87181; A9270; J1170; 99283

== ENCOUNTER 2019-02-21 19:25 | Inpatient (IN) | payer MEDICAID ==
[2019-02-21] MEDS ORDERED: VANCOMYCIN INJ 1.5 GM in SODIUM CHLORIDE 0.9% 500 ML IV STA (19:42)
[2019-02-21] MEDS ORDERED: NAFCILLIN 2 GM in SODIUM CHLORIDE 0.9% MINIBAG 100 ML IV STA ×2 (19:44→20:38)
--- NOTE | 2019-02-21 19:52 | ED Physician Documentation ---
History of Present Illness - Stated complaint Stated Complaint: FEVER - Chief complaint Chief Complaint: Fever - History obtained from History obtained from: Patient, Family - History of Present Illness Timing: Other (Seen by me earlier in the day. Briefly this is a gentleman with recurrent line sepsis, TPN dependent with fevers and body aches for 2 days. He was seen earlier in the day and had a white count of 11-1/2. He wanted to be discharged pending his blood cultures. He returns at the behest of his home health nurse to be admitted. 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 : Kidney stones HEENT: Chronic sinusitis Psych: Depression, Anxiety, Panic attacks, Other Musculoskeletal: Chronic back pain, Other Derm: Eczema - Past Surgical History Past Surgical History: Yes General: Cholecystectomy, Bowel surgery, Colonoscopy, Other Ortho: Spine surgery, Amputation - Present Medications Home Medications: Ambulatory Orders Medication Instructions Recorded Confirmed RX: Ondansetron [Ondansetron Odt] 4 mg PO Q4H PRN 04/05/13 01/05/19 RX: Omeprazole 40 mg PO QDAC 07/06/14 01/05/19 RX: Duloxetine HCl [Cymbalta] 60 mg PO DAILY 05/11/15 01/05/19 RX: Sodium/Pot/Mag/Calc/Chlor/Acet 2,000 ml IV QPM 07/03/15 01/05/19 [TPN Electrolytes II IV Soln] RX: Loratadine [Claritin] 10 mg PO QPM 03/09/16 01/05/19 Pregabalin [Lyrica] 75 mg PO DAILY 01/05/19 01/05/19 - Allergies Allergies/Adverse Reactions: Allergies Allergy/AdvReac Type Severity Reaction Status Date / Time metoclopramide HCl * Allergy Severe Anxiety Verified 02/21/19 19:30 [From Reglan] NSAIDS (Non-Steroidal Allergy Severe Erosive Verified 02/21/19 19:30 Anti-Inflamma Esophagitis vancomycin AdvReac Intermediate Unknown Verified 02/21/19 19:30 - Social History Does the pt smoke?: No Smoking Status: Never smoker Does the pt drink ETOH?: No Does the pt have substance abuse?: Yes - Family History Family history: reports: Non contributory - Immunizations Immunizations are current?: Yes - POLST Patient has POLST: No POLST Status: Full Code PD ED PE NORMAL - Vitals Vital signs reviewed: Yes - General General: Alert and oriented X 3, No acute distress - HEENT HEENT: PERRL, EOMI - Neck Neck: Supple, no meningeal sign, No bony TTP - Cardiac Cardiac: RRR, No murmur - Respiratory Respiratory: No respiratory distress, Clear bilaterally - Abdomen Abdomen: Normal bowel sounds, Soft, Non tender - Back Back: No CVA TTP, No spinal TTP - Derm Derm: Normal color, Warm and dry - Neuro Neuro: Alert and oriented X 3, Normal speech - Psych Psych: Normal mood, Normal affect Results - Vitals Vitals: Vital Signs - 24 hr 02/21/19 19:27 Temperature 36.5 C Heart Rate 100 Respiratory 14 Rate Blood Pressure 99/53 L O2 Saturation 97 Oxygen O2 Source Room air - Labs Labs: Laboratory Tests 02/21/19 19:57 Lactic Acid 1.2 PD MEDICAL DECISION MAKING - ED course ED course: 33-year-old gentleman bounces back from home not worse but not better with continued symptoms of potential line infection. Prior notes reviewed, we are avoiding vancomycin due to past issues with nephrotoxicity, I ordered nafcillin but after discussion with the hospitalist we decided to use what was used on the last admission which is daptomycin. Spoke with Dr. Benitez to for admission at 7:55 PM. He was passed on to me that we did not have daptomycin. Therefore I canceled it and ordered nafcillin. However during that time interim the pharmacist came in and we did have daptomycin. Departure - Departure Disposition: ED Place in Observation Clinical Impression: Febrile disorder, Bloodstream infection due to Gamez catheter Condition: Stable Discharge Date/Time: 02/21/19 21:15
[2019-02-21] MEDS ORDERED: ACETAMINOPHEN 325 MG TABLET PO PRN (19:58)
[2019-02-21] MEDS ORDERED: HYDROmorphone 2 MG/ML VIAL IVP PRN (21:34)
[2019-02-21] MEDS: HEPARIN 5,000 UNIT/ML VIAL SUBQ SCH (22:00)
[2019-02-21] MEDS: SODIUM CHLORIDE FLUSH 0.9% 10 ML SYRINGE IVP PRN (22:02)
--- NOTE | 2019-02-21 23:06 | HISTORY & PHYSICAL EXAMINATION ---
Chief Complaint - Chief Complaint Chief Complaint: intermittent fever and chills History of Present Illness - Admitted From Admitted From:: [facility] ED - History Obtained From Records Reviewed: yes History obtained from: patient - History of Present Illness HPI Comment/Other: Patient seen on 02/21/19 at 2030pm Patient is a 33 y/o male who presented to the ED with complain of intermittent fevers, chills, hot flashes, weakness and generalized body aches. Symptoms started 2 days ago. He denies chest pain or NELIA. He has chronic abdominal pain, but it seems to have worsened in the same time. 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 He was initially evaluated in the ED and had a WBC of 11.5. Blood cultures were drawn and he opted to go home and to be contacted if result were positive. However he return because he was not felling well and got diaphoretic. His vitals were BP 99/53, Temp 38.1 C and pulse 100. As a result, he is being admitted for further treatment. In the past blood cultures have grown a staph species. 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: None : reports: Kidney stones HEENT: reports: Chronic sinusitis Psych: reports: Depression, Anxiety, Panic attacks, Other Musculoskeletal: reports: Chronic back pain, Other Derm: reports: Eczema MRSA Hx?: No Other Past Medical History: esophilic gastroenteritis - Past Surgical History General: reports: Cholecystectomy, Bowel surgery, Colonoscopy, Other Ortho: reports: Spine surgery, Amputation - Family & Social History Family History: Mother: Alive and Well, Father: Alive and Well, Brother: Alive and Well Family History Comment/Other: The patient's father has been astranged and his health history is unknown. His mother and half brother are alive and well without any known chronic illnesses. Social History Notes: Patient was born in [place], [place]; came to [place] when he was 5 years old. He met his when they were in second grade. Started dating in high school. They have 3 children together but had to give 1 up for adoption because of financial and social situation. 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 He has no history of substance abuse, with the exception of medical marijuana, is a non-smoker and rarely drinks alcohol. He lives at home with his . - Substance History Use: Uses substance without health or social issues: Cannabis - POLST Patient has POLST: No POLST Status: Full Code Meds/Allgy - Home Medications Home Medications: Ambulatory Orders Medication Instructions Recorded Confirmed Ondansetron [Ondansetron Odt] 4 mg PO Q4H PRN 04/05/13 01/05/19 Omeprazole 40 mg PO QDAC 07/06/14 01/05/19 Duloxetine HCl [Cymbalta] 60 mg PO DAILY 05/11/15 01/05/19 Sodium/Pot/Mag/Calc/Chlor/Acet 2,000 ml IV QPM 07/03/15 01/05/19 [TPN Electrolytes II IV Soln] Loratadine [Claritin] 10 mg PO QPM 03/09/16 01/05/19 Pregabalin [Lyrica] 75 mg PO DAILY 01/05/19 01/05/19 - Allergies Allergies/Adverse Reactions: Allergies Allergy/AdvReac Type Severity Reaction Status Date / Time metoclopramide HCl * Allergy Severe Anxiety Verified 02/21/19 19:30 [From [facility]] NSAIDS (Non-Steroidal Allergy Severe Erosive Verified 02/21/19 19:30 Anti-Inflamma Esophagitis vancomycin AdvReac Intermediate Unknown Verified 02/21/19 19:30 Review of Systems - Constitutional Constitutional: reports: Fatigue, Fever, Chills, Malaise, Diaphoresis - Eyes Eyes: denies: Amaurosis, Blurred vision, Vision loss - Ears, Nose & Throat Ears, Nose & Throat: denies: Vertigo, Nasal pain, Nasal discharge, Sore throat, Hoarseness - Cardiovascular Cariovascular: denies: Irregular heart rate, Chest pain, Edema, Lightheadedness, Syncope - Respiratory Respiratory: denies: Cough, Sputum production, Wheezing, Hemoptysis - Gastrointestinal Gastrointestinal: reports: Abdominal pain, Diarrhea, Nausea, Vomiting, Reflux/heartburn. denies: Abdominal distention, Constipation, Coffee grounds emesis, Bloating - Genitourinary Genitourinary: denies: Dysuria, Frequency, Urgency, Hematuria - Musculoskeletal Musculoskeletal: denies: Muscle aches, Stiffness, Gout, Joint pain - Integumentary Integumentary: denies: Rash, Pruritis, Lesions, Dryness - Neurological Neurological: denies: Headache, Dizziness - Psychiatric Psychiatric: denies: Depression, Anxiety - Hematologic/Lymphatic Hematologic/Lymphatic: denies: Anemia, Bruising, Petechiae Prior Level of Functionality: He is independent of activities of daily living. Exam - Vital Signs Vital Signs: Vital Signs x48h Temp Pulse Pulse Resp BP BP Pulse Ox 02/21/19 21:19 36.7 C 90 20 107/62 95 02/21/19 20:48 36.9 C 92 115/73 97 02/21/19 19:27 36.5 C 100 14 99/53 L 97 - Physical Exam General Appearance: positive: Alert, Moderate distress Eyes Bilateral: positive: Normal inspection, PERRL, EOMI, Conjunctivae nml. negative: No scleral icterus ENT: positive: ENT inspection nml, No signs of dehydration Neck: positive: Nml inspection, No JVD, Trachea midline Respiratory: positive: Chest non-tender, No respiratory distress, Breath sounds nml. negative: Wheezes, Rales, Rhonchi Cardiovascular: positive: Tachycardia Abdomen: positive: No organomegaly, Nml bowel sounds, No distention, Tenderness. negative: Guarding, Rebound Back: positive: Nml inspection Skin: positive: Color nml, No rash, Warm, Dry. negative: Diaphoresis Extremities: positive: Non-tender, Other (bilateral BKA) Neurologic/Psychiatric: positive: Oriented x3 Sepsis Event Note (H) - Sepsis Criteria Sepsis Criteria: Suspected or Documented, Recorded Heart Rate greater than 90 bpm Conclusion/Plan - Problem List (1) Sepsis Conclusion/Plan: Suspect bacteremia 2/2 Gamez catheter Blood cultures drawn. Preliminary cultures positive In light of tachycardia and fever, patient started empirically on Nafacillin 2g IV q4hrs Patient has has cultures positive with Staph species in the past Tylenol for fever (2) Eosinophilic gastritis or gastroenteritis Conclusion/Plan: Chronic. Will hold TPN due to suspected infected IV hydration with NS at 100ml/hr (3) Abdominal pain Conclusion/Plan: Chronic Likely 2/2 eosinophilic gastritis Pain management with dilaudid (4) Depression Conclusion/Plan: On duloxetine Qualifiers: Depression Type: major depressive disorder (5) Chronic pain Conclusion/Plan: On lyrica Qualifiers: Chronic pain type: chronic pain syndrome Qualified Code(s): G89.4 - Chronic pain syndrome - Lab Results Fish Bones: 02/22/19 05:08 02/22/19 05:08 Core Measures - Anticipated LOS I expect patient to be DC'd or transferred within 96 hours.: Yes - DVT/VTE - Prophylaxis VTE/DVT Device ordered at admit?: No Not Ordered - Medical Reason: Not indicated (bilateral BKA) VTE/DVT Prophylaxis med ordered at admit?: Yes
[2019-02-22] MEDS: HYDROmorphone 0.5 MG/0.5 ML SYRINGE IVP PRN ×2 (01:11→05:03)
[2019-02-22] MEDS: PANTOPRAZOLE 40 MG VIAL IVP SCH ×2 (01:12→06:08)
[2019-02-22] MEDS: SODIUM CHLORIDE FLUSH 0.9% 10 ML SYRINGE IVP SCH ×3 (01:12→17:49)
[2019-02-22] MEDS: SODIUM CHLORIDE 0.9% 1,000 ML IV SCH ×2 (01:12→15:47)
[2019-02-22] MEDS: NAFCILLIN 2 GM in SODIUM CHLORIDE 0.9% MINIBAG 100 ML IV SCH ×4 (01:12→13:11)
[2019-02-22] MEDS: SODIUM CHLORIDE FLUSH 0.9% 10 ML SYRINGE IVP PRN ×3 (05:04→13:43)
[2019-02-22 05:40] LABS: BASOPHILS # (AUTO) 0.1 10^3/uL (0.0-0.1); BASOPHILS % (AUTO) 0.7 %; EOSINOPHILS # (AUTO) 0.3 10^3/uL (0.0-0.7); HGB - HEMOGLOBIN 13.6 g/dL (14.0-18.0); LYMPHOCYTES # (AUTO) 2.7 10^3/uL (1.5-3.5); LYMPHOCYTES % (AUTO) 28.6 %; MEAN CORPUSCULAR HGB CONC 32.7 g/dL (32.0-36.0); MEAN CORPUSCULAR VOLUME 85.7 fL (80.0-94.0); MEAN PLATELET VOLUME 9.4 fL (7.4-11.4); MONOCYTES % (AUTO) 10.6 %; NEUTROPHILS # (AUTO) 5.4 10^3/uL (1.5-6.6); NEUTROPHILS % (AUTO) 57.1 %; PLT - PLATELET COUNT 143 10^3/uL (130-450); RED BLOOD COUNT 4.86 10^6/uL (4.70-6.10); RED CELL DISTRIBUTION WIDTH 14.7 % (12.0-15.0); WHITE BLOOD COUNT 9.5 x10^3/uL (4.8-10.8)
[2019-02-22 05:48] LABS: CALCIUM 8.4 mg/dL (8.5-10.3); CREATININE 0.6 mg/dL (0.6-1.2)
[2019-02-22] MEDS ORDERED: POTASSIUM CHLORIDE 20 MEQ TABLET PO ONE (08:00)
[2019-02-22] MEDS: POLYETHYLENE GLYCOL 3350 17 GM PACKET PO SCH (09:51)
[2019-02-22] MEDS: HEPARIN 5,000 UNIT/ML VIAL SUBQ SCH ×2 (09:51→20:49)
[2019-02-22] MEDS: HYDROmorphone 1 MG/ML CARPUJECT IVP PRN ×5 (10:33→23:46)
[2019-02-22] MEDS: SODIUM CHLORIDE 0.9% IV SCH (18:15)
[2019-02-22] MEDS: DAPTOMYCIN IV SCH (18:15)
--- NOTE | 2019-02-22 18:48 | PROVIDER PROGRESS NOTE ---
Subjective - Prog Note Date Prog Note Date: 02/22/19 Prog Note Time: 18:45 - Subjective Pt reports feeling: No change Current Medications - Current Medications Current Medications: Active Medications Acetaminophen (Tylenol) 650 mg PO Q4HR PRN PRN Reason: Pain 1 to 4 Duloxetine HCl (Cymbalta) 60 mg PO BID [facility] Heparin Sodium (Porcine) () 5,000 unit SUBQ BID [facility] Last Admin: 02/22/19 09:51 Dose: 5,000 unit Hydromorphone HCl (Dilaudid Inj Carp) 1 mg IVP Q3H PRN PRN Reason: PAIN Last Admin: 02/22/19 13:35 Dose: 1 mg Sodium Chloride (Normal Saline 0.9%) 1,000 mls @ 100 mls/hr IV .Q10H [facility] Last Infusion: 02/22/19 18:16 Dose: 0 mls/hr Daptomycin 640 mg/ Sodium (Chloride) 112.8 mls @ 200 mls/hr IV Q24H [facility] Last Admin: 02/22/19 18:15 Dose: 200 mls/hr (Methylphenidate Hcl [Methylphenidate Er ] 54 Mg) 54 mg PO DAILY [facility] Pantoprazole Sodium (Protonix) 40 mg IVP QDAC [facility] Last Admin: 02/22/19 06:08 Dose: 40 mg Polyethylene Glycol (Miralax) 17 gm PO DAILY [facility] Last Admin: 02/22/19 09:51 Dose: Not Given Pregabalin (Lyrica) 75 mg PO BID [facility] Sodium Chloride (Normal Saline Flush 0.9%) 10 ml IVP PRN PRN PRN Reason: NEEDED PER PROVIDER ORDERS Last Admin: 02/22/19 13:43 Dose: 10 ml Sodium Chloride (Normal Saline Flush 0.9%) 10 ml IVP 0100,0900,1700 [facility] Last Admin: 02/22/19 17:49 Dose: Not Given Omeprazole 40 mg PO BID 07/06/14 Duloxetine HCl [Cymbalta] 60 mg PO BID 05/11/15 Sodium/Pot/Mag/Calc/Chlor/Acet [TPN Electrolytes II IV Soln] 2,000 ml IV QPM 07/03/15 Loratadine [Claritin] 10 mg PO QPM 03/09/16 Pregabalin [Lyrica] 75 mg PO BID 01/05/19 Ergocalciferol (Vitamin D2) [Vitamin D2] 50,000 units PO SA@0900 02/22/19 Methylphenidate HCl [Methylphenidate ER] 54 mg PO DAILY 02/22/19 predniSONE [Prednisone] 5 mg PO DAILY 02/22/19 Objective - Vital Signs/Intake & Output Reviewed Vital Signs: Yes Vital Signs: Vital Signs x48h Temp Pulse Resp BP Pulse Ox 02/22/19 15:41 36.4 C L 73 16 110/57 L 98 Intake & Output: Intake & Output 02/19/19 02/20/19 02/21/19 02/22/19 23:59 23:59 23:59 23:59 Intake Total 100 2588.333 Output Total 700 Balance 100 1888.333 - Objective General Appearance: positive: No acute distress, Alert Eyes Bilateral: positive: PERRL, EOMI ENT: positive: Pharynx nml Neck: positive: No JVD Respiratory: positive: Chest non-tender. negative: Wheezes, Rales, Rhonchi Cardiovascular: positive: Regular rate & rhythm. negative: Systolic murmur, Gallop/S4, Friction rub Abdomen: positive: No organomegaly, Nml bowel sounds, Tenderness (diffuse). negative: Guarding, Rebound Skin: positive: Warm, Dry Extremities: positive: Pedal edema Neurologic/Psychiatric: positive: Oriented x3, CN's nml (2-12), Motor nml - Lab Results Fish Bones: 02/22/19 05:08 02/22/19 05:08 Other Labs: Lab Results x24hrs 02/22/19 02/22/19 02/21/19 Range/Units 05:08 05:08 19:57 WBC 9.5 (4.8-10.8) x10^3/uL RBC 4.86 (4.70-6.10) 10^6/uL Hgb 13.6 L (14.0-18.0) g/dL Hct 41.7 L (42.0-52.0) % MCV 85.7 (80.0-94.0) fL MCH 28.0 (27.0-31.0) pg MCHC 32.7 (32.0-36.0) g/dL RDW 14.7 (12.0-15.0) % Plt Count 143 (130-450) 10^3/uL MPV 9.4 (7.4-11.4) fL Neut # (Auto) 5.4 (1.5-6.6) 10^3/uL Lymph # (Auto) 2.7 (1.5-3.5) 10^3/uL [place] # (Auto) 1.0 (0.0-1.0) 10^3/uL Eos # (Auto) 0.3 (0.0-0.7) 10^3/uL Baso # (Auto) 0.1 (0.0-0.1) 10^3/uL Absolute Nucleated RBC 0.01 x10^3/uL Nucleated RBC % 0.1 /100WBC Sodium 142 (135-145) mmol/L Potassium 3.3 L (3.5-5.0) mmol/L Chloride 104 (101-111) mmol/L Carbon Dioxide 26 (21-32) mmol/L Anion Gap 12.0 (6-13) BUN 14 (6-20) mg/dL Creatinine 0.6 (0.6-1.2) mg/dL Estimated GFR (MDRD) 154 (>89) Glucose 85 (70-100) mg/dL Lactic Acid 1.2 (0.5-2.2) mmol/L Calcium 8.4 L (8.5-10.3) mg/dL ABX Reporting Has patient been on IV antibiotics over the past 48 hours?: Yes Sepsis Event Note (H) - Evaluation Possible source of Sepsis: positive: Implantable device Assessment/Plan - Problem List (1) Sepsis Impression: Ruled out. He does not meet criteria for sepsis and has bacteremia 2/2 Gamez catheter Blood cultures drawn. Preliminary cultures positive for both sets of cultures: gram positive cocci In light of tachycardia and fever, patient started empirically on Nafacillin 2g IV q4hrs but he has been changed to daptomycin for better coverage today. Patient has has cultures positive with Staph species in the past Tylenol for fever I will call [facility] in the am, to assess what they would like for treatment and whether we removed the line again. This would be the 4th line that needs to be changed bc of bacteremia (2) Eosinophilic gastritis or gastroenteritis Conclusion/Plan: Chronic. Will hold TPN due to suspected line infection IV hydration with NS at 100ml/hr May be able to get 75% of his calories by PPN. Will start tomorrow after 24 hours of abx. (3) Abdominal pain Conclusion/Plan: Chronic but also suddenly worsened in last 2 days. Likely 2/2 eosinophilic gastritis Pain management with dilaudid (4) Depression Conclusion/Plan: On duloxetine, resumed. Qualifiers: Depression Type: major depressive disorder (5) Chronic pain Conclusion/Plan: On lyrica, resumed. Qualifiers: Chronic pain type: chronic pain syndrome Qualified Code(s): G89.4 - Chronic pain syndrome
[2019-02-22] MEDS ORDERED: PROCHLORPERAZINE 10 MG/2 ML VIAL IVP PRN (20:21)
[2019-02-22] MEDS ORDERED: ONDANSETRON ODT 4 MG TABLET TL PRN (20:21)
[2019-02-22] MEDS: PREGABALIN 25 MG CAPSULE PO SCH (20:36)
[2019-02-22] MEDS: DULoxetine 30 MG CAPSULE PO SCH (20:49)
[2019-02-23] MEDS: SODIUM CHLORIDE FLUSH 0.9% 10 ML SYRINGE IVP SCH ×3 (00:28→15:40)
[2019-02-23] MEDS: SODIUM CHLORIDE 0.9% 1,000 ML IV SCH ×3 (01:54→21:42)
[2019-02-23] MEDS: HYDROmorphone 1 MG/ML CARPUJECT IVP PRN ×7 (04:12→23:46)
[2019-02-23 05:39] LABS: BASOPHILS % (AUTO) 0.5 %; EOSINOPHILS # (AUTO) 0.3 10^3/uL (0.0-0.7); EOSINOPHILS % (AUTO) 4.6 %; HGB - HEMOGLOBIN 12.7 g/dL (14.0-18.0); LYMPHOCYTES # (AUTO) 2.6 10^3/uL (1.5-3.5); LYMPHOCYTES % (AUTO) 34.6 %; MEAN CORPUSCULAR HEMOGLOBIN 27.7 pg (27.0-31.0); MEAN CORPUSCULAR HGB CONC 32.6 g/dL (32.0-36.0); MEAN PLATELET VOLUME 9.1 fL (7.4-11.4); MONOCYTES # (AUTO) 0.9 10^3/uL (0.0-1.0); MONOCYTES % (AUTO) 11.8 %; NEUTROPHILS # (AUTO) 3.7 10^3/uL (1.5-6.6); NEUTROPHILS % (AUTO) 48.5 %; PLT - PLATELET COUNT 164 10^3/uL (130-450); RED BLOOD COUNT 4.57 10^6/uL (4.70-6.10); RED CELL DISTRIBUTION WIDTH 14.4 % (12.0-15.0); WHITE BLOOD COUNT 7.6 x10^3/uL (4.8-10.8)
[2019-02-23 05:51] LABS: CALCIUM 8.4 mg/dL (8.5-10.3); CREATININE 0.7 mg/dL (0.6-1.2)
[2019-02-23] MEDS: PANTOPRAZOLE 40 MG VIAL IVP SCH (06:12)
[2019-02-23] MEDS: SODIUM CHLORIDE FLUSH 0.9% 10 ML SYRINGE IVP PRN ×2 (06:12→18:25)
[2019-02-23] MEDS: PREGABALIN 25 MG CAPSULE PO SCH ×2 (07:57→20:35)
[2019-02-23] MEDS: DULoxetine 30 MG CAPSULE PO SCH ×2 (07:57→20:35)
[2019-02-23] MEDS: HEPARIN 5,000 UNIT/ML VIAL SUBQ SCH ×2 (08:00→20:37)
[2019-02-23] MEDS: POLYETHYLENE GLYCOL 3350 17 GM PACKET PO SCH (09:35)
--- NOTE | 2019-02-23 11:29 | PROVIDER PROGRESS NOTE ---
Subjective - Prog Note Date Prog Note Date: 02/23/19 Prog Note Time: 11:18 - Subjective Subjective: Had worse abdominal pain yesterday. Needed increase of his Dilaudid. Seen overnight by the grades 9 12 tutor because his blood cultures came back as RIAN adkins memo. Patient was also complaining of a lump over his left mid abdomen. After being examined the grades 9 12 tutor felt that it is a small area of reaction to the subcu lovenox. Current Medications - Current Medications Current Medications: Active Medications Acetaminophen (Tylenol) 650 mg PO Q4HR PRN PRN Reason: Pain 1 to 4 Duloxetine HCl (Cymbalta) 60 mg PO BID [facility] Last Admin: 02/23/19 07:57 Dose: 60 mg Heparin Sodium (Porcine) () 5,000 unit SUBQ BID [facility] Last Admin: 02/23/19 08:00 Dose: 5,000 unit Hydromorphone HCl (Dilaudid Inj Carp) 1 mg IVP Q3H PRN PRN Reason: PAIN Last Admin: 02/23/19 11:06 Dose: 1 mg Sodium Chloride (Normal Saline 0.9%) 1,000 mls @ 100 mls/hr IV .Q10H [facility] Last Admin: 02/23/19 01:54 Dose: 100 mls/hr Daptomycin 640 mg/ Sodium (Chloride) 112.8 mls @ 200 mls/hr IV Q24H [facility] Last Infusion: 02/22/19 18:50 Dose: Infused Multivitamins 10 ml/ Chromium/Copper/Manganese/Seleni/Zn 1 ml/ Amino Acids/Electrolytes/Dextrose 2,011 mls @ 83 mls/hr IV Q24H [facility]; Protocol Fat Emulsion Intravenous (Intralipid 20%) 250 mls @ 21 mls/hr IV Q24H [facility] Ondansetron HCl (Zofran Odt) 4 mg TL Q4HR PRN PRN Reason: Nausea / Vomiting Last Admin: 02/22/19 22:28 Dose: 4 mg Pantoprazole Sodium (Protonix) 40 mg IVP QDAC [facility] Last Admin: 02/23/19 06:12 Dose: 40 mg (Methylphenidate Hcl [Methylphenidate Er ] 54 Mg) 1 each PO DAILY [facility] Last Admin: 02/23/19 08:46 Dose: 1 each Polyethylene Glycol (Miralax) 17 gm PO DAILY [facility] Last Admin: 02/23/19 09:35 Dose: Not Given Pregabalin (Lyrica) 75 mg PO BID [facility] Last Admin: 02/23/19 07:57 Dose: 75 mg Prochlorperazine Edisylate (Compazine Inj) 10 mg IVP Q4HR PRN PRN Reason: Nausea / Vomiting Sodium Chloride (Normal Saline Flush 0.9%) 10 ml IVP PRN PRN PRN Reason: NEEDED PER PROVIDER ORDERS Last Admin: 02/23/19 06:12 Dose: 10 ml Sodium Chloride (Normal Saline Flush 0.9%) 10 ml IVP 0100,0900,1700 [facility] Last Admin: 02/23/19 07:58 Dose: 10 ml Omeprazole 40 mg PO BID 07/06/14 Duloxetine HCl [Cymbalta] 60 mg PO BID 05/11/15 Sodium/Pot/Mag/Calc/Chlor/Acet [TPN Electrolytes II IV Soln] 2,000 ml IV QPM 07/03/15 Loratadine [Claritin] 10 mg PO QPM 03/09/16 Pregabalin [Lyrica] 75 mg PO BID 01/05/19 Ergocalciferol (Vitamin D2) [Vitamin D2] 50,000 units PO SA@0900 02/22/19 Methylphenidate HCl [Methylphenidate ER] 54 mg PO DAILY 02/22/19 predniSONE [Prednisone] 5 mg PO DAILY 02/22/19 Objective - Vital Signs/Intake & Output Reviewed Vital Signs: Yes Vital Signs: Vital Signs x48h Temp Pulse Resp BP Pulse Ox 02/23/19 08:00 36.8 C 77 20 117/64 98 Intake & Output: Intake & Output 02/20/19 02/21/19 02/22/19 02/23/19 23:59 23:59 23:59 23:59 Intake Total 100 3101.133 706.667 Output Total 1300 1725 Balance 100 1801.133 -1018.333 - Objective General Appearance: positive: Alert, Mild distress (from abd pain), Other (medium height white male with obesity, large abd panus) Eyes Bilateral: positive: PERRL Neck: positive: No JVD. negative: Stiff neck, Carotid bruit Respiratory: positive: Chest non-tender. negative: Wheezes, Rales, Rhonchi Cardiovascular: positive: Regular rate & rhythm. negative: Gallop/S4, Friction rub Abdomen: positive: No organomegaly, Nml bowel sounds, No distention, Tenderness. negative: Guarding, Rebound Skin: positive: Warm, Dry Extremities: positive: Full ROM, No pedal edema Neurologic/Psychiatric: positive: Oriented x3, CN's nml (2-12), Motor nml, Sensation nml - Lab Results Fish Bones: 02/24/19 05:15 02/24/19 05:15 Other Labs: Lab Results x24hrs 02/23/19 02/23/19 Range/Units 05:05 05:05 WBC 7.6 (4.8-10.8) x10^3/uL RBC 4.57 L (4.70-6.10) 10^6/uL Hgb 12.7 L (14.0-18.0) g/dL Hct 38.8 L (42.0-52.0) % MCV 85.0 (80.0-94.0) fL MCH 27.7 (27.0-31.0) pg MCHC 32.6 (32.0-36.0) g/dL RDW 14.4 (12.0-15.0) % Plt Count 164 (130-450) 10^3/uL MPV 9.1 (7.4-11.4) fL Neut # (Auto) 3.7 (1.5-6.6) 10^3/uL Lymph # (Auto) 2.6 (1.5-3.5) 10^3/uL [place] # (Auto) 0.9 (0.0-1.0) 10^3/uL Eos # (Auto) 0.3 (0.0-0.7) 10^3/uL Baso # (Auto) 0.0 (0.0-0.1) 10^3/uL Absolute Nucleated RBC 0.00 x10^3/uL Nucleated RBC % 0.0 /100WBC Sodium 139 (135-145) mmol/L Potassium 3.0 L (3.5-5.0) mmol/L Chloride 103 (101-111) mmol/L Carbon Dioxide 26 (21-32) mmol/L Anion Gap 10.0 (6-13) BUN 6 (6-20) mg/dL Creatinine 0.7 (0.6-1.2) mg/dL Estimated GFR (MDRD) 129 (>89) Glucose 83 (70-100) mg/dL Calcium 8.4 L (8.5-10.3) mg/dL ABX Reporting Has patient been on IV antibiotics over the past 48 hours?: Yes Sepsis Event Note (H) - Evaluation Current Stage of Sepsis: Ruled out Possible source of Sepsis: positive: Implantable device - Sepsis Criteria Sepsis Criteria: Suspected or Documented, Recorded Heart Rate greater than 90 bpm Assessment/Plan - Problem List (1) Sepsis Impression: Ruled out. He does not meet criteria for sepsis and has bacteremia 2/2 Gamez catheter Blood cultures drawn. Preliminary cultures were positive for both sets of cultures: gram positive cocci. Those have now been identified as MRSE Strep epidermidis. In light of tachycardia and fever, patient started empirically on Nafacillin 2g IV q4hrs but he has been changed to daptomycin for better coverage. Today Day #2. Patient has has cultures positive with Staph species in the past Tylenol for fever I called [facility] today to assess what they would like for treatment and whether we removed the line again. This would be the 4th line that needs to be changed bc of bacteremia. His current acess was paced at [facility], right-sided low flow double-lumen tunneled line placed April 01, 2018. He has had 2 prior right IJ tunneled lines placed in the [facility] system before that in 2016 and 2017. He reports at least 4 line infections.[facility] infectious disease consult today feels that it is a line infection. She and I reviewed the line placement from March 2018. Since this is the first time this particular line has had an infection, she would not recommend necessarily removing it. She would recommend trying to salvage it. Use antibiotics to treat this infection. She would like us to use the line, and plan for at least 2 weeks of daptomycin once today. Use either port. One day use 1 port, the next day alternate and use the other port. At the end of the 2 weeks she would recommend that the primary care provider do blood cultures through the line. He can then see infectious disease in follow-up after all of this is been done. 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 Followed by [facility] oncology in [place] as well as [facility] gastroenterology. Last seen by oncology November 09 where he has worsening peripheral eosinophilia. Bone marrow studies more than 2 years ago showed no significant marrow eosinophilic infiltrate. Anemia has resolved. On TPN 12 hours daily. Last seen by gastroenterology with July 2019 with EGD October 15, 2017. Stomach biopsy showed gastric antral and ox intake fundic mucosa with up to 25 eosinophils per high-power field. Negative for H. pylori. His esophageal biopsy showed squamous mucosa having reactive changes and up to 12 eosinophils per high-powered field. Duodenum and colon were negative. Chronic abdominal discomfort no fever. He does have a gastric emptying study from June 10, 2012 that shows borderline abnormal (retention at 3 hours 30%, but retention normal at other time points including less than 1% at 4 hours). Therapy in the past has been montelukast, cromolyn, azathioprine where he had a bad reaction and stopped it after 6 weeks, xylene, hydroxychloroquine 9, prednisone, and elimination diets. Will hold TPN due to suspected line infection IV hydration with NS at 100ml/hr May be able to get 75% of his calories by PPN. PPN started today. (3) Abdominal pain Conclusion/Plan: Chronic but also suddenly worsened in last 2 days. Likely 2/2 eosinophilic gastritis Pain management with dilaudid is to be minimized. He is not on opiates at home. (4) Depression Conclusion/Plan: On duloxetine, resumed. Also has anxiety. Especially associated with trying to eat meals with his family. Occasionally cannabis will help for this. Eating food will increase his abdominal pain so he usually does need more than twice a week. Qualifiers: Depression Type: major depressive disorder (5) Chronic pain Conclusion/Plan: On lyrica, resumed. Qualifiers: Chronic pain type: chronic pain syndrome Qualified Code(s): G89.4 - Chronic pain syndrome
[2019-02-23] MEDS: PPN (CLINIMIX E 4.25/5) 2,000 ML with MULTIVITAMIN 10 ML, TRACE ELEMENTS V CONC 1 ML IV SCH ×3 (12:00)
[2019-02-23] MEDS: FAT EMULSION 20% 250 ML IV SCH (12:01)
[2019-02-23] MEDS: DAPTOMYCIN IV SCH (18:23)
[2019-02-23] MEDS: SODIUM CHLORIDE 0.9% IV SCH (18:23)
[2019-02-23] MEDS ORDERED: POTASSIUM CHLORIDE 20 MEQ TABLET PO STA (19:18)
[2019-02-23] MEDS: POTASSIUM CHLOR 10 MEQ/100 ML 10 MEQ/100 ML BAG IV SCH ×3 (19:30→19:32)
[2019-02-24] MEDS: SODIUM CHLORIDE 0.9% 1,000 ML IV SCH ×2 (02:10→08:08)
[2019-02-24] MEDS: SODIUM CHLORIDE FLUSH 0.9% 10 ML SYRINGE IVP SCH ×3 (02:11→16:18)
[2019-02-24] MEDS: HYDROmorphone 1 MG/ML CARPUJECT IVP PRN ×5 (02:52→16:18)
[2019-02-24 05:31] LABS: BASOPHILS % (AUTO) 0.3 %; EOSINOPHILS # (AUTO) 0.4 10^3/uL (0.0-0.7); EOSINOPHILS % (AUTO) 5.1 %; HGB - HEMOGLOBIN 12.8 g/dL (14.0-18.0); LYMPHOCYTES # (AUTO) 2.7 10^3/uL (1.5-3.5); LYMPHOCYTES % (AUTO) 37.8 %; MEAN CORPUSCULAR HEMOGLOBIN 28.3 pg (27.0-31.0); MEAN CORPUSCULAR HGB CONC 33.9 g/dL (32.0-36.0); MEAN CORPUSCULAR VOLUME 83.6 fL (80.0-94.0); MEAN PLATELET VOLUME 8.5 fL (7.4-11.4); MONOCYTES # (AUTO) 0.7 10^3/uL (0.0-1.0); MONOCYTES % (AUTO) 9.7 %; NEUTROPHILS # (AUTO) 3.4 10^3/uL (1.5-6.6); NEUTROPHILS % (AUTO) 47.1 %; PLT - PLATELET COUNT 176 10^3/uL (130-450); RED BLOOD COUNT 4.53 10^6/uL (4.70-6.10); RED CELL DISTRIBUTION WIDTH 13.9 % (12.0-15.0); WHITE BLOOD COUNT 7.2 x10^3/uL (4.8-10.8)
[2019-02-24 05:45] LABS: CREATININE 0.6 mg/dL (0.6-1.2)
[2019-02-24] MEDS: PANTOPRAZOLE 40 MG VIAL IVP SCH (06:06)
[2019-02-24] MEDS: SODIUM CHLORIDE FLUSH 0.9% 10 ML SYRINGE IVP PRN ×2 (06:06→10:17)
--- NOTE | 2019-02-24 07:49 | PROVIDER PROGRESS NOTE ---
Subjective - Prog Note Date Prog Note Date: 02/24/19 Prog Note Time: 10:10 - Subjective Subjective: His abdominal pain is his main concern. No fever, no chills, no sweats. He is on PPN since yesterday. Tolerating the food he eats without increased abdominal pain. He is not eating very much. Current Medications - Current Medications Current Medications: Active Medications Acetaminophen (Tylenol) 650 mg PO Q4HR PRN PRN Reason: Pain 1 to 4 Duloxetine HCl (Cymbalta) 60 mg PO BID [facility] Last Admin: 02/24/19 08:09 Dose: 60 mg Heparin Sodium (Porcine) () 5,000 unit SUBQ BID [facility] Last Admin: 02/24/19 08:09 Dose: 5,000 unit Hydromorphone HCl (Dilaudid Inj Carp) 1 mg IVP Q3H PRN PRN Reason: PAIN Last Admin: 02/24/19 06:09 Dose: 1 mg Sodium Chloride (Normal Saline 0.9%) 1,000 mls @ 100 mls/hr IV .Q10H [facility] Last Admin: 02/24/19 08:08 Dose: 100 mls/hr Daptomycin 640 mg/ Sodium (Chloride) 112.8 mls @ 200 mls/hr IV Q24H [facility] Last Infusion: 02/23/19 19:00 Dose: Infused Multivitamins 10 ml/ Chromium/Copper/Manganese/Seleni/Zn 1 ml/ Amino Acids/E lectrolytes/Dextrose 2,011 mls @ 83 mls/hr IV Q24H [facility]; Protocol Last Admin: 02/23/19 12:00 Dose: 83 mls/hr Fat Emulsion Intravenous (Intralipid 20%) 250 mls @ 21 mls/hr IV Q24H [facility] Last Infusion: 02/24/19 00:23 Dose: Infused Ondansetron HCl (Zofran Odt) 4 mg TL Q4HR PRN PRN Reason: Nausea / Vomiting Last Admin: 02/22/19 22:28 Dose: 4 mg Pantoprazole Sodium (Protonix) 40 mg IVP QDAC [facility] Last Admin: 02/24/19 06:06 Dose: 40 mg (Methylphenidate Hcl [Methylphenidate Er ] 54 Mg) 1 each PO DAILY [facility] Last Admin: 02/24/19 08:40 Dose: 1 each Polyethylene Glycol (Miralax) 17 gm PO DAILY [facility] Last Admin: 02/24/19 08:53 Dose: Not Given Pregabalin (Lyrica) 75 mg PO BID [facility] Last Admin: 02/24/19 08:09 Dose: 75 mg Prochlorperazine Edisylate (Compazine Inj) 10 mg IVP Q4HR PRN PRN Reason: Nausea / Vomiting Sodium Chloride (Normal Saline Flush 0.9%) 10 ml IVP PRN PRN PRN Reason: NEEDED PER PROVIDER ORDERS Last Admin: 02/24/19 06:06 Dose: 10 ml Sodium Chloride (Normal Saline Flush 0.9%) 10 ml IVP 0100,0900,1700 [facility] Last Admin: 02/24/19 06:11 Dose: 10 ml Omeprazole 40 mg PO BID 07/06/14 Duloxetine HCl [Cymbalta] 60 mg PO BID 05/11/15 Sodium/Pot/Mag/Calc/Chlor/Acet [TPN Electrolytes II IV Soln] 2,000 ml IV QPM 07/03/15 Loratadine [Claritin] 10 mg PO QPM 03/09/16 Pregabalin [Lyrica] 75 mg PO BID 01/05/19 Ergocalciferol (Vitamin D2) [Vitamin D2] 50,000 units PO SA@0900 02/22/19 Methylphenidate HCl [Methylphenidate ER] 54 mg PO DAILY 02/22/19 predniSONE [Prednisone] 5 mg PO DAILY 02/22/19 Objective - Vital Signs/Intake & Output Reviewed Vital Signs: Yes Intake & Output: Intake & Output 02/21/19 02/22/19 02/23/19 02/24/19 23:59 23:59 23:59 23:59 Intake Total 100 3101.133 4434.467 550 Output Total 1300 3725 Balance 100 1801.133 709.467 550 - Objective General Appearance: positive: No acute distress, Alert, Other (Watching TV, comfortable in bed. No respiratory, abdominal distress.) Eyes Bilateral: positive: PERRL ENT: positive: Pharynx nml Neck: positive: No JVD. negative: Stiff neck, Carotid bruit Respiratory: positive: Chest non-tender. negative: Wheezes, Rales, Rhonchi Cardiovascular: positive: Regular rate & rhythm. negative: Gallop/S4, Friction rub Abdomen: positive: No organomegaly, Nml bowel sounds, No distention, Tenderness (On a scale of 1-10 is down to about a 3 or 4. He has chronic abdominal pain on a daily basis.). negative: Guarding, Rebound Skin: positive: Warm, Dry Extremities: positive: Full ROM, No pedal edema (Bilateral [id number] deformity tapering down to stumps. Skin clean and closed.) Neurologic/Psychiatric: positive: Oriented x3, CN's nml (2-12), Motor nml - Lab Results Fish Bones: 02/24/19 05:15 02/24/19 05:15 Other Labs: Lab Results x24hrs 02/24/19 02/24/19 Range/Units 05:15 05:15 WBC 7.2 (4.8-10.8) x10^3/uL RBC 4.53 L (4.70-6.10) 10^6/uL Hgb 12.8 L (14.0-18.0) g/dL Hct 37.9 L (42.0-52.0) % MCV 83.6 (80.0-94.0) fL MCH 28.3 (27.0-31.0) pg MCHC 33.9 (32.0-36.0) g/dL RDW 13.9 (12.0-15.0) % Plt Count 176 (130-450) 10^3/uL MPV 8.5 (7.4-11.4) fL Neut # (Auto) 3.4 (1.5-6.6) 10^3/uL Lymph # (Auto) 2.7 (1.5-3.5) 10^3/uL [place] # (Auto) 0.7 (0.0-1.0) 10^3/uL Eos # (Auto) 0.4 (0.0-0.7) 10^3/uL Baso # (Auto) 0.0 (0.0-0.1) 10^3/uL Absolute Nucleated RBC 0.01 x10^3/uL Nucleated RBC % 0.1 /100WBC Sodium 142 (135-145) mmol/L Potassium 3.6 (3.5-5.0) mmol/L Chloride 107 (101-111) mmol/L Carbon Dioxide 28 (21-32) mmol/L Anion Gap 7.0 (6-13) BUN 8 (6-20) mg/dL Creatinine 0.6 (0.6-1.2) mg/dL Estimated GFR (MDRD) 154 (>89) Glucose 100 (70-100) mg/dL Calcium 9.0 (8.5-10.3) mg/dL ABX Reporting Has patient been on IV antibiotics over the past 48 hours?: Yes Sepsis Event Note (H) - Evaluation Current Stage of Sepsis: Ruled out Possible source of Sepsis: positive: Implantable device - Sepsis Criteria Sepsis Criteria: Suspected or Documented, Recorded Heart Rate greater than 90 bpm Assessment/Plan - Problem List (1) Sepsis Impression: Ruled out. He does not meet criteria for sepsis and has bacteremia 2/2 Gamez catheter Blood cultures drawn. Preliminary cultures were positive for both sets of cultures: gram positive cocci. Those have now been identified as MRSE Strep epidermidis. In light of tachycardia and fever, patient started empirically on Nafacillin 2g IV q4hrs but he has been changed to daptomycin for better covera ge. Today Day #3. Patient has has cultures positive with Staph species in the past Tylenol for fever I called ID 02/23 to assess what they would like for treatment and whether we removed the line again. This would be the 4th line that needs to be changed bc of bacteremia. His current acess was paced at [facility], right-sided low flow double-lumen tunneled line placed April 01, 2018. He has had 2 prior right IJ tunneled lines placed in the [facility] system before that in 2016 and 2017. He reports at least 4 line infections.[facility] infectious disea se consult today feels that it is a line infection. She and I reviewed the line placement from March 2018. Since this is the first time this particular line has had an infection, she would not recommend necessarily removing it. She would recommend trying to salvage it. Use antibiotics to treat this infection. She would like us to use the line, and plan for at least 2 weeks of daptomycin once today. Use each port lumen. One day use 1 port, the next day alternate and use the other port. At the end of the 2 weeks she would recommend that the primary care provider do blood cultures through the line. He can then see infectious disease in follow-up after all of this is been done. I have asked case management and social work to help us discharge this patient. We will contact [employer] to see if [employer] will cover in-home infusion of daptomycin. If not we may be needing as the patient to come to the medical ambulatory clinic on a daily basis, including weekends. 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 Followed by [facility] oncology in [place] as well as [facility] gastroenterology. Last seen by oncology November 09 where he has worsening peripheral eosinophilia. Bone marrow studies more than 2 years ago showed no significant marrow eosinophilic infiltrate. Anemia has resolved. On TPN 12 hours daily. Last seen by gastroenterology with July 2019 with EGD October 15, 2017. Stomach biopsy showed gastric antral and ox intake fundic mucosa with up to 25 eosinophils per high-power field. Negative for H. pylori. His esophageal biopsy showed squamous mucosa having reactive changes and up to 12 eosinophils per high-powered field. Duodenum and colon were negative. Chronic abdominal discomfort no fever. He does have a gastric emptying study from June 10, 2012 that shows borderline abnormal (retention at 3 hours 30%, but retention normal at other time points including less than 1% at 4 hours). Therapy in the past has been montelukast, cromolyn, azathioprine where he had a bad reaction and stopped it after 6 weeks, xylene, hydroxychloroquine 9, prednisone, and elimination diets. Will hold TPN due to suspected line infection IV hydration with NS at 100ml/hr will be reduced today since on PPN. May be able to get 75% of his calories by PPN. PPN started yesterday. Will resume usual TPN at home. Get ready for discharge since feels we do not need to change the line and can use it. (3) Abdominal pain Conclusion/Plan: Chronic but also suddenly worsened in last 2 days. Likely 2/2 eosinophilic gastritis Pain management with dilaudid is to be minimized. He is not on opiates at home. (4) Depression Conclusion/Plan: On duloxetine, resumed. Also has anxiety. Especially associated with trying to eat meals with his family. Occasionally cannabis will help for this. Eating f ood will increase his abdominal pain so he usually does need more than twice a week. Qualifiers: Depression Type: major depressive disorder (5) Chronic pain Conclusion/Plan: On lyrica, resumed. Qualifiers: Chronic pain type: chronic pain syndrome Qualified Code(s): G89.4 - Chronic pain syndrome
[2019-02-24] MEDS: DULoxetine 30 MG CAPSULE PO SCH (08:09)
[2019-02-24] MEDS: HEPARIN 5,000 UNIT/ML VIAL SUBQ SCH (08:09)
[2019-02-24] MEDS: PREGABALIN 25 MG CAPSULE PO SCH (08:09)
[2019-02-24] MEDS: POLYETHYLENE GLYCOL 3350 17 GM PACKET PO SCH (08:53)
[2019-02-24] MEDS: FAT EMULSION 20% 250 ML IV SCH (12:11)
[2019-02-24] MEDS: PPN (CLINIMIX E 4.25/5) 2,000 ML with MULTIVITAMIN 10 ML, TRACE ELEMENTS V CONC 1 ML IV SCH ×3 (12:15)
--- NOTE | 2019-02-24 12:37 | Discharge Plan ---
Discharge Plan Disposition: Home, Self Care Condition: Stable Prescriptions: DAPTOmycin [Daptomycin] 700 mg IV DAILY #11 vial Diet: Regular (as tolerated) Activity Restrictions: Activity as Tolerated Shower Restrictions: No Driving Restrictions: Yes Additional Instructions or Follow Up instructions: You were admitted to the hospital because you were having subjective sensation of fevers, as well as chills, hot flashes, and were starting to get really weak when you tried to do anything. You hurt all over. You were seen in the emergency room and opted to go home and be contacted if any of your blood tests came back positive. When you got home, you were not feeling well again. Still sweaty and tired. You return to the emergency room and we found you to have a temperature of 38.1. Your blood pressure was low. Your pulse was fast. Blood cultures by this time have grown out staph epidermidis. I called [facility] infectious disease. They feel that you have a line infection. They would like to salvage the line. They have reviewed your records with them and this would be the fifth line they have to remove. They would rather not remove it, and have opted to recommend giving you daptomycin, the antibiotic that kills staph epidermidis. They would like you to give the daptomycin in one lumen on one day then the next day alternate and infuse it through the other lumen. Alternate back and forth between the two lumens. You have already been on 4 days of antibiotics here. They want you to be on a total of 14 days so I have given you enough for 11 more days of Antibiotics. On March 09, please have your primary care provider draw blood cultures from the line. We want to see if the line is still contaminated. If the cultures are positive, you will need to see infectious disease at [facility]. If the cultures are negative you are good to go. Please resume your usual TPN as well. Please see your primary care provider in the next week. No Smoking: If you smoke, Please STOP! Call for help. Follow-up with: Francis Chiu PA-C [Primary Care Provider] -
[2019-02-24 16:06] VITALS: BP 134/68
[2019-02-24] MEDS: SODIUM CHLORIDE 0.9% IV SCH (17:42)
[2019-02-24] MEDS: DAPTOMYCIN IV SCH (17:42)
--- NOTE | 2019-03-01 07:47 | DISCHARGE SUMMARY ---
Physician: Carrie Contreras MD DATE OF ADMISSION: 02/21/2019 DATE OF DISCHARGE: 02/24/2019 DISCHARGE DIAGNOSES 1. Central line infection, present on admission. 2. Streptococcal bacteremia, present on admission. 3. Eosinophilic gastritis. 4. Chronic abdominal pain with acute exacerbation. 5. 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 6. Chronic pain syndrome. DISCHARGE MEDICATIONS 1. Cymbalta 60 mg p.o. b.i.d. 2. Vitamin D2 at 5000 unit capsules daily. 3. Loratadine 10 mg daily. 4. Methylphenidate extended release 24 hours 54 mg daily. 5. Omeprazole 40 mg p.o. b.i.d. 6. Prednisone 5 mg daily. 7. Lyrica 75 mg p.o. b.i.d. 8. TPN, 12 hours a day overnight. 9. Daptomycin 700 mg IV daily #22 vials of 350 mg. PRINCIPAL PROCEDURES 1. Blood cultures done on day of admission after antibiotic therapy show no growth 2. Blood cultures done on day of admission before therapy show Staph epidermidis, beta lactamase pos RIAN burr. HOSPITAL COURSE: The patient is a 33-year-old white male well known to our service. He has been adm itted several times because of line sepsis. He has a chronic line in place because of TPN that is gi tyree 12 hours a night. He has been diagnosed with eosinophilic gastritis, unable to eat a normal diet , and is reliant on TPN for most of his calories. He is allowed to eat, but eating only increases ab dominal pain, so he does not eat very much. He has had 4 lines placed in the last few years. All [facility] through [facility]. He was seen in the emergency room because of increasing abdominal pain, intermittent fever, chills, h ot flashes, weakness, and severe generalized body aches. His white cell count was elevated. Tempera ture was 38.1. He opted not to be admitted and wanted to go home. He returned a few hours later jus t not feeling well. By this time, blood pressure was 99/53. In the early part of the day, he was 12 7/61. He was no longer febrile. When he returned the second time, cultures were now positive for gr am-positive cocci. White cell count again, was 11.5 thousand. In review of the patient's previous history, we knew that most likely he had yet another episode of l ine infection. He had no antecedent cough, and review of systems was negative for pulmonary, symp tomatology. He was having worse abdominal pain and was asking for increasing opiate usage. At home, he does not use any opioid therapy. He was started on daptomycin, since this was the last treatment [facility] used on him for his last line infection. Cultures did grow out Staph epidermidis, and he was kept on the daptomy uma. We did consult [facility] Infectious Disease. They recommended that the daptomyc in be used in this double lumen tunneling catheter. Use daptomycin in one line 1 day, and then use d aptomycin in the second lumen the other day. Alternate both until he has been on antibiotics for a t otal of 14 days. They did not recommend removing the line at this time, it was hoped to salvage the line. They also requested that his primary care provider draw blood cultures out of the line 2 days after he completed daptomycin therapy. Other than line infection, chronic abdominal pain, no other new issues were addressed. He continues to have a mild depressive disorder, most likely related to adjustment from his chronic illness. Clinical Program Director libertad pain was an issue, and again he was requesting increasing opioid use. However, he does not do th at at home. He had no further fever, sweats while he was in the hospital. His Lyrica was continued. His duloxetine was continued. Plans were made for him to return home. He could do the daptomycin there. [employer] and [employer] both agreed that it could be done. PHYSICAL EXAMINATION VITAL SIGNS: At discharge, temperature was 36.8, pulse 85, blood pressure 134/68, respirations 20, a nd 98% on room air. 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 As such, there are stumps below the knees. HEENT: Head and neck are normal. Neck is supple without goiter or bruit. CHEST: Lungs clear to auscultation and percussion, and he breathes without any increased respiratory effort or respiratory distress. He has a regular rate and rhythm. ABDOMEN: Always slightly bloated, diffusely mildly tender but no rebound or guarding, with hypoactiv e bowel sounds. No masses palpable. In examining the catheter in his chest wall, there is no redness, heat, swelling, or drainage. Greater than 30 minutes was spent coordinating discharge. I have asked him to follow up with his [facility] care provider, Dr. Meier, to get those cultures done 2 days later. [facility] I D said they would be willing to see him if the blood cultures remain positive. He is to resume his T PN that he takes at home. TD: 02/28/2019 14:01
== END 2019-02-24 19:00 | disposition home or self-care (01) | DRG 316 ==
LOC: ED 19:25 → OBS 19:58 → OBSVTOIN 02-22 06:51 → MS2 02-22 14:26
PROVIDERS: ADMIT Internal Medicine; ATTEND Specialist
DX: T80.219A Unspecified infection due to central venous catheter, initial encounter (principal); B95.4 Other streptococcus as the cause of diseases classified elsewhere; Z16.39 Resistance to other specified antimicrobial drug; K52.81 Eosinophilic gastritis or gastroenteritis; G89.29 Other chronic pain; R10.9 Unspecified abdominal pain; M54.9 Dorsalgia, unspecified; F43.20 Adjustment disorder, unspecified; G47.30 Sleep apnea, unspecified; K21.9 Gastro-esophageal reflux disease without esophagitis; J32.9 Chronic sinusitis, unspecified; F41.0 Panic disorder [episodic paroxysmal anxiety]; L30.9 Dermatitis, unspecified; Z87.01 Personal history of pneumonia (recurrent); Z87.442 Personal history of urinary calculi; Z87.19 Personal history of other diseases of the digestive system
CPT/HCPCS: 36415; 80048; 83605; 85025; 87040; 96361; 96365; 96366; 96372; 96374; 96375; 96376; 99283; 99284; A9270; G0378; J0878; J1170; J3490; Q0162

== ENCOUNTER 2019-03-09 14:49 | Outpatient (CLI) | payer MEDICAID | END 2019-03-09 14:50 | disposition home or self-care (01) | LOC: LAB 14:49 | PROVIDERS: ATTEND Physician Assistant Medical | DX: R78.81 Bacteremia (principal) | CPT/HCPCS: 36415; 87040 ==

== ENCOUNTER 2019-03-21 08:00 | Outpatient (CLI) | payer MEDICAID ==
[2019-03-21 12:33] LABS: BASOPHILS # (AUTO) 0.1 10^3/uL (0.0-0.1); BASOPHILS % (AUTO) 0.5 %; EOSINOPHILS # (AUTO) 0.7 10^3/uL (0.0-0.7); EOSINOPHILS % (AUTO) 6.9 %; HGB - HEMOGLOBIN 13.6 g/dL (14.0-18.0); LYMPHOCYTES # (AUTO) 3.1 10^3/uL (1.5-3.5); LYMPHOCYTES % (AUTO) 29.3 %; MEAN CORPUSCULAR HEMOGLOBIN 27.8 pg (27.0-31.0); MEAN CORPUSCULAR HGB CONC 32.9 g/dL (32.0-36.0); MEAN CORPUSCULAR VOLUME 84.5 fL (80.0-94.0); MEAN PLATELET VOLUME 9.4 fL (7.4-11.4); MONOCYTES # (AUTO) 0.9 10^3/uL (0.0-1.0); MONOCYTES % (AUTO) 8.1 %; NEUTROPHILS # (AUTO) 5.9 10^3/uL (1.5-6.6); NEUTROPHILS % (AUTO) 55.2 %; PLT - PLATELET COUNT 150 10^3/uL (130-450); RED CELL DISTRIBUTION WIDTH 14.9 % (12.0-15.0); WHITE BLOOD COUNT 10.7 x10^3/uL (4.8-10.8)
[2019-03-21 12:58] LABS: ALBUMIN 3.5 g/dL (3.2-5.5); ALBUMIN/GLOBULIN RATIO 1.3 (1.0-2.2); BILIRUBIN,TOTAL 0.4 mg/dL (0.2-1.0); CALCIUM 8.8 mg/dL (8.5-10.3); CREATININE 0.6 mg/dL (0.6-1.2); MAGNESIUM 2.1 mg/dL (1.7-2.8); PHOSPHORUS 3.5 mg/dL (2.5-4.6); TOTAL PROTEIN 6.1 g/dL (6.7-8.2)
[2019-03-24 15:51] LABS: VITAMIN B1 (THIAMINE) PLASMA 78 nmol/L (8-30)
[2019-03-24 17:27] LABS: COPPER 100 mcg/dL (70-175)
[2019-03-24 23:21] LABS: ZINC, PLASMA 50 mcg/dL (60-130)
== END 2019-03-21 23:59 | disposition home or self-care (01) ==
LOC: LAB.R 08:00
PROVIDERS: ATTEND Family Medicine
DX: D50.9 Iron deficiency anemia, unspecified (principal); R78.81 Bacteremia; K52.81 Eosinophilic gastritis or gastroenteritis
CPT/HCPCS: 80053; 81599; 82495; 82525; 83735; 84100; 84255; 84425; 84630; 85025

== ENCOUNTER 2019-04-22 13:45 | Outpatient (CLI) | payer MEDICAID ==
[2019-04-22 14:07] LABS: ABSOLUTE RETICS # AUTO 0.077 10^6/uL (0.020-0.110); BASOPHILS # (AUTO) 0.1 10^3/uL (0.0-0.1); BASOPHILS % (AUTO) 0.6 %; EOSINOPHILS # (AUTO) 0.3 10^3/uL (0.0-0.7); HGB - HEMOGLOBIN 13.6 g/dL (14.0-18.0); LYMPHOCYTES # (AUTO) 2.3 10^3/uL (1.5-3.5); LYMPHOCYTES % (AUTO) 27.4 %; MEAN CORPUSCULAR HEMOGLOBIN 27.5 pg (27.0-31.0); MEAN CORPUSCULAR HGB CONC 32.5 g/dL (32.0-36.0); MEAN CORPUSCULAR VOLUME 84.6 fL (80.0-94.0); MEAN PLATELET VOLUME 11.5 fL (7.4-11.4); MONOCYTES # (AUTO) 0.7 10^3/uL (0.0-1.0); MONOCYTES % (AUTO) 8.4 %; NEUTROPHILS # (AUTO) 4.9 10^3/uL (1.5-6.6); NEUTROPHILS % (AUTO) 59.1 %; PLT - PLATELET COUNT 177 10^3/uL (130-450); RED BLOOD COUNT 4.94 10^6/uL (4.70-6.10); RED CELL DISTRIBUTION WIDTH 14.1 % (12.0-15.0); WHITE BLOOD COUNT 8.3 x10^3/uL (4.8-10.8)
[2019-04-22 14:44] LABS: FERRITIN 21.8 ng/mL (23.9-336.2)
[2019-04-22 14:48] LABS: FOLATE 12.13 ng/mL (5.90 - >24.8)
[2019-04-22 14:52] LABS: % IRON SATURATION 8 % (20-50); IRON 32 ug/dL (45-182); TOTAL IRON BINDING CAPACITY 396 ug/dL (250-450); TRANSFERRIN 283 mg/dL (180-329)
== END 2019-04-22 13:46 | disposition home or self-care (01) ==
LOC: LAB 13:45
PROVIDERS: ATTEND Family Medicine
DX: D50.9 Iron deficiency anemia, unspecified (principal)
CPT/HCPCS: 36415; 82728; 82746; 83540; 84466; 85025; 85044

== ENCOUNTER 2019-05-02 11:20 | Inpatient (IN) | payer MEDICAID ==
[2019-05-02] MEDS ORDERED: HYDROmorphone 1 MG/ML CARPUJECT IVP STA ×2 (12:04→13:13)
--- NOTE | 2019-05-02 12:06 | ED Physician Documentation ---
PD HPI ABD PAIN - Stated complaint Stated Complaint: VOMITING/FEVER - Chief complaint Chief Complaint: Abd Pain - History obtained from History obtained from: Patient - History of Present Illness Timing - onset: Other (This is a 33-year-old gentleman who I know very well. He has a history of eosinophilic enteritis and he is mostly TPN dependent. 4 days ago he started Suboxone for pain management and started having some vomiting and body aches which she thought was related to the Suboxone but subsequent to that has developed increasing temperatures up to 102.7 today. He has a history of an indwelling line for his TPN, it is approximately 13 months old and he has recurrent line infections, usually with Staphylococcus epidermidis.) Review of Systems Ten Systems: 10 systems reviewed and negative Constitutional: reports: Fever, Chills, Myalgias Nose: denies: Rhinorrhea / runny nose, Congestion Throat: denies: Sore throat Cardiac: denies: Chest pain / pressure, Palpitations Respiratory: denies: Dyspnea, Cough PD PAST MEDICAL HISTORY - Past Medical History Cardiovascular: None Respiratory: Pneumonia, Sleep apnea Neuro: None Endocrine/Autoimmune: None GI: GERD, Pancreatitis, Cholelithiasis, Other 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: None : Kidney stones HEENT: Chronic sinusitis Psych: Depression, Anxiety, Panic attacks, Other Musculoskeletal: Chronic back pain, Other Derm: Eczema - Past Surgical History Past Surgical History: Yes General: Cholecystectomy, Bowel surgery, Colonoscopy, Other Ortho: Spine surgery, Amputation - Present Medications Home Medications: Ambulatory Orders Medication Instructions Recorded Confirmed Omeprazole 40 mg PO BID 07/06/14 02/22/19 Duloxetine HCl [Cymbalta] 60 mg PO BID 05/11/15 02/22/19 Sodium/Pot/Mag/Calc/Chlor/Acet 2,000 ml IV QPM 07/03/15 02/22/19 [TPN Electrolytes II IV Soln] Loratadine [Claritin] 10 mg PO QPM 03/09/16 02/22/19 Pregabalin [Lyrica] 75 mg PO BID 01/05/19 02/22/19 Ergocalciferol (Vitamin D2) 50,000 units PO SA@0900 02/22/19 02/22/19 [Vitamin D2] Methylphenidate HCl 54 mg PO DAILY 02/22/19 02/22/19 [Methylphenidate ER] predniSONE [Prednisone] 5 mg PO DAILY 02/22/19 02/22/19 DAPTOmycin [Daptomycin] 700 mg IV DAILY #11 vial 02/24/19 - Allergies Allergies/Adverse Reactions: Allergies Allergy/AdvReac Type Severity Reaction Status Date / Time metoclopramide HCl * Allergy Severe Anxiety Verified 02/21/19 19:30 [From Reglan] NSAIDS (Non-Steroidal Allergy Severe Erosive Verified 02/21/19 19:30 Anti-Inflamma Esophagitis vancomycin AdvReac Intermediate Acute Verified 02/23/19 09:23 renal failure - Social History Does the pt smoke?: No Smoking Status: Never smoker Does the pt drink ETOH?: No Does the pt have substance abuse?: Yes - Immunizations Immunizations are current?: Yes - POLST Patient has POLST: No POLST Status: Full Code PD ED PE NORMAL - Vitals Vital signs reviewed: Yes - General General: Alert and oriented X 3, No acute distress - HEENT HEENT: Ears normal - Neck Neck: Supple, no meningeal sign, No bony TTP - Cardiac Cardiac: RRR, No murmur, Other (2 lm Gamez port right upper chest wall, tunneled without overt signs of infection) - Respiratory Respiratory: No respiratory distress, Clear bilaterally - Abdomen Abdomen: Soft, Non tender - Back Back: No CVA TTP, No spinal TTP - Derm Derm: Normal color, Warm and dry - Extremities Extremities: No edema, No calf tenderness / cord - Neuro Neuro: Alert and oriented X 3, Normal speech Results - Vitals Vitals: Vital Signs - 24 hr 05/02/19 11:28 Temperature 37.8 C H Heart Rate 86 Respiratory 18 Rate Blood Pressure 139/71 H O2 Saturation 98 Oxygen O2 Source Room air - Labs Labs: Laboratory Tests 05/02/19 05/02/19 05/02/19 12:15 12:15 12:15 WBC 16.0 H RBC 4.68 L Hgb 13.1 L Hct 39.7 L MCV 84.8 MCH 28.0 MCHC 33.0 RDW 14.0 Plt Count 212 MPV 11.0 Neut # (Auto) 13.7 H Lymph # (Auto) 1.1 L [place] # (Auto) 1.0 Eos # (Auto) 0.0 Baso # (Auto) 0.0 Absolute Nucleated RBC 0.00 Nucleated RBC % 0.0 Sodium 137 Potassium 3.2 L Chloride 103 Carbon Dioxide 24 Anion Gap 10.0 BUN 18 Creatinine 0.6 Estimated GFR (MDRD) 154 Glucose 103 H Lactic Acid 0.7 Calcium 8.9 Phosphorus 2.1 L Magnesium 1.8 Total Bilirubin 0.9 AST 29 ALT 42 Alkaline Phosphatase 74 Total Protein 7.2 Albumin 3.8 Globulin 3.4 Albumin/Globulin Ratio 1.1 Lipase 19 L PD MEDICAL DECISION MAKING - ED course ED course: 33-year-old gentleman with eosinophilic enteritis and recurrent line infections presents with fever and symptoms likely due to a recurrence of same. He was cultured up and given daptomycin based on previous recommendations from [facility] infectious disease noting vancomycin allergies. Spoke with Dr. Contreras for admission at 1:02 PM. Departure - Departure Disposition: [facility] DC/Xfer Clinical Impression: Eosinophilic colitis Fever Qualifiers: Fever type: due to other condition Qualified Code(s): R50.81 - Fever presenting with conditions classified elsewhere Sepsis Qualifiers: Sepsis type: sepsis due to unspecified organism Qualified Code(s): A41.9 - Sepsis, unspecified organism Condition: Serious
[2019-05-02 12:26] LABS: BASOPHILS % (AUTO) 0.3 %; EOSINOPHILS % (AUTO) 0.2 %; HGB - HEMOGLOBIN 13.1 g/dL (14.0-18.0); LYMPHOCYTES # (AUTO) 1.1 10^3/uL (1.5-3.5); MEAN CORPUSCULAR VOLUME 84.8 fL (80.0-94.0); MONOCYTES % (AUTO) 5.9 %; NEUTROPHILS # (AUTO) 13.7 10^3/uL (1.5-6.6); NEUTROPHILS % (AUTO) 85.9 %; PLT - PLATELET COUNT 212 10^3/uL (130-450); RED BLOOD COUNT 4.68 10^6/uL (4.70-6.10)
[2019-05-02 12:41] LABS: CALCIUM 8.9 mg/dL (8.5-10.3); CREATININE 0.6 mg/dL (0.6-1.2)
[2019-05-02 12:42] LABS: ALBUMIN 3.8 g/dL (3.2-5.5); ALBUMIN/GLOBULIN RATIO 1.1 (1.0-2.2); BILIRUBIN,TOTAL 0.9 mg/dL (0.2-1.0); TOTAL PROTEIN 7.2 g/dL (6.7-8.2)
[2019-05-02 12:59] LABS: MAGNESIUM 1.8 mg/dL (1.7-2.8); PHOSPHORUS 2.1 mg/dL (2.5-4.6)
[2019-05-02] MEDS ORDERED: SODIUM CHLORIDE FLUSH 0.9% 10 ML SYRINGE IVP PRN (13:11)
--- NOTE | 2019-05-02 13:33 | HISTORY & PHYSICAL EXAMINATION ---
Chief Complaint - Chief Complaint Chief Complaint: nausea/vomiting starting 04/28, then foiling machine operator noted today 102.7 History of Present Illness - Admitted From Admitted From:: home - History Obtained From Records Reviewed: patient , Discharge summary from 02/21-02/24 admit History obtained from: Patient, old records, ED note - History of Present Illness HPI Comment/Other: 33 yo male with known Hx eosinophril enteritis on chronic TPN presented today with several days nausea/vomiting and fever today of 102.7 when checked by the foiling machine operator.Vomited several x in lst 24 hrs, no hematemesis, not feculant, Has formed BM's, last BM yesterday. Reports he has MORE BM's if he does not take PO, fewer BM's if NOT taking much orally (which sounds counterintuitive). He has been TPN dependent for many years via [place]/ permitted to eat for "enjoyment" comfort, but PO intake often results iin abdominal pain , so his PO intake is limited. He has been admitted several times for line sepsis and has had 4 lines in the past few years, most recent line is from March 2018 at [facility] , most recently with Meth resistant staph epi, treated with Daptomycin in alternating lumens of the catheter(most recent admit 02/21-02/24 here at [facility] and per d/c summary and at that time, [facility] ID recommended NOT replacing the line. On 02/24 he was d/c'd to home w/ Daptomycin 700mg daily for #22 vials (thru ~ 04/18).. He had been at his baseline, other than being prescribed Suboxone on 04/28. Patient recently started onor Suboxone (04/28) for chronic abdominal pain managemet per Rx of pain clinic. He initially thought this was the cause of his abdominal pain, but once fever developed, line sepsis was more of a concern (and patient reports abdominal pain with prior admissions, and is chronic) NO associated chills/ rigors, (felt "chilly" but not actual chills ) No cough , no SOB, RA Sa02 in ED and clinical exam no suggestive of pulm source Neg dysuria, Neg new skin lesion, No change in stoool output No calor/dolor/rubor at [place] site, Bilat LE stumps unremarkable In the ED temperaure was 37.8, HR 86, no tachycardia, no hypotension 139/71, RR 18, 98%sat on RA CBC notable for WBC 16K ((8..3 on 04/22), no bandemia, , normal plateletes 212K, and H/H 13/39.7 chemistries notable for NO anion gap, mild hypokalemia 3.2, Normal renal fxn 18/0.6 , modest hypophosphatemia normal transaminases, and bili and alk phos, Alb 3.8 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; s/p amputation BKA bilat History - Past Medical History Cardiovascular: reports: None Respiratory: reports: Pneumonia, Sleep apnea Neuro: reports: None Endocrine/Autoimmune: reports: None GI: reports: GERD, Pancreatitis, Cholelithiasis, 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 His mother and half brother are alive and well without any known chronic illnesses. Social History Notes: Patient was born in [place], [place]; came to [place] when he was 5 years old. He met his when they were in second grade. Started dating in high school. They have 3 children together but had to give 1 up for adoption because of financial and social situation. 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 He has no history of substance abuse, with the exception of medical marijuana, is a non-smoker and rarely drinks alcohol. He lives at home with his . - Substance History Use: Uses substance without health or social issues: Cannabis - POLST Patient has POLST: No POLST Status: Full Code Meds/Allgy - Home Medications Home Medications: Ambulatory Orders Medication Instructions Recorded Confirmed Omeprazole 40 mg PO BID 07/06/14 05/03/19 Sodium/Pot/Mag/Calc/Chlor/Acet 2,000 ml IV QPM 07/03/15 02/22/19 [TPN Electrolytes II IV Soln] Loratadine [Claritin] 10 mg PO QPM 03/09/16 05/03/19 Pregabalin [Lyrica] 75 mg PO BID 01/05/19 05/03/19 Methylphenidate HCl 54 mg PO DAILY 02/22/19 05/03/19 [Methylphenidate ER] DAPTOmycin [Daptomycin] 700 mg IV DAILY #11 vial 02/24/19 05/03/19 Acetaminophen 1,000 mg PO Q6H PRN 05/03/19 05/03/19 Buprenorphine HCl/Naloxone HCl 1 each SL DAILY 05/03/19 05/03/19 [Buprenorp-Nalox 8-2 mg Sl Film] - Allergies Allergies/Adverse Reactions: Allergies Allergy/AdvReac Type Severity Reaction Status Date / Time metoclopramide HCl * Allergy Severe Anxiety Verified 02/21/19 19:30 [From Reglan] NSAIDS (Non-Steroidal Allergy Severe Erosive Verified 02/21/19 19:30 Anti-Inflamma Esophagitis vancomycin AdvReac Intermediate Acute Verified 02/23/19 09:23 renal failure Review of Systems - Constitutional Constitutional: reports: Other (as per HPI) - Eyes Eyes: denies: Blurred vision, Vision loss, Dipolpia - Ears, Nose & Throat Ears, Nose & Throat: denies: Nasal discharge, Nasal congestion - Cardiovascular Cariovascular: denies: Irregular heart rate, Palpitations - Respiratory Respiratory: denies: Cough, Sputum production, SOB at rest, SOB with exertion - Gastrointestinal Gastrointestinal: reports: Abdominal pain (Chronic diffuse abdominal pain, started subox 04/28). denies: Abdominal distention, Diarrhea, Change in bowel habits (Reports more stools the "less PO he takes", fewer BM's if taking PO, denies diarrhea) - Genitourinary Genitourinary: denies: Dysuria, Frequency, Urgency, Hematuria, Flank pain - Musculoskeletal Musculoskeletal: reports: Other (Bilat LEstump sites w/o pain, breakdown) - Integumentary Integumentary: denies: Rash - Neurological Neurological: denies: General weakness, Focal weakness, Headache - Psychiatric Psychiatric: denies: Depression Exam - Vital Signs Reviewed Vital Signs: Yes Vital Signs: Vital Signs x48h Temp Pulse Resp BP Pulse Ox 05/02/19 13:03 37.4 C 05/02/19 11:28 37.8 C H 86 18 139/71 H 98 - Physical Exam General Appearance: positive: No acute distress (Pleasant young man lying in bed after transfer from stretcher, taking off his stump socks, nontoxic, appearing, looks tired, somewhat flat affect, using cell phone to help w/ Rx info, able to provide detail on hx) Eyes Bilateral: positive: Normal inspection, EOMI, Other (wears glasses) ENT: positive: Dry mucous membranes (slightly dry tongue, adequate denteition) Neck: positive: Nml inspection. negative: Swelling/bruising Respiratory: positive: Chest non-tender, No respiratory distress, Breath sounds nml, Other (RA oxygenation upper 90's) Cardiovascular: positive: Regular rate & rhythm, No murmur. negative: Tachycardia Abdomen: positive: Other (slightly rounded, soft abdomen, very quiet bowel sounds (I did not hear any), diffusely tender to palpation (mildly), old RUQ long diagnoal scar, and midline scar below umbilicus, no masses, no boryborygmi, holding emesis bag, but no emesis during exam, hiccoughing frequently) Back: positive: Other (no spine point tenderness). negative: CVA tenderness (R), CVA tenderness (L) Skin: positive: Warm, Dry, Other (tunneled cather exit site w/ redness, swelling, tenderness, nor drainage). negative: Skin rash Extremities: positive: Other (Bilat LE stumps intact) Neurologic/Psychiatric: positive: Oriented x3, Mood/affect nml (just looks tired, slightly flat) Conclusion/Plan - Problem List (1) Fever Conclusion/Plan: Fever w/ subjective chills at home, with leukocytosis Sepsis by 2/4 Sirs w/ suspected line infection no findings w/ severe sepsis or septic shock Given no other obvious source at present, until proven otherwise, high suspician for line infection given prior hx blood cultures pending Addendum; ED blood cultures were peripheral will send cultures from each lumen of [place]; RN aware Unfortunately already got Dapto in ED, ContinueDapto till Cultures and tramaine contact [facility] ID where line placed If diarrhea, check for Cdif (but denies) AXR to r/o bowel obstruction Lovenox for VTE prophylaxis Qualifiers: Fever type: due to other condition Qualified Code(s): R50.81 - Fever presenting with conditions classified elsewhere (2) Eosinophilic colitis Conclusion/Plan: On TPN chronically no chronic diarrhea continue TPN (PPN until cultures result/ will not use [place] for TPN unless c ultures neg) (3) Hypokalemia Conclusion/Plan: Will get PPN tonight Nutrition consult (PPN until blood cultures result) If negative can use [place] for TPN If + blood cx will talk w/ ID at (4) Depression Conclusion/Plan: patient reports having tapered off Cymbalta since last admit due to not effective (may have also been for pain management) Per patient now on suboxone Per pharmacy need patient to take own med/ non formulary Contninue Ritalin (5) GERD (gastroesophageal reflux disease) Conclusion/Plan: continue home bid PPI (omeprazole at home) symptomatic per patient (6) Leukocytosis Conclusion/Plan: as per #1 , Fever, suspician for infection, possibly repeat line infection (troncoso) no other obvious source If diarrhea will check C dif Considered SBO; checking 2 view abdomen>>>>>No obstruction continuing empiric dapto (7) Chronic pain Conclusion/Plan: continue suboxone on Film 8-2mg 2 tabs q am at home, Pharmacy unable to enter in [employer] "take own meds" SUZANNE will enter tomorrow Patient aware to have bring in his doses Qualifiers: Chronic pain type: chronic pain syndrome Qualified Code(s): G89.4 - Chronic pain syndrome (9) Other hyperalimentation Conclusion/Plan: On daily 2Liter TPN at home Nutrition consulted for PPN until cultures result/avoiding [place]/central line until r/u recurrent line infection Labs/ exam c/w adequate nutrition status - Lab Results Fish Bones: 05/03/19 06:20 05/03/19 06:20
[2019-05-02] MEDS ORDERED: SODIUM CHLORIDE 0.9% 100ML 100 ML IV ONE (14:08)
[2019-05-02] MEDS: SODIUM CHLORIDE 0.9% 1,000 ML IV SCH (14:15)
[2019-05-02] MEDS ORDERED: POTASSIUM CHLOR 10 MEQ/100 ML 10 MEQ/100 ML BAG IV ONE ×2 (15:15→17:30)
[2019-05-02] MEDS ORDERED: POTASSIUM PHOSPHATE 15 MMOL in SODIUM CHLORIDE 0.9% 250 ML IV ONE (15:38)
--- NOTE | 2019-05-02 16:16 | XRAY Report ---
Reason: eval for air fluid levels, hx abd surgeries Procedure Date: 05/02/2019 Accession Number: [id number] / [id number] Procedure: XR - Abdomen 2 View X-Ray CPT Code: 64354 FULL RESULT: EXAM: ABDOMEN RADIOGRAPHY EXAM DATE: 05/02/2019 03:07 PM. CLINICAL HISTORY: History of abdominal surgery, vomiting. Evaluate for air-fluid levels. COMPARISON: ABDOMEN ACUTE 05/11/2015 8:43 PM. TECHNIQUE: 2 views. FINDINGS: Lung Bases: Visualized hemithorax is within normal limits. Bowel Gas Pattern: No significant air-fluid levels are seen. No bowel obstructive pattern. Free Air: No definite gross free air. Other: What is presumed to be an abdominal drain is identified on the AP view in the left upper quadrant. IMPRESSION: No significant air-fluid levels. RADIA
[2019-05-02] MEDS: PANTOPRAZOLE 40 MG TABLET PO SCH ×2 (16:36→21:40)
[2019-05-02] MEDS ORDERED: ALTEPLASE 2 MG VIAL IC ONE (17:00)
[2019-05-02] MEDS: SODIUM CHLORIDE FLUSH 0.9% 10 ML SYRINGE IVP SCH (17:55)
[2019-05-02] MEDS ORDERED: FAT EMULSION 20% 250 ML IV SCH (19:00)
[2019-05-02] MEDS ORDERED: PPN (CLINIMIX E 4.25/5) 2,000 ML with MULTIVITAMIN 10 ML, TRACE ELEMENTS V CONC 1 ML IV SCH ×3 (19:00)
[2019-05-02] MEDS ORDERED: ACETAMINOPHEN 1,000 MG/100 ML 100 ML IV PRN (20:35)
[2019-05-02] MEDS ORDERED: NON FORMULARY MED (Omeprazole [Omeprazole] 40 MG) PO SCH (21:00)
[2019-05-02] MEDS: PREGABALIN 25 MG CAPSULE PO SCH (21:40)
[2019-05-03] MEDS: SODIUM CHLORIDE FLUSH 0.9% 10 ML SYRINGE IVP SCH ×2 (00:46→09:44)
[2019-05-03] MEDS: SODIUM CHLORIDE 0.9% 1,000 ML IV SCH ×2 (01:10→10:53)
[2019-05-03 06:38] LABS: HGB - HEMOGLOBIN 10.8 g/dL (14.0-18.0); MEAN CORPUSCULAR HEMOGLOBIN 27.1 pg (27.0-31.0); MEAN CORPUSCULAR HGB CONC 31.4 g/dL (32.0-36.0); MEAN CORPUSCULAR VOLUME 86.4 fL (80.0-94.0); MEAN PLATELET VOLUME 11.2 fL (7.4-11.4); RED BLOOD COUNT 3.98 10^6/uL (4.70-6.10); RED CELL DISTRIBUTION WIDTH 14.3 % (12.0-15.0); WHITE BLOOD COUNT 15.5 x10^3/uL (4.8-10.8)
[2019-05-03 06:45] LABS: INR 1.4 (0.8-1.2); PT - PROTHROMBIN TIME 16.2 secs (9.9-12.6)
[2019-05-03 06:50] LABS: CREATININE 0.5 mg/dL (0.6-1.2)
[2019-05-03 06:51] LABS: CALCIUM 7.8 mg/dL (8.5-10.3)
[2019-05-03 06:54] LABS: ALBUMIN 2.8 g/dL (3.2-5.5); BILIRUBIN,DIRECT 0.2 mg/dL (0.1-0.5); MAGNESIUM 1.7 mg/dL (1.7-2.8); PHOSPHORUS 2.1 mg/dL (2.5-4.6); TOTAL PROTEIN 5.5 g/dL (6.7-8.2)
[2019-05-03] MEDS ORDERED: SODIUM CHLORIDE 0.9% 100ML 100 ML IV ONE (08:55)
[2019-05-03] MEDS: PANTOPRAZOLE 40 MG TABLET PO SCH (08:56)
[2019-05-03] MEDS: PREGABALIN 25 MG CAPSULE PO SCH (08:56)
[2019-05-03] MEDS ORDERED: POLYETHYLENE GLYCOL 3350 17 GM PACKET PO SCH (09:00)
[2019-05-03] MEDS ORDERED: METHYLPHENIDATE HCL 54 MG PO SCH (09:00)
[2019-05-03] MEDS ORDERED: SUBOXONE SL SCH (09:00)
[2019-05-03] MEDS ORDERED: DAPTOMYCIN IV SCH ×2 (09:00)
[2019-05-03] MEDS ORDERED: SODIUM CHLORIDE 0.9% IV SCH (09:00)
[2019-05-03] MEDS ORDERED: ENOXAPARIN 40 MG/0.4 ML SYRINGE SUBQ SCH (09:00)
[2019-05-03] MEDS ORDERED: POTASSIUM CHLOR 10 MEQ/100 ML 10 MEQ/100 ML BAG IV ONE ×4 (09:12→16:00)
[2019-05-03] MEDS ORDERED: POTASSIUM CHLORIDE 20 MEQ TABLET PO ONE (09:20)
[2019-05-03] MEDS ORDERED: ONDANSETRON 4 MG/2 ML VIAL IVP PRN (09:22)
--- NOTE | 2019-05-03 16:03 | Discharge Plan ---
Discharge Plan Problem Reviewed?: Yes Disposition: 02 Transfer Acute Care Hosp Condition: Stable Diet: Regular (Patient takes limited PO as desired, mostly managed w/ TPN) Activity Restrictions: Activity as Tolerated Shower Restrictions: No Driving Restrictions: No Assistance Devices: Wheelchair Additional Instructions or Follow Up instructions: See d/c summary for details Patient admitted with fever, No obvious source Has tunneled catheter, and hx of gram positive bacteremia, recently completed course of daptomycin for MRSE bacteremia, Gamez left in at recommendation by [facility] ID to salvage line Blood cultures (central , peripheral) + for MRSA; transferring to [facility] for management (line was placed at [facility] and ID not availiable here Deferred echo til transfer as GLADYS not available here (no murmur) Was empirically started on Daptomycin on 05/02 on presentation Has already received dose today Had PPN via peripheral line stopped for transfer NS at 125 for transfer No Smoking: If you smoke, Please STOP! Call for help. Follow-up with: Francis Chiu PA-C [Primary Care Provider] -
--- NOTE | 2019-05-03 16:17 | DISCHARGE SUMMARY ---
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) Hypokalemia Hypophosphatemia Discharge Diagnoses with Status of Each Condition: CLBSI; nonseptic, hemodynamically stable, transferring to [facility] for management/line removal with infectious di sease and GLADYS MRSA bacteremia, + peripheral and central blood cultures Sensitivities pending; Started daptomycin empirically on admit 05/02, has received 05/03 dose Hypokalemia; repleting IV (3.0 this morning prior to 40 meq IV and PPN ) Eosinophilic coliitis; stable, PPN until TPN feasible once blood infection clears/ and line out GERD stable on home management PPI Depression; stable Chronic pain ; stable on home management - HPI History of Present Illness: 33 yo male with 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 Reports he has MORE BM's if he does not take PO, fewer BM's if NOT taking much orally (which sounds counterintuitive). He has been TPN dependent for many years via [place]/ permitted to eat for "enjoyment" comfort, but PO intake often results iin abdominal pain , so his PO intake is limited. He has been admitted several times for line sepsis and has had 4 lines in the past few years, most recent line is from March 2018 at [facility] , most recently with Meth resistant staph epi, treated with Daptomycin in alternating lumens of the catheter(most recent admit 02/21-02/24 here at [facility] and per d/c summary and at that time, [facility] ID recommended NOT replacing the line. On 02/24 he was d/c'd to home w/ Daptomycin 700mg daily for #22 vials (thru ~ 04/18) although d/c summary noted 14 day total recommended by [facility] (which would have had completion end of March). He had been at his baseline, other than being prescribed Suboxone on 04/28. Patient recently started onor Suboxone (04/28) for chronic abdominal pain managemet per Rx of pain clinic. He initially thought this was the cause of his abdominal pain, but once fever developed, line sepsis was more of a concern (and patient reports abdominal pain with prior admissions, and is chronic) NO associated chills/ rigors, (felt "chilly" but not actual chills ) No cough , no SOB, RA Sa02 in ED and clinical exam no suggestive of pulm source Neg dysuria, Neg new skin lesion, No change in stoool output No calor/dolor/rubor at [place] site, Bilat LE stumps unremarkable In the ED temperaure was 37.8, HR 86, no tachycardia, no hypotension 139/71, RR 18, 98%sat on RA CBC notable for WBC 16K ((8..3 on 04/22), no bandemia, , normal plateletes 212K, and H/H 13/39.7 chemistries notable for NO anion gap, mild hypokalemia 3.2, Normal renal fxn 18/0.6 , modest hypophosphatemia normal transaminases, and bili and alk phos, Alb 3.8 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 all sites, central line resulted earlier) Received daptomycin dose today 05/03 Deferred on echo as no GLADYS available here, (no murmur appreciable; will need GLADYS) LIne placed at [facility], no ID at [facility], no GLADYS available, and will have complex course needing PPN until able to get TPN again Fever (from 05/02) Conclusion/Plan: 05/03; T max 38.9 over night, defervesced 05/02 Fever w/ subjective chills at home, with leukocytosis Sepsis by 2/4 Sirs w/ suspected line infection no findings w/ severe sepsis or septic shock Given no other obvious source at present, until proven otherwise, high suspician for line infection given prior hx blood cultures pending Addendum; ED blood cultures were peripheral will send cultures from each lumen of [place]; RN aware Unfortunately already got Dapto in ED, ContinueDapto till Cultures and tramaine contact [facility] ID where line placed If diarrhea, check for Cdif (but denies) AXR to r/o bowel obstruction Lovenox for VTE prophylaxis (2) Eosinophilic colitis Conclusion/Plan: On TPN chronically no chronic diarrhea continue TPN (PPN until cultures result/ will not use [place] for TPN unless cultures neg) (3) Hypokalemia Conclusion/Plan: 05/03 Potassium: 3.2 onadmission; repleted w/ 20meq IV and received PPN overnight K 3.0 on 05/03 Has received 40 meq additional IV (patient indicated he could not yet tolerate PO K) repleting IV (declining PO) 3.0 this am and received 40 IV, PPN still infusing til transfer 05/02 Will get PPN tonight Nutrition consult (PPN until blood cultures result) If negative can use [place] for TPN If + blood cx will talk w/ ID at [facility] (4) Depression Conclusion/Plan: patient reports having tapered off Cymbalta since last admit due to not effective (Depression r/t chronic illness, amputations) (may have contributued to chronic pain management as well) Per patient now on suboxone 8mg-2mg 2 tabs daily Rx'd (patient electing to take 1 daily) Per pharmacy need patient to take own med/ non formulary Contninue Ritalin (5) GERD (gastroesophageal reflux disease) Conclusion/Plan: continue home bid PPI (omeprazole at home) symptomatic per patient (6) Leukocytosis Conclusion/Plan: 16.0 on admit, no bands, 15.5 05/03; Related to CLBSI 05/02, Fever, possibly repeat line infection (tron[place]o) no other obvious source on exam, Hx If diarrhea will check C dif Considered SBO; checking 2 view abdomen>>>>>No obstruction continuing empiric dapto (7) Chronic pain Conclusion/Plan: continue suboxone ( on Film 8-2mg 2 tabs q am at home, Pharmacy unable to enter in [place] "take own meds" (9) Other hyperalimentation Conclusion/Plan: On daily 2Liter TPN at home Nutrition consulted for PPN until cultures result/avoiding [place]/central line until r/u recurrent line infection Labs/ exam c/w adequate nutrition status - ALLERGIES Allergies/Adverse Reactions: Allergies Allergy/AdvReac Type Severity Reaction Status Date / Time metoclopramide HCl * Allergy Severe Anxiety Verified 02/21/19 19:30 [From Reglan] NSAIDS (Non-Steroidal Allergy Severe Erosive Verified 02/21/19 19:30 Anti-Inflamma Esophagitis vancomycin AdvReac Intermediate Acute Verified 02/23/19 09:23 renal failure - MEDICATIONS Home Medications: Ambulatory Orders Medication Instructions Recorded Confirmed Omeprazole 40 mg PO BID 07/06/14 05/03/19 Loratadine [Claritin] 10 mg PO QPM 03/09/16 05/03/19 Pregabalin [Lyrica] 75 mg PO BID 01/05/19 05/03/19 Methylphenidate HCl 54 mg PO DAILY 02/22/19 05/03/19 [Methylphenidate ER] DAPTOmycin [Daptomycin] 700 mg IV DAILY #11 vial 02/24/19 05/03/19 Acetaminophen 1,000 mg PO Q6H PRN 05/03/19 05/03/19 Buprenorphine HCl/Naloxone HCl 1 each SL DAILY 05/03/19 05/03/19 [Buprenorp-Nalox 8-2 mg Sl Film] Enoxaparin [Lovenox] 40 mg SUBQ DAILY syringe 05/03/19 - PHYSICAL EXAM AT DISCHARGE General Appearance: positive: No acute distress, Alert, Other (Pleasant young man, lying in bed, cool wash cloth on forehead, nontoxic) Eyes Bilateral: positive: Normal inspection, PERRL, EOMI (Glasses) Neck: positive: Nml inspection, No JVD. negative: Stiff neck Respiratory: positive: Chest non-tender, No respiratory distress, Breath sounds nml Cardiovascular: positive: Regular rate & rhythm, No murmur, Other (No mottling, SBP 109/54- 115/56, No tachycardia) Peripheral Pulses: positive: 2+ Abdomen: positive: Nml bowel sounds (hypoactive but present), No distention, Tenderness (diffusely mostly across upper abd, no change from his baseline, soft, nondistended), Other (generous protuberant abdomen, not distended, no RBT, no organomegaly, old well healed RUQ diag scar and midline scar) Back: positive: Other (no point tenderness spine). negative: CVA tenderness (R), CVA tenderness (L) Extremities: positive: Other (Bilat BKA stumps unremarkable) Neurologic/Psychiatric: positive: Mood/affect nml, Other (Family in) - LABS Result Diagrams: 05/03/19 06:20 05/03/19 06:20 - DIAGNOSTIC IMAGING Diagnostic Imaging Results Comments: AXR; No air fluid levels/no obstruction 05/02 - SEPSIS Current Stage of Sepsis: Sepsis Possible source of Sepsis: CLABSI Sepsis Associated Organ Dysfunction: none
[2019-05-03 17:02] VITALS: BP 122/51
[2019-05-04] MEDS ORDERED: SUBOXONE SL SCH (09:00)
== END 2019-05-03 17:15 | disposition short-term general hospital (02) | DRG 314 ==
LOC: ED 11:20 → MS2 13:11
PROVIDERS: ADMIT Nurse Practitioner; ATTEND Nurse Practitioner
DX: T80.211A Bloodstream infection due to central venous catheter, initial encounter (principal); A41.02 Sepsis due to Methicillin resistant Staphylococcus aureus; Y84.8 Other medical procedures as the cause of abnormal reaction of the patient, or of later complication, without mention of misadventure at the time of the procedure; K52.81 Eosinophilic gastritis or gastroenteritis; K52.82 Eosinophilic colitis; E87.6 Hypokalemia; E83.39 Other disorders of phosphorus metabolism; K21.9 Gastro-esophageal reflux disease without esophagitis; F32.9 Major depressive disorder, single episode, unspecified; G89.4 Chronic pain syndrome; Z88.1 Allergy status to other antibiotic agents; Z79.899 Other long term (current) drug therapy; Z89.512 Acquired absence of left leg below knee; Z89.511 Acquired absence of right leg below knee; Z87.76 Personal history of (corrected) congenital malformations of integument, limbs and musculoskeletal system; Z87.01 Personal history of pneumonia (recurrent); Z87.19 Personal history of other diseases of the digestive system
CPT/HCPCS: 36415; 74019; 80048; 80053; 80076; 83605; 83690; 83735; 84100; 84134; 84478; 85025; 85027; 85610; 87040; 87077; 87181; 87640; 96374; 99284; 99285; A9270; J0131; J0878; J1170; J1650; J2997; J3490

== ENCOUNTER 2019-05-03 18:40 | Outpatient (CLI) | payer MEDICAID | END 2019-05-03 18:41 | disposition short-term general hospital (02) | LOC: EMS 18:40 | PROVIDERS: ATTEND Surgery | DX: K52.82 Eosinophilic colitis (principal) | CPT/HCPCS: A0425; A0426; A0999 ==

== ENCOUNTER 2019-05-12 | Outpatient (CLI) | payer MEDICAID | END 2019-05-12 12:34 | disposition home or self-care (01) | DX: D50.9 Iron deficiency anemia, unspecified (principal) | CPT/HCPCS: 36415; 85025 ==

== ENCOUNTER 2019-05-12 13:06 | Outpatient (CLI) | payer MEDICAID ==
--- NOTE | 2019-05-13 15:37 | XRAY Report ---
Reason: MECHANICAL COMPLICATION OF OTHER INTERNAL PROSTHET Procedure Date: 05/12/2019 Accession Number: [id number] / [id number] Procedure: XR - Chest 2 View X-Ray CPT Code: 89176 FULL RESULT: EXAM: CHEST RADIOGRAPHY EXAM DATE: 05/12/2019 01:19 PM. CLINICAL HISTORY: Mechanical complication of internal prosthetic device. COMPARISON: CHEST 1 VIEW 11/15/2018 3:20 PM. TECHNIQUE: 2 views. FINDINGS: Lungs/Pleura: Right lower lobe opacity. No pleural effusions. No vascular congestion. No pneumothorax. Mediastinum: Heart size and mediastinal contour are stable. Other: Right IJ catheter with the tip in the lower SVC. Status post cholecystectomy. IMPRESSION: 1. Right lower lobe airspace consolidation most likely representing pneumonia. RADIA
== END 2019-05-12 13:07 | disposition home or self-care (01) ==
LOC: DI 13:06
PROVIDERS: ATTEND Family Medicine
DX: T85.698A Other mechanical complication of other specified internal prosthetic devices, implants and grafts, initial encounter (principal); R91.8 Other nonspecific abnormal finding of lung field; D50.9 Iron deficiency anemia, unspecified
CPT/HCPCS: 36415; 71046; 85025

== ENCOUNTER 2019-07-09 15:06 | Emergency (ER) | payer MEDICAID ==
[2019-07-09 15:15] VITALS: BP 120/57
[2019-07-09 15:30] LABS: BILIRUBIN,URINE NEGATIVE (NEGATIVE); GLUCOSE, URINE (UA) NEGATIVE (NEGATIVE); KETONES,URINE (UA) NEGATIVE (NEGATIVE); LEUKOCYTE ESTERASE, URINE NEGATIVE (NEGATIVE); NITRITE,URINE NEGATIVE (NEGATIVE); OCCULT BLOOD,URINE TRACE-INTA (NEGATIVE); PROTEIN,URINE NEGATIVE (NEGATIVE); UROBILINOGEN,URINE 0.2 (NORMAL) E.U./dL (NORMAL)
[2019-07-09 15:45] LABS: CLARITY,URINE CLEAR (CLEAR)
[2019-07-09] MEDS ORDERED: NITROFURANTOIN MACRO 100 MG CAPSULE PO STA (16:07)
--- NOTE | 2019-07-09 16:08 | ED Physician Documentation ---
History of Present Illness - Stated complaint Stated Complaint: MALE - Chief complaint Chief Complaint: UTI - History obtained from History obtained from: Patient - History of Present Illness Timing: How many days ago (several) Pain level max: 4 Pain level now: 3 Improved by: nothing Worsened by: nothing - Additonal information Additional information: states took an OTC UA test yesterday and it showed a UTI. Unable to see his doctor today. Dark urine, painful with urination. No fevers. No vomiting. No back pain. 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 SIZER: None : Kidney stones HEENT: Chronic sinusitis Psych: Depression, Anxiety, Panic attacks, Other Musculoskeletal: Chronic back pain, Other Derm: Eczema - Past Surgical History Past Surgical History: Yes General: Cholecystectomy, Bowel surgery, Colonoscopy, Other Ortho: Spine surgery, Amputation - Present Medications Home Medications: Ambulatory Orders Medication Instructions Recorded Confirmed Omeprazole 40 mg PO BID 07/06/14 05/03/19 Loratadine [Claritin] 10 mg PO QPM 03/09/16 05/03/19 Pregabalin [Lyrica] 75 mg PO BID 01/05/19 05/03/19 Methylphenidate HCl 54 mg PO DAILY 02/22/19 05/03/19 [Methylphenidate ER] DAPTOmycin [Daptomycin] 700 mg IV DAILY #11 vial 02/24/19 05/03/19 Acetaminophen 1,000 mg PO Q6H PRN 05/03/19 05/03/19 Buprenorphine HCl/Naloxone HCl 1 each SL DAILY 05/03/19 05/03/19 [Buprenorp-Nalox 8-2 mg Sl Film] Enoxaparin [Lovenox] 40 mg SUBQ DAILY syringe 05/03/19 Nitrofurantoin Monohyd/M-Cryst 100 mg PO BID #10 capsule 07/09/19 [Macrobid 100 mg Capsule] - Allergies Allergies/Adverse Reactions: Allergies Allergy/AdvReac Type Severity Reaction Status Date / Time metoclopramide HCl * Allergy Severe Anxiety Verified 02/21/19 19:30 [From Reglan] vancomycin AdvReac Intermediate Acute Verified 02/23/19 09:23 renal failure - Social History Does the pt smoke?: No Smoking Status: Never smoker Does the pt drink ETOH?: No Does the pt have substance abuse?: Yes - Immunizations Immunizations are current?: Yes - POLST Patient has POLST: No POLST Status: Full Code PD ED PE NORMAL - Vitals Vital signs reviewed: Yes - General General: Alert and oriented X 3, No acute distress, Well developed/nourished - HEENT HEENT: PERRL, Moist mucous membranes - Neck Neck: Supple, no meningeal sign - Cardiac Cardiac: RRR, Strong equal pulses - Respiratory Respiratory: No respiratory distress, Clear bilaterally - Abdomen Abdomen: Soft, Non tender, Non distended - Back Back: No CVA TTP - Derm Derm: Warm and dry - Neuro Neuro: Alert and oriented X 3 - Psych Psych: Normal mood, Normal affect Results - Vitals Vitals: Vital Signs - 24 hr 07/09/19 15:12 Temperature 36.3 C L Heart Rate 75 Respiratory 18 Rate Blood Pressure 120/57 L O2 Saturation 99 Oxygen O2 Source Room air - Labs Labs: Laboratory Tests 07/09/19 15:18 Urine Color YELLOW Urine Clarity CLEAR Urine pH 6.0 Ur Specific [place] <=1.005 Urine Protein NEGATIVE Urine Glucose (UA) NEGATIVE Urine Ketones NEGATIVE Urine Occult Blood TRACE-INTA Urine Nitrite NEGATIVE Urine Bilirubin NEGATIVE Urine Urobilinogen 0.2 (NORMAL) Ur Leukocyte Esterase NEGATIVE Ur Microscopic Review NOT INDICATED Urine Culture Comments NOT INDICATED PD MEDICAL DECISION MAKING - ED course Complexity details: reviewed results, considered differential, d/w patient ED course: 34-year-old male with what appears to be UTI. Urinalysis is negative here, but I did review his test results from yesterday and they are positive. Therefore will cover with Macrobid. He is well-appearing, nontoxic. Afebrile. No evidence of pyelonephritis. Patient counseled regarding signs and symptoms for which I believe and urgent re-evaluation would be necessary. Patient with good understanding of and agreement to plan and is comfortable going home at this time This document was made in part using voice recognition software. While efforts are made to proofread this document, sound alike and grammatical errors may occur. Departure - Departure Disposition: 01 Home, Self Care Clinical Impression: UTI (urinary tract infection) Qualifiers: Urinary tract infection type: acute cystitis Hematuria presence: without hematuria Qualified Code(s): N30.00 - Acute cystitis without hematuria Condition: Good Instructions: ED UTI Cystitis Male Follow-Up: Francis Chiu PA-C [Primary Care Provider] - Within 3 Days Prescriptions: Nitrofurantoin Monohyd/M-Cryst [Macrobid 100 mg Capsule] 100 mg PO BID #10 capsule Comments: Take all antibiotic's until gone. Return if you worsen. Follow-up with your doctor for further care. Discharge Date/Time: 07/09/19 16:14
== END 2019-07-09 16:14 | disposition home or self-care (01) ==
LOC: ED 15:06
DX: N30.00 Acute cystitis without hematuria (principal)
CPT/HCPCS: 81003; 99283; A9270; 81001; 87086

== ENCOUNTER 2019-09-15 15:37 | Outpatient (CLI) | payer MEDICAID ==
--- NOTE | 2019-09-16 18:02 | XRAY Report ---
Reason: KNEE PAIN Procedure Date: 09/15/2019 Accession Number: [id number] / [id number] Procedure: XRN - Knee 3 View LT CPT Code: Final Report FULL RESULT: EXAM: LEFT KNEE RADIOGRAPHY EXAM DATE: 09/15/2019 03:58 PM. CLINICAL HISTORY: Left knee pain with walking since last week of August. COMPARISON: 04/19/2014 4:11 PM. TECHNIQUE: 3 views. FINDINGS: Bones: No traumatic or destructive bony abnormalities at the knee. BKA, with chronic fusion of the terminus of the tibia and fibula. Joints: Normal. No effusion. No subluxations. Soft Tissues: Unremarkable. IMPRESSION: No acute abnormalities or interval change. RADIA
--- NOTE | 2019-09-16 18:04 | XRAY Report ---
Reason: KNEE PAIN Procedure Date: 09/15/2019 Accession Number: [id number] / [id number] Procedure: XRN - Tib/Fib LT CPT Code: Final Report FULL RESULT: EXAM: LEFT TIBIA/FIBULA RADIOGRAPHY EXAM DATE: 09/15/2019 03:58 PM. CLINICAL HISTORY: Pain with walking since last week of August. COMPARISON: KNEE 3 VIEW LT 09/15/2019 4:01 PM. TECHNIQUE: 2 views. FINDINGS: Bones: Chronic mid tibial shaft and distal fibular shaft amputation with fusion at the tibial terminus. No new bony abnormalities. Joints: The visualized knee joint is normal. No effusions. Soft Tissues: Unremarkable. IMPRESSION: No acute abnormality or interval change. RADIA
== END 2019-09-15 15:38 | disposition home or self-care (01) ==
LOC: DI.N 15:37
PROVIDERS: ATTEND Physician Assistant Medical
DX: M25.562 Pain in left knee (principal); Z89.512 Acquired absence of left leg below knee

== ENCOUNTER 2019-11-08 14:56 | Emergency (ER) | payer MEDICAID ==
[2019-11-08] MEDS ORDERED: BUPRENORPHINE 0.3 MG/ML AMP IM ONE (15:47)
--- NOTE | 2019-11-08 15:48 | ED Physician Documentation ---
History of Present Illness - Stated complaint Stated Complaint: MED REFILL/BODY PX/UNEASE - Chief complaint Chief Complaint: General - History obtained from History obtained from: Patient - History of Present Illness Timing: Today Pain level max: 0 Pain level now: 0 - Additonal information Additional information: Patient has been out of his Suboxone for 3 days. He states that he has been feeling like he is having withdrawals. He sees a psychiatrist in 2 days. He is supposed to see [facility] today. He is not homicidal or suicidal. 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 : Kidney stones HEENT: Chronic sinusitis Psych: Depression, Anxiety, Panic attacks, Other Musculoskeletal: Chronic back pain, Other Derm: Eczema - Past Surgical History Past Surgical History: Yes General: Cholecystectomy, Bowel surgery, Colonoscopy, Other Ortho: Spine surgery, Amputation - Present Medications Home Medications: Ambulatory Orders Medication Instructions Recorded Confirmed Omeprazole 40 mg PO BID 07/06/14 05/03/19 Loratadine [Claritin] 10 mg PO QPM 03/09/16 05/03/19 Pregabalin [Lyrica] 75 mg PO BID 01/05/19 05/03/19 Methylphenidate HCl 54 mg PO DAILY 02/22/19 05/03/19 [Methylphenidate ER] DAPTOmycin [Daptomycin] 700 mg IV DAILY #11 vial 02/24/19 05/03/19 Acetaminophen 1,000 mg PO Q6H PRN 05/03/19 05/03/19 Buprenorphine HCl/Naloxone HCl 1 each SL DAILY 05/03/19 05/03/19 [Buprenorp-Nalox 8-2 mg Sl Film] Enoxaparin [Lovenox] 40 mg SUBQ DAILY syringe 05/03/19 Nitrofurantoin Monohyd/M-Cryst 100 mg PO BID #10 capsule 07/09/19 [Macrobid 100 mg Capsule] - Allergies Allergies/Adverse Reactions: Allergies Allergy/AdvReac Type Severity Reaction Status Date / Time metoclopramide HCl * Allergy Severe Anxiety Verified 11/08/19 15:08 [From Reglan] vancomycin AdvReac Intermediate Acute Verified 11/08/19 15:08 renal failure - Social History Does the pt smoke?: No Smoking Status: Never smoker Does the pt drink ETOH?: No Does the pt have substance abuse?: Yes - Immunizations Immunizations are current?: Yes - POLST Patient has POLST: No POLST Status: Full Code PD ED PE NORMAL - Vitals Vital signs reviewed: Yes - General General: Alert and oriented X 3, No acute distress, Well developed/nourished - HEENT HEENT: Moist mucous membranes - Neck Neck: Supple, no meningeal sign - Cardiac Cardiac: RRR, Strong equal pulses - Respiratory Respiratory: No respiratory distress, Clear bilaterally - Abdomen Abdomen: Soft, Non tender, Non distended - Derm Derm: Warm and dry - Neuro Neuro: Alert and oriented X 3 - Psych Psych: Normal mood, Normal affect Results - Vitals Vitals: Vital Signs - 24 hr 11/08/19 11/08/19 15:05 16:15 Temperature 36.2 C L 37.1 C Heart Rate 62 59 L Respiratory 16 18 Rate Blood Pressure 141/73 H 117/63 O2 Saturation 100 99 Oxygen O2 Source Room air PD MEDICAL DECISION MAKING - ED course Complexity details: considered differential, d/w patient ED course: Patient with Suboxone withdrawal. Given a dose of IM buprenorphine and he will follow up with his doctor for further care. Patient counseled regarding signs and symptoms for which I believe and urgent re-evaluation would be necessary. Patient with good understanding of and agreement to plan and is comfortable going home at this time [facility] Departure - Departure Disposition: Home, Self Care Clinical Impression: Medication withdrawal Qualifiers: Substance type: opioid Qualified Code(s): F11.23 - Opioid dependence with withdrawal Condition: Good Instructions: ED Withdrawal Narcotic Follow-Up: Francis Chiu PA-C [Primary Care Provider] - Within 1 week Comments: Follow-up with your doctor for further care. You are given a dose of buprenorphine today. This should help with your withdrawal symptoms. Discharge Date/Time: 11/08/19 16:22
[2019-11-08 16:16] VITALS: BP 117/63
== END 2019-11-08 16:22 | disposition home or self-care (01) ==
LOC: ED 14:56
DX: F11.23 Opioid dependence with withdrawal (principal)
CPT/HCPCS: 96372; 99283; 99284

== ENCOUNTER 2021-11-29 15:42 | Outpatient (CLI) | payer MEDICAID ==
[2021-11-29 16:51] LABS: ALBUMIN 4.5 g/dL (3.2-5.5); ALBUMIN/GLOBULIN RATIO 1.4 (1.0-2.2); ALKALINE PHOSPHATASE 70 IU/L (42-121); ALT ALANINE AMINOTRANSFERASE 17 IU/L (10-60); AST ASPARTATE AMINOTRANSFERASE 17 IU/L (10-42); BILIRUBIN,TOTAL 0.5 mg/dL (0.2-1.0); BUN - BLOOD UREA NITROGEN 15 mg/dL (6-20); CALCIUM 9.5 mg/dL (8.5-10.3); CARBON DIOXIDE - CO2 29 mmol/L (21-32); CHLORIDE 101 mmol/L (101-111); CK- CREATINE KINASE 44 IU/L (22-269); CREATININE 0.7 mg/dL (0.6-1.2); GFR - MDRD 127 (>89); GLUCOSE 117 mg/dL (70-100); POTASSIUM 3.7 mmol/L (3.5-5.0); SODIUM 139 mmol/L (135-145); TOTAL PROTEIN 7.7 g/dL (6.7-8.2)
[2021-11-29 17:05] LABS: BASOPHILS % (AUTO) 0.2 %; CRP - C-REACTIVE PROTEIN < 1.0 mg/dL (0-1.0); HCT - HEMATOCRIT 43.7 % (42.0-52.0); HGB - HEMOGLOBIN 13.8 g/dL (14.0-18.0); LYMPHOCYTES # (AUTO) 1.7 10^3/uL (1.5-3.5); LYMPHOCYTES % (AUTO) 16.7 %; MEAN CORPUSCULAR HEMOGLOBIN 25.8 pg (27.0-31.0); MEAN CORPUSCULAR HGB CONC 31.6 g/dL (32.0-36.0); MEAN CORPUSCULAR VOLUME 81.7 fL (80.0-94.0); MEAN PLATELET VOLUME 11.2 fL (7.4-11.4); MONOCYTES # (AUTO) 0.4 10^3/uL (0.0-1.0); MONOCYTES % (AUTO) 3.8 %; NEUTROPHILS # (AUTO) 8.2 10^3/uL (1.5-6.6); NEUTROPHILS % (AUTO) 78.9 %; PLT - PLATELET COUNT 252 10^3/uL (130-450); RED BLOOD COUNT 5.35 10^6/uL (4.70-6.10); RED CELL DISTRIBUTION WIDTH 15.5 % (12.0-15.0); WHITE BLOOD COUNT 10.4 x10^3/uL (4.8-10.8)
[2021-11-29 18:24] LABS: RHEUMATOID FACTOR NEGATIVE (Negative)
--- NOTE | 2021-11-29 21:20 | XRAY Report ---
PROCEDURE: Knee 4 View BILAT INDICATIONS: DEGENERATIVE ARTHRITIS TECHNIQUE: 4 views of each knee acquired COMPARISON: Left knee radiographs 09/15/2019. FINDINGS: Bones: No acute fractures or dislocations. No suspicious bony lesions. Postsurgical changes from be low knee amputations. There is chronic osseous fusion of the distal tibia and fibula at the margins o f the [id number] of this exam bilaterally. Joint spaces within the knees are maintained. Soft tissues: No joint effusion. No suspicious soft tissue calcifications. IMPRESSION: Bilateral chronic postsurgical changes involving the lower legs. No significant arthriti c changes are seen in the knees. Reviewed by: Marcos Sorenson MD on 11/29/2021 9:19 PM PST Approved by: Marcos Sorenson MD on 11/29/2021 9:19 PM PST Station ID: [id number]
--- NOTE | 2021-11-29 21:22 | XRAY Report ---
PROCEDURE: Lumbar Spine Complete INDICATIONS: POLYARTHRALGIA; EOSINOPHILIC GASTRITIS; ARTHRALGIA OF BOTH HANDS; TECHNIQUE: 5 views of the lumbar spine were acquired. COMPARISON: None. FINDINGS: Bones: 5 [id number] vertebrae are present. Mild straightening of the normal lumbar lordosis is most likely secondary to positioning. No vertebral body compression fractures. No suspicious bony le sions. No significant disc space narrowing is seen. Mild multilevel facet hypertrophy. Oblique views demonstrate no evidence of spondylolysis. Soft tissues: Overlying bowel gas pattern is normal. No suspicious soft tissue calcifications. Rig ht coronary cholecystectomy clips. IMPRESSION: No acute osseous abnormality. Mild multilevel facet hypertrophy. Reviewed by: Marcos Sorenson MD on 11/29/2021 9:20 PM PST Approved by: Marcos Sorenson MD on 11/29/2021 9:20 PM PST Station ID: [id number]
--- NOTE | 2021-11-29 21:26 | XRAY Report ---
PROCEDURE: Cervical Spine Complete INDICATIONS: DEGENERATIVE ARTHRITIS TECHNIQUE: 5 views of the cervical spine acquired. COMPARISON: None. FINDINGS: Bones: No acute fractures or dislocations to the T1 level. Multilevel uncovertebral joint and facet hypertrophy are seen. Oblique images demonstrate mild left neural foraminal narrowing at the C3-4 an d C5-6 levels and mild right neural foraminal narrowing at the C2-3, C3-4, and C5-6 levels. Bilateral small cervical ribs are seen at the C7 level, an anatomic variant. Soft tissues: No prevertebral soft tissue swelling. IMPRESSION: 1.No acute osseous abnormality. 2.Mild multilevel degenerative changes with mild neural foraminal narrowing. Cervical spine MRI could be obtained for further evaluation if indicated clinically. 3.Bilateral cervical ribs. Reviewed by: Marcos Sorenson MD on 11/29/2021 9:24 PM PST Approved by: Marcos Sorenson MD on 11/29/2021 9:24 PM PST Station ID: [id number]
--- NOTE | 2021-11-29 21:27 | XRAY Report ---
PROCEDURE: Shoulder 3 View BILAT INDICATIONS: DEGEERATIVE ARTHRITIS TECHNIQUE: 3 views of each shoulder were acquired. COMPARISON: None. FINDINGS: Bones: No acute fractures or dislocations. No suspicious bony lesions. Visualized ribs appear inta ct. Minimal bilateral acromioclavicular joint osteoarthrosis no significant glenohumeral degenerativ e changes. Soft tissues: No suspicious soft tissue calcifications. IMPRESSION: No acute osseous abnormality. If symptoms persist or there is continued clinical concern , further evaluation with MRI or CT may be helpful. Reviewed by: Marcos Sorenson MD on 11/29/2021 9:25 PM PST Approved by: Marcos Sorenson MD on 11/29/2021 9:25 PM PST Station ID: [id number]
--- NOTE | 2021-11-29 21:28 | XRAY Report ---
PROCEDURE: Elbow 3 View BILAT INDICATIONS: DEGENERATIVE ARTHRITIS TECHNIQUE: 3 views of each elbow were acquired. COMPARISON: None. FINDINGS: Bones: No acute fractures or dislocations. No suspicious bony lesions. No significant arthritic ch anges. Soft tissues: No elbow joint effusion. No suspicious soft tissue calcifications. IMPRESSION: No acute osseous abnormality. If symptoms persist or there is continued clinical concern, further ector luation with MRI or CT may be helpful. Reviewed by: Marcos Sorenson MD on 11/29/2021 9:26 PM PST Approved by: Marcos Sorenson MD on 11/29/2021 9:26 PM PST Station ID: [id number]
--- NOTE | 2021-11-29 21:33 | XRAY Report ---
PROCEDURE: Hand 3 View BILAT INDICATIONS: DEGENERATIVE ARTHRITIS TECHNIQUE: 3 views of the hands acquired. COMPARISON: None. FINDINGS: Bones: No acute fractures or dislocations. No suspicious bony lesions. Abnormal configuration of t he bilateral first metacarpals, trapezium, and triscaphe joints is seen, consistent with congenital v ariation. There is mild hyperextension and radial subluxation of the first metacarpophalangeal joints bilaterally that appears to vary with positioning, likely related to the congenital variant. Hypopla meliton of the ulnar styloids is seen. The left scaphoid appears diminutive and the bilateral lunate bone s appear somewhat large. Soft tissues: No suspicious soft tissue calcifications. 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 No significant oste oarthrosis is seen. Reviewed by: Marcos Sorenson MD on 11/29/2021 9:32 PM PST Approved by: Marcos Sorenson MD on 11/29/2021 9:32 PM PST Station ID: [id number]
--- NOTE | 2021-11-29 21:35 | XRAY Report ---
PROCEDURE: Hips 2V BILAT INDICATIONS: DEGENERATIVE ARTHRITIS TECHNIQUE: AP view of the pelvis and lateral views of each hip acquired. COMPARISON: None. FINDINGS: Bones: No acute fractures or dislocations. Borderline coxa [place] configuration of the proximal femur s bilaterally, more prominent on the right. No suspicious bony lesions. The visualized pelvic ring a ppears intact. Soft tissues: No suspicious soft tissue calcifications or masses. IMPRESSION: No acute osseous abnormality. No significant osteoarthrosis. Reviewed by: Marcos Sorenson MD on 11/29/2021 9:33 PM PST Approved by: Marcos Sorenson MD on 11/29/2021 9:33 PM PST Station ID: [id number]
--- NOTE | 2021-11-29 22:16 | XRAY Report ---
PROCEDURE: SI Joints INDICATIONS: DEGENERATIVE ARTHRITIS TECHNIQUE: 3 views of the sacroiliac joints were acquired. COMPARISON: None. FINDINGS: Bones: No bony erosions or ankylosis. No suspicious bony lesions. No fractures. Soft tissues: Overlying bowel gas pattern is normal. No suspicious soft tissue densities. IMPRESSION: Intact sacroiliac joints. No signs of sacroiliitis or osteoarthrosis. Reviewed by: Marcos Sorenson MD on 11/29/2021 10:15 PM PST Approved by: Marcos Sorenson MD on 11/29/2021 10:15 PM PST Station ID: [id number]
[2021-12-03 13:16] LABS: DNA (DS) ANTIBODY <1 IU/mL
[2021-12-03 17:26] LABS: CYCLIC CITRULL PEPTIDE CCP IGG <16 UNITS
[2021-12-04 23:26] LABS: ANA PATTERN Nuclear, Nucleolar; ANA SCREEN POSITIVE (NEGATIVE); ANA TITER 1:40 titer
== END 2021-11-29 15:43 | disposition home or self-care (01) ==
LOC: LAB 15:42
PROVIDERS: ATTEND Internal Medicine Rheumatology
DX: M25.50 Pain in unspecified joint (principal); K52.81 Eosinophilic gastritis or gastroenteritis; M25.541 Pain in joints of right hand; M25.542 Pain in joints of left hand; M54.50 Low back pain, unspecified; Q72.893 Other reduction defects of lower limb, bilateral; M47.812 Spondylosis without myelopathy or radiculopathy, cervical region; M48.02 Spinal stenosis, cervical region
CPT/HCPCS: 36415; 80053; 81599; 82550; 85025; 85651; 86021; 86038; 86140; 86160; 86162; 86200; 86225; 86430; 86812